=== PATIENT | male | born 1985 | race Caucasian/White ===

== ENCOUNTER → 2020-02-19 | Outpatient (CLI) | payer OTHER ==
[~2020-02-19] MED LIST: ANTIBIOTIC PO; DEXT10TA9 PO; HYDR1CAP2 PO
--- NOTE | 2020-02-19 08:10 | Diagnostic Imaging Report ---
INDICATION: Epigastric pain. TECHNIQUE: Multiple grayscale sonographic images were obtained of the right upper quadrant of the abdomen. CORRELATION STUDY: None FINDINGS: LIVER: There is uniform echotexture within the visualized portions of the liver. There is normal, hepatopedal direction of flow within the main portal vein. Liver length is normal, 18.6 cm. GALLBLADDER: The gallbladder demonstrates no definitive shadowing gallstones. No abnormal gallbladder wall thickening or pericholecystic fluid. COMMON BILE DUCT: Nondilated at 4 mm. PANCREAS: Visualized portions appearing unremarkable. RIGHT KIDNEY: Measures 10.9 x 5.3 x 5.3 cm. No hydronephrosis. AORTA/IVC: Not well visualized. OTHER: None. IMPRESSION: 1. Negative appearing right upper quadrant abdominal ultrasound. Dictated by: Dictated on workstation # [id number]
== END ==
LOC: RAD 07:03
PROVIDERS: ATTEND Surgery
DX: R10.13 Epigastric pain (principal)
CPT/HCPCS: 76705

== ENCOUNTER 2020-02-21 05:36 | Outpatient (RCR) | payer OTHER ==
[~2020-02-21] VITALS: Ht 180.3 cm; Wt 116.8 kg
== END 2020-02-21 13:42 | disposition home or self-care (01) ==
LOC: PREOP 05:36
PROVIDERS: ATTEND Surgery
DX: Z01.812 Encounter for preprocedural laboratory examination (principal); Z20.828 Contact with and (suspected) exposure to other viral communicable diseases; R14.2 Eructation; R10.13 Epigastric pain
CPT/HCPCS: 87635

== ENCOUNTER 2020-02-25 10:09 | Day surgery (SDC) | payer OTHER ==
[~2020-02-25] VITALS: Ht 180.3 cm; Wt 116.8 kg
[2020-02-25] MEDS ORDERED: LACTATED RINGERS 1,000 ML IV STA (10:16)
[2020-02-25] MEDS ORDERED: LACTATED RINGERS 1,000 ML IV ONE (10:17)
[2020-02-25 10:20] VITALS: BP 132/86
[2020-02-25] MEDS ORDERED: HURRICAINE EXT TUBE (BENZOCAINE) XX PRN (10:30)
--- NOTE | 2020-02-25 10:31 | Progress Note-Pre Operative ---
Pre-Operative Progress Note H&P Reviewed The H&P was reviewed, patient examined and no changes noted. Time Seen by Provider: 10:30 Date H&P Reviewed: Feb 25, 2020 Time H&P Reviewed: 10:30 Pre-Operative Diagnosis: Epigastric pain TOSHIA LEYVA DO Feb 25, 2020 10:31
--- OUTSIDE RECORDS SUMMARY | 2020-02-25 10:36 | XMS REPORT | CCD ---
Author Norbert Mancia Organization Celeste Pereyra MD, [facility] Address [address] [place] [address] Phone Care Team Providers Care Behavioral Health Case Manager Name Role Phone PP Unavailable CCM Unavailable Summary Purpose Interface Exchange Insurance Providers Payer name Policy type / Coverage type Covered alliance party ID Effective Begin Date Effective End Date [employer] Commercial Insurance [id number] Unknown Family history Mother Diagnosis Age At Onset Cancer Unknown Diabetes Unknown Social History Social History Element Codes Description Effective Dates Marital status Unknown M kelvin Bosch 09/14/[address]: 7385213 Former smoker Quit in October 2017 11/25/2017 Number of children Unknown 1 12/22/2015 Number of years using tobacco Unknown 5 - 10 12/22/2015 Number of cigarettes/day Unknown 10 (Half a pack) 12/22/2015 Alcohol history Unknown occasionally drinks alcohol 12/22/2015 Frequency of drinks SNOMED CT: 882624341 1-4 drinks per week 12/22/2015 Allergies, Adverse Reactions, Alerts Substance Reaction Codes Entered Date Inactivated Date Status Penicillin Unknown 09/14/2018 No In active Date Active Past Medical History Illness Codes Condition Status Onset Date Resolved Date Allergic contact jarrod matitis due to plants, except food ICD-9: 692.6 ICD-10: L23.7 Active 04/11/2019 Unknown Hidradenitis suppura tiva ICD-9: 705.83 ICD-10: L73.2 Active 05/04/2016 Unknown Localized edema ICD-9: 782.3 ICD-10: R60.0 Active 02/09/2019 Unknown Other fatigue ICD-9: 780.79 ICD-10: R53.83 Active 02/09/2019 Unknown Other malaise ICD-9: 780.79 ICD-10: R53.81 Active 02/09/2019 Unknown Acute laryngopharyng itis ICD-9: 465.0 ICD-10: J06.0 Active 09/14/2018 Unknown Fever, unspecified ICD- 9: 780.60 ICD-10: R50.9 Active 09/14/2018 Unknown Muscle spasm of back ICD-9: 724.8 ICD-10: M62.830 Active 08/01/2018 Unknown Pain in left shoulder ICD-9: 719.41 ICD-10: M25.512 Active 08/01/2018 Unknown Attention-deficit hy peractivity disorder, predominantly inattentive type ICD-9: 314.01 ICD-10: F90.0 Active 12/12/2017 Unknown Generalized anxiety disorder ICD-9: 300.02 ICD-10: F41.1 Active 02/04/2016 Unknown Cutaneous abscess of buttock ICD-9: 682.5 ICD-10: L02.31 Active 11/17/2016 Unknown Cutaneous abscess of left axilla ICD-9: 682.3 ICD-10: L02.412 Active 03/07/2016 Unknown Pain in right hand ICD- 9: 729.5 ICD-10: M79.641 Active 09/27/2016 Unknown Cutaneous abscess of right lower limb ICD-9: 682.6 ICD-10: L02.415 Active 05/04/2016 Unknown Other acute sinusitis ICD-9: 461.8 ICD-10: J01.80 Active 03/07/2016 Unknown Other otitis externa , right ear ICD-9: 380.22 ICD-10: H60.8X1 Active 03/07/2016 Unknown Acne vulgaris ICD-9: 706.1 ICD-10: L70.0 Active 02/04/2016 Unknown Plantar wart ICD-9: 078.12 ICD-10: B07.0 Active 02/04/2016 Unknown 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] ICD-9: 705.81 ICD-10: L30.1 Active 12/21/2015 Unknown Other obesity due to excess calories ICD-9: 278.00 ICD-10: E66.09 Active 12/21/2015 Unknown Problems Condition Codes Effectiv e Dates Condition Status Allergic contact jarrod matitis due to plants, except food ICD-9: 692.6 ICD-10: L23.7 04/11/2019 Active Hidradenitis suppura tiva ICD-9: 705.83 ICD-10: L73.2 05/04/2016 Active Localized edema ICD-9: 782.3 ICD-10: R60.0 02/09/2019 Active Other fatigue ICD-9: 780.79 ICD-10: R53.83 02/09/2019 Active Other malaise ICD-9: 780.79 ICD-10: R53.81 02/09/2019 Active Acute laryngopharyng itis ICD-9: 465.0 ICD-10: J06.0 09/14/2018 Active Fever, unspecified ICD- 9: 780.60 ICD-10: R50.9 09/14/2018 Active Muscle spasm of back ICD-9: 724.8 ICD-10: M62.830 08/01/2018 Active Pain in left shoulder ICD-9: 719.41 ICD-10: M25.512 08/01/2018 Active Attention-deficit hy peractivity disorder, predominantly inattentive type ICD-9: 314.01 ICD-10: F90.0 12/12/2017 Active Generalized anxiety disorder ICD-9: 300.02 ICD-10: F41.1 02/04/2016 Active Cutaneous abscess of buttock ICD-9: 682.5 ICD-10: L02.31 11/17/2016 Active Cutaneous abscess of left axilla ICD-9: 682.3 ICD-10: L02.412 03/07/2016 Active Pain in right hand ICD- 9: 729.5 ICD-10: M79.641 09/27/2016 Active Cutaneous abscess of right lower limb ICD-9: 682.6 ICD-10: L02.415 05/04/2016 Active Other acute sinusitis ICD-9: 461.8 ICD-10: J01.80 03/07/2016 Active Other otitis externa , right ear ICD-9: 380.22 ICD-10: H60.8X1 03/07/2016 Active Acne vulgaris ICD-9: 706.1 ICD-10: L70.0 02/04/2016 Active Plantar wart ICD-9: 078.12 ICD-10: B07.0 02/04/2016 Active 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] ICD-9: 705.81 ICD-10: L30.1 12/21/2015 Active Other obesity due to excess calories ICD-9: 278.00 ICD-10: E66.09 12/21/2015 Active Medications Medication Codes Instruc tions Start Date Stop Date Sta tus Fill Instructions Kenalog 40 mg/mL rodrigo pension for injection RxNorm: 9408514 Milliliter(s) Inj 04/11/2019 04/11/2019 In active prednisone 10 mg tablet RxNorm: 153616 1 Tablet(s) PO 04/11/2019 No Stop Date Active 6,5,4,3,2,1 Adderall 10 mg tablet RxNorm: 931080 1 Tablet(s) PO BID 02/20/2019 03/21/2019 Inactive potassium chloride E R 10 mEq tablet,extended release RxNorm: 172178 1 Tablet(s) PO daily when taking your lasix 02/09/2019 02/11/2019 Inactive prednisone 20 mg tablet RxNorm: 836471 3 Tablet(s) PO daily 02/09/2019 02/13/2019 Inactive doxycycline hyclate 100 mg capsule RxNorm: 1845340 1 Capsule(s) PO BID 02/09/2019 02/18/2019 In active Lasix 20 mg tablet RxNorm: 421801 1 Tablet(s) PO daily 02/09/2019 02/11/2019 Inactive Adderall 10 mg tablet RxNorm: 774171 1 Tablet(s) PO BID 01/11/2019 02/09/2019 Inactive Kenalog 40 mg/mL rodrigo pension for injection RxNorm: 5757847 Milliliter(s) Inj 12/29/2018 12/29/2018 In active prednisone 20 mg tablet RxNorm: 614335 3 Tablet(s) PO daily 12/29/2018 01/02/2019 Inactive doxycycline hyclate 100 mg capsule RxNorm: 5828231 1 Capsule(s) PO BID 12/29/2018 01/07/2019 In active Adderall 10 mg tablet RxNorm: 563862 1 Tablet(s) PO BID 12/15/2018 01/10/2019 Inactive Bactrim DS 800 mg-16 0 mg tablet RxNorm: 516114 1 Tablet(s) PO BID 11/06/2018 11/25/2018 Inactive prednisone 20 mg tablet RxNorm: 426782 3 Tablet(s) PO daily 11/06/2018 11/10/2018 Inactive cefdinir 300 mg capsule RxNorm: 140065 1 Capsule(s) PO BID 09/14/2018 09/23/2018 Inactive Zithromax Z-Molina 250 mg tablet RxNorm: 315465 1 Tablet(s) PO UD 09/07/2018 09/11/2018 Inactive zpack as directed Adderall 10 mg tablet RxNorm: 440714 1 Tablet(s) PO BID 09/07/2018 10/06/2018 Inactive Zorvolex 18 mg capsule RxNorm: 9485675 1 Capsule(s) PO TID 08/10/2018 No Stop Date Active tramadol 50 mg tablet RxNorm: 273486 1 Tablet(s) PO QID as needed 08/09/2018 08/18/2018 Inactive baclofen 10 mg tablet RxNorm: 492538 1 Tablet(s) PO TID as needed muscle spas ms 08/09/2018 08/13/2018 In active baclofen 10 mg tablet RxNorm: 084004 1 Tablet(s) PO TID as needed muscle spas ms 08/01/2018 08/05/2018 In active prednisone 20 mg tablet RxNorm: 566661 3 Tablet(s) PO daily 08/01/2018 08/05/2018 Inactive diazepam 2 mg tablet RxNorm: 530327 Tablet(s) TAKE 1/2 TABLET BY MOUTH TWICE DAILY NEEDED FOR ANXIETY 07/21/2018 08/19/2018 Inactive Adderall 10 mg tablet RxNorm: 230084 1 Tablet(s) PO BID 07/14/2018 08/12/2018 Inactive Adderall 10 mg tablet RxNorm: 641312 1 Tablet(s) PO BID 05/26/2018 06/24/2018 Inactive Adderall 10 mg tablet RxNorm: 754456 1 Tablet(s) PO BID 04/28/2018 05/25/2018 Inactive Adderall 5 mg tablet RxNorm: 777842 1 Tablet(s) PO QAM as needed 04/04/2018 04/27/2018 Inactive diazepam 2 mg tablet RxNorm: 724643 Tablet(s) TAKE 1/2 TABLET BY MOUTH TWICE DAILY NEEDED FOR ANXIETY 04/04/2018 05/02/2018 Inactive Adderall XR 20 mg ca psule,extended release RxNorm: 569647 1 Capsule(s) PO daily 03/13/2018 04/03/2018 In active Kenalog 40 mg/mL rodrigo pension for injection RxNorm: 9123177 1 Milliliter(s) Inj 03/01/2018 03/01/2018 In active Adderall 5 mg tablet RxNorm: 723096 1 Tablet(s) PO QAM as needed 02/13/2018 03/14/2018 Inactive Adderall XR 20 mg ca psule,extended release RxNorm: 251063 1 Capsule(s) PO daily 02/13/2018 03/12/2018 In active prednisone 20 mg tablet RxNorm: 915548 2 Tablet(s) PO daily 02/10/2018 02/14/2018 Inactive Bactrim DS 800 mg-16 0 mg tablet RxNorm: 770151 1 Tablet(s) PO BID 01/16/2018 02/04/2018 Inactive Adderall 5 mg tablet RxNorm: 307544 2 Tablet(s) PO QAM and 1 PO QPM 01/16/2018 02/12/2018 In active Bactrim DS 800 mg-16 0 mg tablet RxNorm: 441877 1 Tablet(s) PO BID 01/04/2018 01/15/2018 Inactive Adderall 5 mg tablet RxNorm: 018427 2 Tablet(s) PO QAM and 1 PO QPM 12/13/2017 01/11/2018 In active Zithromax Z-Molina 250 mg tablet RxNorm: 650540 1 Tablet(s) PO UD 11/25/2017 03/12/2018 Inactive diazepam 2 mg tablet RxNorm: 195816 Tablet(s) TAKE 1/2 TABLET BY MOUTH TWICE DAILY NEEDED FOR ANXIETY 11/18/2017 12/17/2017 Inactive diazepam 2 mg tablet RxNorm: 951474 Tablet(s) TAKE 1/2 TABLET BY MOUTH TWICE DAILY NEEDED FOR ANXIETY 08/30/2017 10/28/2017 Inactive diazepam 2 mg tablet RxNorm: 554685 Tablet(s) TAKE 1/2 TABLET BY MOUTH TWICE DAILY NEEDED FOR ANXIETY 07/19/2017 08/29/2017 Inactive diazepam 2 mg tablet RxNorm: 299527 TAKE 1/2 TABLET BY MOUTH TWICE DAILY NEEDED FOR ANXIETY 07/15/2017 07/18/2017 Inactive Bactrim DS 800 mg-16 0 mg tablet RxNorm: 357925 1 Tablet(s) PO BID 06/01/2017 06/20/2017 Inactive diazepam 2 mg tablet RxNorm: 018475 1/2 Tablet(s) PO BID as needed anxiety 06/01/2017 06/29/2017 In active tramadol 50 mg tablet RxNorm: 492701 1 Tablet(s) PO QID as needed 04/14/2017 04/23/2017 Inactive Bactrim DS 800 mg-16 0 mg tablet RxNorm: 644081 1 Tablet(s) PO BID 04/14/2017 05/03/2017 Inactive diazepam 2 mg tablet RxNorm: 185613 1/2 Tablet(s) PO BID as needed anxiety 03/02/2017 04/30/2017 In active Zithromax Z-Molina 250 mg tablet RxNorm: 214693 1 Tablet(s) PO UD 03/02/2017 07/18/2017 Inactive Bactrim DS 800 mg-16 0 mg tablet RxNorm: 354419 1 Tablet(s) PO BID 03/01/2017 03/20/2017 Inactive diazepam 2 mg tablet RxNorm: 292112 1/2 Tablet(s) PO BID as needed anxiety 01/21/2017 02/19/2017 In active Bactrim DS 800 mg-16 0 mg tablet RxNorm: 026623 1 Tablet(s) PO BID 01/21/2017 01/30/2017 Inactive Bactrim DS 800 mg-16 0 mg tablet RxNorm: 246391 1 Tablet(s) PO BID 11/17/2016 11/26/2016 Inactive diazepam 2 mg tablet RxNorm: 203400 1/2 Tablet(s) PO BID as needed anxiety 11/12/2016 01/10/2017 In active diazepam 2 mg tablet RxNorm: 768599 1/2 Tablet(s) PO BID as needed anxiety 10/18/2016 12/14/2016 In active Zithromax Z-Molina 250 mg tablet RxNorm: 423699 1 Tablet(s) PO UD 09/27/2016 03/01/2017 Inactive diazepam 2 mg tablet RxNorm: 085418 1/2 Tablet(s) PO BID as needed anxiety 09/13/2016 11/11/2016 In active diazepam 2 mg tablet RxNorm: 674539 1/2 Tablet(s) PO BID as needed anxiety 07/07/2016 09/17/2016 In active Levaquin 500 mg tablet RxNorm: 123489 1 Tablet(s) PO daily 06/01/2016 05/31/2016 Inactive Levaquin 500 mg tablet RxNorm: 162418 1 Tablet(s) PO daily 06/01/2016 06/07/2016 Inactive Levaquin 500 mg tablet RxNorm: 292514 1 Tablet(s) PO daily 05/05/2016 05/04/2016 Inactive Levaquin 500 mg tablet RxNorm: 166069 1 Tablet(s) PO daily 05/05/2016 05/11/2016 Inactive minocycline 100 mg c apsule RxNorm: 804684 1 CAPSULE(S) PO BID W HEN NOT HAVING ACUTE FLARE DECREASE TO ONCE DAILY 04/21/2016 05/20/2016 Inactive Ciprodex 0.3 %-0.1 % ear drops,suspension RxNorm: 009095 4 Drop(s) OTIC BID 03/08/2016 03/14/2016 In active Zithromax Z-Molina 250 mg tablet RxNorm: 400323 Tablet(s) PO 03/08/2016 09/26/2016 Inactive diazepam 2 mg tablet RxNorm: 655300 1/2 Tablet(s) PO BID as needed anxiety 2016 04/18/2016 In active mupirocin 2 % topica l ointment RxNorm: 481138 1 Application TOP BID 02/05/2016 No Stop Date Active minocycline 100 mg c apsule RxNorm: 623112 1 Capsule(s) PO BID w hen not having acute flare decrease to once daily 02/05/2016 03/05/2016 Inactive Bactrim DS 800 mg-16 0 mg tablet RxNorm: 673728 1 Tablet(s) PO BID 02/05/2016 02/18/2016 Inactive diazepam 2 mg tablet RxNorm: 359134 1/2 Tablet(s) PO BID as needed anxiety 02/05/2016 02/05/2016 In active betamethasone alberto te 0.1 % topical cream RxNorm: 541821 1 Application TOP BID as needed rash 12/22/2015 No Stop Date Active minocycline 100 mg c apsule RxNorm: 363190 1 Capsule(s) PO BID w hen not having acute flare decrease to once daily 12/22/2015 01/20/2016 Inactive Medication Administered Medication Codes Instruc tions Start Date Status Kenalog 40 mg/mL suspension for injection RxNorm: 2506180 Milliliter 04/11/2019 Ac tive Kenalog 40 mg/mL suspension for injection RxNorm: 5858122 Milliliter 12/29/2018 No longer Active Kenalog 40 mg/mL suspension for injection RxNorm: 2781218 1Milliliter 03/01/2018 N o longer Active Immunizations No Immunization data Assessments Condition Codes Effectiv e Dates Allergic contact dermatitis due to plants, except food ICD-10: L23.7 ICD-9: 692.6 04/11/2019 Localized edema ICD-10: R60.0 ICD-9: 782.3 02/09/2019 Other malaise ICD-10: R53.81 ICD-9: 780.79 02/09/2019 Hidradenitis suppurativa ICD-10: L73 .2 ICD-9: 705.83 02/09/2019 Other fatigue ICD-10: R53.83 ICD-9: 780.79 02/09/2019 Acute laryngopharyngitis ICD-10: J06 .0 ICD-9: 465.0 09/14/2018 Fever, unspecified ICD-10: R50.9 ICD-9: 780.60 09/14/2018 Pain in left shoulder ICD-10: M25.51 2 ICD-9: 719.41 08/09/2018 Muscle spasm of back ICD-10: M62.830 ICD-9: 724.8 08/09/2018 Attention-deficit hyperactivity disorder , 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 ICD-9: 314.01 02/10/2018 Generalized anxiety disorder ICD-10: F41.1 ICD-9: 300.02 02/10/2018 Cutaneous abscess of buttock ICD-10: L02.31 ICD-9: 682.5 11/17/2016 Cutaneous abscess of left axilla ICD -10: L02.412 ICD-9: 682.3 09/27/2016 Pain in right hand ICD-10: M79.641 ICD-9: 729.5 09/27/2016 Cutaneous abscess of right lower limb ICD-10: L02.415 ICD-9: 682.6 05/05/2016 Other otitis externa, right ear ICD- 10: H60.8X1 ICD-9: 380.22 03/08/2016 Other acute sinusitis ICD-10: J01.80 ICD-9: 461.8 03/08/2016 Acne vulgaris ICD-10: L70.0 ICD-9: 706.1 02/05/2016 Plantar wart ICD-10: B07.0 ICD-9: 078.12 02/05/2016 Other obesity due to excess calories ICD-10: E66.09 ICD-9: 278.00 12/22/2015 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] ICD-10: L30. 1 ICD-9: 705.81 12/22/2015 Reason For Visit Reason For Visit Effective Dates Notes rash 04/11/2019 edema 02/09/2019 skin lesion 12/29/2018 sore throat 09/14/2018 shoulder pain 08/09/2018 shoulder pain 08/01/2018 medication follow up 03/01/2018 medication follow up 02/10/2018 anxiety 12/12/2017 diaze mere anxiety 11/25/2017 diaze mere skin lesion 03/02/2017 skin lesion 11/17/2016 skin lesion 09/27/2016 skin lesion 05/05/2016 earache 03/08/2016 anxiety 02/05/2016 anxiety 12/22/2015 Results Observation Observation Code Item Item Code Result Date C-Reactive Protein Qnt Crqnt CRP 0.4 mg/dl 02/09/2019 Comp Metabolic Vjw083 NA 138 mEq/L 02/09/2019 Comp Metabolic Ois497 K 3.8 mEq/L 02/09/2019 Comp Metabolic Ywm902 CL 102 mEq/L 02/09/2019 Comp Metabolic Wqu846 CO2 26.0 mEq/L 02/09/2019 Comp Metabolic Jro758 AN ION GAP 14 02/09/2019 Comp Metabolic Rtv083 GL UCOSE 92 mg/dL 02/09/2019 Comp Metabolic Hbp342 Cr eat 1.0 mg/dL 02/09/2019 Comp Metabolic Ckg365 eG FR 88 ml/min/1.73m2 02/09 Comp Metabolic Rqr272 BUN 23 mg/dL 02/09/2019 Comp Metabolic Vxy171 B/ C Ratio 22.5 Ratio 02/09/2019 Comp Metabolic Zur741 CA LCIUM 9.4 mg/dL 02/09/2019 Comp Metabolic Dec848 AL K PHOS 49 U/L 02/09/2019 Comp Metabolic Tqg736 T(SGOT) 22 U/L 02/09/2019 Comp Metabolic Bsd674 AL T(SGPT) 26 U/L 02/09/2019 Comp Metabolic Rxb072 BI LI T 0.4 mg/dL 02/09/2019 Comp Metabolic Dcv696 AL BUMIN 4.3 g/dL 02/09/2019 Comp Metabolic Nis197 TP RO 7.0 g/dL 02/09/2019 Comp Metabolic Oyg666 GL OB 2.7 g/dL 02/09/2019 Comp Metabolic Zfa779 A/ G Ratio 1.6 Ratio 02/09/2019 Comp Metabolic Uml529 Os mo 279 mOsmo 02/09/2019 Cbc With Differential Ord2 WBC 12.56 K/ul 02/09/2019 Cbc With Differential Ord2 RBC 5.44 M/ul 02/09/2019 Cbc With Differential Ord2 HGB 16.2 g/dl 02/09/2019 Cbc With Differential Ord2 HCT 49.1 % 02/09/2019 Cbc With Differential Ord2 Neut% 65.9 % 02/09/2019 Cbc With Differential Ord2 Lymph% 26.0 % 02/09/2019 Cbc With Differential Ord2 MCV 90.3 fl 02/09/2019 Cbc With Differential Ord2 [place]% 6.4 % 02/09/2019 Cbc With Differential Ord2 MCH 29.8 pg 02/09/2019 Cbc With Differential Ord2 MCHC 33.0 pg 02/09/2019 Cbc With Differential Ord2 Eos% 1.4 % 02/09/2019 Cbc With Differential Ord2 PLT 248 K/ul 02/09/2019 Cbc With Differential Ord2 Baso% 0.3 % 02/09/2019 Cbc With Differential Ord2 RDW 14.4 % 02/09/2019 Cbc With Differential Ord2 Neut ABS# 8.26 K/ul 02/09/2019 Cbc With Differential Ord2 Lymph ABS# 3.27 K/ul 02/09/2019 Cbc With Differential Ord2 [place] ABS# 0.8 K/ul 02/09/2019 Cbc With Differential Ord2 Eos ABS# 0.2 K/ul 02/09/2019 Cbc With Differential Ord2 Baso ABS# 0.0 K/ul 02/09/2019 Sed Rate Ord21 ESR 2 mm/hr 02/09/2019 Tsh Ord6 TSH (3rd IS) 1.21 uIU/mL 02/09/2019 C RAP A SC 7307438 Strep A Negative 09/14/2018 C A/B FLU 1988846 Influe nza A Scr Negative 09/14/2018 C A/B FLU 0453740 Influe nza B Scr Negative 09/14/2018 C A/B FLU [id number] Influe nza Intrp B AG:PRID:PT:NOSE:NOM:IF See Footnote 09/14/2018 Tsh Ord6 hTSH II 1.82 uIU/mL 02/05/2016 Comp Metabolic Frv440 NA 139 mEq/L 02/05/2016 Comp Metabolic Nfg805 K 4.2 mEq/L 02/05/2016 Comp Metabolic Hgt453 CL 103 mEq/L 02/05/2016 Comp Metabolic Nnu345 CO2 29.0 mEq/L 02/05/2016 Comp Metabolic Tfg718 AN ION GAP 11 02/05/2016 Comp Metabolic Pjt799 GL UCOSE 71 mg/dL 02/05/2016 Comp Metabolic Vko322 Cr eat 0.9 mg/dL 02/05/2016 Comp Metabolic Cnj144 eG FR 101 ml/min/1.73m2 01/14 Comp Metabolic Cwm999 BUN 17 mg/dL 02/05/2016 Comp Metabolic Lui154 B/ C Ratio 18.5 Ratio 02/05/2016 Comp Metabolic Gzj542 CA LCIUM 9.4 mg/dL 02/05/2016 Comp Metabolic Ain019 AL K PHOS 63 U/L 02/05/2016 Comp Metabolic Tps266 T(SGOT) 30 U/L 02/05/2016 Comp Metabolic Giq526 AL T(SGPT) 40 U/L 02/05/2016 Comp Metabolic Nhn900 BI LI T 0.5 mg/dL 02/05/2016 Comp Metabolic Gzd492 AL BUMIN 4.2 g/dL 02/05/2016 Comp Metabolic Fbp831 TP RO 7.2 g/dL 02/05/2016 Comp Metabolic Gzt171 GL OB 3.0 g/dL 02/05/2016 Comp Metabolic Lnt663 A/ G Ratio 1.4 Ratio 02/05/2016 Comp Metabolic Vzx449 Os mo 278 mOsmo 02/05/2016 Cbc With Differential Ord2 WBC 12.43 K/ul 02/05/2016 Cbc With Differential Ord2 RBC 5.41 M/ul 02/05/2016 Cbc With Differential Ord2 HGB 16.4 g/dl 02/05/2016 Cbc With Differential Ord2 HCT 50.0 % 02/05/2016 Cbc With Differential Ord2 Neut% 66.4 % 02/05/2016 Cbc With Differential Ord2 MCV 92.4 fl 02/05/2016 Cbc With Differential Ord2 Lymph% 23.4 % 02/05/2016 Cbc With Differential Ord2 MCH 30.3 pg 02/05/2016 Cbc With Differential Ord2 [place]% 8.9 % 02/05/2016 Cbc With Differential Ord2 MCHC 32.8 pg 02/05/2016 Cbc With Differential Ord2 Eos% 1.1 % 02/05/2016 Cbc With Differential Ord2 PLT 199 K/ul 02/05/2016 Cbc With Differential Ord2 Baso% 0.2 % 02/05/2016 Cbc With Differential Ord2 RDW 14.2 % 02/05/2016 Cbc With Differential Ord2 Neut ABS# 8.24 K/ul 02/05/2016 Cbc With Differential Ord2 Lymph ABS# 2.91 K/ul 02/05/2016 Cbc With Differential Ord2 [place] ABS# 1.1 K/ul 02/05/2016 Cbc With Differential Ord2 Eos ABS# 0.1 K/ul 02/05/2016 Cbc With Differential Ord2 Baso ABS# 0.0 K/ul 02/05/2016 Review of Systems System Result Effective Dates Constitutional No recent illness 04/11/2019 Constitutional No chills 04/11/2019 Constitutional No diaphoresis 04/11/2019 Constitutional No fever 04/11/2019 Eyes No eye erythema Ears/Nose/Throat/Neck No nasal discharge 04/11/2019 Cardiovascular No chest pain/pressure 04/11/2019 Respiratory No cough Neurologic No alteration of consciousness 04/11/2019 Neurologic No mental status change 04/11/2019 Dermatologic rash 2018 Constitutional No recent illness 02/09/2019 Constitutional No chills 02/09/2019 Constitutional No diaphoresis 02/09/2019 Constitutional No fever 02/09/2019 Eyes No eye erythema Ears/Nose/Throat/Neck No nasal discharge 02/09/2019 Cardiovascular No chest pain/pressure 02/09/2019 Cardiovascular No dyspnea 02/09/2019 Respiratory No chest congestion 02/09/2019 Respiratory No cough Gastrointestinal No abdominal pain 02/09/2019 Neurologic No alteration of consciousness 02/09/2019 Neurologic No mental status change 02/09/2019 Dermatologic sores 02/09 Cardiovascular edema Constitutional No recent illness 12/29/2018 Constitutional No chills 12/29/2018 Constitutional No diaphoresis 12/29/2018 Constitutional No fever 12/29/2018 Eyes No eye erythema Ears/Nose/Throat/Neck No nasal discharge 12/29/2018 Cardiovascular No chest pain/pressure 12/29/2018 Respiratory No cough Neurologic No alteration of consciousness 12/29/2018 Neurologic No mental status change 12/29/2018 Dermatologic folliculitis 12/29/2018 Constitutional recent illness 09/14/2018 Constitutional anorexia 09/14/2018 Constitutional chills Constitutional night sweats 09/14/2018 Constitutional diaphoresis 09/14/2018 Constitutional fatigue 0 09/14/2018 Constitutional fever Constitutional No insomnia 09/14/2018 Constitutional No malaise 09/14/2018 Constitutional No weight loss 09/14/2018 Constitutional No weight gain 09/14/2018 Eyes No eye erythema Eyes No eye discharge Ears/Nose/Throat/Neck nasal discharge 09/14/2018 Ears/Nose/Throat/Neck otalgia 09/14/2018 Ears/Nose/Throat/Neck sore throat 09/14/2018 Respiratory cough 2018 Gastrointestinal No vomiting 09/14/2018 Gastrointestinal No nausea 09/14/2018 Gastrointestinal No diarrhea 09/14/2018 Genitourinary/Nephrology No dysuria 09/14/2018 Musculoskeletal myalgias 09/14/2018 Dermatologic No rash Constitutional No recent illness 08/09/2018 Constitutional No chills 08/09/2018 Constitutional No fever 08/09/2018 Eyes No eye erythema Ears/Nose/Throat/Neck No nasal discharge 08/09/2018 Cardiovascular No chest pain/pressure 08/09/2018 Cardiovascular No dyspnea 08/09/2018 Respiratory No cough Respiratory No dyspnea 1 10/10/2017 Musculoskeletal joint complaint 08/09/2018 Neurologic No alteration of consciousness 08/09/2018 Neurologic No mental status change 08/09/2018 Constitutional No recent illness 08/01/2018 Constitutional No chills 08/01/2018 Constitutional No fever 08/01/2018 Eyes No eye erythema Ears/Nose/Throat/Neck No nasal discharge 08/01/2018 Cardiovascular No chest pain/pressure 08/01/2018 Cardiovascular No dyspnea 08/01/2018 Respiratory No cough Respiratory No dyspnea 1 10/02/2017 Musculoskeletal joint complaint 08/01/2018 Neurologic No alteration of consciousness 08/01/2018 Neurologic No mental status change 08/01/2018 Constitutional No recent illness 03/01/2018 Constitutional No chills 03/01/2018 Constitutional No diaphoresis 03/01/2018 Constitutional No fever 03/01/2018 Eyes No eye erythema Ears/Nose/Throat/Neck No nasal allergies 03/01/2018 Ears/Nose/Throat/Neck No nasal discharge 03/01/2018 Cardiovascular No chest pain/pressure 03/01/2018 Respiratory No dyspnea 0 03/01/2018 Dermatologic sores 03/01 Neurologic No alteration of consciousness 03/01/2018 Neurologic No mental status change 03/01/2018 Constitutional No recent illness 02/10/2018 Constitutional No chills 02/10/2018 Constitutional No diaphoresis 02/10/2018 Constitutional No fever 02/10/2018 Eyes No eye erythema Ears/Nose/Throat/Neck No nasal discharge 02/10/2018 Ears/Nose/Throat/Neck No nasal allergies 02/10/2018 Cardiovascular No chest pain/pressure 02/10/2018 Cardiovascular No dyspnea 02/10/2018 Respiratory No cough Respiratory No chest congestion 02/10/2018 Gastrointestinal No abdominal pain 02/10/2018 Dermatologic No rash Dermatologic sores 02/10 Neurologic No alteration of consciousness 02/10/2018 Neurologic No mental status change 02/10/2018 Psychiatric anxiety 06/2 04/2018 Constitutional No recent illness 12/12/2017 Constitutional No chills 12/12/2017 Constitutional No diaphoresis 12/12/2017 Constitutional No fever 12/12/2017 Eyes No eye erythema Ears/Nose/Throat/Neck No nasal allergies 12/12/2017 Ears/Nose/Throat/Neck No nasal discharge 12/12/2017 Cardiovascular No chest pain/pressure 12/12/2017 Respiratory No chest congestion 12/12/2017 Respiratory No cough Dermatologic sores 12/12 Neurologic No alteration of consciousness 12/12/2017 Neurologic No mental status change 12/12/2017 Psychiatric anxiety 11/15 Constitutional No recent illness 11/25/2017 Constitutional No chills 11/25/2017 Constitutional No diaphoresis 11/25/2017 Constitutional No fever 11/25/2017 Eyes No eye erythema Ears/Nose/Throat/Neck No nasal allergies 11/25/2017 Ears/Nose/Throat/Neck No nasal discharge 11/25/2017 Cardiovascular No chest pain/pressure 11/25/2017 Dermatologic sores 11/25 Neurologic No alteration of consciousness 11/25/2017 Neurologic No mental status change 11/25/2017 Respiratory No cough Respiratory No chest congestion 11/25/2017 Psychiatric anxiety 11/13 Constitutional No recent illness 03/02/2017 Constitutional No chills 03/02/2017 Constitutional No diaphoresis 03/02/2017 Constitutional No fever 03/02/2017 Eyes No eye erythema Ears/Nose/Throat/Neck No nasal allergies 03/02/2017 Ears/Nose/Throat/Neck No nasal discharge 03/02/2017 Cardiovascular No chest pain/pressure 03/02/2017 Respiratory No dyspnea 0 03/02/2017 Dermatologic sores 03/02 Neurologic No alteration of consciousness 03/02/2017 Neurologic No mental status change 03/02/2017 Constitutional No recent illness 11/17/2016 Constitutional No fever 11/17/2016 Constitutional No diaphoresis 11/17/2016 Constitutional No chills 11/17/2016 Eyes No eye erythema 12/2016 Ears/Nose/Throat/Neck No nasal discharge 11/17/2016 Ears/Nose/Throat/Neck No nasal allergies 11/17/2016 Cardiovascular No chest pain/pressure 11/17/2016 Respiratory No dyspnea 0 11/17/2016 Dermatologic sores 11/17 Neurologic No alteration of consciousness 11/17/2016 Neurologic No mental status change 11/17/2016 Constitutional No recent illness 09/27/2016 Constitutional No fever 09/27/2016 Constitutional No chills 09/27/2016 Eyes No eye erythema Ears/Nose/Throat/Neck No nasal discharge 09/27/2016 Ears/Nose/Throat/Neck No nasal allergies 09/27/2016 Cardiovascular No chest pain/pressure 09/27/2016 Respiratory No cough Respiratory No chest congestion 09/27/2016 Respiratory No dyspnea 0 09/27/2016 Gastrointestinal No abdominal pain 09/27/2016 Musculoskeletal joint complaint 09/27/2016 Dermatologic sores 09/27 Neurologic No alteration of consciousness 09/27/2016 Neurologic No mental status change 09/27/2016 Constitutional No chills 05/05/2016 Constitutional No diaphoresis 05/05/2016 Constitutional No fever 05/05/2016 Ears/Nose/Throat/Neck No nasal allergies 05/05/2016 Ears/Nose/Throat/Neck No nasal discharge 05/05/2016 Cardiovascular No chest pain/pressure 05/05/2016 Cardiovascular No dyspnea 05/05/2016 Respiratory No dyspnea 0 05/05/2016 Gastrointestinal No constipation 05/05/2016 Gastrointestinal No diarrhea 05/05/2016 Musculoskeletal No joint complaint 05/05/2016 Dermatologic sores 05/05 Neurologic No alteration of consciousness 05/05/2016 Neurologic No mental status change 05/05/2016 Eyes No eye erythema Respiratory No chest congestion 05/05/2016 Constitutional No chills 03/08/2016 Constitutional No diaphoresis 03/08/2016 Constitutional No fever 03/08/2016 Eyes No eye erythema Cardiovascular No chest pain/pressure 03/08/2016 Cardiovascular No dyspnea 03/08/2016 Respiratory No dyspnea 0 03/08/2016 Neurologic No alteration of consciousness 03/08/2016 Neurologic No mental status change 03/08/2016 Psychiatric anxiety 02/13 Psychiatric No depression 03/08/2016 Constitutional recent illness 03/08/2016 Ears/Nose/Throat/Neck sinus congestion 03/08/2016 Ears/Nose/Throat/Neck otalgia 03/08/2016 Gastrointestinal No vomiting 03/08/2016 Gastrointestinal No nausea 03/08/2016 Dermatologic sores 03/08 Constitutional No recent illness 02/05/2016 Constitutional No diaphoresis 02/05/2016 Eyes No eye erythema Ears/Nose/Throat/Neck No nasal allergies 02/05/2016 Ears/Nose/Throat/Neck No nasal discharge 02/05/2016 Cardiovascular No chest pain/pressure 02/05/2016 Cardiovascular No dyspnea 02/05/2016 Respiratory No chest congestion 02/05/2016 Respiratory No dyspnea 0 02/05/2016 Gastrointestinal No constipation 02/05/2016 Gastrointestinal No diarrhea 02/05/2016 Neurologic No alteration of consciousness 02/05/2016 Neurologic No mental status change 02/05/2016 Psychiatric anxiety 2 10/2015 Psychiatric No depression 02/05/2016 Constitutional No chills 02/05/2016 Constitutional No fever 02/05/2016 Musculoskeletal No joint complaint 02/05/2016 Dermatologic sores 02/04 Constitutional No recent illness 12/22/2015 Constitutional No malaise 12/22/2015 Constitutional No insomnia 12/22/2015 Constitutional No fever 12/22/2015 Constitutional No fatigue 12/22/2015 Constitutional No diaphoresis 12/22/2015 Constitutional No chills 12/22/2015 Eyes No eye erythema 04/2016 Ears/Nose/Throat/Neck No nasal allergies 12/22/2015 Ears/Nose/Throat/Neck No nasal discharge 12/22/2015 Cardiovascular No chest pain/pressure 12/22/2015 Cardiovascular No dyspnea 12/22/2015 Respiratory No cough 04/2016 Respiratory No chest congestion 12/22/2015 Respiratory No dyspnea 0 12/22/2015 Gastrointestinal No constipation 12/22/2015 Gastrointestinal No diarrhea 12/22/2015 Musculoskeletal swelling 12/22/2015 Dermatologic rash 2015 Neurologic No alteration of consciousness 12/22/2015 Neurologic No mental status change 12/22/2015 Psychiatric anxiety 05/0 04/2016 Psychiatric No depression 12/22/2015 Physical Exam Exam Name System Name It em Name Status Result Effective Dates Notes Full Exam - Dermatology Constitutional general appearance Overall: well nourished 04/11/2019 None Full Exam - Dermatology Constitutional general appearance Overall: well developed 04/11/2019 None Full Exam - Dermatology Constitutional general appearance Overall: in no acute distress 04/11/2019 None Full Exam - Dermatology Eyes conjunctiva/eyelids Overall: clear conjunctiva bilaterally 04/11/2019 None Full Exam - Dermatology Eyes conjunctiva/eyelids Overall: clear corneas 04/11/2019 None Full Exam - Dermatology Eyes conjunctiva/eyelids Overall: normal eyelids 04/11/2019 None Full Exam - Dermatology Ears/Nose/Throat lips/teeth/gingiva Overall: benign lips 04/11/2019 None Full Exam - Dermatology Ears/Nose/Throat oropharynx Overall: clear oral mucosa 04/11/2019 None Full Exam - Dermatology Respiratory respiratory effort/rhythm Overall: no retractions 04/11/2019 None Full Exam - Dermatology Respiratory respiratory effort/rhythm Overall: normal rate 04/11/2019 None Full Exam - Dermatology Musculoskeletal head and neck Overall: head atraumatic 04/11/2019 None Full Exam - Dermatology Psychiatric orientation Overall: oriented to person, place and time 04/11/2019 None Full Exam - Dermatology Psychiatric mood and affect Overall: normal mood and affect 04/11/2019 None Full Exam - Dermatology Integument insp & palp - left upper extremity Color: erythematous 04/11/2019 None Full Exam - Dermatology Integument insp & palp - left upper extremity Location: on the forearm 04/11/2019 None Full Exam - Dermatology Integument insp & palp - left upper extremity Location: on the wrist 04/11/2019 None Full Exam - Dermatology Integument insp & palp - left upper extremity Location: on the hand 04/11/2019 None Full Exam - Dermatology Integument insp & palp - left upper extremity Lesion: vesicle 04/11/2019 None Full Exam - Dermatology Integument insp & palp - right upper extremity Location: on the forearm 04/11/2019 None Full Exam - Dermatology Integument insp & palp - right upper extremity Color: erythematous 04/11/2019 None Full Exam - Dermatology Integument insp & palp - right upper extremity Lesion: vesicle 04/11/2019 None Full Exam - General 1994 Constitutional general appearance Overall: well developed 02/09/2019 None Full Exam - General 1994 Constitutional general appearance Overall: in no acute distress 02/09/2019 None Full Exam - General 1994 Constitutional general appearance Overall: well nourished 02/09/2019 None Full Exam - General 1994 Eyes conjunctiva/eyelids Overall: conjunctiva clear 02/09/2019 None Full Exam - General 1994 Eyes conjunctiva/eyelids Overall: cornea clear 02/09/2019 None Full Exam - General 1994 Eyes conjunctiva/eyelids Overall: eyelids normal 02/09/2019 None Full Exam - General 1994 Ears/Nose/Throat lips/teeth/gingiva Overall: benign lips 02/09/2019 None Full Exam - General 1994 Ears/Nose/Throat oral cavity/pharynx/larynx Overall: oral mucosa clear 02/09/2019 None Full Exam - General 1994 Ears/Nose/Throat oral cavity/pharynx/larynx Overall: oropharyngeal mucosa clear 02/09/2019 None Full Exam - General 1994 Respiratory auscultation Overall: breath sounds clear bilaterally 02/09/2019 None Full Exam - General 1994 Respiratory respiratory effort/rhythm Overall: no retractions 02/09/2019 None Full Exam - General 1994 Respiratory respiratory effort/rhythm Overall: normal rate 02/09/2019 None Full Exam - General 1994 Cardiovascular auscultation of heart Overall: regular rate 02/09/2019 None Full Exam - General 1994 Cardiovascular auscultation of heart Overall: normal heart sounds 02/09/2019 None Full Exam - General 1994 Musculoskeletal head and neck Overall: head atraumatic 02/09/2019 None Full Exam - General 1994 Neurologic cranial nerves Overall: crainial nerves 2 - 12 grossly intact 02/09/2019 None Full Exam - General 1994 Psychiatric orientation/consciousness Overall: oriented to person, place and time 02/09/2019 None Full Exam - General 1994 Psychiatric mood and affect Overall: normal mood and affect 02/09/2019 None Full Exam - General 1994 Psychiatric appearance Overall: well-groomed, good eye contact 02/09/2019 None Full Exam - Dermatology Constitutional general appearance Overall: well nourished 12/29/2018 None Full Exam - Dermatology Constitutional general appearance Overall: well developed 12/29/2018 None Full Exam - Dermatology Constitutional general appearance Overall: in no acute distress 12/29/2018 None Full Exam - Dermatology Eyes conjunctiva/eyelids Overall: clear conjunctiva bilaterally 12/29/2018 None Full Exam - Dermatology Eyes conjunctiva/eyelids Overall: clear corneas 12/29/2018 None Full Exam - Dermatology Eyes conjunctiva/eyelids Overall: normal eyelids 12/29/2018 None Full Exam - Dermatology Ears/Nose/Throat lips/teeth/gingiva Overall: benign lips 12/29/2018 None Full Exam - Dermatology Ears/Nose/Throat oropharynx Overall: clear oral mucosa 12/29/2018 None Full Exam - Dermatology Respiratory respiratory effort/rhythm Overall: no retractions 12/29/2018 None Full Exam - Dermatology Respiratory respiratory effort/rhythm Overall: normal rate 12/29/2018 None Full Exam - Dermatology Musculoskeletal head and neck Overall: head atraumatic 12/29/2018 None Full Exam - Dermatology Psychiatric orientation Overall: oriented to person, place and time 12/29/2018 None Full Exam - Dermatology Psychiatric mood and affect Overall: normal mood and affect 12/29/2018 None Full Exam - Dermatology Integument insp & palp - chest/axillae Lesion: pustule 12/29/2018 None Full Exam - Dermatology Integument insp & palp - chest/axillae Location: on the right axilla 12/29/2018 None Full Exam - Dermatology Integument insp & palp - chest/axillae Color: erythematous 12/29/2018 mild Full Exam - ENT Constitutional general appearance Overall: well nourished 09/14/2018 None Full Exam - ENT Constitutional general appearance Overall: well developed 09/14/2018 None Full Exam - ENT Constitutional general appearance Overall: in no acute distress 09/14/2018 None Full Exam - ENT Neurologic orientation Overall: oriented to person, place a nd time 09/14/2018 None Full Exam - ENT Integument inspection of skin Overall: no rash, lesions 09/14/2018 None Full Exam - ENT Lymphatic palpation of lymph nodes Overall: shotty lymphadenopathy 09/14/2018 None Full Exam - ENT Ears/Nose/Throat otoscopic exam Overall: external auditory canals normal 09/14/2018 None Full Exam - ENT Ears/Nose/Throat otoscopic exam Overall: tympanic membranes normal 09/14/2018 None Full Exam - ENT Ears/Nose/Throat oropharynx Left tonsil: exudate 09/14/2018 None Full Exam - ENT Ears/Nose/Throat oropharynx Left tonsil: erythematous 09/14/2018 None Full Exam - ENT Ears/Nose/Throat oropharynx Right tonsil: exudate 09/14/2018 None Full Exam - ENT Ears/Nose/Throat oropharynx Right tonsil: erythematous 09/14/2018 None Full Exam - ENT Face and Head palpation Overall: no induration, no tendernes s 09/14/2018 None Full Exam - ENT Respiratory auscultation Overall: breath sounds clear bilater ally 09/14/2018 None Full Exam - ENT Respiratory inspection Overall: no retractions 09/14/2018 None Full Exam - ENT Respiratory inspection Overall: normal rate None Full Exam - ENT Cardiovascular auscultation of heart Rate: tachycardia 09/14/2018 None Full Exam - ENT Cardiovascular auscultation of heart Rhythm: regular rhythm 09/14/2018 None Full Exam - Orthopedics Constitutional general appearance Overall: well nourished 08/09/2018 None Full Exam - Orthopedics Constitutional general appearance Overall: well developed 08/09/2018 None Full Exam - Orthopedics Constitutional general appearance Overall: in no acute distress 08/09/2018 None Full Exam - Orthopedics Eyes conjunctiva/eyelids Overall: conjunctiva clear 08/09/2018 None Full Exam - Orthopedics Eyes conjunctiva/eyelids Overall: eyelids normal 08/09/2018 None Full Exam - Orthopedics Ears/Nose/Throat lips/teeth/gingiva Overall: benign lips 08/09/2018 None Full Exam - Orthopedics Ears/Nose/Throat oral cavity/pharynx/larynx Overall: oral mucosa clear 08/09/2018 None Full Exam - Orthopedics Respiratory respiratory effort/rhythm Overall: no retractions 08/09/2018 None Full Exam - Orthopedics Respiratory respiratory effort/rhythm Overall: normal rate 08/09/2018 None Full Exam - Orthopedics MS: head/neck insp & palp - H/N Overall: head atraumatic 08/09/2018 None Full Exam - Orthopedics MS: spine/ri b/pelvis insp & palp - S/R/P Thoracic/lumbar muscles palpation: tender left parathoracic 08/09/2018 None Full Exam - Orthopedics MS: left upp er extremity insp & palp - LUE Shoulder: acromioclavicular joint tenderness 08/09/2018 None Full Exam - Orthopedics MS: left upp er extremity insp & palp - LUE Shoulder: tenderness @ biceps tendon 08/09/2018 None Full Exam - Orthopedics Psychiatric orientation/consciousness Overall: oriented to person, place and time 08/09/2018 None Full Exam - Orthopedics Psychiatric mood and affect Overall: normal mood and affect 08/09/2018 None Full Exam - Orthopedics Psychiatric appearance Overall: well-groomed, good eye contact 08/09/2018 None Full Exam - Orthopedics MS: head/neck insp & palp - H/N Cervical muscles palpation: tender left paracervical 08/09/2018 None Full Exam - Orthopedics Constitutional general appearance Overall: well nourished 08/01/2018 None Full Exam - Orthopedics Constitutional general appearance Overall: well developed 08/01/2018 None Full Exam - Orthopedics Constitutional general appearance Overall: in no acute distress 08/01/2018 None Full Exam - Orthopedics Eyes conjunctiva/eyelids Overall: conjunctiva clear 08/01/2018 None Full Exam - Orthopedics Eyes conjunctiva/eyelids Overall: eyelids normal 08/01/2018 None Full Exam - Orthopedics Ears/Nose/Throat lips/teeth/gingiva Overall: benign lips 08/01/2018 None Full Exam - Orthopedics Ears/Nose/Throat oral cavity/pharynx/larynx Overall: oral mucosa clear 08/01/2018 None Full Exam - Orthopedics Respiratory respiratory effort/rhythm Overall: no retractions 08/01/2018 None Full Exam - Orthopedics Respiratory respiratory effort/rhythm Overall: normal rate 08/01/2018 None Full Exam - Orthopedics Psychiatric orientation/consciousness Overall: oriented to person, place and time 08/01/2018 None Full Exam - Orthopedics Psychiatric mood and affect Overall: normal mood and affect 08/01/2018 None Full Exam - Orthopedics Psychiatric appearance Overall: well-groomed, good eye contact 08/01/2018 None Full Exam - Orthopedics MS: head/neck insp & palp - H/N Overall: head atraumatic 08/01/2018 None Full Exam - Orthopedics MS: left upp er extremity insp & palp - LUE Shoulder: tenderness @ biceps tendon 08/01/2018 None Full Exam - Orthopedics MS: left upp er extremity insp & palp - LUE Shoulder: acromioclavicular joint tenderness 08/01/2018 None Full Exam - Orthopedics MS: spine/ri b/pelvis insp & palp - S/R/P Thoracic/lumbar muscles palpation: tender left parathoracic 08/01/2018 None Full Exam - Dermatology Constitutional general appearance Overall: well nourished 03/01/2018 None Full Exam - Dermatology Constitutional general appearance Overall: well developed 03/01/2018 None Full Exam - Dermatology Constitutional general appearance Overall: in no acute distress 03/01/2018 None Full Exam - Dermatology Eyes conjunctiva/eyelids Overall: clear conjunctiva bilaterally 03/01/2018 None Full Exam - Dermatology Eyes conjunctiva/eyelids Overall: normal eyelids 03/01/2018 None Full Exam - Dermatology Ears/Nose/Throat lips/teeth/gingiva Overall: benign lips 03/01/2018 None Full Exam - Dermatology Respiratory respiratory effort/rhythm Overall: no retractions 03/01/2018 None Full Exam - Dermatology Respiratory respiratory effort/rhythm Overall: normal rate 03/01/2018 None Full Exam - Dermatology Integument insp & palp - genitalia/groin/buttocks Location: on the left groin 03/01/2018 None Full Exam - Dermatology Integument insp & palp - genitalia/groin/buttocks Location: on the right groin 03/01/2018 None Full Exam - Dermatology Psychiatric orientation Overall: oriented to person, place and time 03/01/2018 None Full Exam - Dermatology Psychiatric mood and affect Overall: normal mood and affect 03/01/2018 None Full Exam - General 1994 Constitutional general appearance Overall: well developed 02/10/2018 None Full Exam - General 1995 Constitutional general appearance Overall: in no acute distress 02/10/2018 None Full Exam - General 1994 Constitutional general appearance Overall: well nourished 02/10/2018 None Full Exam - General 1994 Eyes conjunctiva/eyelids Overall: eyelids normal 02/10/2018 None Full Exam - General 1994 Eyes conjunctiva/eyelids Overall: cornea clear 02/10/2018 None Full Exam - General 1994 Eyes conjunctiva/eyelids Overall: conjunctiva clear 02/10/2018 None Full Exam - General 1994 Ears/Nose/Throat lips/teeth/gingiva Overall: benign lips 02/10/2018 None Full Exam - General 1994 Ears/Nose/Throat oral cavity/pharynx/larynx Overall: oral mucosa clear 02/10/2018 None Full Exam - General 1994 Ears/Nose/Throat oral cavity/pharynx/larynx Overall: oropharyngeal mucosa clear 02/10/2018 None Full Exam - General 1994 Respiratory respiratory effort/rhythm Overall: normal rate 02/10/2018 None Full Exam - General 1994 Respiratory respiratory effort/rhythm Overall: no retractions 02/10/2018 None Full Exam - General 1994 Respiratory auscultation Overall: breath sounds clear bilaterally 02/10/2018 None Full Exam - General 1994 Cardiovascular auscultation of heart Overall: regular rate 02/10/2018 None Full Exam - General 1994 Cardiovascular auscultation of heart Overall: normal heart sounds 02/10/2018 None Full Exam - General 1994 Musculoskeletal head and neck Overall: head atraumatic 02/10/2018 None Full Exam - General 1994 Musculoskeletal gait and station Overall: normal station 02/10/2018 None Full Exam - General 1994 Musculoskeletal gait and station Overall: normal gait 02/10/2018 None Full Exam - General 1994 Neurologic cranial nerves Overall: crainial nerves 2 - 12 grossly intact 02/10/2018 None Full Exam - General 1994 Psychiatric orientation/consciousness Overall: oriented to person, place and time 02/10/2018 None Full Exam - General 1994 Psychiatric mood and affect Overall: normal mood and affect 02/10/2018 None Full Exam - General 1994 Constitutional general appearance Overall: well developed 12/12/2017 None Full Exam - General 1994 Constitutional general appearance Overall: in no acute distress 12/12/2017 None Full Exam - General 1994 Constitutional general appearance Overall: well nourished 12/12/2017 None Full Exam - General 1994 Eyes conjunctiva/eyelids Overall: conjunctiva clear 12/12/2017 None Full Exam - General 1994 Eyes conjunctiva/eyelids Overall: cornea clear 12/12/2017 None Full Exam - General 1994 Eyes conjunctiva/eyelids Overall: eyelids normal 12/12/2017 None Full Exam - General 1994 Ears/Nose/Throat lips/teeth/gingiva Overall: benign lips 12/12/2017 None Full Exam - General 1994 Ears/Nose/Throat oral cavity/pharynx/larynx Overall: oral mucosa clear 12/12/2017 None Full Exam - General 1994 Respiratory auscultation Overall: breath sounds clear bilaterally 12/12/2017 None Full Exam - General 1994 Respiratory respiratory effort/rhythm Overall: no retractions 12/12/2017 None Full Exam - General 1994 Respiratory respiratory effort/rhythm Overall: normal rate 12/12/2017 None Full Exam - General 1994 Cardiovascular auscultation of heart Overall: regular rate 12/12/2017 None Full Exam - General 1994 Cardiovascular auscultation of heart Overall: normal heart sounds 12/12/2017 None Full Exam - General 1994 Musculoskeletal gait and station Overall: normal gait 12/12/2017 None Full Exam - General 1994 Musculoskeletal gait and station Overall: normal station 12/12/2017 None Full Exam - General 1994 Musculoskeletal head and neck Overall: head atraumatic 12/12/2017 None Full Exam - General 1994 Neurologic cranial nerves Overall: crainial nerves 2 - 12 grossly intact 12/12/2017 None Full Exam - General 1994 Psychiatric orientation/consciousness Overall: oriented to person, place and time 12/12/2017 None Full Exam - General 1994 Psychiatric mood and affect Overall: normal mood and affect 12/12/2017 None Full Exam - General 1994 Psychiatric appearance Overall: well-groomed, good eye contact 12/12/2017 None Full Exam - General 1994 Constitutional general appearance Overall: well developed 11/25/2017 None Full Exam - General 1994 Constitutional general appearance Overall: in no acute distress 11/25/2017 None Full Exam - General 1994 Constitutional general appearance Overall: well nourished 11/25/2017 None Full Exam - General 1994 Eyes conjunctiva/eyelids Overall: conjunctiva clear 11/25/2017 None Full Exam - General 1994 Eyes conjunctiva/eyelids Overall: eyelids normal 11/25/2017 None Full Exam - General 1994 Eyes conjunctiva/eyelids Overall: cornea clear 11/25/2017 None Full Exam - General 1994 Ears/Nose/Throat lips/teeth/gingiva Overall: benign lips 11/25/2017 None Full Exam - General 1994 Ears/Nose/Throat oral cavity/pharynx/larynx Overall: oral mucosa clear 11/25/2017 None Full Exam - General 1994 Respiratory respiratory effort/rhythm Overall: no retractions 11/25/2017 None Full Exam - General 1994 Respiratory respiratory effort/rhythm Overall: normal rate 11/25/2017 None Full Exam - General 1994 Respiratory auscultation Overall: breath sounds clear bilaterally 11/25/2017 None Full Exam - General 1994 Cardiovascular auscultation of heart Overall: regular rate 11/25/2017 None Full Exam - General 1994 Cardiovascular auscultation of heart Overall: normal heart sounds 11/25/2017 None Full Exam - General 1994 Musculoskeletal head and neck Overall: head atraumatic 11/25/2017 None Full Exam - General 1994 Musculoskeletal gait and station Overall: normal gait 11/25/2017 None Full Exam - General 1994 Musculoskeletal gait and station Overall: normal station 11/25/2017 None Full Exam - General 1994 Neurologic cranial nerves Overall: crainial nerves 2 - 12 grossly intact 11/25/2017 None Full Exam - General 1994 Psychiatric orientation/consciousness Overall: oriented to person, place and time 11/25/2017 None Full Exam - General 1994 Psychiatric mood and affect Overall: normal mood and affect 11/25/2017 None Full Exam - General 1994 Psychiatric appearance Overall: well-groomed, good eye contact 11/25/2017 None Full Exam - Dermatology Constitutional general appearance Overall: well nourished 03/02/2017 None Full Exam - Dermatology Constitutional general appearance Overall: well developed 03/02/2017 None Full Exam - Dermatology Eyes conjunctiva/eyelids Overall: clear conjunctiva bilaterally 03/02/2017 None Full Exam - Dermatology Eyes conjunctiva/eyelids Overall: normal eyelids 03/02/2017 None Full Exam - Dermatology Ears/Nose/Throat lips/teeth/gingiva Overall: benign lips 03/02/2017 None Full Exam - Dermatology Respiratory respiratory effort/rhythm Overall: no retractions 03/02/2017 None Full Exam - Dermatology Respiratory respiratory effort/rhythm Overall: normal rate 03/02/2017 None Full Exam - Dermatology Psychiatric orientation Overall: oriented to person, place and time 03/02/2017 None Full Exam - Dermatology Psychiatric mood and affect Overall: normal mood and affect 03/02/2017 None Full Exam - Dermatology Constitutional general appearance Overall: in no acute distress 03/02/2017 None Full Exam - Dermatology Integument insp & palp - genitalia/groin/buttocks Location: on the right groin 03/02/2017 None Full Exam - Dermatology Integument insp & palp - genitalia/groin/buttocks Location: on the left groin 03/02/2017 None Full Exam - Dermatology Constitutional general appearance Overall: well nourished 11/17/2016 None Full Exam - Dermatology Constitutional general appearance Overall: well developed 11/17/2016 None Full Exam - Dermatology Eyes conjunctiva/eyelids Overall: clear conjunctiva bilaterally 11/17/2016 None Full Exam - Dermatology Eyes conjunctiva/eyelids Overall: normal eyelids 11/17/2016 None Full Exam - Dermatology Ears/Nose/Throat lips/teeth/gingiva Overall: benign lips 11/17/2016 None Full Exam - Dermatology Respiratory respiratory effort/rhythm Overall: no retractions 11/17/2016 None Full Exam - Dermatology Respiratory respiratory effort/rhythm Overall: normal rate 11/17/2016 None Full Exam - Dermatology Integument insp & palp - genitalia/groin/buttocks Location: on the buttocks 11/17/2016 None Full Exam - Dermatology Integument insp & palp - genitalia/groin/buttocks Color: erythematous 11/17/2016 None Full Exam - Dermatology Integument insp & palp - genitalia/groin/buttocks Consistency: firm 11/17/2016 None Full Exam - Dermatology Integument insp & palp - genitalia/groin/buttocks Consistency: tender 11/17/2016 None Full Exam - Dermatology Integument insp & palp - genitalia/groin/buttocks Consistency: indurated 11/17/2016 Non e Full Exam - Dermatology Psychiatric orientation Overall: oriented to person, place and time 11/17/2016 None Full Exam - Dermatology Psychiatric mood and affect Overall: normal mood and affect 11/17/2016 None Full Exam - Dermatology Constitutional general appearance Overall: well nourished 09/27/2016 None Full Exam - Dermatology Constitutional general appearance Overall: well developed 09/27/2016 None Full Exam - Dermatology Constitutional general appearance Overall: in no acute distress 09/27/2016 None Full Exam - Dermatology Eyes conjunctiva/eyelids Overall: clear conjunctiva bilaterally 09/27/2016 None Full Exam - Dermatology Eyes conjunctiva/eyelids Overall: normal eyelids 09/27/2016 None Full Exam - Dermatology Ears/Nose/Throat lips/teeth/gingiva Overall: benign lips 09/27/2016 None Full Exam - Dermatology Respiratory auscultation Overall: breath sounds clear bilaterally 09/27/2016 None Full Exam - Dermatology Respiratory respiratory effort/rhythm Overall: no retractions 09/27/2016 None Full Exam - Dermatology Respiratory respiratory effort/rhythm Overall: normal rate 09/27/2016 None Full Exam - Dermatology Integument insp & palp - chest/axillae Location: on the left axilla 09/27/2016 chronic reoccurring abscess - open with minimal drainage and mild erythema. Full Exam - Dermatology Musculoskeletal digits and nails Right MCPs: tender 09/27/2016 None Full Exam - Dermatology Musculoskeletal digits and nails Right MCPs: deformity 09/27/2016 crepitus Full Exam - Dermatology Psychiatric orientation Overall: oriented to person, place and time 09/27/2016 None Full Exam - Dermatology Psychiatric mood and affect Overall: normal mood and affect 09/27/2016 None Full Exam - General 1994 Constitutional general appearance Overall: well developed 05/05/2016 None Full Exam - General 1994 Constitutional general appearance Overall: in no acute distress 05/05/2016 None Full Exam - General 1994 Constitutional general appearance Overall: well nourished 05/05/2016 None Full Exam - General 1994 Eyes conjunctiva/eyelids Overall: conjunctiva clear 05/05/2016 None Full Exam - General 1994 Eyes conjunctiva/eyelids Overall: cornea clear 05/05/2016 None Full Exam - General 1994 Eyes conjunctiva/eyelids Overall: eyelids normal 05/05/2016 None Full Exam - General 1994 Ears/Nose/Throat lips/teeth/gingiva Overall: benign lips 05/05/2016 None Full Exam - General 1994 Ears/Nose/Throat oral cavity/pharynx/larynx Overall: oral mucosa clear 05/05/2016 None Full Exam - General 1994 Respiratory auscultation Overall: breath sounds clear bilaterally 05/05/2016 None Full Exam - General 1994 Respiratory respiratory effort/rhythm Overall: no retractions 05/05/2016 None Full Exam - General 1994 Respiratory respiratory effort/rhythm Overall: normal rate 05/05/2016 None Full Exam - General 1994 Cardiovascular auscultation of heart Overall: regular rate 05/05/2016 None Full Exam - General 1994 Cardiovascular auscultation of heart Overall: normal heart sounds 05/05/2016 None Full Exam - General 1994 Musculoskeletal gait and station Overall: normal gait 05/05/2016 None Full Exam - General 1994 Musculoskeletal gait and station Overall: normal station 05/05/2016 None Full Exam - General 1994 Neurologic gait Overall: no ataxia, no unsteadiness 05/05/2016 None Full Exam - General 1994 Neurologic cranial nerves Overall: crainial nerves 2 - 12 grossly intact 05/05/2016 None Full Exam - General 1994 Psychiatric orientation/consciousness Overall: oriented to person, place and time 05/05/2016 None Full Exam - General 1994 Psychiatric mood and affect Overall: normal mood and affect 05/05/2016 None Full Exam - General 1994 Psychiatric appearance Overall: well-groomed, good eye contact 05/05/2016 None Full Exam - General 1994 Integument inspection of skin Location: right leg 05/05/2016 hip Full Exam - General 1994 Integument inspection of skin Pigmentation: erythematous 05/05/2016 None Full Exam - General 1994 Integument inspection of skin Consistency: indurated 05/05/2016 None Full Exam - General 1994 Constitutional general appearance Overall: well developed 03/08/2016 None Full Exam - General 1994 Constitutional general appearance Overall: in no acute distress 03/08/2016 None Full Exam - General 1994 Constitutional general appearance Overall: well nourished 03/08/2016 None Full Exam - General 1994 Eyes conjunctiva/eyelids Overall: conjunctiva clear 03/08/2016 None Full Exam - General 1994 Eyes conjunctiva/eyelids Overall: cornea clear 03/08/2016 None Full Exam - General 1994 Eyes conjunctiva/eyelids Overall: eyelids normal 03/08/2016 None Full Exam - General 1994 Ears/Nose/Throat lips/teeth/gingiva Overall: benign lips 03/08/2016 None Full Exam - General 1994 Ears/Nose/Throat oral cavity/pharynx/larynx Overall: oral mucosa clear 03/08/2016 None Full Exam - General 1994 Respiratory auscultation Overall: breath sounds clear bilaterally 03/08/2016 None Full Exam - General 1994 Respiratory respiratory effort/rhythm Overall: no retractions 03/08/2016 None Full Exam - General 1994 Respiratory respiratory effort/rhythm Overall: normal rate 03/08/2016 None Full Exam - General 1994 Cardiovascular auscultation of heart Overall: regular rate 03/08/2016 None Full Exam - General 1994 Cardiovascular auscultation of heart Overall: normal heart sounds 03/08/2016 None Full Exam - General 1994 Musculoskeletal gait and station Overall: normal gait 03/08/2016 None Full Exam - General 1994 Musculoskeletal gait and station Overall: normal station 03/08/2016 None Full Exam - General 1994 Neurologic gait Overall: no ataxia, no unsteadiness 03/08/2016 None Full Exam - General 1994 Neurologic cranial nerves Overall: crainial nerves 2 - 12 grossly intact 03/08/2016 None Full Exam - General 1994 Psychiatric orientation/consciousness Overall: oriented to person, place and time 03/08/2016 None Full Exam - General 1994 Psychiatric mood and affect Overall: normal mood and affect 03/08/2016 None Full Exam - General 1994 Psychiatric appearance Overall: well-groomed, good eye contact 03/08/2016 None Full Exam - General 1994 Ears/Nose/Throat internal nose Sinus tenderness: right maxillary 03/08/2016 None Full Exam - General 1994 Ears/Nose/Throat internal nose Sinus tenderness: left maxillary 03/08/2016 None Full Exam - General 1994 Ears/Nose/Throat otoscopic exam External auditory canal: tender 03/08/2016 None Full Exam - General 1994 Ears/Nose/Throat otoscopic exam External auditory canal: erythematous 03/08/2016 None Full Exam - General 1994 Ears/Nose/Throat otoscopic exam External auditory canal: edematous 03/08/2016 None Full Exam - General 1994 Integument inspection of skin Location: left axilla 03/08/2016 abscess - 2 small opening s - purulent drainage extruded Full Exam - General 1994 Psychiatric mood and affect Mood: flat 03/08/2016 None Full Exam - General 1994 Ears/Nose/Throat otoscopic exam Overall: tympanic membranes clear 03/08/2016 None Full Exam - General 1994 Constitutional general appearance Overall: well developed 02/05/2016 None Full Exam - General 1994 Constitutional general appearance Overall: in no acute distress 02/05/2016 None Full Exam - General 1994 Constitutional general appearance Overall: well nourished 02/05/2016 None Full Exam - General 1994 Eyes conjunctiva/eyelids Overall: conjunctiva clear 02/05/2016 None Full Exam - General 1994 Eyes conjunctiva/eyelids Overall: cornea clear 02/05/2016 None Full Exam - General 1994 Eyes conjunctiva/eyelids Overall: eyelids normal 02/05/2016 None Full Exam - General 1994 Ears/Nose/Throat lips/teeth/gingiva Overall: benign lips 02/05/2016 None Full Exam - General 1994 Ears/Nose/Throat oral cavity/pharynx/larynx Overall: oral mucosa clear 02/05/2016 None Full Exam - General 1994 Respiratory auscultation Overall: breath sounds clear bilaterally 02/05/2016 None Full Exam - General 1994 Respiratory respiratory effort/rhythm Overall: no retractions 02/05/2016 None Full Exam - General 1994 Respiratory respiratory effort/rhythm Overall: normal rate 02/05/2016 None Full Exam - General 1994 Cardiovascular auscultation of heart Overall: regular rate 02/05/2016 None Full Exam - General 1994 Cardiovascular auscultation of heart Overall: normal heart sounds 02/05/2016 None Full Exam - General 1994 Musculoskeletal gait and station Overall: normal gait 02/05/2016 None Full Exam - General 1994 Musculoskeletal gait and station Overall: normal station 02/05/2016 None Full Exam - General 1994 Neurologic gait Overall: no ataxia, no unsteadiness 02/05/2016 None Full Exam - General 1994 Neurologic cranial nerves Overall: crainial nerves 2 - 12 grossly intact 02/05/2016 None Full Exam - General 1994 Psychiatric orientation/consciousness Overall: oriented to person, place and time 02/05/2016 None Full Exam - General 1994 Psychiatric mood and affect Overall: normal mood and affect 02/05/2016 None Full Exam - General 1994 Psychiatric appearance Overall: well-groomed, good eye contact 02/05/2016 None Full Exam - General 1994 Psychiatric mood and affect Mood: anxious 02/05/2016 None Full Exam - General 1994 Constitutional general appearance Overall: well developed 12/22/2015 None Full Exam - General 1994 Constitutional general appearance Overall: in no acute distress 12/22/2015 None Full Exam - General 1994 Constitutional general appearance Overall: well nourished 12/22/2015 None Full Exam - General 1994 Eyes conjunctiva/eyelids Overall: conjunctiva clear 12/22/2015 None Full Exam - General 1994 Eyes conjunctiva/eyelids Overall: cornea clear 12/22/2015 None Full Exam - General 1994 Eyes conjunctiva/eyelids Overall: eyelids normal 12/22/2015 None Full Exam - General 1994 Eyes pupils and irises Overall: pupils equal, round, reactive to light and accomodation 12/22/2015 None Full Exam - General 1994 Ears/Nose/Throat otoscopic exam Overall: external auditory canals clear 12/22/2015 None Full Exam - General 1994 Ears/Nose/Throat otoscopic exam Overall: tympanic membranes clear 12/22/2015 None Full Exam - General 1994 Ears/Nose/Throat lips/teeth/gingiva Overall: benign lips 12/22/2015 None Full Exam - General 1994 Ears/Nose/Throat oral cavity/pharynx/larynx Overall: oral mucosa clear 12/22/2015 None Full Exam - General 1994 Ears/Nose/Throat oral cavity/pharynx/larynx Overall: no masses 12/22/2015 None Full Exam - General 1994 Ears/Nose/Throat oral cavity/pharynx/larynx Overall: oropharyngeal mucosa clear 12/22/2015 None Full Exam - General 1994 Respiratory auscultation Overall: breath sounds clear bilaterally 12/22/2015 None Full Exam - General 1994 Respiratory respiratory effort/rhythm Overall: no retractions 12/22/2015 None Full Exam - General 1994 Respiratory respiratory effort/rhythm Overall: normal rate 12/22/2015 None Full Exam - General 1994 Cardiovascular auscultation of heart Overall: regular rate 12/22/2015 None Full Exam - General 1994 Cardiovascular auscultation of heart Overall: normal heart sounds 12/22/2015 None Full Exam - General 1994 Abdomen abdominal exam Overall: no tenderness 12/22/2015 None Full Exam - General 1994 Abdomen abdominal exam Overall: normal bowel sounds 12/22/2015 None Full Exam - General 1994 Lymphatic neck nodes Overall: anterior cervical chain benign 12/22/2015 None Full Exam - General 1994 Lymphatic neck nodes Overall: posterior cervical chain benign 12/22/2015 None Full Exam - General 1994 Musculoskeletal gait and station Overall: normal gait 12/22/2015 None Full Exam - General 1994 Musculoskeletal gait and station Overall: normal station 12/22/2015 None Full Exam - General 1994 Integument inspection of skin Location: left hand 12/22/2015 Dyshidrotic eczema Full Exam - General 1994 Integument inspection of skin Location: right foot 12/22/2015 Plantar wart Full Exam - General 1994 Neurologic cranial nerves Overall: crainial nerves 2 - 12 grossly intact 12/22/2015 None Full Exam - General 1994 Neurologic gait Overall: no ataxia, no unsteadiness 12/22/2015 None Full Exam - General 1994 Psychiatric orientation/consciousness Overall: oriented to person, place and time 12/22/2015 None Full Exam - General 1994 Psychiatric mood and affect Overall: normal mood and affect 12/22/2015 None Full Exam - General 1994 Psychiatric appearance Overall: well-groomed, good eye contact 12/22/2015 None Procedures Procedure Codes Date THER/PROPH/DIAG INJ SC/IM CPT-4: 11784 04/11/2019 TRIAMCINOLONE ACET I [place] NOS CPT-4: J3301 04/11/2019 THER/PROPH/DIAG INJ SC/IM CPT-4: 68082 12/29/2018 TRIAMCINOLONE ACET I [place] NOS CPT-4: J3301 12/29/2018 TRIAMCINOLONE ACET I [place] NOS CPT-4: J3301 08/09/2018 INJECT TRIGGER POINT S 3/> CPT-4: 61109 08/09/2018 TRIAMCINOLONE ACET I [place] NOS CPT-4: J3301 03/01/2018 THER/PROPH/DIAG INJ SC/IM CPT-4: 31929 03/01/2018 DRAINAGE OF SKIN ABS CESS CPT-4: 44005 05/05/2016 TOBACCO-USE HUB BANDER 3-[address]: 976222101 CPT-4: G0436 12/22/2015 Vital Signs Date Vital 04/11/2019 Blood Pressure 1: 124/76 Code: 8480-6 BMI: 33.6 Code: 51123-7 Heart Rate 1: 87 bpm Height: 5'11" SpO2: 98% Weight: 241 lbs 02/09/2019 Blood Pressure 1: 132/72 Code: 8480-6 BMI: 33.9 Code: 52407-6 Heart Rate 1: 98 bpm Height: 5'11" SpO2: 98% Weight: 243 lbs 12/29/2018 Blood Pressure 1: 120/72 Code: 8480-6 BMI: 33.6 Code: 54869-1 Heart Rate 1: 94 bpm Height: 5'11" SpO2: 98% Weight: 241 lbs 09/14/2018 Blood Pressure 1: 128/86 Code: 8480-6 BMI: 33.9 Code: 92022-9 Heart Rate 1: 128 bpm Height: 5'11" SpO2: 96% Temperature: 37.4 (C ) / 99.3 (F) Weight: 243 lbs 08/09/2018 Blood Pressure 1: 120/72 Code: 8480-6 Heart Rate 1: 90 bpm Height: SpO2: 98% Weight: 08/01/2018 Blood Pressure 1: 11078 Code: 8480-6 BMI: 34.4 Code: 02336-3 Heart Rate 1: 109 bpm Height: 5'11" SpO2: 98% Weight: 247 lbs 03/01/2018 Blood Pressure 1: 120/80 Code: 8480-6 BMI: 32.9 Code: 32047-3 Heart Rate 1: 72 bpm Height: 5'11" SpO2: 96% Weight: 236 lbs 02/10/2018 Blood Pressure 1: 122/70 Code: 8480-6 BMI: 32.9 Code: 27667-0 Heart Rate 1: 90 bpm Height: 5'11" SpO2: 98% Weight: 236 lbs 12/12/2017 Blood Pressure 1: 124/72 Code: 8480-6 BMI: 35.0 Code: 71896-5 Heart Rate 1: 80 bpm Height: 5'11" SpO2: 96% Weight: 251 lbs 11/25/2017 Blood Pressure 1: 122/76 Code: 8480-6 BMI: 35.4 Code: 64876-9 Heart Rate 1: 74 bpm Height: 5'11" SpO2: 95% Weight: 254 lbs 03/02/2017 Blood Pressure 1: 120/70 Code: 8480-6 BMI: 33.8 Code: 29179-6 Heart Rate 1: 79 bpm Height: 5'11" SpO2: 99% Weight: 242 lbs 11/17/2016 Blood Pressure 1: 120/88 Code: 8480-6 BMI: 36.8 Code: 72411-5 Heart Rate 1: 104 bpm Height: 5'11" SpO2: 99% Weight: 264 lbs 09/27/2016 Blood Pressure 1: 122/78 Code: 8480-6 BMI: 34.6 Code: 90477-1 Heart Rate 1: 100 bpm Height: 5'11" SpO2: 96% Weight: 248 lbs 05/05/2016 Blood Pressure 1: 114/78 Code: 8480-6 BMI: 35.1 Code: 83589-3 Heart Rate 1: 81 bpm Height: 5'11" SpO2: 96% Weight: 252 lbs 03/08/2016 Blood Pressure 1: 120/64 Code: 8480-6 BMI: 34.3 Code: 38764-8 Heart Rate 1: 95 bpm Height: 5'11" SpO2: 97% Weight: 246 lbs 02/05/2016 Blood Pressure 1: 120/78 Code: 8480-6 BMI: 33.5 Code: 14157-1 Heart Rate 1: 104 bpm Height: 5'11" SpO2: 97% Weight: 240 lbs 12/22/2015 Blood Pressure 1: 120/82 Code: 8480-6 BMI: 34.3 Code: 22794-6 Heart Rate 1: 83 bpm Height: 5'11" SpO2: 97% Weight: 246 lbs Functional Status No Functional Status data History of Present Illness Symptom Name Status Resu lt Effective Date Notes Location-Major on the arms 04/11/2019 None Color red 04/11/2019 None Onset and Resolution s udden in onset 04/11/2019 None Onset of Symptom 2 day s ago 04/11/2019 None Onset and Resolution g radual in onset 02/09/2019 None Limitation on Activities moderately limits activities 02/09/2019 None Pertinent Findings Den ies dyspnea 02/09/2019 None Pertinent Findings Den ies palpitations 02/09/2019 None Location diffusely 02/09/2019 None Onset and Resolution s udden in onset 12/29/2018 None Onset of Symptom 2 wee ks ago 12/29/2018 None Quality enlarging 12/29/2018 None Quality acute 09/14/2018 None Onset and Resolution s udden in onset 09/14/2018 None Onset and Resolution o ngoing 09/14/2018 None Onset of Symptom 1 wee ks ago 09/14/2018 None Quality worsening 09/14/2018 None Pertinent Findings fever 09/14/2018 None Pertinent Findings dec reased energy level 09/14/2018 None Limitation on Activities does not limit oral intake 09/14/2018 None Frequency of Episodes increasing 09/14/2018 None Significant Medical Conditions allergic rhinitis 09/14/2018 None Significant Medications acetaminophen 09/14/2018 None Significant Medications ibuprofen 09/14/2018 None Triggers no known asso ciated factors 09/14/2018 None Location deep 08/09/2018 None Quality aching 08/09/2018 None Quality constant 08/09/2018 None Quality sharp 08/09/2018 None Onset and Resolution s udden in onset 08/09/2018 None Onset of Symptom 5 day s ago 08/09/2018 None Limitation on Activities moderately limits activities 08/09/2018 None Frequency of Episodes daily 08/09/2018 None Location deep 08/01/2018 None Quality aching 08/01/2018 None Quality sharp 08/01/2018 None Quality constant 08/01/2018 None Onset and Resolution s udden in onset 08/01/2018 None Onset of Symptom 5 day s ago 08/01/2018 None Limitation on Activities moderately limits activities 08/01/2018 None Frequency of Episodes daily 08/01/2018 None medication follow up Location oral intake 03/01/2018 None medication follow up Quality acute 03/01/2018 None medication follow up Additional Comments medication use 02/10/2018 None medication follow up Location oral intake 02/10/2018 None medication follow up Quality acute 02/10/2018 None anxiety Quality chronic 12/12/2017 None anxiety Quality intermit tent 12/12/2017 None anxiety Alleviating Factors medication 12/12/2017 None anxiety Pertinent Findings Denies dyspnea 12/12/2017 None medication follow up Location oral intake 12/12/2017 None medication follow up Quality chronic 12/12/2017 None medication follow up Triggers Other: anxiety 12/12/2017 None anxiety Quality chronic 11/25/2017 None anxiety Quality intermit tent 11/25/2017 None anxiety Alleviating Factors medication 11/25/2017 None anxiety Pertinent Findings Denies dyspnea 11/25/2017 None medication follow up Additional Comments medication use 11/25/2017 None medication follow up Additional Comments medication: diazepam 11/25/2017 None medication follow up Location oral intake 11/25/2017 None medication follow up Quality chronic 11/25/2017 None medication follow up Triggers Other: anxiety 11/25/2017 None skin lesion Quality enla rging 03/02/2017 None skin lesion Pertinent Findings Denies fever 03/02/2017 None anxiety Quality chronic 03/02/2017 None anxiety Quality intermit tent 03/02/2017 None anxiety Pertinent Findings Denies dyspnea 03/02/2017 None anxiety Alleviating Factors medication 03/02/2017 None skin lesion Quality acute 03/02/2017 None skin lesion Onset and Resolution sudden in onset 11/17/2016 None skin lesion Onset of Symptom 3 days ago 11/17/2016 None skin lesion Location jorge region 11/17/2016 None skin lesion Quality enla rging 11/17/2016 None skin lesion Quality enla rging 09/27/2016 None skin lesion Quality firm 09/27/2016 None skin lesion Location Rig ht Hip 09/27/2016 None skin lesion Onset and Resolution ongoing 09/27/2016 None skin lesion Quality enla rging 05/05/2016 None skin lesion Quality firm 05/05/2016 None skin lesion Location Rig ht Hip 05/05/2016 None skin lesion Onset and Resolution ongoing 05/05/2016 None earache Location both ea rs 03/08/2016 None earache Onset and Resolution sudden in onset 03/08/2016 None earache Onset of Symptom 1 weeks ago 03/08/2016 None sinus congestion Location on both sides 03/08/2016 None sinus congestion Quality constant 03/08/2016 None sinus congestion Quality fullness 03/08/2016 None sinus congestion Quality pressure 03/08/2016 None sinus congestion Onset and Resolution sudden in onset 03/08/2016 None sinus congestion Onset of Symptom 1 weeks ago 03/08/2016 None sinus congestion Frequency of Episodes daily 03/08/2016 None anxiety Quality intermit tent 02/05/2016 None anxiety Onset and Resolution gradual in onset 02/05/2016 None cyst Quality firm 02/05/2016 None cyst Quality intermittent 02/05/2016 None anxiety Quality stable 02/05/2016 None anxiety Onset of Symptom during adulthood 02/05/2016 None anxiety Pertinent Findings Denies dyspnea 02/05/2016 None cyst Pertinent Findings Denies fever 02/05/2016 None cyst Pertinent Findings pain 02/05/2016 None anxiety Quality intermit tent 12/22/2015 None anxiety Onset and Resolution gradual in onset 12/22/2015 None cyst Quality firm 12/22/2015 None cyst Quality intermittent 12/22/2015 None Advance Directives No Advance Directive data Encounters Encounter Performer Loca tion Codes Date 85914 EST. PATIENT, LEVEL III Diagnosis: Allergic contact dermatitis due to plants, except food[ICD10: L23.7] Miracle Pereyra MD, [facility] CPT-4: 06383 04/11/2019 19609 EST. PATIENT, LEVEL IV Diagnosis: Other fatigue[ICD10: R53.83] Diagnosis: Other malaise[ICD10: R53.81] Diagnosis: Localized edema[ICD10: R60.0] Diagnosis: Hidradenitis suppurativa[ICD10: L73.2] Miracle Pereyra MD, [facility] CPT-4: 93044 02/09/2019 38930 EST. PATIENT, LEVEL III Diagnosis: Hidradenitis suppurativa[ICD10: L73.2] Miracle Pereyra MD, [facility] CPT-4: 51789 12/29/2018 ([id number]) 34196 EST. P ATIENT, LEVEL III Diagnosis: Acute laryngopharyngitis[ICD10: J06.0] Diagnosis: Fever, unspecified[ICD10: R50.9] Gavi Pereyra MD, [facility] CPT- 4: 52553 09/14/2018 75031 EST. PATIENT, LEVEL III Diagnosis: Pain in left shoulder[ICD10: M25.512] Diagnosis: Muscle spasm of back[ICD10: M62.830] Miracle Pereyra MD, [facility] CPT- 4: 70471 08/09/2018 50508 EST. PATIENT, LEVEL III Diagnosis: Pain in left shoulder[ICD10: M25.512] Diagnosis: Muscle spasm of back[ICD10: M62.830] Miracle Pereyra MD, [facility] CPT- 4: 81471 08/01/2018 66516 EST. PATIENT, LEVEL III Diagnosis: Hidradenitis suppurativa[ICD10: L73.2] Miracle Pereyra MD, [facility] CPT-4: 86292 03/01/2018 [id number] EST. 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 PATIENT, LEVEL IV Diagnosis: Generalized anxiety disorder[ICD10: F41.1] Diagnosis: Hidradenitis suppurativa[ICD10: L73.2] Miracle Pereyra MD, [facility] CPT-4: 13860 11/25/2017 25587 EST. PATIENT, LEVEL III Diagnosis: Hidradenitis suppurativa[ICD10: L73.2] Diagnosis: Generalized anxiety disorder[ICD10: F41.1] Miracle Pereyra MD, [facility] CPT-4: 18125 03/02/2017 87591 EST. PATIENT, LEVEL III Diagnosis: Cutaneous abscess of buttock[ICD10: L02.31] Miracle Pereyra MD, [facility] CPT-4: 48296 11/17/2016 73954 EST. PATIENT, LEVEL III Diagnosis: Cutaneous abscess of left axilla[ICD10: L02.412] Diagnosis: Pain in right hand[ICD10: M79.641] Miracle Pereyra MD, [facility] CPT-4: 83694 09/27/2016 01360 EST. PATIENT, LEVEL III Diagnosis: Cutaneous abscess of right lower limb[ICD10: L02.415] Diagnosis: Hidradenitis suppurativa[ICD10: L73.2] Miracle Pereyra MD, [facility] CPT-4: 40821 05/05/2016 13863 EST. PATIENT, LEVEL IV Diagnosis: Other otitis externa, right ear[ICD10: H60.8X1] Diagnosis: Cutaneous abscess of left axilla[ICD10: L02.412] Diagnosis: Other acute sinusitis[ICD10: J01.80] Miracle Pereyra MD, [facility] CPT- 4: 48356 03/08/2016 16065 EST. PATIENT, LEVEL III Diagnosis: Generalized anxiety disorder[ICD10: F41.1] Diagnosis: Acne vulgaris[ICD10: L70.0] Diagnosis: Plantar wart[ICD10: B07.0] Miracle Pereyra MD, [facility] CPT-4: 17300 02/05/2016 ([id number]) OFFICE VISI T, NEW - LEVEL 3 Diagnosis: Generalized anxiety disorder[ICD10: F41.1] Diagnosis: 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][ICD10: L30.1] Diagnosis: Acne vulgaris[ICD10: L70.0] Diagnosis: Other obesity due to excess calories[ICD10: E66.09] Miracle Pereyra MD, [facility] CPT-4: 06161 12/22/2015 Plan of Care Planned Activity Notes C odes Status Date Visit Plan: Poison Karyn - pt is to u se topical treatments as directed. Pt is cleanse clothing in hot water with soap, and call if symptoms do not improve or if they worsen. 04/11/2019 Patient Education: Patient Medication Summary Completed 04/11/2019 Visit Plan: Edema - pt has been adv ised to elevate legs to prevent dependent edema, compression has been recommended to help to naturally decrease peripheral edema. Diuretic use has been discussed and pt has been i nstructed in appropriate use of such medication as necessary to further attempt to reduce peripheral edema. Fatigue, malaise - will check labs and treat or refer as indicated HS - will refer to Dr. Gamez for possible humira. 02/09/2019 Appointment: Miracle Gracia [phone] ([facility] min[facility] Complex 02/09/2019 Patient Education: Patient Medication Summary Completed 02/09/2019 Visit Plan: HS - The patient was in structed in appropriate wound care. The patient was instructed to use the antibiotic ointment as per RX. The patient is to call for any change in symptoms, increase in size of the lesion, increase in pain, worsening redness, warmth, discharge. 12/29/2018 Appointment: Miracle Gracia WPtel: [facility] (30 min) Complex 12/29/2018 Patient Education: Patient Medication Summary Completed 12/29/2018 Visit Plan: Pharyngitis-fever -flu and strep swabs obtained today in the office and will treat as appropriate-discussed natural and expected course of this diagnosis and need to alert me if symptoms do not follow expected course, or if any worse. Recommended salt water gargles as needed for pain. Tylenol/motrin as needed for fever/discomfort. 09/14/2018 Appointment: Gavi Soria WPtel: [facility] [place] (15 min) Moderate 09/14/2018 Patient Education: Patient Medication Summary Completed 09/14/2018 Visit Plan: Left shoulder pain, mus mishel spasm - will send RX - The pt is to use prn antiinflammatories to manage acute pain. The patient is to call the office if the pain is worsening or does not improve. Trigger Points - Injected trigger points today, pt given post-injection instructions, signs and symptoms for which to call the office. Pt to use heat to the muscles today, and take an anti-inflammatory today unless otherwise contraindicated by renal function or other disease process. 08/09/2018 Appointment: Miracle Garcia [facility]Ptel: [phone] [facility] [place] (30 min) Complex 08/09/2018 Patient Education: Patient Medication Summary Completed 08/09/2018 Visit Plan: Left shoulder pain, mus mishel spasm - will send RX - The pt is to use prn antiinflammatories to manage acute pain. The patient is to call the office if the pain is worsening or does not improve. 08/01/2018 Appointment: Miracle Gracia WPtel: [phone] [facility] [place] (15 min) Moderate 08/01/2018 Patient Education: Patient Medication Summary Completed 08/01/2018 Visit Plan: HS - will discuss with Dr. Pereyra and consider referral - pt is to notify clinic if symptoms do not improve, if they worsen, or with any changes, quesions, or concerns. 03/01/2018 Patient Education: Patient Medication Summary Completed 03/01/2018 Care Plan: Comp Metabolic Cancelled 03/01/2018 Care Plan: Cbc With Differential Cancelled 03/01/2018 Care Plan: Tsh Cancelled 03/01/2018 Care Plan: Lipid Cancelled 03/01/2018 Care Plan: Sed Rate Cancelled 03/01/2018 Care Plan: C-Reactive Protein Qnt Cancelled 03/01/2018 Visit Plan: ADHD - medication worki ng well for treatment of the pt's medical condition and the pt is to continue with current medication for treatment of the symptoms of ADHD. The pt is to call if they notice palpi tations, rapid weight loss, severe insomnia that does improve. Pt is to call for any acute concerns, or if the medication does not seem to be working for improvement of the ADHD symptoms. Pt is aware of risk associated with medication use, and the danger of the medication if in the hands of someone to whom the medication was not prescribed. Chronic anxiety - the pt has symptoms of chronic anxiety that have been fairly well controlled since the last office visit. The pt has expected periods of exacerbation with abatement of the symptoms with change in situational exposure. No change in current medications. Hidradenitis Suppurativa - stable - no changes. 02/10/2018 Appointment: Miracle Gracia WPtel: [phone] [facility] (15 min) Moderate 02/10/2018 Patient Education: Patient Medication Summary Completed 02/10/2018 Visit Plan: Chronic Depression and anxiety - the pt has symptoms of chronic anxiety and depression that have been fairly well controlled since the last office visit. The pt has expected periods of exacerbation with abatement of the symptoms with change in situational exposure. No change in current medications. ADHD - pt is to start on stimulant medication for treatment of the symptoms of ADHD. The pt is to call if they notice palpitations, rapid weight loss, severe insomnia that does not start to improve after 2-3 days on the medication. Pt is to call for any acute concerns, or if the medication does not seem to be working for improvement of the ADHD symptoms. Pt is aware of risk associated with medication use, and the danger of the medication if in the hands of someone to whom the medication was not prescribed. 12/12/2017 Appointment: Miracle Gracia WPtel: [phone] [facility] (15 min) Moderate 12/12/2017 Patient Education: Patient Medication Summary Completed 12/12/2017 Visit Plan: Chronic Depression and anxiety - the pt has symptoms of chronic anxiety and depression that have been fairly well controlled since the last office visit. The pt has expected periods of exacerbation with abatement of the symptoms with change in situational exposure. No change in current medications. suppurativa hidradenitis - stable - improved since quitting smoking - no changes at this time, continue to monitor - pt is to notify clinic with any changes, questions, or concerns. 11/25/2017 Appointment: Miracle Gracia WPtel: [phone] [facility] [place] (15 min) Moderate 11/25/2017 Patient Education: Patient Medication Summary Completed 11/25/2017 Visit Plan: Abscess/Cellulitis - Th e patient was instructed in appropriate wound care. The patient was instructed to use the antibiotic ointment as per RX. The patient is to call for any change in symptoms, increase in size of the lesion, increase in pain. Pt is to discuss methotrexate with his pottery decoration designer. 03/02/2017 Appointment: Miracle Gracia WPtel: [facility] [place] (30 min) Complex 03/02/2017 Patient Education: Patient Medication Summary Completed 03/02/2017 Patient Education: Smoking and Tobacco Addiction Completed 03/02/2017 Patient Education: Obesity Completed 03/02/2017 Appointment: Miracle Gracia WPtel: [facility] [place] (30 min) Complex 11/19/2016 Appointment: Miracle Gracia WPtel: [address] [place], [place] [id number] [place] (15 min) Moderate 11/18/2016 Visit Plan: Abscess/Cellulitis - Th e patient was instructed in appropriate wound care. The patient was instructed to use the antibiotic ointment as per RX. The patient is to call for any change in symptoms, increase in size of the lesion, increase in pain. Pt is to return tomorrow for I&D if needed. 11/17/2016 Appointment: Miracle Gracia WPtel: [facility] [place] (15 min) Moderate 11/17/2016 Patient Education: Patient Medication Summary Completed 11/17/2016 Patient Education: Smoking and Tobacco Addiction Completed 11/17/2016 Referral: Alberto Pearson Referral Initiated 09/30/2016 Care Plan: Referral Order SNOMED-CT : [id number] Pending 09/28/2016 Visit Plan: Abscess/Cellulitis - Re occurring - will refer to Dr. Pearson - The patient was instructed in appropriate wound care. The patient was instructed to use the antibiotic ointment as per RX. The patient is to call for any change in symptoms, increase in size of the lesion, increase in pain. Right hand pain - previous surgery with hardware placement - pt states that he has impaired range of motion and pain - will refer to Dr. Isaac. 09/27/2016 Appointment: Miracle Gracia WPtel: [phone] [facility] (30 min) Complex 09/27/2016 Patient Education: Patient Medication Summary Completed 09/27/2016 Patient Education: Smoking and Tobacco Addiction Completed 09/27/2016 Care Plan: Referral Order SNOMED-CT : [id number] Pending 05/10/2016 Visit Plan: Abscess/Cellulitis - ri ght lateral hip - incision and drainage today in the office - The patient was instructed in appropriate wound care. The patient was instructed to use the antibiotic ointment as per RX. The patient is to call for any change in symptoms, increase in size of the lesion, increase in pain. 05/05/2016 Appointment: Gavi Soria WPtel: [phone] [facility] (30 min) Complex 05/05/2016 Patient Education: Patient Medication Summary Completed 05/05/2016 Patient Education: Smoking and Tobacco Addiction Completed 05/05/2016 Visit Plan: Otitis Externa - pt giv en RX for antibiotic drops for the use in pt's affected ear. Pt to call if symptoms are not improving or if symptoms worsen acutely. Sinusitis - Pt has acute infection - pain in face, maxillary region, Pt informed to use decongestant, RX given to patient, sinus rinses also recommended. Call if symptoms do not show improvement. Abscess/Cellulitis - The patient was instructed in appropriate wound care. The patient was instructed to use the antibiotic ointment as per RX. The patient is to call for any change in symptoms, increase in size of the lesion, increase in pain. 03/08/2016 Patient Education: Patient Medication Summary Completed 03/08/2016 Patient Education: Smoking and Tobacco Addiction Completed 03/08/2016 Visit Plan: Acne - discussed need f or facial cleansing at least twice daily - avoid drying out skin, but need to clean off excessive oil and debris from skin, also recommended frequent pillow case changes, need to start on oral antibiotics as directed and call if any symptoms of GI upset or other concerns once on antibiotics. Abscess/Cellulitis - The patient was instructed in appropriate wound care. The patient was instructed to use the antibiotic ointment as per RX. The patient is to call for any change in symptoms, increase in size of the lesion, increase in pain. Chronic anxiety - the pt has symptoms of chronic anxiety that have been fairly well controlled since the last office visit. The pt has expected periods of exacerbation with abatement of the symptoms with change in situational exposure. No change in current medications. 02/05/2016 Appointment: Miracle Gracia WPtel: [phone] [facility] (30 min) Complex 02/05/2016 Patient Education: Patient Medication Summary Completed 02/05/2016 Patient Education: Smoking and Tobacco Addiction Completed 02/05/2016 Visit Plan: Anxiety - the patient h as uncontrolled anxiety I believe that the patient will benefit from very low dose of prn benzodiazepine to attempt control of the symptoms of anxiety (tachycardia, overwhelming s ensations, stress, insomnia, etc). Pt is aware of the risks and benefits of treatment with the above medication. Pt is to notify clinic if symptoms of anxiety become more frequent, or with any concerns. Acne - discussed need for facial cleansing at least twice daily - avoid drying out skin, but need to clean off excessive oil and debris from skin, also recommended frequent pillow case changes, need to start on oral antibiotics as directed and call if any symptoms of GI upset or other concerns once on antibiotics. Dyshidrotic Eczema - will send RX cream. Pt is to notify clinic if symptoms do not improve. BMI 34 - The pt has been counseled about diet changes, calorie restriction, and need to exercise. Pt will RTC for weight check. 12/22/2015 Patient Education: Patient Medication Summary Completed 12/22/2015 Patient Education: Smoking and Tobacco Addiction Completed 12/22/2015 Patient Education: Obesity Completed 12/22/2015 Care Plan: BMI Above normal followup [facility] EDUC & TRAIN 1 PT Pending 12/22/2015 Referral: Alberto Pearson Referral Initiated Referral: [facility] WPtel: Referral Completed Referral: [facility] WPtel: will call with appt time Initiated Instructions Comment . Left shoulder pain , muscle spasm - will send RX - The pt is to use prn antiinflammatories to manage acute pain. The patient is to call the office if the pain is worsening or does not improve. . Abscess/Cellulitis - Reoccurring - will refer to Dr. Pearson - The patient was instructed in appropriate wound care. The patient was instructed to use the antibiotic ointment as per RX. The patient is to call for any change in symptoms, increase in size of the lesion, increase in pain. Right hand pain - previous surgery with hardware placement - pt states that he has impaired range of motion and pain - will refer to Dr. Isaac. . Abscess/Cellulitis - The patient was instructed in appropriate wound care. The patient was instructed to use the antibiotic ointment as per RX. The patient is to call for any change in symptoms, increase in size of the lesion, increase in pain. Pt is to discuss methotrexate with his pottery decoration designer. . Otitis Externa - p t given RX for antibiotic drops for the use in pt's affected ear. Pt to call if symptoms are not improving or if symptoms worsen acutely. Sinusitis - Pt has acute infection - pain in face, maxillary region, Pt informed to use decongestant, RX given to patient, sinus rinses also recommended. Call if symptoms do not show improvement. Abscess/Cellulitis - The patient was instructed in appropriate wound care. The patient was instructed to use the antibiotic ointment as per RX. The patient is to call for any change in symptoms, increase in size of the lesion, increase in pain. . Anxiety - the olga ent has uncontrolled anxiety I believe that the patient will benefit from very low dose of prn benzodiazepine to attempt control of the symptoms of anxiety (tachycardia, overwhelming sensations, stress, insomnia, etc). Pt is aware of the risks and benefits of treatment with the above medication. Pt is to notify clinic if symptoms of anxiety become more frequent, or with any concerns. Acne - discussed need for facial cleansing at least twice daily - avoid drying out skin, but need to clean off excessive oil and debris from skin, also recommended frequent pillow case changes, need to start on oral antibiotics as directed and call if any symptoms of GI upset or other concerns once on antibiotics. Dyshidrotic Eczema - will send RX cream. Pt is to notify clinic if symptoms do not improve. BMI 34 - The pt has been counseled about diet changes, calorie restriction, and need to exercise. Pt will RTC for weight check. . Chronic Depression and anxiety - the pt has symptoms of chronic anxiety and depression that have been fairly well controlled since the last office visit. The pt has expected periods of exacerbation with abatement of the symptoms with change in situational exposure. No change in current medications. suppurativa hidradenitis - stable - improved since quitting smoking - no changes at this time, continue to monitor - pt is to notify clinic with any changes, questions, or concerns. . ADHD - medication working well for treatment of the pt's medical condition and the pt is to continue with current medication for treatment of the symptoms of ADHD. The pt is to call if they notice pa lpitations, rapid weight loss, severe insomnia that does improve. Pt is to call for any acute concerns, or if the medication does not seem to be working for improvement of the ADHD symptoms. Pt is aware of risk associated with medication use, and the danger of the medication if in the hands of someone to whom the medication was not prescribed. Chronic anxiety - the pt has symptoms of chronic anxiety that have been fairly well controlled since the last office visit. The pt has expected periods of exacerbation with abatement of the symptoms with change in situational exposure. No change in current medications. Hidradenitis Suppurativa - stable - no changes. Compound w over the counter and duct tape daily - apply to plantar wart and cover with tape leave on over night and remove in the morning . Acne - discussed need for facial clean sing at least twice daily - avoid drying out skin, but need to clean off excessive oil and debris from skin, also recommended frequent pillow case changes, need to start on oral antibiotics as directed and call if any symptoms of GI upset or other concerns once on antibiotics. Abscess/Cellulitis - The patient was instructed in appropriate wound care. The patient was instructed to use the antibiotic ointment as per RX. The patient is to call for any change in symptoms, increase in size of the lesion, increase in pain. Chronic anxiety - the pt has symptoms of chronic anxiety that have been fairly well controlled since the last office visit. The pt has expected periods of exacerbation with abatement of the symptoms with change in situational exposure. No change in current medications. Dr. Kelsey campbell - pottery decoration designer at [facility] who specializes in HS will call Dr. Gamez office to see if they do humira for HS start doxy today will give steroid shot today and send steroid to pharmacy if you need it over the weekend. . HS - The patient was instructed in appropriate wound care. The patient was instructed to use the antibiotic ointment as per RX. The patient is to call for any change in symptoms, increase in size of the lesion, increase in pain, worsening redness, warmth, discharge. . Edema - pt has bee n advised to elevate legs to prevent dependent edema, compression has been recommended to help to naturally decrease peripheral edema. Diuretic use has been discussed and pt has been instructed in appropriate use of such medication as necessary to further attempt to reduce peripheral edema. Fatigue, malaise - will check labs and treat or refer as indicated HS - will refer to Dr. Gamez for possible humira. . Left shoulder pain , muscle spasm - will send RX - The pt is to use prn antiinflammatories to manage acute pain. The patient is to call the office if the pain is worsening or does not improve. Trigger Points - Injected trigger points today, pt given post-injection instructions, signs and symptoms for which to call the office. Pt to use heat to the muscles today, and take an anti-inflammatory today unless otherwise contraindicated by renal function or other disease process. . Abscess/Cellulitis - right lateral hip - incision and drainage today in the office - The patient was instructed in appropriate wound care. The patient was instructed to use the antibiotic ointment as per RX. The patient is to call for any change in symptoms, increase in size of the lesion, increase in pain. . Pharyngitis-fever -flu and strep swabs obtained today in the office and will treat as appropriate-discussed natural and expected course of this diagnosis and need to alert me if symptoms do not follow expected course, or if any worse. Recommended salt water gargles as needed for pain. Tylenol/motrin as needed for fever/discomfort. . Poison Karyn - pt is to use topical treatments as directed. Pt is cleanse clothing in hot water with soap, and call if symptoms do not improve or if they worsen. . HS - will discuss with Dr. Pereyra and consider referral - pt is to notify clinic if symptoms do not improve, if they worsen, or with any changes, quesions, or concerns. . Abscess/Cellulitis - The patient was instructed in appropriate wound care. The patient was instructed to use the antibiotic ointment as per RX. The patient is to call for any change in symptoms, increase in size of the lesion, increase in pain. Pt is to return tomorrow for I&D if needed. . Chronic Depression and anxiety - the pt has symptoms of chronic anxiety and depression that have been fairly well controlled since the last office visit. The pt has expected periods of exacerbation with abatement of the symptoms with change in situational exposure. No change in current medications. ADHD - pt is to start on stimulant medication for treatment of the symptoms of ADHD. The pt is to call if they notice palpitations, rapid weight loss, severe insomnia that does not start to improve after 2-3 days on the medication. Pt is to call for any acute concerns, or if the medication does not seem to be working for improvement of the ADHD symptoms. Pt is aware of risk associated with medication use, and the danger of the medication if in the hands of someone to whom the medication was not prescribed.
--- OUTSIDE RECORDS SUMMARY | 2020-02-25 10:37 | XMS REPORT | CCD ---
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 Role Phone PP Unavailable CCM Unavailable Summary Purpose Interface Exchange Insurance Providers Payer name Policy type / Coverage type Covered green party ID Effective Begin Date Effective End Date [employer] Commercial Insurance [id number] Unknown Family history Mother Diagnosis Age At Onset Cancer Unknown Diabetes Unknown Social History Social History Element Codes Description Effective Dates Marital status Unknown M kelvin Bosch 09/14/[address]: 3698477 Former smoker Quit in October 2017 11/25/2017 Number of children Unknown 1 12/22/2015 Number of years using tobacco Unknown 5 - 10 12/22/2015 Number of cigarettes/day Unknown 10 (Half a pack) 12/22/2015 Alcohol history Unknown occasionally drinks alcohol 12/22/2015 Frequency of drinks SNOMED CT: 329855789 1-4 drinks per week 12/22/2015 Allergies, Adverse [...] 40 mg/mL rodrigo pension for injection RxNorm: 3476641 Milliliter(s) Inj 04/11/2019 04/11/2019 In active prednisone 10 mg tablet RxNorm: 925173 1 Tablet(s) PO 04/11/2019 No Stop Date Active 6,5,4,3,2,1 Adderall 10 mg tablet RxNorm: 562151 1 Tablet(s) PO BID 02/20/2019 03/21/2019 Inactive potassium chloride E R 10 mEq tablet,extended release RxNorm: 991800 1 Tablet(s) PO daily when taking your lasix 02/09/2019 02/11/2019 Inactive prednisone 20 mg tablet RxNorm: 969637 3 Tablet(s) PO daily 02/09/2019 02/13/2019 Inactive doxycycline hyclate 100 mg capsule RxNorm: 4679434 1 Capsule(s) PO BID 02/09/2019 02/18/2019 In active Lasix 20 mg tablet RxNorm: 245565 1 Tablet(s) PO daily 02/09/2019 02/11/2019 Inactive Adderall 10 mg tablet RxNorm: 539864 1 Tablet(s) PO BID 01/11/2019 02/09/2019 Inactive Kenalog 40 mg/mL rodrigo pension for injection RxNorm: 2658414 Milliliter(s) Inj 12/29/2018 12/29/2018 In active prednisone 20 mg tablet RxNorm: 344236 3 Tablet(s) PO daily 12/29/2018 01/02/2019 Inactive doxycycline hyclate 100 mg capsule RxNorm: 8166811 1 Capsule(s) PO BID 12/29/2018 01/07/2019 In active Adderall 10 mg tablet RxNorm: 658989 1 Tablet(s) PO BID 12/15/2018 01/10/2019 Inactive Bactrim DS 800 mg-16 0 mg tablet RxNorm: 677565 1 Tablet(s) PO BID 11/06/2018 11/25/2018 Inactive prednisone 20 mg tablet RxNorm: 447506 3 Tablet(s) PO daily 11/06/2018 11/10/2018 Inactive cefdinir 300 mg capsule RxNorm: 056217 1 Capsule(s) PO BID 09/14/2018 09/23/2018 Inactive Zithromax Z-Molina 250 mg tablet RxNorm: 646514 1 Tablet(s) PO UD 09/07/2018 09/11/2018 Inactive zpack as directed Adderall 10 mg tablet RxNorm: 158756 1 Tablet(s) PO BID 09/07/2018 10/06/2018 Inactive Zorvolex 18 mg capsule RxNorm: 6502058 1 Capsule(s) PO TID 08/10/2018 No Stop Date Active tramadol 50 mg tablet RxNorm: 854461 1 Tablet(s) PO QID as needed 08/09/2018 08/18/2018 Inactive baclofen 10 mg tablet RxNorm: 954179 1 Tablet(s) PO TID as needed muscle spas ms 08/09/2018 08/13/2018 In active baclofen 10 mg tablet RxNorm: 425312 1 Tablet(s) PO TID as needed muscle spas ms 08/01/2018 08/05/2018 In active prednisone 20 mg tablet RxNorm: 927712 3 Tablet(s) PO daily 08/01/2018 08/05/2018 Inactive diazepam 2 mg tablet RxNorm: 750942 Tablet(s) TAKE 1/2 TABLET BY MOUTH TWICE DAILY NEEDED FOR ANXIETY 07/21/2018 08/19/2018 Inactive Adderall 10 mg tablet RxNorm: 456901 1 Tablet(s) PO BID 07/14/2018 08/12/2018 Inactive Adderall 10 mg tablet RxNorm: 658522 1 Tablet(s) PO BID 05/26/2018 06/24/2018 Inactive Adderall 10 mg tablet RxNorm: 772686 1 Tablet(s) PO BID 04/28/2018 05/25/2018 Inactive Adderall 5 mg tablet RxNorm: 667326 1 Tablet(s) PO QAM as needed 04/04/2018 04/27/2018 Inactive diazepam 2 mg tablet RxNorm: 158247 Tablet(s) TAKE 1/2 TABLET BY MOUTH TWICE DAILY NEEDED FOR ANXIETY 04/04/2018 05/02/2018 Inactive Adderall XR 20 mg ca psule,extended release RxNorm: 385000 1 Capsule(s) PO daily 03/13/2018 04/03/2018 In active Kenalog 40 mg/mL rodrigo pension for injection RxNorm: 3443863 1 Milliliter(s) Inj 03/01/2018 03/01/2018 In active Adderall 5 mg tablet RxNorm: 655288 1 Tablet(s) PO QAM as needed 02/13/2018 03/14/2018 Inactive Adderall XR 20 mg ca psule,extended release RxNorm: 675006 1 Capsule(s) PO daily 02/13/2018 03/12/2018 In active prednisone 20 mg tablet RxNorm: 327571 2 Tablet(s) PO daily 02/10/2018 02/14/2018 Inactive Bactrim DS 800 mg-16 0 mg tablet RxNorm: 013454 1 Tablet(s) PO BID 01/16/2018 02/04/2018 Inactive Adderall 5 mg tablet RxNorm: 112722 2 Tablet(s) PO QAM and 1 PO QPM 01/16/2018 02/12/2018 In active Bactrim DS 800 mg-16 0 mg tablet RxNorm: 044787 1 Tablet(s) PO BID 01/04/2018 01/15/2018 Inactive Adderall 5 mg tablet RxNorm: 259437 2 Tablet(s) PO QAM and 1 PO QPM 12/13/2017 01/11/2018 In active Zithromax Z-Molina 250 mg tablet RxNorm: 908184 1 Tablet(s) PO UD 11/25/2017 03/12/2018 Inactive diazepam 2 mg tablet RxNorm: 386978 Tablet(s) TAKE 1/2 TABLET BY MOUTH TWICE DAILY NEEDED FOR ANXIETY 11/18/2017 12/17/2017 Inactive diazepam 2 mg tablet RxNorm: 641353 Tablet(s) TAKE 1/2 TABLET BY MOUTH TWICE DAILY NEEDED FOR ANXIETY 08/30/2017 10/28/2017 Inactive diazepam 2 mg tablet RxNorm: 115846 Tablet(s) TAKE 1/2 TABLET BY MOUTH TWICE DAILY NEEDED FOR ANXIETY 07/19/2017 08/29/2017 Inactive diazepam 2 mg tablet RxNorm: 771415 TAKE 1/2 TABLET BY MOUTH TWICE DAILY NEEDED FOR ANXIETY 07/15/2017 07/18/2017 Inactive Bactrim DS 800 mg-16 0 mg tablet RxNorm: 778411 1 Tablet(s) PO BID 06/01/2017 06/20/2017 Inactive diazepam 2 mg tablet RxNorm: 436342 1/2 Tablet(s) PO BID as needed anxiety 06/01/2017 06/29/2017 In active tramadol 50 mg tablet RxNorm: 242055 1 Tablet(s) PO QID as needed 04/14/2017 04/23/2017 Inactive Bactrim DS 800 mg-16 0 mg tablet RxNorm: 021234 1 Tablet(s) PO BID 04/14/2017 05/03/2017 Inactive diazepam 2 mg tablet RxNorm: 998645 1/2 Tablet(s) PO BID as needed anxiety 03/02/2017 04/30/2017 In active Zithromax Z-Molina 250 mg tablet RxNorm: 677366 1 Tablet(s) PO UD 03/02/2017 07/18/2017 Inactive Bactrim DS 800 mg-16 0 mg tablet RxNorm: 740248 1 Tablet(s) PO BID 03/01/2017 03/20/2017 Inactive diazepam 2 mg tablet RxNorm: 815635 1/2 Tablet(s) PO BID as needed anxiety 01/21/2017 02/19/2017 In active Bactrim DS 800 mg-16 0 mg tablet RxNorm: 999795 1 Tablet(s) PO BID 01/21/2017 01/30/2017 Inactive Bactrim DS 800 mg-16 0 mg tablet RxNorm: 720698 1 Tablet(s) PO BID 11/17/2016 11/26/2016 Inactive diazepam 2 mg tablet RxNorm: 021849 1/2 Tablet(s) PO BID as needed anxiety 11/12/2016 01/10/2017 In active diazepam 2 mg tablet RxNorm: 914512 1/2 Tablet(s) PO BID as needed anxiety 10/18/2016 12/14/2016 In active Zithromax Z-Molina 250 mg tablet RxNorm: 211461 1 Tablet(s) PO UD 09/27/2016 03/01/2017 Inactive diazepam 2 mg tablet RxNorm: 111773 1/2 Tablet(s) PO BID as needed anxiety 09/13/2016 11/11/2016 In active diazepam 2 mg tablet RxNorm: 605240 1/2 Tablet(s) PO BID as needed anxiety 07/07/2016 09/17/2016 In active Levaquin 500 mg tablet RxNorm: 735087 1 Tablet(s) PO daily 06/01/2016 05/31/2016 Inactive Levaquin 500 mg tablet RxNorm: 321654 1 Tablet(s) PO daily 06/01/2016 06/07/2016 Inactive Levaquin 500 mg tablet RxNorm: 039479 1 Tablet(s) PO daily 05/05/2016 05/04/2016 Inactive Levaquin 500 mg tablet RxNorm: 787825 1 Tablet(s) PO daily 05/05/2016 05/11/2016 Inactive minocycline 100 mg c apsule RxNorm: 601469 1 CAPSULE(S) PO BID W HEN NOT HAVING ACUTE FLARE DECREASE TO ONCE DAILY 04/21/2016 05/20/2016 Inactive Ciprodex 0.3 %-0.1 % ear drops,suspension RxNorm: 588106 4 Drop(s) OTIC BID 03/08/2016 03/14/2016 In active Zithromax Z-Molina 250 mg tablet RxNorm: 101325 Tablet(s) PO 03/08/2016 09/26/2016 Inactive diazepam 2 mg tablet RxNorm: 918241 1/2 Tablet(s) PO BID as needed anxiety 2016 04/18/2016 In active mupirocin 2 % topica l ointment RxNorm: 123267 1 Application TOP BID 02/05/2016 No Stop Date Active minocycline 100 mg c apsule RxNorm: 484161 1 Capsule(s) PO BID w hen not having acute flare decrease to once daily 02/05/2016 03/05/2016 Inactive Bactrim DS 800 mg-16 0 mg tablet RxNorm: 078256 1 Tablet(s) PO BID 02/05/2016 02/18/2016 Inactive diazepam 2 mg tablet RxNorm: 721415 1/2 Tablet(s) PO BID as needed anxiety 02/05/2016 02/05/2016 In active betamethasone alberto te 0.1 % topical cream RxNorm: 773892 1 Application TOP BID as needed rash 12/22/2015 No Stop Date Active minocycline 100 mg c apsule RxNorm: 780750 1 Capsule(s) PO BID w hen not having acute flare decrease to once daily 12/22/2015 01/20/2016 Inactive Medication Administered Medication Codes Instruc tions Start Date Status Kenalog 40 mg/mL suspension for injection RxNorm: 7136745 Milliliter 04/11/2019 Ac tive Kenalog 40 mg/mL suspension for injection RxNorm: 0563174 Milliliter 12/29/2018 No longer Active Kenalog 40 mg/mL suspension for injection RxNorm: 7790678 1Milliliter 03/01/2018 N o longer Active Immunizations [...] Crqnt CRP 0.4 mg/dl 02/09/2019 Comp Metabolic Oqf687 NA 138 mEq/L 02/09/2019 Comp Metabolic Arg649 K 3.8 mEq/L 02/09/2019 Comp Metabolic Lsl307 CL 102 mEq/L 02/09/2019 Comp Metabolic Fak764 CO2 26.0 mEq/L 02/09/2019 Comp Metabolic Eck291 AN ION GAP 14 02/09/2019 Comp Metabolic Sdz527 GL UCOSE 92 mg/dL 02/09/2019 Comp Metabolic Yby644 Cr eat 1.0 mg/dL 02/09/2019 Comp Metabolic Ncq607 eG FR 88 ml/min/1.73m2 02/09 Comp Metabolic Osl853 BUN 23 mg/dL 02/09/2019 Comp Metabolic Dhe219 B/ C Ratio 22.5 Ratio 02/09/2019 Comp Metabolic Kyo466 CA LCIUM 9.4 mg/dL 02/09/2019 Comp Metabolic Mkj433 AL K PHOS 49 U/L 02/09/2019 Comp Metabolic Czp096 T(SGOT) 22 U/L 02/09/2019 Comp Metabolic Xhf229 AL T(SGPT) 26 U/L 02/09/2019 Comp Metabolic Sul611 BI LI T 0.4 mg/dL 02/09/2019 Comp Metabolic Bma755 AL BUMIN 4.3 g/dL 02/09/2019 Comp Metabolic Pim811 TP RO 7.0 g/dL 02/09/2019 Comp Metabolic Gzn407 GL OB 2.7 g/dL 02/09/2019 Comp Metabolic Tgl761 A/ G Ratio 1.6 Ratio 02/09/2019 Comp Metabolic Bju372 Os mo 279 mOsmo 02/09/2019 Cbc With [...] 90.3 fl 02/09/2019 Cbc With Differential Ord2 [place]% 6.4 % 02/09/2019 Cbc With Differential Ord2 [...] 3.27 K/ul 02/09/2019 Cbc With Differential Ord2 [place] ABS# 0.8 K/ul 02/09/2019 Cbc With Differential Ord2 Eos ABS# 0.2 K/ul 02/09/2019 Cbc With Differential Ord2 Baso ABS# 0.0 K/ul 02/09/2019 Sed Rate Ord21 ESR 2 mm/hr 02/09/2019 Tsh Ord6 TSH (3rd IS) 1.21 uIU/mL 02/09/2019 C RAP A SC [id number] Strep A Negative 09/14/2018 C A/B FLU 2469994 Influe nza A Scr Negative 09/14/2018 C A/B FLU 8447259 Influe nza B Scr Negative 09/14/2018 C A/B FLU 6604446 Influe nza Intrp B AG:PRID:PT:NOSE:NOM:IF See Footnote 09/14/2018 Tsh Ord6 hTSH II 1.82 uIU/mL 02/05/2016 Comp Metabolic Wvf236 NA 139 mEq/L 02/05/2016 Comp Metabolic Xpy049 K 4.2 mEq/L 02/05/2016 Comp Metabolic Ete563 CL 103 mEq/L 02/05/2016 Comp Metabolic Vyl552 CO2 29.0 mEq/L 02/05/2016 Comp Metabolic Nak302 AN ION GAP 11 02/05/2016 Comp Metabolic Dfr473 GL UCOSE 71 mg/dL 02/05/2016 Comp Metabolic Omc842 Cr eat 0.9 mg/dL 02/05/2016 Comp Metabolic Eex826 eG FR 101 ml/min/1.73m2 01/14 Comp Metabolic Hrq510 BUN 17 mg/dL 02/05/2016 Comp Metabolic Yzz082 B/ C Ratio 18.5 Ratio 02/05/2016 Comp Metabolic Nwa005 CA LCIUM 9.4 mg/dL 02/05/2016 Comp Metabolic Hwo712 AL K PHOS 63 U/L 02/05/2016 Comp Metabolic Txs263 T(SGOT) 30 U/L 02/05/2016 Comp Metabolic Qcx916 AL T(SGPT) 40 U/L 02/05/2016 Comp Metabolic Itu702 BI LI T 0.5 mg/dL 02/05/2016 Comp Metabolic Zaq099 AL BUMIN 4.2 g/dL 02/05/2016 Comp Metabolic Fex016 TP RO 7.2 g/dL 02/05/2016 Comp Metabolic Lti903 GL OB 3.0 g/dL 02/05/2016 Comp Metabolic Rft138 A/ G Ratio 1.4 Ratio 02/05/2016 Comp Metabolic Uxz414 Os mo 278 mOsmo 02/05/2016 Cbc With [...] 30.3 pg 02/05/2016 Cbc With Differential Ord2 [place]% 8.9 % 02/05/2016 Cbc With Differential Ord2 [...] 2.91 K/ul 02/05/2016 Cbc With Differential Ord2 [place] ABS# 1.1 K/ul 02/05/2016 Cbc With Differential [...] Procedure Codes Date THER/PROPH/DIAG INJ SC/IM CPT-4: 42414 04/11/2019 TRIAMCINOLONE ACET I [place] NOS CPT-4: J3301 04/11/2019 THER/PROPH/DIAG INJ SC/IM CPT-4: 66054 12/29/2018 TRIAMCINOLONE ACET I [place] NOS CPT-4: J3301 12/29/2018 TRIAMCINOLONE ACET I [place] NOS CPT-4: J3301 08/09/2018 INJECT TRIGGER POINT S 3/> CPT-4: 17849 08/09/2018 TRIAMCINOLONE ACET I [place] NOS CPT-4: J3301 03/01/2018 THER/PROPH/DIAG INJ SC/IM CPT-4: 67890 03/01/2018 DRAINAGE OF SKIN ABS CESS CPT-4: 38928 05/05/2016 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-[address]: 576532995 CPT-4: G0436 12/22/2015 Vital Signs Date Vital 04/11/2019 Blood Pressure 1: 124/76 Code: 8480-6 BMI: 33.6 Code: 65198-8 Heart Rate 1: 87 bpm Height: 5'11" SpO2: 98% Weight: 241 lbs 02/09/2019 Blood Pressure 1: 132/72 Code: 8480-6 BMI: 33.9 Code: 16038-2 Heart Rate 1: 98 bpm Height: 5'11" SpO2: 98% Weight: 243 lbs 12/29/2018 Blood Pressure 1: 120/72 Code: 8480-6 BMI: 33.6 Code: 76835-7 Heart Rate 1: 94 bpm Height: 5'11" SpO2: 98% Weight: 241 lbs 09/14/2018 Blood Pressure 1: 128/86 Code: 8480-6 BMI: 33.9 Code: 47603-4 Heart Rate 1: 128 bpm Height: 5'11" SpO2: 96% Temperature: 37.4 (C ) / 99.3 (F) Weight: 243 lbs 08/09/2018 Blood Pressure 1: 120/72 Code: 8480-6 Heart Rate 1: 90 bpm Height: SpO2: 98% Weight: 08/01/2018 Blood Pressure 1: 11078 Code: 8480-6 BMI: 34.4 Code: 55851-7 Heart Rate 1: 109 bpm Height: 5'11" SpO2: 98% Weight: 247 lbs 03/01/2018 Blood Pressure 1: 120/80 Code: 8480-6 BMI: 32.9 Code: 36230-8 Heart Rate 1: 72 bpm Height: 5'11" SpO2: 96% Weight: 236 lbs 02/10/2018 Blood Pressure 1: 122/70 Code: 8480-6 BMI: 32.9 Code: 57151-6 Heart Rate 1: 90 bpm Height: 5'11" SpO2: 98% Weight: 236 lbs 12/12/2017 Blood Pressure 1: 124/72 Code: 8480-6 BMI: 35.0 Code: 14735-3 Heart Rate 1: 80 bpm Height: 5'11" SpO2: 96% Weight: 251 lbs 11/25/2017 Blood Pressure 1: 122/76 Code: 8480-6 BMI: 35.4 Code: 82036-1 Heart Rate 1: 74 bpm Height: 5'11" SpO2: 95% Weight: 254 lbs 03/02/2017 Blood Pressure 1: 120/70 Code: 8480-6 BMI: 33.8 Code: 79346-5 Heart Rate 1: 79 bpm Height: 5'11" SpO2: 99% Weight: 242 lbs 11/17/2016 Blood Pressure 1: 120/88 Code: 8480-6 BMI: 36.8 Code: 85215-1 Heart Rate 1: 104 bpm Height: 5'11" SpO2: 99% Weight: 264 lbs 09/27/2016 Blood Pressure 1: 122/78 Code: 8480-6 BMI: 34.6 Code: 63659-4 Heart Rate 1: 100 bpm Height: 5'11" SpO2: 96% Weight: 248 lbs 05/05/2016 Blood Pressure 1: 114/78 Code: 8480-6 BMI: 35.1 Code: 66621-1 Heart Rate 1: 81 bpm Height: 5'11" SpO2: 96% Weight: 252 lbs 03/08/2016 Blood Pressure 1: 120/64 Code: 8480-6 BMI: 34.3 Code: 79942-0 Heart Rate 1: 95 bpm Height: 5'11" SpO2: 97% Weight: 246 lbs 02/05/2016 Blood Pressure 1: 120/78 Code: 8480-6 BMI: 33.5 Code: 51511-1 Heart Rate 1: 104 bpm Height: 5'11" SpO2: 97% Weight: 240 lbs 12/22/2015 Blood Pressure 1: 120/82 Code: 8480-6 BMI: 34.3 Code: 07649-7 Heart Rate 1: 83 bpm Height: 5'11" [...] Encounters Encounter Performer Loca tion Codes Date 39153 EST. PATIENT, LEVEL III Diagnosis: Allergic contact dermatitis due to plants, except food[ICD10: L23.7] Miracle Pereyra MD, [facility] CPT-4: 28338 04/11/2019 [id number] EST. PATIENT, LEVEL IV Diagnosis: Other fatigue[ICD10: R53.83] Diagnosis: Other malaise[ICD10: R53.81] Diagnosis: Localized edema[ICD10: R60.0] Diagnosis: Hidradenitis suppurativa[ICD10: L73.2] Miracle Pereyra MD, [facility] CPT-4: 13477 02/09/2019 63594 EST. PATIENT, LEVEL III Diagnosis: Hidradenitis suppurativa[ICD10: L73.2] Miracle Pereyra MD, [facility] CPT-4: 94694 12/29/2018 ([id number]) 00880 EST. P ATIENT, LEVEL III Diagnosis: Acute laryngopharyngitis[ICD10: J06.0] Diagnosis: Fever, unspecified[ICD10: R50.9] Gavi Pereyra MD, [facility] CPT- 4: 13848 09/14/2018 68221 EST. PATIENT, LEVEL III Diagnosis: Pain in left shoulder[ICD10: M25.512] Diagnosis: Muscle spasm of back[ICD10: M62.830] Miracle Pereyra MD, [facility] CPT- 4: 14010 08/09/2018 95191 EST. PATIENT, LEVEL III Diagnosis: Pain in left shoulder[ICD10: M25.512] Diagnosis: Muscle spasm of back[ICD10: M62.830] Miracle Pereyra MD, [facility] CPT- 4: 44125 08/01/2018 90102 EST. PATIENT, LEVEL III Diagnosis: Hidradenitis suppurativa[ICD10: L73.2] Miracle Pereyra MD, [facility] CPT-4: 70946 03/01/2018 11791 EST. 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 PATIENT, LEVEL IV Diagnosis: Generalized anxiety disorder[ICD10: F41.1] Diagnosis: Hidradenitis suppurativa[ICD10: L73.2] Miracle Pereyra MD, [facility] CPT-4: 50159 11/25/2017 97061 EST. PATIENT, LEVEL III Diagnosis: Hidradenitis suppurativa[ICD10: L73.2] Diagnosis: Generalized anxiety disorder[ICD10: F41.1] Miracle Pereyra MD, [facility] CPT-4: 34655 03/02/2017 91227 EST. PATIENT, LEVEL III Diagnosis: Cutaneous abscess of buttock[ICD10: L02.31] Miracle Pereyra MD, [facility] CPT-4: 56402 11/17/2016 29029 EST. PATIENT, LEVEL III Diagnosis: Cutaneous abscess of left axilla[ICD10: L02.412] Diagnosis: Pain in right hand[ICD10: M79.641] Miracle Pereyra MD, [facility] CPT-4: 09177 09/27/2016 33451 EST. PATIENT, LEVEL III Diagnosis: Cutaneous abscess of right lower limb[ICD10: L02.415] Diagnosis: Hidradenitis suppurativa[ICD10: L73.2] Miracle Pereyra MD, [facility] CPT-4: 41649 05/05/2016 76579 EST. PATIENT, LEVEL IV Diagnosis: Other otitis externa, right ear[ICD10: H60.8X1] Diagnosis: Cutaneous abscess of left axilla[ICD10: L02.412] Diagnosis: Other acute sinusitis[ICD10: J01.80] Miracle Pereyra MD, [facility] CPT- 4: 09972 03/08/2016 99215 EST. PATIENT, LEVEL III Diagnosis: Generalized anxiety disorder[ICD10: F41.1] Diagnosis: Acne vulgaris[ICD10: L70.0] Diagnosis: Plantar wart[ICD10: B07.0] Miracle Pereyra MD, [facility] CPT-4: 34893 02/05/2016 ([id number]) OFFICE VISI T, NEW - LEVEL 3 Diagnosis: Generalized anxiety disorder[ICD10: F41.1] Diagnosis: 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][ICD10: L30.1] Diagnosis: Acne vulgaris[ICD10: L70.0] Diagnosis: Other obesity due to excess calories[ICD10: E66.09] Miracle Pereyra MD, [facility] CPT-4: 53732 12/22/2015 Plan of Care Planned Activity Notes [...] humira. 02/09/2019 Appointment: [id number] ([facility] [place] Complex 02/09/2019 Patient Education: Patient [...] warmth, discharge. 12/29/2018 Appointment: Miracle Gracia WPtel: [facility] ([place] Complex 12/29/2018 Patient Education: Patient [...] for fever/discomfort. 09/14/2018 Appointment: Gavi Soria WPtel: [phone] [place] (15 min) Moderate 09/14/2018 Patient Education: [...] or other disease process. 08/09/2018 Appointment: Miracle Gracia [facility]el[phone] [facility] [place] [place] ([place] min) Complex 08/09/2018 Patient Education: Patient Medication Summary Completed 08/09/2018 Visit Plan: Left shoulder pain, mus mishel spasm - will send RX - The pt is to use prn antiinflammatories to manage acute pain. The patient is to call the office if the pain is worsening or does not improve. 08/01/2018 Appointment: Miracle Gracia [facility]el[phone] [facility] [id number] [place] (15 min) Moderate 08/01/2018 Patient Education: [...] changes. 02/10/2018 Appointment: Miracle Gracia WPtel: [phone] [facility] (15 min) Moderate 02/10/2018 Patient Education: Patient [...] prescribed. 12/12/2017 Appointment: Miracle Gracia WPtel: [phone] [facility] (15 min) Moderate 12/12/2017 Patient Education: Patient [...] concerns. 11/25/2017 Appointment: Miracle Gracia [facility]el[phone] [facility] [place] [place] (15 min) Moderate 11/25/2017 Patient Education: Patient Medication Summary Completed 11/25/2017 Visit Plan: Abscess/Cellulitis - Th e patient was instructed in appropriate wound care. The patient was instructed to use the antibiotic ointment as per RX. The patient is to call for any change in symptoms, increase in size of the lesion, increase in pain. Pt is to discuss methotrexate with his card cutter helper. 03/02/2017 Appointment: Miracle Gracia WPtel: [facility] [place] ([place] min) Complex 03/02/2017 Patient Education: Patient Medication Summary Completed 03/02/2017 Patient Education: Smoking and Tobacco Addiction Completed 03/02/2017 Patient Education: Obesity Completed 03/02/2017 Appointment: Miracle Gracia WPtel: [facility] [place] (30 min) Complex 11/19/2016 Appointment: Miracle Gracia WPtel: [address] [place], [place] [id number] [place] (15 min) Moderate 11/18/2016 Visit Plan: Abscess/Cellulitis - Th e patient was instructed in appropriate wound care. The patient was instructed to use the antibiotic ointment as per RX. The patient is to call for any change in symptoms, increase in size of the lesion, increase in pain. Pt is to return tomorrow for I&D if needed. 11/17/2016 Appointment: Miracle Gracia WPtel: [facility] [place] [place] (15 min) Moderate 11/17/2016 Patient Education: Patient Medication Summary Completed 11/17/2016 Patient Education: Smoking and Tobacco Addiction Completed 11/17/2016 Referral: Alberto Pearson Referral Initiated 09/30/2016 Care Plan: Referral Order SNOMED-CT : [id number] Pending 09/28/2016 Visit Plan: Abscess/Cellulitis - Re [...] Isaac. 09/27/2016 Appointment: Miracle Gracia [facility]el[phone] [facility] [place] ([place] min) Complex 09/27/2016 Patient Education: Patient Medication Summary Completed 09/27/2016 Patient Education: Smoking and Tobacco Addiction Completed 09/27/2016 Care Plan: Referral Order SNOMED-CT : [id number] Pending 05/10/2016 Visit Plan: Abscess/Cellulitis - ri [...] pain. 05/05/2016 Appointment: Gavi Soria [facility]Ptel[phone] [facility] [phone] (30 min) Complex 05/05/2016 Patient Education: Patient [...] medications. 02/05/2016 Appointment: Miracle Gracia [facility]Ptel[phone] [facility] [place] ([place]) Complex 02/05/2016 Patient Education: Patient [...] 12/22/2015 Referral: Alberto Pearson Referral Initiated Referral: [facility] WPtel: Referral Completed Referral: [facility] WPtel: will call with appt time Initiated [...] Pt is to discuss methotrexate with his card cutter helper. . Otitis Externa - p t given [...] in current medications. Dr. Kelsey campbell - card cutter helper at [facility] who specializes in HS will [...]
--- OUTSIDE RECORDS SUMMARY | 2020-02-25 10:38 | XMS REPORT | CCD ---
Author Norbert Mancia Organization Celeste Pereyra MD, [facility] Address [address] [place] [address] Phone Care Team Providers Care Medical Facilities Section Director Name Role Phone PP Unavailable CCM Unavailable Summary Purpose Interface Exchange Insurance Providers Payer name Policy type / Coverage type Covered constitution party ID Effective Begin Date Effective End Date [employer] Commercial Insurance [id number] Unknown Family history Mother Diagnosis Age At Onset Cancer Unknown Diabetes Unknown Social History Social History Element Codes Description Effective Dates Marital status Unknown M kelvin Bosch 09/14/[address]: 4984407 Former smoker Quit in October 2017 11/25/2017 Number of children Unknown 1 12/22/2015 Number of years using tobacco Unknown 5 - 10 12/22/2015 Number of cigarettes/day Unknown 10 (Half a pack) 12/22/2015 Alcohol history Unknown occasionally drinks alcohol 12/22/2015 Frequency of drinks SNOMED CT: 337647212 1-4 drinks per week 12/22/2015 Allergies, Adverse Reactions, Alerts Substance Reaction Codes Entered Date Inactivated Date Status Penicillin Unknown 09/14/2018 No In active Date Active Past Medical History Illness Codes Condition Status Onset Date Resolved Date Hidradenitis suppura tiva ICD-9: 705.83 ICD-10: L73.2 [...] Condition Codes Effectiv e Dates Condition Status Hidradenitis suppura tiva ICD-9: 705.83 ICD-10: L73.2 [...] Date Stop Date Sta tus Fill Instructions prednisone 20 mg tablet RxNorm: 280670 3 Tablet(s) PO daily 02/09/2019 02/13/2019 Active doxycycline hyclate 100 mg capsule RxNorm: 1349586 1 Capsule(s) PO BID 02/09/2019 02/18/2019 Ac tive potassium chloride E R 10 mEq tablet,extended release RxNorm: 772080 1 Tablet(s) PO daily when taking your lasix 02/09/2019 02/11/2019 Inactive Lasix 20 mg tablet RxNorm: 191729 1 Tablet(s) PO daily 02/09/2019 02/11/2019 Inactive Adderall 10 mg tablet RxNorm: 733278 1 Tablet(s) PO BID 01/11/2019 02/09/2019 Inactive Kenalog 40 mg/mL rodrigo pension for injection RxNorm: 7130557 Milliliter(s) Inj 12/29/2018 12/29/2018 In active prednisone 20 mg tablet RxNorm: 652842 3 Tablet(s) PO daily 12/29/2018 01/02/2019 Inactive doxycycline hyclate 100 mg capsule RxNorm: 9306675 1 Capsule(s) PO BID 12/29/2018 01/07/2019 In active Adderall 10 mg tablet RxNorm: 825498 1 Tablet(s) PO BID 12/15/2018 01/10/2019 Inactive Bactrim DS 800 mg-16 0 mg tablet RxNorm: 812952 1 Tablet(s) PO BID 11/06/2018 11/25/2018 Inactive prednisone 20 mg tablet RxNorm: 904308 3 Tablet(s) PO daily 11/06/2018 11/10/2018 Inactive cefdinir 300 mg capsule RxNorm: 248475 1 Capsule(s) PO BID 09/14/2018 09/23/2018 Inactive Zithromax Z-Molina 250 mg tablet RxNorm: 094487 1 Tablet(s) PO UD 09/07/2018 09/11/2018 Inactive zpack as directed Adderall 10 mg tablet RxNorm: 526522 1 Tablet(s) PO BID 09/07/2018 10/06/2018 Inactive Zorvolex 18 mg capsule RxNorm: 8144244 1 Capsule(s) PO TID 08/10/2018 No Stop Date Active tramadol 50 mg tablet RxNorm: 598447 1 Tablet(s) PO QID as needed 08/09/2018 08/18/2018 Inactive baclofen 10 mg tablet RxNorm: 706702 1 Tablet(s) PO TID as needed muscle spas ms 08/09/2018 08/13/2018 In active baclofen 10 mg tablet RxNorm: 997012 1 Tablet(s) PO TID as needed muscle spas ms 08/01/2018 08/05/2018 In active prednisone 20 mg tablet RxNorm: 061179 3 Tablet(s) PO daily 08/01/2018 08/05/2018 Inactive diazepam 2 mg tablet RxNorm: 856687 Tablet(s) TAKE 1/2 TABLET BY MOUTH TWICE DAILY NEEDED FOR ANXIETY 07/21/2018 08/19/2018 Inactive Adderall 10 mg tablet RxNorm: 074076 1 Tablet(s) PO BID 07/14/2018 08/12/2018 Inactive Adderall 10 mg tablet RxNorm: 568316 1 Tablet(s) PO BID 05/26/2018 06/24/2018 Inactive Adderall 10 mg tablet RxNorm: 578556 1 Tablet(s) PO BID 04/28/2018 05/25/2018 Inactive Adderall 5 mg tablet RxNorm: 794798 1 Tablet(s) PO QAM as needed 04/04/2018 04/27/2018 Inactive diazepam 2 mg tablet RxNorm: 785627 Tablet(s) TAKE 1/2 TABLET BY MOUTH TWICE DAILY NEEDED FOR ANXIETY 04/04/2018 05/02/2018 Inactive Adderall XR 20 mg ca psule,extended release RxNorm: 718897 1 Capsule(s) PO daily 03/13/2018 04/03/2018 In active Kenalog 40 mg/mL rodrigo pension for injection RxNorm: 2017529 1 Milliliter(s) Inj 03/01/2018 03/01/2018 In active Adderall 5 mg tablet RxNorm: 333720 1 Tablet(s) PO QAM as needed 02/13/2018 03/14/2018 Inactive Adderall XR 20 mg ca psule,extended release RxNorm: 187964 1 Capsule(s) PO daily 02/13/2018 03/12/2018 In active prednisone 20 mg tablet RxNorm: 529908 2 Tablet(s) PO daily 02/10/2018 02/14/2018 Inactive Bactrim DS 800 mg-16 0 mg tablet RxNorm: 377726 1 Tablet(s) PO BID 01/16/2018 02/04/2018 Inactive Adderall 5 mg tablet RxNorm: 866329 2 Tablet(s) PO QAM and 1 PO QPM 01/16/2018 02/12/2018 In active Bactrim DS 800 mg-16 0 mg tablet RxNorm: 232577 1 Tablet(s) PO BID 01/04/2018 01/15/2018 Inactive Adderall 5 mg tablet RxNorm: 835573 2 Tablet(s) PO QAM and 1 PO QPM 12/13/2017 01/11/2018 In active Zithromax Z-Molina 250 mg tablet RxNorm: 509469 1 Tablet(s) PO UD 11/25/2017 03/12/2018 Inactive diazepam 2 mg tablet RxNorm: 144144 Tablet(s) TAKE 1/2 TABLET BY MOUTH TWICE DAILY NEEDED FOR ANXIETY 11/18/2017 12/17/2017 Inactive diazepam 2 mg tablet RxNorm: 800872 Tablet(s) TAKE 1/2 TABLET BY MOUTH TWICE DAILY NEEDED FOR ANXIETY 08/30/2017 10/28/2017 Inactive diazepam 2 mg tablet RxNorm: 766201 Tablet(s) TAKE 1/2 TABLET BY MOUTH TWICE DAILY NEEDED FOR ANXIETY 07/19/2017 08/29/2017 Inactive diazepam 2 mg tablet RxNorm: 923004 TAKE 1/2 TABLET BY MOUTH TWICE DAILY NEEDED FOR ANXIETY 07/15/2017 07/18/2017 Inactive Bactrim DS 800 mg-16 0 mg tablet RxNorm: 775908 1 Tablet(s) PO BID 06/01/2017 06/20/2017 Inactive diazepam 2 mg tablet RxNorm: 658089 1/2 Tablet(s) PO BID as needed anxiety 06/01/2017 06/29/2017 In active tramadol 50 mg tablet RxNorm: 781388 1 Tablet(s) PO QID as needed 04/14/2017 04/23/2017 Inactive Bactrim DS 800 mg-16 0 mg tablet RxNorm: 831983 1 Tablet(s) PO BID 04/14/2017 05/03/2017 Inactive diazepam 2 mg tablet RxNorm: 848919 1/2 Tablet(s) PO BID as needed anxiety 03/02/2017 04/30/2017 In active Zithromax Z-Molina 250 mg tablet RxNorm: 174339 1 Tablet(s) PO UD 03/02/2017 07/18/2017 Inactive Bactrim DS 800 mg-16 0 mg tablet RxNorm: 007984 1 Tablet(s) PO BID 03/01/2017 03/20/2017 Inactive diazepam 2 mg tablet RxNorm: 884795 1/2 Tablet(s) PO BID as needed anxiety 01/21/2017 02/19/2017 In active Bactrim DS 800 mg-16 0 mg tablet RxNorm: 092836 1 Tablet(s) PO BID 01/21/2017 01/30/2017 Inactive Bactrim DS 800 mg-16 0 mg tablet RxNorm: 714739 1 Tablet(s) PO BID 11/17/2016 11/26/2016 Inactive diazepam 2 mg tablet RxNorm: 345585 1/2 Tablet(s) PO BID as needed anxiety 11/12/2016 01/10/2017 In active diazepam 2 mg tablet RxNorm: 800523 1/2 Tablet(s) PO BID as needed anxiety 10/18/2016 12/14/2016 In active Zithromax Z-Molina 250 mg tablet RxNorm: 996019 1 Tablet(s) PO UD 09/27/2016 03/01/2017 Inactive diazepam 2 mg tablet RxNorm: 856372 1/2 Tablet(s) PO BID as needed anxiety 09/13/2016 11/11/2016 In active diazepam 2 mg tablet RxNorm: 836743 1/2 Tablet(s) PO BID as needed anxiety 07/07/2016 09/17/2016 In active Levaquin 500 mg tablet RxNorm: 739122 1 Tablet(s) PO daily 06/01/2016 05/31/2016 Inactive Levaquin 500 mg tablet RxNorm: 294249 1 Tablet(s) PO daily 06/01/2016 06/07/2016 Inactive Levaquin 500 mg tablet RxNorm: 218415 1 Tablet(s) PO daily 05/05/2016 05/04/2016 Inactive Levaquin 500 mg tablet RxNorm: 629770 1 Tablet(s) PO daily 05/05/2016 05/11/2016 Inactive minocycline 100 mg c apsule RxNorm: 998115 1 CAPSULE(S) PO BID W HEN NOT HAVING ACUTE FLARE DECREASE TO ONCE DAILY 04/21/2016 05/20/2016 Inactive Ciprodex 0.3 %-0.1 % ear drops,suspension RxNorm: 595292 4 Drop(s) OTIC BID 03/08/2016 03/14/2016 In active Zithromax Z-Molina 250 mg tablet RxNorm: 266053 Tablet(s) PO 03/08/2016 09/26/2016 Inactive diazepam 2 mg tablet RxNorm: 067318 1/2 Tablet(s) PO BID as needed anxiety 2016 04/18/2016 In active mupirocin 2 % topica l ointment RxNorm: 600605 1 Application TOP BID 02/05/2016 No Stop Date Active minocycline 100 mg c apsule RxNorm: 019346 1 Capsule(s) PO BID w hen not having acute flare decrease to once daily 02/05/2016 03/05/2016 Inactive Bactrim DS 800 mg-16 0 mg tablet RxNorm: 024880 1 Tablet(s) PO BID 02/05/2016 02/18/2016 Inactive diazepam 2 mg tablet RxNorm: 526386 1/2 Tablet(s) PO BID as needed anxiety 02/05/2016 02/05/2016 In active betamethasone alberto te 0.1 % topical cream RxNorm: 152922 1 Application TOP BID as needed rash 12/22/2015 No Stop Date Active minocycline 100 mg c apsule RxNorm: 593949 1 Capsule(s) PO BID w hen not having acute flare decrease to once daily 12/22/2015 01/20/2016 Inactive Medication Administered Medication Codes Instruc tions Start Date Status Kenalog 40 mg/mL suspension for injection RxNorm: 8957725 Milliliter 12/29/2018 No longer Active Kenalog 40 mg/mL suspension for injection RxNorm: 4344300 1Milliliter 03/01/2018 N o longer Active Immunizations No Immunization data Assessments Condition Codes Effectiv e Dates Localized edema ICD-10: R60.0 ICD-9: 782.3 02/09/2019 [...] Visit Reason For Visit Effective Dates Notes edema 02/09/2019 skin lesion 12/29/2018 sore throat [...] Crqnt CRP 0.4 mg/dl 02/09/2019 Comp Metabolic Cfs668 NA 138 mEq/L 02/09/2019 Comp Metabolic Loo603 K 3.8 mEq/L 02/09/2019 Comp Metabolic Hwp949 CL 102 mEq/L 02/09/2019 Comp Metabolic Qmb734 CO2 26.0 mEq/L 02/09/2019 Comp Metabolic Qiz261 AN ION GAP 14 02/09/2019 Comp Metabolic Qpy312 GL UCOSE 92 mg/dL 02/09/2019 Comp Metabolic Hhr259 Cr eat 1.0 mg/dL 02/09/2019 Comp Metabolic Fge107 eG FR 88 ml/min/1.73m2 02/09 Comp Metabolic Jkp195 BUN 23 mg/dL 02/09/2019 Comp Metabolic Omh571 B/ C Ratio 22.5 Ratio 02/09/2019 Comp Metabolic Tvi669 CA LCIUM 9.4 mg/dL 02/09/2019 Comp Metabolic Hwg832 AL K PHOS 49 U/L 02/09/2019 Comp Metabolic Hnm819 T(SGOT) 22 U/L 02/09/2019 Comp Metabolic Kum723 AL T(SGPT) 26 U/L 02/09/2019 Comp Metabolic Pua313 BI LI T 0.4 mg/dL 02/09/2019 Comp Metabolic Rqh131 AL BUMIN 4.3 g/dL 02/09/2019 Comp Metabolic Few513 TP RO 7.0 g/dL 02/09/2019 Comp Metabolic Dga249 GL OB 2.7 g/dL 02/09/2019 Comp Metabolic Qws881 A/ G Ratio 1.6 Ratio 02/09/2019 Comp Metabolic Blf300 Os mo 279 mOsmo 02/09/2019 Cbc With [...] 90.3 fl 02/09/2019 Cbc With Differential Ord2 Marin% 6.4 % 02/09/2019 Cbc With Differential Ord2 [...] 3.27 K/ul 02/09/2019 Cbc With Differential Ord2 Marin ABS# 0.8 K/ul 02/09/2019 Cbc With Differential Ord2 Eos ABS# 0.2 K/ul 02/09/2019 Cbc With Differential Ord2 Baso ABS# 0.0 K/ul 02/09/2019 Sed Rate Ord21 ESR 2 mm/hr 02/09/2019 Tsh Ord6 TSH (3rd IS) 1.21 uIU/mL 02/09/2019 C RAP A SC 3447989 Strep A Negative 09/14/2018 C A/B FLU 7029625 Influe nza A Scr Negative 09/14/2018 C A/B FLU [id number] Influe nza B Scr Negative 09/14/2018 C A/B FLU [id number] Influe nza Intrp B AG:PRID:PT:NOSE:NOM:IF See Footnote 09/14/2018 Tsh Ord6 hTSH II 1.82 uIU/mL 02/05/2016 Comp Metabolic Nnw088 NA 139 mEq/L 02/05/2016 Comp Metabolic Igf807 K 4.2 mEq/L 02/05/2016 Comp Metabolic Jks878 CL 103 mEq/L 02/05/2016 Comp Metabolic Ugb653 CO2 29.0 mEq/L 02/05/2016 Comp Metabolic Aqt174 AN ION GAP 11 02/05/2016 Comp Metabolic Egz439 GL UCOSE 71 mg/dL 02/05/2016 Comp Metabolic Yer907 Cr eat 0.9 mg/dL 02/05/2016 Comp Metabolic Ygv071 eG FR 101 ml/min/1.73m2 01/14 Comp Metabolic Qex399 BUN 17 mg/dL 02/05/2016 Comp Metabolic Ofn108 B/ C Ratio 18.5 Ratio 02/05/2016 Comp Metabolic Qro778 CA LCIUM 9.4 mg/dL 02/05/2016 Comp Metabolic Gmg356 AL K PHOS 63 U/L 02/05/2016 Comp Metabolic Rxl107 T(SGOT) 30 U/L 02/05/2016 Comp Metabolic Qxe318 AL T(SGPT) 40 U/L 02/05/2016 Comp Metabolic Xsk486 BI LI T 0.5 mg/dL 02/05/2016 Comp Metabolic Xre525 AL BUMIN 4.2 g/dL 02/05/2016 Comp Metabolic Yua807 TP RO 7.2 g/dL 02/05/2016 Comp Metabolic Xhi371 GL OB 3.0 g/dL 02/05/2016 Comp Metabolic Mqt866 A/ G Ratio 1.4 Ratio 02/05/2016 Comp Metabolic Afr151 Os mo 278 mOsmo 02/05/2016 Cbc With [...] 30.3 pg 02/05/2016 Cbc With Differential Ord2 Marin% 8.9 % 02/05/2016 Cbc With Differential Ord2 [...] 2.91 K/ul 02/05/2016 Cbc With Differential Ord2 Marin ABS# 1.1 K/ul 02/05/2016 Cbc With Differential Ord2 Eos ABS# 0.1 K/ul 02/05/2016 Cbc With Differential Ord2 Baso ABS# 0.0 K/ul 02/05/2016 Review of Systems System Result Effective Dates Constitutional No recent illness 02/09/2019 Constitutional No [...] Respiratory No chest congestion 11/25/2017 Psychiatric anxiety 041 10/2017 Constitutional No recent illness 03/02/2017 Constitutional No [...] No mental status change 03/08/2016 Psychiatric anxiety 07/12/2015 Psychiatric No depression 03/08/2016 Constitutional recent illness [...] No mental status change 02/05/2016 Psychiatric anxiety 01/14 Psychiatric No depression 02/05/2016 Constitutional No chills [...] Result Effective Dates Notes Full Exam - General 1994 Constitutional general [...] normal 02/09/2019 None Full Exam - General 1995 Ears/Nose/Throat lips/teeth/gingiva Overall: benign lips 02/09/2019 None Full Exam - General 1995 Ears/Nose/Throat oral cavity/pharynx/larynx Overall: oral mucosa clear 02/09/2019 None Full Exam - General 1995 Ears/Nose/Throat oral cavity/pharynx/larynx Overall: oropharyngeal mucosa clear [...] developed 02/10/2018 None Full Exam - General 1994 [...] affect 09/27/2016 None Full Exam - General 1995 Constitutional general appearance Overall: well developed 05/05/2016 [...] Procedure Codes Date THER/PROPH/DIAG INJ SC/IM CPT-4: 00570 12/29/2018 TRIAMCINOLONE ACET I [place] NOS CPT-4: J3301 12/29/2018 TRIAMCINOLONE ACET I [place] NOS CPT-4: J3301 08/09/2018 INJECT TRIGGER POINT S 3/> CPT-4: 69330 08/09/2018 TRIAMCINOLONE ACET I [place] NOS CPT-4: J3301 03/01/2018 THER/PROPH/DIAG INJ SC/IM CPT-4: 20061 03/01/2018 DRAINAGE OF SKIN ABS CESS CPT-4: 60259 05/05/2016 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-[address]: 427045948 CPT-4: G0436 12/22/2015 Vital Signs Date Vital 02/09/2019 Blood Pressure 1: 132/72 Code: 8480-6 BMI: 33.9 Code: 81157-1 Heart Rate 1: 98 bpm Height: 5'11" SpO2: 98% Weight: 243 lbs 12/29/2018 Blood Pressure 1: 120/72 Code: 8480-6 BMI: 33.6 Code: 61245-1 Heart Rate 1: 94 bpm Height: 5'11" SpO2: 98% Weight: 241 lbs 09/14/2018 Blood Pressure 1: 128/86 Code: 8480-6 BMI: 33.9 Code: 09007-5 Heart Rate 1: 128 bpm Height: 5'11" SpO2: 96% Temperature: 37.4 (C ) / 99.3 (F) Weight: 243 lbs 08/09/2018 Blood Pressure 1: 120/72 Code: 8480-6 Heart Rate 1: 90 bpm Height: SpO2: 98% Weight: 08/01/2018 Blood Pressure 1: 110/78 Code: 8480-6 BMI: 34.4 Code: 72763-3 Heart Rate 1: 109 bpm Height: 5'11" SpO2: 98% Weight: 247 lbs 03/01/2018 Blood Pressure 1: 120/80 Code: 8480-6 BMI: 32.9 Code: 13138-2 Heart Rate 1: 72 bpm Height: 5'11" SpO2: 96% Weight: 236 lbs 02/10/2018 Blood Pressure 1: 122/70 Code: 8480-6 BMI: 32.9 Code: 88925-9 Heart Rate 1: 90 bpm Height: 5'11" SpO2: 98% Weight: 236 lbs 12/12/2017 Blood Pressure 1: 124/72 Code: 8480-6 BMI: 35.0 Code: 19360-2 Heart Rate 1: 80 bpm Height: 5'11" SpO2: 96% Weight: 251 lbs 11/25/2017 Blood Pressure 1: 122/76 Code: 8480-6 BMI: 35.4 Code: 97493-3 Heart Rate 1: 74 bpm Height: 5'11" SpO2: 95% Weight: 254 lbs 03/02/2017 Blood Pressure 1: 120/70 Code: 8480-6 BMI: 33.8 Code: 37047-2 Heart Rate 1: 79 bpm Height: 5'11" SpO2: 99% Weight: 242 lbs 11/17/2016 Blood Pressure 1: 120/88 Code: 8480-6 BMI: 36.8 Code: 47115-8 Heart Rate 1: 104 bpm Height: 5'11" SpO2: 99% Weight: 264 lbs 09/27/2016 Blood Pressure 1: 122/78 Code: 8480-6 BMI: 34.6 Code: 86533-2 Heart Rate 1: 100 bpm Height: 5'11" SpO2: 96% Weight: 248 lbs 05/05/2016 Blood Pressure 1: 114/78 Code: 8480-6 BMI: 35.1 Code: 38364-1 Heart Rate 1: 81 bpm Height: 5'11" SpO2: 96% Weight: 252 lbs 03/08/2016 Blood Pressure 1: 120/64 Code: 8480-6 BMI: 34.3 Code: 94814-9 Heart Rate 1: 95 bpm Height: 5'11" SpO2: 97% Weight: 246 lbs 02/05/2016 Blood Pressure 1: 120/78 Code: 8480-6 BMI: 33.5 Code: 00056-8 Heart Rate 1: 104 bpm Height: 5'11" SpO2: 97% Weight: 240 lbs 12/22/2015 Blood Pressure 1: 120/82 Code: 8480-6 BMI: 34.3 Code: 46883-3 Heart Rate 1: 83 bpm Height: 5'11" SpO2: 97% Weight: 246 lbs Functional Status No Functional Status data History of Present Illness Symptom Name Status Resu lt Effective Date Notes Onset and Resolution g radual in onset [...] Encounters Encounter Performer Loca tion Codes Date 22080 EST. PATIENT, LEVEL IV Diagnosis: Other fatigue[ICD10: R53.83] Diagnosis: Other malaise[ICD10: R53.81] Diagnosis: Localized edema[ICD10: R60.0] Diagnosis: Hidradenitis suppurativa[ICD10: L73.2] Miracle Pereyra MD, [facility] CPT-4: 74636 02/09/2019 00885 EST. PATIENT, LEVEL III Diagnosis: Hidradenitis suppurativa[ICD10: L73.2] Miracle Pereyra MD, [facility] CPT-4: 90676 12/29/2018 ([id number]) 18069 EST. P ATIENT, LEVEL III Diagnosis: Acute laryngopharyngitis[ICD10: J06.0] Diagnosis: Fever, unspecified[ICD10: R50.9] Gavi Pereyra MD, [facility] CPT- 4: 65900 09/14/2018 09545 EST. PATIENT, LEVEL III Diagnosis: Pain in left shoulder[ICD10: M25.512] Diagnosis: Muscle spasm of back[ICD10: M62.830] Miracle Pereyra MD, [facility] CPT- 4: 45128 08/09/2018 06152 EST. PATIENT, LEVEL III Diagnosis: Pain in left shoulder[ICD10: M25.512] Diagnosis: Muscle spasm of back[ICD10: M62.830] Miracle Pereyra MD, [facility] CPT- 4: 24802 08/01/2018 48173 EST. PATIENT, LEVEL III Diagnosis: Hidradenitis suppurativa[ICD10: L73.2] Miracle Pereyra MD, [facility] CPT-4: 54023 03/01/2018 82911 EST. 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 PATIENT, LEVEL IV Diagnosis: Generalized anxiety disorder[ICD10: F41.1] Diagnosis: Hidradenitis suppurativa[ICD10: L73.2] Miracle Pereyra MD, [facility] CPT-4: 86776 11/25/2017 56489 EST. PATIENT, LEVEL III Diagnosis: Hidradenitis suppurativa[ICD10: L73.2] Diagnosis: Generalized anxiety disorder[ICD10: F41.1] Miracle Pereyra MD, [facility] CPT-4: 89775 03/02/2017 75427 EST. PATIENT, LEVEL III Diagnosis: Cutaneous abscess of buttock[ICD10: L02.31] Miracle Pereyra MD, [facility] CPT-4: 08590 11/17/2016 37112 EST. PATIENT, LEVEL III Diagnosis: Cutaneous abscess of left axilla[ICD10: L02.412] Diagnosis: Pain in right hand[ICD10: M79.641] Miracle Pereyra MD, [facility] CPT-4: 13534 09/27/2016 86658 EST. PATIENT, LEVEL III Diagnosis: Cutaneous abscess of right lower limb[ICD10: L02.415] Diagnosis: Hidradenitis suppurativa[ICD10: L73.2] Miracle Pereyra MD, [facility] CPT-4: 66759 05/05/2016 90806 EST. PATIENT, LEVEL IV Diagnosis: Other otitis externa, right ear[ICD10: H60.8X1] Diagnosis: Cutaneous abscess of left axilla[ICD10: L02.412] Diagnosis: Other acute sinusitis[ICD10: J01.80] Miracle Pereyra MD, [facility] CPT- 4: 36314 03/08/2016 06001 EST. PATIENT, LEVEL III Diagnosis: Generalized anxiety disorder[ICD10: F41.1] Diagnosis: Acne vulgaris[ICD10: L70.0] Diagnosis: Plantar wart[ICD10: B07.0] Miracle Pereyra MD, [facility] CPT-4: 83112 02/05/2016 ([id number]) OFFICE VISI T, NEW - LEVEL 3 Diagnosis: Generalized anxiety disorder[ICD10: F41.1] Diagnosis: 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][ICD10: L30.1] Diagnosis: Acne vulgaris[ICD10: L70.0] Diagnosis: Other obesity due to excess calories[ICD10: E66.09] [facility] CPT-4: 51272 12/22/2015 Plan of Care Planned Activity Notes C odes Status Date Visit Plan: Edema - pt has been [...] humira. 02/09/2019 Appointment: Miracle [facility] [phone] [facility] [place] ([place] min) Complex 02/09/2019 Patient Education: Patient [...] warmth, discharge. 12/29/2018 Appointment: Miracle Gracia WPtel: [facility] [place] (30 min) Complex 12/29/2018 Patient Education: Patient [...] for fever/discomfort. 09/14/2018 Appointment: Gavi Soria [facility]el: [phone] [facility] [phone] (15 min) Moderate 09/14/2018 Patient Education: Patient [...] disease process. 08/09/2018 Appointment: Miracle Gracia WPtel: [phone] [facility] (30 min) Complex 08/09/2018 Patient Education: Patient Medication Summary Completed 08/09/2018 Visit Plan: Left shoulder pain, mus mishel spasm - will send RX - The pt is to use prn antiinflammatories to manage acute pain. The patient is to call the office if the pain is worsening or does not improve. 08/01/2018 Appointment: Miracle Garcia [facility]el: [phone] [facility] [place] (15 min) Moderate 08/01/2018 Patient Education: Patient [...] changes. 02/10/2018 Appointment: Miracle Gracia WPtel: [phone] [id number] (15 min) Moderate 02/10/2018 Patient Education: [...] not prescribed. 12/12/2017 Appointment: Miracle Gracia WPtel: [facility] (15 min) Moderate 12/12/2017 Patient Education: Patient [...] or concerns. 11/25/2017 Appointment: Miracle Gracia WPtel: [phone] [facility] (15 min) Moderate 11/25/2017 Patient Education: Patient Medication Summary Completed 11/25/2017 Visit Plan: Abscess/Cellulitis - Th e patient was instructed in appropriate wound care. The patient was instructed to use the antibiotic ointment as per RX. The patient is to call for any change in symptoms, increase in size of the lesion, increase in pain. Pt is to discuss methotrexate with his mock up maker. 03/02/2017 Appointment: Miracle Gracia WPtel: [phone] [facility] [place] (30 min) Complex 03/02/2017 Patient Education: Patient Medication Summary Completed 03/02/2017 Patient Education: Smoking and Tobacco Addiction Completed 03/02/2017 Patient Education: Obesity Completed 03/02/2017 Appointment: Miracle Gracia WPtel: [phone] [facility] [place] (30 min) Complex 11/19/2016 Appointment: Miracle Gracia WPtel: [phone] [facility] [place] (15 min) Moderate 11/18/2016 Visit Plan: Abscess/Cellulitis - Th e patient was instructed in appropriate wound care. The patient was instructed to use the antibiotic ointment as per RX. The patient is to call for any change in symptoms, increase in size of the lesion, increase in pain. Pt is to return tomorrow for I&D if needed. 11/17/2016 Appointment: Miracle Graciatel: [phone] [facility] [place] (15 min) Moderate 11/17/2016 Patient Education: Patient Medication Summary Completed 11/17/2016 Patient Education: Smoking and Tobacco Addiction Completed 11/17/2016 Referral: Alberto Pearson Referral Initiated 09/30/2016 Care Plan: Referral Order SNOMED-CT : [id number] Pending 09/28/2016 Visit Plan: Abscess/Cellulitis - Re [...] Isaac. 09/27/2016 Appointment: Miracle Gracia [facility]Ptel: [phone] [facility] [place] (30 min) Complex 09/27/2016 Patient Education: Patient Medication Summary Completed 09/27/2016 Patient Education: Smoking and Tobacco Addiction Completed 09/27/2016 Care Plan: Referral Order SNOMED-CT : [id number] Pending 05/10/2016 Visit Plan: Abscess/Cellulitis - ri ght lateral hip - incision and drainage today in the office - The patient was instructed in appropriate wound care. The patient was instructed to use the antibiotic ointment as per RX. The patient is to call for any change in symptoms, increase in size of the lesion, increase in pain. 05/05/2016 Appointment: Gavi Soria [facility]Ptel: [phone] [facility] [phone] (30 min) Complex 05/05/2016 Patient Education: Patient [...] medications. 02/05/2016 Appointment: Miracle Gracia WPtel: [phone] [facility] [place] (30 min) Complex 02/05/2016 Patient Education: Patient [...] 12/22/2015 Referral: Alberto Pearson Referral Initiated Referral: [facility]: Referral Completed Referral: [facility]: will call with appt time Initiated [...] Pt is to discuss methotrexate with his mock up maker. . Otitis Externa - p t given [...] in current medications. Dr. Kelsey campbell - mock up maker at [facility] who specializes in HS [...] pain. Tylenol/motrin as needed for fever/discomfort. . HS - will discuss with Dr. [...]
--- OUTSIDE RECORDS SUMMARY | 2020-02-25 10:39 | XMS REPORT | CCD ---
Author Norbert Mancia Organization Celeste Pereyra MD, [facility] Address [address] [place] [address] Phone Care Team Providers Care Certified Breastfeeding Educator Name Role Phone PP Unavailable CCM Unavailable Summary Purpose Interface Exchange Insurance Providers Payer name Policy type / Coverage type Covered alliance party ID Effective Begin Date Effective End Date [employer] Commercial Insurance [id number] Unknown Family history Mother Diagnosis Age At Onset Cancer Unknown Diabetes Unknown Social History Social History Element Codes Description Effective Dates Marital status Unknown M kelvin Bosch 09/14/[address]: 5058474 Former smoker Quit in October 2017 11/25/2017 Number of children Unknown 1 12/22/2015 Number of years using tobacco Unknown 5 - 10 12/22/2015 Number of cigarettes/day Unknown 10 (Half a pack) 12/22/2015 Alcohol history Unknown occasionally drinks alcohol 12/22/2015 Frequency of drinks SNOMED CT: 249678219 1-4 drinks per week 12/22/2015 Allergies, Adverse [...] Fill Instructions prednisone 20 mg tablet RxNorm: 882776 3 Tablet(s) PO daily 02/09/2019 02/13/2019 Active doxycycline hyclate 100 mg capsule RxNorm: 3250304 1 Capsule(s) PO BID 02/09/2019 02/18/2019 Ac tive potassium chloride E R 10 mEq tablet,extended release RxNorm: 501802 1 Tablet(s) PO daily when taking your lasix 02/09/2019 02/11/2019 Inactive Lasix 20 mg tablet RxNorm: 140437 1 Tablet(s) PO daily 02/09/2019 02/11/2019 Inactive Adderall 10 mg tablet RxNorm: 732618 1 Tablet(s) PO BID 01/11/2019 02/09/2019 Inactive Kenalog 40 mg/mL rodrigo pension for injection RxNorm: 4811333 Milliliter(s) Inj 12/29/2018 12/29/2018 In active prednisone 20 mg tablet RxNorm: 243220 3 Tablet(s) PO daily 12/29/2018 01/02/2019 Inactive doxycycline hyclate 100 mg capsule RxNorm: 8208824 1 Capsule(s) PO BID 12/29/2018 01/07/2019 In active Adderall 10 mg tablet RxNorm: 575165 1 Tablet(s) PO BID 12/15/2018 01/10/2019 Inactive Bactrim DS 800 mg-16 0 mg tablet RxNorm: 019150 1 Tablet(s) PO BID 11/06/2018 11/25/2018 Inactive prednisone 20 mg tablet RxNorm: 159435 3 Tablet(s) PO daily 11/06/2018 11/10/2018 Inactive cefdinir 300 mg capsule RxNorm: 337547 1 Capsule(s) PO BID 09/14/2018 09/23/2018 Inactive Zithromax Z-Molina 250 mg tablet RxNorm: 699902 1 Tablet(s) PO UD 09/07/2018 09/11/2018 Inactive zpack as directed Adderall 10 mg tablet RxNorm: 395802 1 Tablet(s) PO BID 09/07/2018 10/06/2018 Inactive Zorvolex 18 mg capsule RxNorm: 3724698 1 Capsule(s) PO TID 08/10/2018 No Stop Date Active tramadol 50 mg tablet RxNorm: 256620 1 Tablet(s) PO QID as needed 08/09/2018 08/18/2018 Inactive baclofen 10 mg tablet RxNorm: 832617 1 Tablet(s) PO TID as needed muscle spas ms 08/09/2018 08/13/2018 In active baclofen 10 mg tablet RxNorm: 874472 1 Tablet(s) PO TID as needed muscle spas ms 08/01/2018 08/05/2018 In active prednisone 20 mg tablet RxNorm: 608536 3 Tablet(s) PO daily 08/01/2018 08/05/2018 Inactive diazepam 2 mg tablet RxNorm: 353184 Tablet(s) TAKE 1/2 TABLET BY MOUTH TWICE DAILY NEEDED FOR ANXIETY 07/21/2018 08/19/2018 Inactive Adderall 10 mg tablet RxNorm: 306063 1 Tablet(s) PO BID 07/14/2018 08/12/2018 Inactive Adderall 10 mg tablet RxNorm: 980340 1 Tablet(s) PO BID 05/26/2018 06/24/2018 Inactive Adderall 10 mg tablet RxNorm: 883381 1 Tablet(s) PO BID 04/28/2018 05/25/2018 Inactive Adderall 5 mg tablet RxNorm: 538562 1 Tablet(s) PO QAM as needed 04/04/2018 04/27/2018 Inactive diazepam 2 mg tablet RxNorm: 805032 Tablet(s) TAKE 1/2 TABLET BY MOUTH TWICE DAILY NEEDED FOR ANXIETY 04/04/2018 05/02/2018 Inactive Adderall XR 20 mg ca psule,extended release RxNorm: 324992 1 Capsule(s) PO daily 03/13/2018 04/03/2018 In active Kenalog 40 mg/mL rodrigo pension for injection RxNorm: 2030675 1 Milliliter(s) Inj 03/01/2018 03/01/2018 In active Adderall 5 mg tablet RxNorm: 522272 1 Tablet(s) PO QAM as needed 02/13/2018 03/14/2018 Inactive Adderall XR 20 mg ca psule,extended release RxNorm: 713687 1 Capsule(s) PO daily 02/13/2018 03/12/2018 In active prednisone 20 mg tablet RxNorm: 583568 2 Tablet(s) PO daily 02/10/2018 02/14/2018 Inactive Bactrim DS 800 mg-16 0 mg tablet RxNorm: 141572 1 Tablet(s) PO BID 01/16/2018 02/04/2018 Inactive Adderall 5 mg tablet RxNorm: 971513 2 Tablet(s) PO QAM and 1 PO QPM 01/16/2018 02/12/2018 In active Bactrim DS 800 mg-16 0 mg tablet RxNorm: 318764 1 Tablet(s) PO BID 01/04/2018 01/15/2018 Inactive Adderall 5 mg tablet RxNorm: 943459 2 Tablet(s) PO QAM and 1 PO QPM 12/13/2017 01/11/2018 In active Zithromax Z-Molina 250 mg tablet RxNorm: 181594 1 Tablet(s) PO UD 11/25/2017 03/12/2018 Inactive diazepam 2 mg tablet RxNorm: 730496 Tablet(s) TAKE 1/2 TABLET BY MOUTH TWICE DAILY NEEDED FOR ANXIETY 11/18/2017 12/17/2017 Inactive diazepam 2 mg tablet RxNorm: 991780 Tablet(s) TAKE 1/2 TABLET BY MOUTH TWICE DAILY NEEDED FOR ANXIETY 08/30/2017 10/28/2017 Inactive diazepam 2 mg tablet RxNorm: 411438 Tablet(s) TAKE 1/2 TABLET BY MOUTH TWICE DAILY NEEDED FOR ANXIETY 07/19/2017 08/29/2017 Inactive diazepam 2 mg tablet RxNorm: 804272 TAKE 1/2 TABLET BY MOUTH TWICE DAILY NEEDED FOR ANXIETY 07/15/2017 07/18/2017 Inactive Bactrim DS 800 mg-16 0 mg tablet RxNorm: 942446 1 Tablet(s) PO BID 06/01/2017 06/20/2017 Inactive diazepam 2 mg tablet RxNorm: 207497 1/2 Tablet(s) PO BID as needed anxiety 06/01/2017 06/29/2017 In active tramadol 50 mg tablet RxNorm: 910651 1 Tablet(s) PO QID as needed 04/14/2017 04/23/2017 Inactive Bactrim DS 800 mg-16 0 mg tablet RxNorm: 343682 1 Tablet(s) PO BID 04/14/2017 05/03/2017 Inactive diazepam 2 mg tablet RxNorm: 855898 1/2 Tablet(s) PO BID as needed anxiety 03/02/2017 04/30/2017 In active Zithromax Z-Molina 250 mg tablet RxNorm: 868173 1 Tablet(s) PO UD 03/02/2017 07/18/2017 Inactive Bactrim DS 800 mg-16 0 mg tablet RxNorm: 356770 1 Tablet(s) PO BID 03/01/2017 03/20/2017 Inactive diazepam 2 mg tablet RxNorm: 277153 1/2 Tablet(s) PO BID as needed anxiety 01/21/2017 02/19/2017 In active Bactrim DS 800 mg-16 0 mg tablet RxNorm: 651669 1 Tablet(s) PO BID 01/21/2017 01/30/2017 Inactive Bactrim DS 800 mg-16 0 mg tablet RxNorm: 039904 1 Tablet(s) PO BID 11/17/2016 11/26/2016 Inactive diazepam 2 mg tablet RxNorm: 324049 1/2 Tablet(s) PO BID as needed anxiety 11/12/2016 01/10/2017 In active diazepam 2 mg tablet RxNorm: 402987 1/2 Tablet(s) PO BID as needed anxiety 10/18/2016 12/14/2016 In active Zithromax Z-Molina 250 mg tablet RxNorm: 941725 1 Tablet(s) PO UD 09/27/2016 03/01/2017 Inactive diazepam 2 mg tablet RxNorm: 332671 1/2 Tablet(s) PO BID as needed anxiety 09/13/2016 11/11/2016 In active diazepam 2 mg tablet RxNorm: 811964 1/2 Tablet(s) PO BID as needed anxiety 07/07/2016 09/17/2016 In active Levaquin 500 mg tablet RxNorm: 528952 1 Tablet(s) PO daily 06/01/2016 05/31/2016 Inactive Levaquin 500 mg tablet RxNorm: 593837 1 Tablet(s) PO daily 06/01/2016 06/07/2016 Inactive Levaquin 500 mg tablet RxNorm: 778330 1 Tablet(s) PO daily 05/05/2016 05/04/2016 Inactive Levaquin 500 mg tablet RxNorm: 614743 1 Tablet(s) PO daily 05/05/2016 05/11/2016 Inactive minocycline 100 mg c apsule RxNorm: 308224 1 CAPSULE(S) PO BID W HEN NOT HAVING ACUTE FLARE DECREASE TO ONCE DAILY 04/21/2016 05/20/2016 Inactive Ciprodex 0.3 %-0.1 % ear drops,suspension RxNorm: 647154 4 Drop(s) OTIC BID 03/08/2016 03/14/2016 In active Zithromax Z-Molina 250 mg tablet RxNorm: 276315 Tablet(s) PO 03/08/2016 09/26/2016 Inactive diazepam 2 mg tablet RxNorm: 247870 1/2 Tablet(s) PO BID as needed anxiety 2016 04/18/2016 In active mupirocin 2 % topica l ointment RxNorm: 217662 1 Application TOP BID 02/05/2016 No Stop Date Active minocycline 100 mg c apsule RxNorm: 118333 1 Capsule(s) PO BID w hen not having acute flare decrease to once daily 02/05/2016 03/05/2016 Inactive Bactrim DS 800 mg-16 0 mg tablet RxNorm: 689354 1 Tablet(s) PO BID 02/05/2016 02/18/2016 Inactive diazepam 2 mg tablet RxNorm: 618134 1/2 Tablet(s) PO BID as needed anxiety 02/05/2016 02/05/2016 In active betamethasone alberto te 0.1 % topical cream RxNorm: 781513 1 Application TOP BID as needed rash 12/22/2015 No Stop Date Active minocycline 100 mg c apsule RxNorm: 367043 1 Capsule(s) PO BID w hen not having acute flare decrease to once daily 12/22/2015 01/20/2016 Inactive Medication Administered Medication Codes Instruc tions Start Date Status Kenalog 40 mg/mL suspension for injection RxNorm: 6604706 Milliliter 12/29/2018 No longer Active Kenalog 40 mg/mL suspension for injection RxNorm: 8269625 1Milliliter 03/01/2018 N o longer Active Immunizations [...] Crqnt CRP 0.4 mg/dl 02/09/2019 Comp Metabolic Khq952 NA 138 mEq/L 02/09/2019 Comp Metabolic Gel531 K 3.8 mEq/L 02/09/2019 Comp Metabolic Zdf997 CL 102 mEq/L 02/09/2019 Comp Metabolic Rve753 CO2 26.0 mEq/L 02/09/2019 Comp Metabolic Zur214 AN ION GAP 14 02/09/2019 Comp Metabolic Dlr427 GL UCOSE 92 mg/dL 02/09/2019 Comp Metabolic Coo447 Cr eat 1.0 mg/dL 02/09/2019 Comp Metabolic Feu243 eG FR 88 ml/min/1.73m2 02/09 Comp Metabolic Zfk176 BUN 23 mg/dL 02/09/2019 Comp Metabolic Arz710 B/ C Ratio 22.5 Ratio 02/09/2019 Comp Metabolic Sdx027 CA LCIUM 9.4 mg/dL 02/09/2019 Comp Metabolic Vxm729 AL K PHOS 49 U/L 02/09/2019 Comp Metabolic Qaf081 T(SGOT) 22 U/L 02/09/2019 Comp Metabolic Red611 AL T(SGPT) 26 U/L 02/09/2019 Comp Metabolic Ykl169 BI LI T 0.4 mg/dL 02/09/2019 Comp Metabolic Zye678 AL BUMIN 4.3 g/dL 02/09/2019 Comp Metabolic Xje588 TP RO 7.0 g/dL 02/09/2019 Comp Metabolic Zra034 GL OB 2.7 g/dL 02/09/2019 Comp Metabolic Smr107 A/ G Ratio 1.6 Ratio 02/09/2019 Comp Metabolic Izy926 Os mo 279 mOsmo 02/09/2019 Cbc With Differential Ord2 WBC 12.56 K/ul 02/09/2019 Cbc With Differential Ord2 RBC 5.44 M/ul 02/09/2019 Cbc With Differential Ord2 HGB 16.2 g/dl 02/09/2019 Cbc With Differential Ord2 HCT 49.1 % 02/09/2019 Cbc With Differential Ord2 Neut% 65.9 % 02/09/2019 Cbc With Differential Ord2 MCV 90.3 fl 02/09/2019 Cbc With Differential Ord2 Lymph% 26.0 % 02/09/2019 Cbc With Differential Ord2 Gates% 6.4 % 02/09/2019 Cbc With Differential Ord2 [...] 3.27 K/ul 02/09/2019 Cbc With Differential Ord2 Gates ABS# 0.8 K/ul 02/09/2019 Cbc With Differential Ord2 Eos ABS# 0.2 K/ul 02/09/2019 Cbc With Differential Ord2 Baso ABS# 0.0 K/ul 02/09/2019 Sed Rate Ord21 ESR 2 mm/hr 02/09/2019 Tsh Ord6 TSH (3rd IS) 1.21 uIU/mL 02/09/2019 C RAP A SC [id number] Strep A Negative 09/14/2018 C A/B FLU [id number] Influe nza A Scr Negative 09/14/2018 C A/B FLU 6927945 Influe nza B Scr Negative 09/14/2018 C A/B FLU 1184961 Influe nza Intrp B AG:PRID:PT:NOSE:NOM:IF See Footnote 09/14/2018 Tsh Ord6 hTSH II 1.82 uIU/mL 02/05/2016 Comp Metabolic Mdn708 NA 139 mEq/L 02/05/2016 Comp Metabolic Fwb003 K 4.2 mEq/L 02/05/2016 Comp Metabolic Utj624 CL 103 mEq/L 02/05/2016 Comp Metabolic Ukr021 CO2 29.0 mEq/L 02/05/2016 Comp Metabolic Eju582 AN ION GAP 11 02/05/2016 Comp Metabolic Jwo469 GL UCOSE 71 mg/dL 02/05/2016 Comp Metabolic Rgb990 Cr eat 0.9 mg/dL 02/05/2016 Comp Metabolic Uig403 eG FR 101 ml/min/1.73m2 01/14 Comp Metabolic Kiy020 BUN 17 mg/dL 02/05/2016 Comp Metabolic Vxe551 B/ C Ratio 18.5 Ratio 02/05/2016 Comp Metabolic Flt542 CA LCIUM 9.4 mg/dL 02/05/2016 Comp Metabolic Qwx087 AL K PHOS 63 U/L 02/05/2016 Comp Metabolic Skx321 T(SGOT) 30 U/L 02/05/2016 Comp Metabolic Ztd677 AL T(SGPT) 40 U/L 02/05/2016 Comp Metabolic Pvw676 BI LI T 0.5 mg/dL 02/05/2016 Comp Metabolic Eyc232 AL BUMIN 4.2 g/dL 02/05/2016 Comp Metabolic Tdq154 TP RO 7.2 g/dL 02/05/2016 Comp Metabolic Cio123 GL OB 3.0 g/dL 02/05/2016 Comp Metabolic Fzh937 A/ G Ratio 1.4 Ratio 02/05/2016 Comp Metabolic Saw958 Os mo 278 mOsmo 02/05/2016 Cbc With [...] 30.3 pg 02/05/2016 Cbc With Differential Ord2 Gates% 8.9 % 02/05/2016 Cbc With Differential Ord2 [...] 2.91 K/ul 02/05/2016 Cbc With Differential Ord2 Gates ABS# 1.1 K/ul 02/05/2016 Cbc With Differential [...] Procedure Codes Date THER/PROPH/DIAG INJ SC/IM CPT-4: 91257 12/29/2018 TRIAMCINOLONE ACET I [place] NOS CPT-4: J3301 12/29/2018 TRIAMCINOLONE ACET I [place] NOS CPT-4: J3301 08/09/2018 INJECT TRIGGER POINT S 3/> CPT-4: 93286 08/09/2018 TRIAMCINOLONE ACET I [place] NOS CPT-4: J3301 03/01/2018 THER/PROPH/DIAG INJ SC/IM CPT-4: 99476 03/01/2018 DRAINAGE OF SKIN ABS CESS CPT-4: 17803 05/05/2016 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 3-[address]: 447984193 CPT-4: G0436 12/22/2015 Vital Signs Date Vital 02/09/2019 Blood Pressure 1: 132/72 Code: 8480-6 BMI: 33.9 Code: 17168-4 Heart Rate 1: 98 bpm Height: 5'11" SpO2: 98% Weight: 243 lbs 12/29/2018 Blood Pressure 1: 120/72 Code: 8480-6 BMI: 33.6 Code: 59120-9 Heart Rate 1: 94 bpm Height: 5'11" SpO2: 98% Weight: 241 lbs 09/14/2018 Blood Pressure 1: 128/86 Code: 8480-6 BMI: 33.9 Code: 34452-5 Heart Rate 1: 128 bpm Height: 5'11" SpO2: 96% Temperature: 37.4 (C ) / 99.3 (F) Weight: 243 lbs 08/09/2018 Blood Pressure 1: 120/72 Code: 8480-6 Heart Rate 1: 90 bpm Height: SpO2: 98% Weight: 08/01/2018 Blood Pressure 1: 110/78 Code: 8480-6 BMI: 34.4 Code: 80247-5 Heart Rate 1: 109 bpm Height: 5'11" SpO2: 98% Weight: 247 lbs 03/01/2018 Blood Pressure 1: 120/80 Code: 8480-6 BMI: 32.9 Code: 41964-5 Heart Rate 1: 72 bpm Height: 5'11" SpO2: 96% Weight: 236 lbs 02/10/2018 Blood Pressure 1: 122/70 Code: 8480-6 BMI: 32.9 Code: 40582-0 Heart Rate 1: 90 bpm Height: 5'11" SpO2: 98% Weight: 236 lbs 12/12/2017 Blood Pressure 1: 124/72 Code: 8480-6 BMI: 35.0 Code: 53372-7 Heart Rate 1: 80 bpm Height: 5'11" SpO2: 96% Weight: 251 lbs 11/25/2017 Blood Pressure 1: 122/76 Code: 8480-6 BMI: 35.4 Code: 83149-1 Heart Rate 1: 74 bpm Height: 5'11" SpO2: 95% Weight: 254 lbs 03/02/2017 Blood Pressure 1: 120/70 Code: 8480-6 BMI: 33.8 Code: 42411-5 Heart Rate 1: 79 bpm Height: 5'11" SpO2: 99% Weight: 242 lbs 11/17/2016 Blood Pressure 1: 120/88 Code: 8480-6 BMI: 36.8 Code: 97077-5 Heart Rate 1: 104 bpm Height: 5'11" SpO2: 99% Weight: 264 lbs 09/27/2016 Blood Pressure 1: 122/78 Code: 8480-6 BMI: 34.6 Code: 02950-2 Heart Rate 1: 100 bpm Height: 5'11" SpO2: 96% Weight: 248 lbs 05/05/2016 Blood Pressure 1: 114/78 Code: 8480-6 BMI: 35.1 Code: 05349-8 Heart Rate 1: 81 bpm Height: 5'11" SpO2: 96% Weight: 252 lbs 03/08/2016 Blood Pressure 1: 120/64 Code: 8480-6 BMI: 34.3 Code: 76493-0 Heart Rate 1: 95 bpm Height: 5'11" SpO2: 97% Weight: 246 lbs 02/05/2016 Blood Pressure 1: 120/78 Code: 8480-6 BMI: 33.5 Code: 67133-3 Heart Rate 1: 104 bpm Height: 5'11" SpO2: 97% Weight: 240 lbs 12/22/2015 Blood Pressure 1: 120/82 Code: 8480-6 BMI: 34.3 Code: 29360-3 Heart Rate 1: 83 bpm Height: 5'11" [...] Encounters Encounter Performer Loca tion Codes Date 35581 EST. PATIENT, LEVEL IV Diagnosis: Other fatigue[ICD10: R53.83] Diagnosis: Other malaise[ICD10: R53.81] Diagnosis: Localized edema[ICD10: R60.0] Diagnosis: Hidradenitis suppurativa[ICD10: L73.2] Miracle Pereyra MD, [facility] CPT-4: 75554 02/09/2019 97051 EST. PATIENT, LEVEL III Diagnosis: Hidradenitis suppurativa[ICD10: L73.2] Miracle Pereyra MD, [facility] CPT-4: 93302 12/29/2018 ([id number]) 28627 EST. P ATIENT, LEVEL III Diagnosis: Acute laryngopharyngitis[ICD10: J06.0] Diagnosis: Fever, unspecified[ICD10: R50.9] Gavi Pereyra MD, [facility] CPT- 4: 32966 09/14/2018 78278 EST. PATIENT, LEVEL III Diagnosis: Pain in left shoulder[ICD10: M25.512] Diagnosis: Muscle spasm of back[ICD10: M62.830] Miracle Pereyra MD, [facility] CPT- 4: 04936 08/09/2018 94670 EST. PATIENT, LEVEL III Diagnosis: Pain in left shoulder[ICD10: M25.512] Diagnosis: Muscle spasm of back[ICD10: M62.830] Miracle Pereyra MD, [facility] CPT- 4: 14729 08/01/2018 18312 EST. PATIENT, LEVEL III Diagnosis: Hidradenitis suppurativa[ICD10: L73.2] Miracle Pereyra MD, [facility] CPT-4: 55328 03/01/2018 24954 EST. 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 PATIENT, LEVEL IV Diagnosis: Generalized anxiety disorder[ICD10: F41.1] Diagnosis: Hidradenitis suppurativa[ICD10: L73.2] Miracle Pereyra MD, [facility] CPT-4: 84190 11/25/2017 21983 EST. PATIENT, LEVEL III Diagnosis: Hidradenitis suppurativa[ICD10: L73.2] Diagnosis: Generalized anxiety disorder[ICD10: F41.1] Miracle Pereyra MD, [facility] CPT-4: 04704 03/02/2017 59244 EST. PATIENT, LEVEL III Diagnosis: Cutaneous abscess of buttock[ICD10: L02.31] Miracle Pereyra MD, [facility] CPT-4: 18870 11/17/2016 52899 EST. PATIENT, LEVEL III Diagnosis: Cutaneous abscess of left axilla[ICD10: L02.412] Diagnosis: Pain in right hand[ICD10: M79.641] Miracle Pereyra MD, [facility] CPT-4: 28651 09/27/2016 51290 EST. PATIENT, LEVEL III Diagnosis: Cutaneous abscess of right lower limb[ICD10: L02.415] Diagnosis: Hidradenitis suppurativa[ICD10: L73.2] Miracle Pereyra MD, [facility] CPT-4: 59567 05/05/2016 72336 EST. PATIENT, LEVEL IV Diagnosis: Other otitis externa, right ear[ICD10: H60.8X1] Diagnosis: Cutaneous abscess of left axilla[ICD10: L02.412] Diagnosis: Other acute sinusitis[ICD10: J01.80] Miracle Pereyra MD, [facility] CPT- 4: 67495 03/08/2016 30806 EST. PATIENT, LEVEL III Diagnosis: Generalized anxiety disorder[ICD10: F41.1] Diagnosis: Acne vulgaris[ICD10: L70.0] Diagnosis: Plantar wart[ICD10: B07.0] Miracle Pereyra MD, [facility] CPT-4: 63200 02/05/2016 ([id number]) OFFICE VISI T, NEW - LEVEL 3 Diagnosis: Generalized anxiety disorder[ICD10: F41.1] Diagnosis: 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][ICD10: L30.1] Diagnosis: Acne vulgaris[ICD10: L70.0] Diagnosis: Other obesity due to excess calories[ICD10: E66.09] [facility] CPT-4: 53536 12/22/2015 Plan of Care Planned Activity Notes [...] humira. 02/09/2019 [id number] [facility] Complex 02/09/2019 Patient Education: Patient [...] warmth, discharge. 12/29/2018 Appointment: Miracle Gracia [id number] ([place] Complex 12/29/2018 Patient Education: Patient [...] fever/discomfort. 09/14/2018 Appointment[phone] [phone] (15 min) Moderate 09/14/2018 Patient Education: Patient [...] disease process. 08/09/2018 Appointment: Miracle Gracia WPtel: [phone] [facility] (30 min) Complex 08/09/2018 Patient Education: Patient Medication Summary Completed 08/09/2018 Visit Plan: Left shoulder pain, mus mishel spasm - will send RX - The pt is to use prn antiinflammatories to manage acute pain. The patient is to call the office if the pain is worsening or does not improve. 08/01/2018 Appointment[phone] [phone] ([facility]) Moderate 08/01/2018 Patient Education: Patient [...] changes. 02/10/2018 Appointment: Miracle Gracia WPtel: [phone] [id number] (15 min) Moderate 02/10/2018 [...] not prescribed. 12/12/2017 Appointment: Miracle Gracia WPtel: [facility] (15 min) Moderate 12/12/2017 Patient Education: Patient [...] or concerns. 11/25/2017 Appointment: Miracle Gracia WPtel: [phone] [facility] (15 min) Moderate 11/25/2017 Patient Education: Patient Medication Summary Completed 11/25/2017 Visit Plan: Abscess/Cellulitis - Th e patient was instructed in appropriate wound care. The patient was instructed to use the antibiotic ointment as per RX. The patient is to call for any change in symptoms, increase in size of the lesion, increase in pain. 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 03/02/2017 Appointment: Miracle Gracia WPtel: [phone] [facility] [place] (30 min) Complex 03/02/2017 Patient Education: Patient Medication Summary Completed 03/02/2017 Patient Education: Smoking and Tobacco Addiction Completed 03/02/2017 Patient Education: Obesity Completed 03/02/2017 Appointment: Miracle Gracia WPtel: [phone] [facility] [place] (30 min) Complex 11/19/2016 Appointment: Miracle Gracia WPtel: [phone] [facility] [place] (15 min) Moderate 11/18/2016 Visit Plan: Abscess/Cellulitis - Th e patient was instructed in appropriate wound care. The patient was instructed to use the antibiotic ointment as per RX. The patient is to call for any change in symptoms, increase in size of the lesion, increase in pain. Pt is to return tomorrow for I&D if needed. 11/17/2016 Appointment: Miracle Graciatel: [phone] [facility] [place] (15 min) Moderate 11/17/2016 Patient Education: Patient Medication Summary Completed 11/17/2016 Patient Education: Smoking and Tobacco Addiction Completed 11/17/2016 Referral: Alberto Pearson Referral Initiated 09/30/2016 Care Plan: Referral Order SNOMED-CT : [id number] Pending 09/28/2016 Visit Plan: Abscess/Cellulitis - Re [...] Isaac. 09/27/2016 Appointment[phone] [phone] ([facility] [place] Complex 09/27/2016 Patient Education: Patient Medication Summary Completed 09/27/2016 Patient Education: Smoking and Tobacco Addiction Completed 09/27/2016 Care Plan: Referral Order SNOMED-CT : [id number] Pending 05/10/2016 Visit Plan: Abscess/Cellulitis - ri ght lateral hip - incision and drainage today in the office - The patient was instructed in appropriate wound care. The patient was instructed to use the antibiotic ointment as per RX. The patient is to call for any change in symptoms, increase in size of the lesion, increase in pain. 05/05/2016 Appointment[phone] [phone] ([facility] min) Complex 05/05/2016 Patient Education: Patient [...] medications. 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 . Otitis Externa - p t given [...] in current medications. Dr. Kelsey campbell - kindergarten paraprofessional at [facility] who specializes in HS will call Dr. [...]
--- OUTSIDE RECORDS SUMMARY | 2020-02-25 10:40 | XMS REPORT | CCD ---
Author Norbert Mancia Organization Celeste Pereyra MD, [facility] Address [address] [place] [address] Phone Care Team Providers Care Butcher Name Role Phone PP Unavailable CCM Unavailable Summary Purpose Interface Exchange Insurance Providers Payer name Policy type / Coverage type Covered constitution party ID Effective Begin Date Effective End Date [employer] Commercial Insurance [id number] Unknown Family history Mother Diagnosis Age At Onset Cancer Unknown Diabetes Unknown Social History Social History Element Codes Description Effective Dates Marital status Unknown M kelvin Bosch 09/14/[address]: 7324121 Former smoker Quit in October 2017 11/25/2017 Number of children Unknown 1 12/22/2015 Number of years using tobacco Unknown 5 - 10 12/22/2015 Number of cigarettes/day Unknown 10 (Half a pack) 12/22/2015 Alcohol history Unknown occasionally drinks alcohol 12/22/2015 Frequency of drinks SNOMED CT: 277237089 1-4 drinks per week 12/22/2015 Allergies, Adverse Reactions, Alerts Substance Reaction Codes Entered Date Inactivated Date Status Penicillin Unknown 09/14/2018 No In active Date Active Past Medical History Illness Codes Condition Status Onset Date Resolved Date Hidradenitis suppura tiva ICD-9: 705.83 ICD-10: L73.2 Active 05/04/2016 Unknown Acute laryngopharyng itis ICD-9: 465.0 ICD-10: [...] tiva ICD-9: 705.83 ICD-10: L73.2 05/04/2016 Active Acute laryngopharyng itis ICD-9: 465.0 ICD-10: [...] Date Stop Date Sta tus Fill Instructions Adderall 10 mg tablet RxNorm: 508630 1 Tablet(s) PO BID 01/11/2019 02/09/2019 Active Kenalog 40 mg/mL ordrigo pension for injection RxNorm: 9741238 Milliliter(s) Inj 12/29/2018 12/29/2018 In active prednisone 20 mg tablet RxNorm: 978899 3 Tablet(s) PO daily 12/29/2018 01/02/2019 Inactive doxycycline hyclate 100 mg capsule RxNorm: 6369804 1 Capsule(s) PO BID 12/29/2018 01/07/2019 In active Adderall 10 mg tablet RxNorm: 175900 1 Tablet(s) PO BID 12/15/2018 01/10/2019 Inactive Bactrim DS 800 mg-16 0 mg tablet RxNorm: 747441 1 Tablet(s) PO BID 11/06/2018 11/25/2018 Inactive prednisone 20 mg tablet RxNorm: 886723 3 Tablet(s) PO daily 11/06/2018 11/10/2018 Inactive cefdinir 300 mg capsule RxNorm: 628875 1 Capsule(s) PO BID 09/14/2018 09/23/2018 Inactive Zithromax Z-Molina 250 mg tablet RxNorm: 923844 1 Tablet(s) PO UD 09/07/2018 09/11/2018 Inactive zpack as directed Adderall 10 mg tablet RxNorm: 061538 1 Tablet(s) PO BID 09/07/2018 10/06/2018 Inactive Zorvolex 18 mg capsule RxNorm: 3032748 1 Capsule(s) PO TID 08/10/2018 No Stop Date Active tramadol 50 mg tablet RxNorm: 856722 1 Tablet(s) PO QID as needed 08/09/2018 08/18/2018 Inactive baclofen 10 mg tablet RxNorm: 900400 1 Tablet(s) PO TID as needed muscle spas ms 08/09/2018 08/13/2018 In active baclofen 10 mg tablet RxNorm: 483715 1 Tablet(s) PO TID as needed muscle spas ms 08/01/2018 08/05/2018 In active prednisone 20 mg tablet RxNorm: 905224 3 Tablet(s) PO daily 08/01/2018 08/05/2018 Inactive diazepam 2 mg tablet RxNorm: 190876 Tablet(s) TAKE 1/2 TABLET BY MOUTH TWICE DAILY NEEDED FOR ANXIETY 07/21/2018 08/19/2018 Inactive Adderall 10 mg tablet RxNorm: 646766 1 Tablet(s) PO BID 07/14/2018 08/12/2018 Inactive Adderall 10 mg tablet RxNorm: 237830 1 Tablet(s) PO BID 05/26/2018 06/24/2018 Inactive Adderall 10 mg tablet RxNorm: 174212 1 Tablet(s) PO BID 04/28/2018 05/25/2018 Inactive Adderall 5 mg tablet RxNorm: 160368 1 Tablet(s) PO QAM as needed 04/04/2018 04/27/2018 Inactive diazepam 2 mg tablet RxNorm: 045792 Tablet(s) TAKE 1/2 TABLET BY MOUTH TWICE DAILY NEEDED FOR ANXIETY 04/04/2018 05/02/2018 Inactive Adderall XR 20 mg ca psule,extended release RxNorm: 281852 1 Capsule(s) PO daily 03/13/2018 04/03/2018 In active Kenalog 40 mg/mL rodrigo pension for injection RxNorm: 7336769 1 Milliliter(s) Inj 03/01/2018 03/01/2018 In active Adderall 5 mg tablet RxNorm: 408733 1 Tablet(s) PO QAM as needed 02/13/2018 03/14/2018 Inactive Adderall XR 20 mg ca psule,extended release RxNorm: 488229 1 Capsule(s) PO daily 02/13/2018 03/12/2018 In active prednisone 20 mg tablet RxNorm: 959298 2 Tablet(s) PO daily 02/10/2018 02/14/2018 Inactive Bactrim DS 800 mg-16 0 mg tablet RxNorm: 416164 1 Tablet(s) PO BID 01/16/2018 02/04/2018 Inactive Adderall 5 mg tablet RxNorm: 972166 2 Tablet(s) PO QAM and 1 PO QPM 01/16/2018 02/12/2018 In active Bactrim DS 800 mg-16 0 mg tablet RxNorm: 628114 1 Tablet(s) PO BID 01/04/2018 01/15/2018 Inactive Adderall 5 mg tablet RxNorm: 618900 2 Tablet(s) PO QAM and 1 PO QPM 12/13/2017 01/11/2018 In active Zithromax Z-Molina 250 mg tablet RxNorm: 135777 1 Tablet(s) PO UD 11/25/2017 03/12/2018 Inactive diazepam 2 mg tablet RxNorm: 615764 Tablet(s) TAKE 1/2 TABLET BY MOUTH TWICE DAILY NEEDED FOR ANXIETY 11/18/2017 12/17/2017 Inactive diazepam 2 mg tablet RxNorm: 345027 Tablet(s) TAKE 1/2 TABLET BY MOUTH TWICE DAILY NEEDED FOR ANXIETY 08/30/2017 10/28/2017 Inactive diazepam 2 mg tablet RxNorm: 006780 Tablet(s) TAKE 1/2 TABLET BY MOUTH TWICE DAILY NEEDED FOR ANXIETY 07/19/2017 08/29/2017 Inactive diazepam 2 mg tablet RxNorm: 523012 TAKE 1/2 TABLET BY MOUTH TWICE DAILY NEEDED FOR ANXIETY 07/15/2017 07/18/2017 Inactive Bactrim DS 800 mg-16 0 mg tablet RxNorm: 960757 1 Tablet(s) PO BID 06/01/2017 06/20/2017 Inactive diazepam 2 mg tablet RxNorm: 076722 1/2 Tablet(s) PO BID as needed anxiety 06/01/2017 06/29/2017 In active tramadol 50 mg tablet RxNorm: 104339 1 Tablet(s) PO QID as needed 04/14/2017 04/23/2017 Inactive Bactrim DS 800 mg-16 0 mg tablet RxNorm: 487110 1 Tablet(s) PO BID 04/14/2017 05/03/2017 Inactive diazepam 2 mg tablet RxNorm: 925900 1/2 Tablet(s) PO BID as needed anxiety 03/02/2017 04/30/2017 In active Zithromax Z-Molina 250 mg tablet RxNorm: 152834 1 Tablet(s) PO UD 03/02/2017 07/18/2017 Inactive Bactrim DS 800 mg-16 0 mg tablet RxNorm: 645880 1 Tablet(s) PO BID 03/01/2017 03/20/2017 Inactive diazepam 2 mg tablet RxNorm: 976409 1/2 Tablet(s) PO BID as needed anxiety 01/21/2017 02/19/2017 In active Bactrim DS 800 mg-16 0 mg tablet RxNorm: 207706 1 Tablet(s) PO BID 01/21/2017 01/30/2017 Inactive Bactrim DS 800 mg-16 0 mg tablet RxNorm: 719726 1 Tablet(s) PO BID 11/17/2016 11/26/2016 Inactive diazepam 2 mg tablet RxNorm: 823098 1/2 Tablet(s) PO BID as needed anxiety 11/12/2016 01/10/2017 In active diazepam 2 mg tablet RxNorm: 169940 1/2 Tablet(s) PO BID as needed anxiety 10/18/2016 12/14/2016 In active Zithromax Z-Molina 250 mg tablet RxNorm: 169109 1 Tablet(s) PO UD 09/27/2016 03/01/2017 Inactive diazepam 2 mg tablet RxNorm: 212761 1/2 Tablet(s) PO BID as needed anxiety 09/13/2016 11/11/2016 In active diazepam 2 mg tablet RxNorm: 759043 1/2 Tablet(s) PO BID as needed anxiety 07/07/2016 09/17/2016 In active Levaquin 500 mg tablet RxNorm: 463761 1 Tablet(s) PO daily 06/01/2016 05/31/2016 Inactive Levaquin 500 mg tablet RxNorm: 291656 1 Tablet(s) PO daily 06/01/2016 06/07/2016 Inactive Levaquin 500 mg tablet RxNorm: 787684 1 Tablet(s) PO daily 05/05/2016 05/04/2016 Inactive Levaquin 500 mg tablet RxNorm: 026762 1 Tablet(s) PO daily 05/05/2016 05/11/2016 Inactive minocycline 100 mg c apsule RxNorm: 737101 1 CAPSULE(S) PO BID W HEN NOT HAVING ACUTE FLARE DECREASE TO ONCE DAILY 04/21/2016 05/20/2016 Inactive Ciprodex 0.3 %-0.1 % ear drops,suspension RxNorm: 213389 4 Drop(s) OTIC BID 03/08/2016 03/14/2016 In active Zithromax Z-Molina 250 mg tablet RxNorm: 568946 Tablet(s) PO 03/08/2016 09/26/2016 Inactive diazepam 2 mg tablet RxNorm: 535136 1/2 Tablet(s) PO BID as needed anxiety 2016 04/18/2016 In active mupirocin 2 % topica l ointment RxNorm: 634434 1 Application TOP BID 02/05/2016 No Stop Date Active minocycline 100 mg c apsule RxNorm: 801006 1 Capsule(s) PO BID w hen not having acute flare decrease to once daily 02/05/2016 03/05/2016 Inactive Bactrim DS 800 mg-16 0 mg tablet RxNorm: 995799 1 Tablet(s) PO BID 02/05/2016 02/18/2016 Inactive diazepam 2 mg tablet RxNorm: 518412 1/2 Tablet(s) PO BID as needed anxiety 02/05/2016 02/05/2016 In active betamethasone alberto te 0.1 % topical cream RxNorm: 617761 1 Application TOP BID as needed rash 12/22/2015 No Stop Date Active minocycline 100 mg c apsule RxNorm: 167764 1 Capsule(s) PO BID w hen not having acute flare decrease to once daily 12/22/2015 01/20/2016 Inactive Medication Administered Medication Codes Instruc tions Start Date Status Kenalog 40 mg/mL suspension for injection RxNorm: 6432293 Milliliter 12/29/2018 No longer Active Kenalog 40 mg/mL suspension for injection RxNorm: 2300475 1Milliliter 03/01/2018 N o longer Active Immunizations No Immunization data Assessments Condition Codes Effectiv e Dates Hidradenitis suppurativa ICD-10: L73 .2 ICD-9: 705.83 12/29/2018 Acute laryngopharyngitis ICD-10: J06 .0 ICD-9: 465.0 [...] Visit Reason For Visit Effective Dates Notes skin lesion 12/29/2018 sore throat 09/14/2018 shoulder pain 08/09/2018 shoulder pain 08/01/2018 medication follow up 03/01/2018 medication follow up 02/10/2018 anxiety 12/12/2017 diaze mere anxiety 11/25/2017 diaze mere skin lesion 03/02/2017 skin lesion 11/17/2016 skin lesion 09/27/2016 skin lesion 05/05/2016 earache 03/08/2016 anxiety 02/05/2016 anxiety 12/22/2015 Results Observation Observation Code Item Item Code Result Date C RAP A SC 0031409 Strep A Negative 09/14/2018 C A/B FLU 4500498 Influe nza A Scr Negative 09/14/2018 C A/B FLU 8513456 Influe nza B Scr Negative 09/14/2018 C A/B FLU 1862023 Influe nza Intrp B AG:PRID:PT:NOSE:NOM:IF See Footnote 09/14/2018 Tsh Ord6 hTSH II 1.82 uIU/mL 02/05/2016 Comp Metabolic Vbf228 NA 139 mEq/L 02/05/2016 Comp Metabolic Yro323 K 4.2 mEq/L 02/05/2016 Comp Metabolic Zku636 CL 103 mEq/L 02/05/2016 Comp Metabolic Olv616 CO2 29.0 mEq/L 02/05/2016 Comp Metabolic Ayg454 AN ION GAP 11 02/05/2016 Comp Metabolic Shv413 GL UCOSE 71 mg/dL 02/05/2016 Comp Metabolic Upm191 Cr eat 0.9 mg/dL 02/05/2016 Comp Metabolic Zsd152 eG FR 101 ml/min/1.73m2 01/14 Comp Metabolic Wow569 BUN 17 mg/dL 02/05/2016 Comp Metabolic Zjm336 B/ C Ratio 18.5 Ratio 02/05/2016 Comp Metabolic Rdm123 CA LCIUM 9.4 mg/dL 02/05/2016 Comp Metabolic Mjj325 AL K PHOS 63 U/L 02/05/2016 Comp Metabolic Dcm820 T(SGOT) 30 U/L 02/05/2016 Comp Metabolic Udt554 AL T(SGPT) 40 U/L 02/05/2016 Comp Metabolic Pzl785 BI LI T 0.5 mg/dL 02/05/2016 Comp Metabolic Gjx213 AL BUMIN 4.2 g/dL 02/05/2016 Comp Metabolic Aqz877 TP RO 7.2 g/dL 02/05/2016 Comp Metabolic Mns930 GL OB 3.0 g/dL 02/05/2016 Comp Metabolic Amb809 A/ G Ratio 1.4 Ratio 02/05/2016 Comp Metabolic Vfn804 Os mo 278 mOsmo 02/05/2016 Cbc With [...] 30.3 pg 02/05/2016 Cbc With Differential Ord2 Taylor% 8.9 % 02/05/2016 Cbc With Differential Ord2 [...] 2.91 K/ul 02/05/2016 Cbc With Differential Ord2 Taylor ABS# 1.1 K/ul 02/05/2016 Cbc With Differential Ord2 Eos ABS# 0.1 K/ul 02/05/2016 Cbc With Differential Ord2 Baso ABS# 0.0 K/ul 02/05/2016 Review of Systems System Result Effective Dates Constitutional No recent illness 12/29/2018 Constitutional No [...] No mental status change 02/10/2018 Psychiatric anxiety 01/14 Constitutional No recent illness 12/12/2017 Constitutional No [...] Respiratory No chest congestion 11/25/2017 Psychiatric anxiety 04/10/2017 Constitutional No recent illness 03/02/2017 Constitutional No [...] No mental status change 12/22/2015 Psychiatric anxiety 04/2016 Psychiatric No depression 12/22/2015 Physical Exam [...] Procedure Codes Date THER/PROPH/DIAG INJ SC/IM CPT-4: 97343 12/29/2018 TRIAMCINOLONE ACET I [place] NOS CPT-4: J3301 12/29/2018 TRIAMCINOLONE ACET I [place] NOS CPT-4: J3301 08/09/2018 INJECT TRIGGER POINT S 3/> CPT-4: 33151 08/09/2018 TRIAMCINOLONE ACET I [place] NOS CPT-4: J3301 03/01/2018 THER/PROPH/DIAG INJ SC/IM CPT-4: 71482 03/01/2018 DRAINAGE OF SKIN ABS CESS CPT-4: 53996 05/05/2016 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-[address]: 626082961 CPT-4: G0436 12/22/2015 Vital Signs Date Vital 12/29/2018 Blood Pressure 1: 120/72 Code: 8480-6 BMI: 33.6 Code: 87501-3 Heart Rate 1: 94 bpm Height: 5'11" SpO2: 98% Weight: 241 lbs 09/14/2018 Blood Pressure 1: 128/86 Code: 8480-6 BMI: 33.9 Code: 94763-7 Heart Rate 1: 128 bpm Height: 5'11" SpO2: 96% Temperature: 37.4 (C ) / 99.3 (F) Weight: 243 lbs 08/09/2018 Blood Pressure 1: 120/72 Code: 8480-6 Heart Rate 1: 90 bpm Height: SpO2: 98% Weight: 08/01/2018 Blood Pressure 1: 110/78 Code: 8480-6 BMI: 34.4 Code: 27148-3 Heart Rate 1: 109 bpm Height: 5'11" SpO2: 98% Weight: 247 lbs 03/01/2018 Blood Pressure 1: 120/80 Code: 8480-6 BMI: 32.9 Code: 15273-1 Heart Rate 1: 72 bpm Height: 5'11" SpO2: 96% Weight: 236 lbs 02/10/2018 Blood Pressure 1: 122/70 Code: 8480-6 BMI: 32.9 Code: 40602-4 Heart Rate 1: 90 bpm Height: 5'11" SpO2: 98% Weight: 236 lbs 12/12/2017 Blood Pressure 1: 124/72 Code: 8480-6 BMI: 35.0 Code: 43221-5 Heart Rate 1: 80 bpm Height: 5'11" SpO2: 96% Weight: 251 lbs 11/25/2017 Blood Pressure 1: 122/76 Code: 8480-6 BMI: 35.4 Code: 63940-5 Heart Rate 1: 74 bpm Height: 5'11" SpO2: 95% Weight: 254 lbs 03/02/2017 Blood Pressure 1: 120/70 Code: 8480-6 BMI: 33.8 Code: 46265-8 Heart Rate 1: 79 bpm Height: 5'11" SpO2: 99% Weight: 242 lbs 11/17/2016 Blood Pressure 1: 120/88 Code: 8480-6 BMI: 36.8 Code: 87332-0 Heart Rate 1: 104 bpm Height: 5'11" SpO2: 99% Weight: 264 lbs 09/27/2016 Blood Pressure 1: 122/78 Code: 8480-6 BMI: 34.6 Code: 54524-7 Heart Rate 1: 100 bpm Height: 5'11" SpO2: 96% Weight: 248 lbs 05/05/2016 Blood Pressure 1: 114/78 Code: 8480-6 BMI: 35.1 Code: 12002-6 Heart Rate 1: 81 bpm Height: 5'11" SpO2: 96% Weight: 252 lbs 03/08/2016 Blood Pressure 1: 120/64 Code: 8480-6 BMI: 34.3 Code: 74809-9 Heart Rate 1: 95 bpm Height: 5'11" SpO2: 97% Weight: 246 lbs 02/05/2016 Blood Pressure 1: 120/78 Code: 8480-6 BMI: 33.5 Code: 13013-9 Heart Rate 1: 104 bpm Height: 5'11" SpO2: 97% Weight: 240 lbs 12/22/2015 Blood Pressure 1: 120/82 Code: 8480-6 BMI: 34.3 Code: 19086-2 Heart Rate 1: 83 bpm Height: 5'11" SpO2: 97% Weight: 246 lbs Functional Status No Functional Status data History of Present Illness Symptom Name Status Resu lt Effective Date Notes Onset and Resolution s udden in onset [...] Encounters Encounter Performer Loca tion Codes Date 56921 EST. PATIENT, LEVEL III Diagnosis: Hidradenitis suppurativa[ICD10: L73.2] Miracle Pereyra MD, [facility] CPT-4: 37893 12/29/2018 ([id number]) 09210 EST. P ATIENT, LEVEL III Diagnosis: Acute laryngopharyngitis[ICD10: J06.0] Diagnosis: Fever, unspecified[ICD10: R50.9] Gavi Pereyra MD, [facility] CPT- 4: 74275 09/14/2018 58269 EST. PATIENT, LEVEL III Diagnosis: Pain in left shoulder[ICD10: M25.512] Diagnosis: Muscle spasm of back[ICD10: M62.830] Miracle Pereyra MD, [facility] CPT- 4: 99129 08/09/2018 67747 EST. PATIENT, LEVEL III Diagnosis: Pain in left shoulder[ICD10: M25.512] Diagnosis: Muscle spasm of back[ICD10: M62.830] Miracle Pereyra MD, [facility] CPT- 4: 99805 08/01/2018 39623 EST. PATIENT, LEVEL III Diagnosis: Hidradenitis suppurativa[ICD10: L73.2] Miracle Pereyra MD, [facility] CPT-4: 25846 03/01/2018 85062 EST. 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 PATIENT, LEVEL IV Diagnosis: Generalized anxiety disorder[ICD10: F41.1] Diagnosis: Hidradenitis suppurativa[ICD10: L73.2] Miracle Pereyra MD, [facility] CPT-4: 75745 11/25/2017 66346 EST. PATIENT, LEVEL III Diagnosis: Hidradenitis suppurativa[ICD10: L73.2] Diagnosis: Generalized anxiety disorder[ICD10: F41.1] Miracle Pereyra MD, [facility] CPT-4: 56360 03/02/2017 28852 EST. PATIENT, LEVEL III Diagnosis: Cutaneous abscess of buttock[ICD10: L02.31] Miracle Pereyra MD, [facility] CPT-4: 99139 11/17/2016 30657 EST. PATIENT, LEVEL III Diagnosis: Cutaneous abscess of left axilla[ICD10: L02.412] Diagnosis: Pain in right hand[ICD10: M79.641] Miracle Pereyra MD, [facility] CPT-4: 12772 09/27/2016 75960 EST. PATIENT, LEVEL III Diagnosis: Cutaneous abscess of right lower limb[ICD10: L02.415] Diagnosis: Hidradenitis suppurativa[ICD10: L73.2] Miracle Pereyra MD, [facility] CPT-4: 20884 05/05/2016 34331 EST. PATIENT, LEVEL IV Diagnosis: Other otitis externa, right ear[ICD10: H60.8X1] Diagnosis: Cutaneous abscess of left axilla[ICD10: L02.412] Diagnosis: Other acute sinusitis[ICD10: J01.80] [facility] CPT- 4: 18494 03/08/2016 04291 EST. PATIENT, LEVEL III Diagnosis: Generalized anxiety disorder[ICD10: F41.1] Diagnosis: Acne vulgaris[ICD10: L70.0] Diagnosis: Plantar wart[ICD10: B07.0] Miracle Pereyra MD, [facility] CPT-4: 95318 02/05/2016 ([id number]) OFFICE VISI T, NEW - LEVEL 3 Diagnosis: Generalized anxiety disorder[ICD10: F41.1] Diagnosis: 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][ICD10: L30.1] Diagnosis: Acne vulgaris[ICD10: L70.0] Diagnosis: Other obesity due to excess calories[ICD10: E66.09] [facility] CPT-4: 43154 12/22/2015 Plan of Care Planned Activity Notes C odes Status Date Visit Plan: HS - The patient was in structed in appropriate wound care. The patient was instructed to use the antibiotic ointment as per RX. The patient is to call for any change in symptoms, increase in size of the lesion, increase in pain, worsening redness, warmth, discharge. 12/29/2018 Appointment: Miracle Gracia WPtel: [address] [place], [place] [address] (30 min) Complex 12/29/2018 Patient Education: Patient [...] for fever/discomfort. 09/14/2018 Appointment: Gavi Soria WPtel: [address] [place], [place] [phone] (15 min) Moderate 09/14/2018 Patient Education: Patient [...] process. 08/09/2018 [facility]ment[facility] [phone] [facility] ([facility] min) Complex 08/09/2018 Patient Education: Patient Medication Summary Completed 08/09/2018 Visit Plan: Left shoulder pain, mus mishel spasm - will send RX - The pt is to use prn antiinflammatories to manage acute pain. The patient is to call the office if the pain is worsening or does not improve. 08/01/2018 Appointment[facility] [phone] [facility] (15 min) Moderate 08/01/2018 Patient Education: Patient [...] no changes. 02/10/2018 Appointment: Miracle Gracia WPtel: [facility] (15 min) Moderate 02/10/2018 Patient Education: Patient [...] not prescribed. 12/12/2017 Appointment: Miracle Gracia WPtel: [facility] (15 min) Moderate 12/12/2017 Patient Education: [...] or concerns. 11/25/2017 Appointment: Miracle Gracia WPtel: [facility] (15 min) Moderate 11/25/2017 Patient Education: Patient Medication Summary Completed 11/25/2017 Visit Plan: Abscess/Cellulitis - Th e patient was instructed in appropriate wound care. The patient was instructed to use the antibiotic ointment as per RX. The patient is to call for any change in symptoms, increase in size of the lesion, increase in pain. Pt is to discuss methotrexate with his post doctoral researcher. 03/02/2017 Appointment: [facility] [phone] [facility] [place] (30 min) Complex 03/02/2017 Patient Education: Patient Medication Summary Completed 03/02/2017 Patient Education: Smoking and Tobacco Addiction Completed 03/02/2017 Patient Education: Obesity Completed 03/02/2017 Appointment: Miracle Gracia WPtel: [phone] [facility] [place] (30 min) Complex 11/19/2016 Appointment: Miracle Gracia WPtel: [phone] [facility] [place] (15 min) Moderate 11/18/2016 Visit Plan: Abscess/Cellulitis - Th e patient was instructed in appropriate wound care. The patient was instructed to use the antibiotic ointment as per RX. The patient is to call for any change in symptoms, increase in size of the lesion, increase in pain. Pt is to return tomorrow for I&D if needed. 11/17/2016 Appointment: Miracel Gracia [facility]Ptel[facility] [phone] [facility] [place] (15 min) Moderate 11/17/2016 Patient Education: Patient Medication Summary Completed 11/17/2016 Patient Education: Smoking and Tobacco Addiction Completed 11/17/2016 Referral: Alberto Pearson Referral Initiated 09/30/2016 Care Plan: Referral Order SNOMED-CT : [id number] Pending 09/28/2016 Visit Plan: Abscess/Cellulitis - Re [...] Dr. Isaac. 09/27/2016 Appointment: [facility] [phone] [facility] (30 min) Complex 09/27/2016 Patient Education: Patient Medication Summary Completed 09/27/2016 Patient Education: Smoking and Tobacco Addiction Completed 09/27/2016 Care Plan: Referral Order SNOMED-CT : [id number] Pending 05/10/2016 Visit Plan: Abscess/Cellulitis - ri ght lateral hip - incision and drainage today in the office - The patient was instructed in appropriate wound care. The patient was instructed to use the antibiotic ointment as per RX. The patient is to call for any change in symptoms, increase in size of the lesion, increase in pain. 05/05/2016 Appointment: [facility] [phone] [phone] (30 min) Complex 05/05/2016 Patient Education: Patient [...] current medications. 02/05/2016 Appointment: [facility] [phone] [facility] ([facility] min) [facility] 02/05/2016 Patient Education: Patient Medication Summary Completed [...] 12/22/2015 Referral: Alberto Pearson Referral Initiated Referral: [facility] WPtel: Referral Completed Referral: [facility] WPtel: will call with appt time Initiated [...] and pain - will refer to Dr. Iasac. . Abscess/Cellulitis - The patient was instructed in appropriate wound care. The patient was instructed to use the antibiotic ointment as per RX. The patient is to call for any change in symptoms, increase in size of the lesion, increase in pain. Pt is to discuss methotrexate with his post doctoral researcher. . Otitis Externa - p t given [...] in current medications. Dr. Kelsey campbell - post doctoral researcher at [facility] who specializes in HS will [...] in pain, worsening redness, warmth, discharge. . Left shoulder pain , muscle spasm [...]
--- OUTSIDE RECORDS SUMMARY | 2020-02-25 10:41 | XMS REPORT | CCD ---
Author Norbert Mancia Organization Celeste Pereyra MD, [facility] Address [address] [place] [address] Phone Care Team Providers Care Baker Apprentice Name Role Phone PP Unavailable CCM Unavailable Summary Purpose Interface Exchange Insurance Providers Payer name Policy type / Coverage type Covered constitution party ID Effective Begin Date Effective End Date [employer] Commercial Insurance [id number] Unknown Family history Mother Diagnosis Age At Onset Cancer Unknown Diabetes Unknown Social History Social History Element Codes Description Effective Dates Marital status Unknown M kelvin Bosch 09/14/[address]: 0416249 Former smoker Quit in October 2017 11/25/2017 Number of children Unknown 1 12/22/2015 Number of years using tobacco Unknown 5 - 10 12/22/2015 Number of cigarettes/day Unknown 10 (Half a pack) 12/22/2015 Alcohol history Unknown occasionally drinks alcohol 12/22/2015 Frequency of drinks SNOMED CT: 136830416 1-4 drinks per week 12/22/2015 Allergies, Adverse [...] Date Stop Date Sta tus Fill Instructions doxycycline hyclate 100 mg capsule RxNorm: 8542886 1 Capsule(s) PO BID 12/29/2018 01/07/2019 In active Kenalog 40 mg/mL rodrigo pension for injection RxNorm: 3235453 Milliliter(s) Inj 12/29/2018 12/29/2018 In active prednisone 20 mg tablet RxNorm: 667302 3 Tablet(s) PO daily 12/29/2018 01/02/2019 Inactive Adderall 10 mg tablet RxNorm: 681835 1 Tablet(s) PO BID 12/15/2018 01/13/2019 Active Bactrim DS 800 mg-16 0 mg tablet RxNorm: 180090 1 Tablet(s) PO BID 11/06/2018 11/25/2018 Inactive prednisone 20 mg tablet RxNorm: 437129 3 Tablet(s) PO daily 11/06/2018 11/10/2018 Inactive cefdinir 300 mg capsule RxNorm: 347833 1 Capsule(s) PO BID 09/14/2018 09/23/2018 Inactive Zithromax Z-Molina 250 mg tablet RxNorm: 438360 1 Tablet(s) PO UD 09/07/2018 09/11/2018 Inactive zpack as directed Adderall 10 mg tablet RxNorm: 022176 1 Tablet(s) PO BID 09/07/2018 10/06/2018 Inactive Zorvolex 18 mg capsule RxNorm: 4242774 1 Capsule(s) PO TID 08/10/2018 No Stop Date Active tramadol 50 mg tablet RxNorm: 243728 1 Tablet(s) PO QID as needed 08/09/2018 08/18/2018 Inactive baclofen 10 mg tablet RxNorm: 615268 1 Tablet(s) PO TID as needed muscle spas ms 08/09/2018 08/13/2018 In active baclofen 10 mg tablet RxNorm: 424539 1 Tablet(s) PO TID as needed muscle spas ms 08/01/2018 08/05/2018 In active prednisone 20 mg tablet RxNorm: 525328 3 Tablet(s) PO daily 08/01/2018 08/05/2018 Inactive diazepam 2 mg tablet RxNorm: 903444 Tablet(s) TAKE 1/2 TABLET BY MOUTH TWICE DAILY NEEDED FOR ANXIETY 07/21/2018 08/19/2018 Inactive Adderall 10 mg tablet RxNorm: 816254 1 Tablet(s) PO BID 07/14/2018 08/12/2018 Inactive Adderall 10 mg tablet RxNorm: 906643 1 Tablet(s) PO BID 05/26/2018 06/24/2018 Inactive Adderall 10 mg tablet RxNorm: 693554 1 Tablet(s) PO BID 04/28/2018 05/25/2018 Inactive Adderall 5 mg tablet RxNorm: 407519 1 Tablet(s) PO QAM as needed 04/04/2018 04/27/2018 Inactive diazepam 2 mg tablet RxNorm: 299785 Tablet(s) TAKE 1/2 TABLET BY MOUTH TWICE DAILY NEEDED FOR ANXIETY 04/04/2018 05/02/2018 Inactive Adderall XR 20 mg ca psule,extended release RxNorm: 487050 1 Capsule(s) PO daily 03/13/2018 04/03/2018 In active Kenalog 40 mg/mL rodrigo pension for injection RxNorm: 9441841 1 Milliliter(s) Inj 03/01/2018 03/01/2018 In active Adderall 5 mg tablet RxNorm: 968635 1 Tablet(s) PO QAM as needed 02/13/2018 03/14/2018 Inactive Adderall XR 20 mg ca psule,extended release RxNorm: 260865 1 Capsule(s) PO daily 02/13/2018 03/12/2018 In active prednisone 20 mg tablet RxNorm: 793172 2 Tablet(s) PO daily 02/10/2018 02/14/2018 Inactive Bactrim DS 800 mg-16 0 mg tablet RxNorm: 045497 1 Tablet(s) PO BID 01/16/2018 02/04/2018 Inactive Adderall 5 mg tablet RxNorm: 155368 2 Tablet(s) PO QAM and 1 PO QPM 01/16/2018 02/12/2018 In active Bactrim DS 800 mg-16 0 mg tablet RxNorm: 224394 1 Tablet(s) PO BID 01/04/2018 01/15/2018 Inactive Adderall 5 mg tablet RxNorm: 114765 2 Tablet(s) PO QAM and 1 PO QPM 12/13/2017 01/11/2018 In active Zithromax Z-Molina 250 mg tablet RxNorm: 730816 1 Tablet(s) PO UD 11/25/2017 03/12/2018 Inactive diazepam 2 mg tablet RxNorm: 504941 Tablet(s) TAKE 1/2 TABLET BY MOUTH TWICE DAILY NEEDED FOR ANXIETY 11/18/2017 12/17/2017 Inactive diazepam 2 mg tablet RxNorm: 274215 Tablet(s) TAKE 1/2 TABLET BY MOUTH TWICE DAILY NEEDED FOR ANXIETY 08/30/2017 10/28/2017 Inactive diazepam 2 mg tablet RxNorm: 130436 Tablet(s) TAKE 1/2 TABLET BY MOUTH TWICE DAILY NEEDED FOR ANXIETY 07/19/2017 08/29/2017 Inactive diazepam 2 mg tablet RxNorm: 009759 TAKE 1/2 TABLET BY MOUTH TWICE DAILY NEEDED FOR ANXIETY 07/15/2017 07/18/2017 Inactive Bactrim DS 800 mg-16 0 mg tablet RxNorm: 001928 1 Tablet(s) PO BID 06/01/2017 06/20/2017 Inactive diazepam 2 mg tablet RxNorm: 667214 1/2 Tablet(s) PO BID as needed anxiety 06/01/2017 06/29/2017 In active tramadol 50 mg tablet RxNorm: 401091 1 Tablet(s) PO QID as needed 04/14/2017 04/23/2017 Inactive Bactrim DS 800 mg-16 0 mg tablet RxNorm: 983961 1 Tablet(s) PO BID 04/14/2017 05/03/2017 Inactive diazepam 2 mg tablet RxNorm: 639033 1/2 Tablet(s) PO BID as needed anxiety 03/02/2017 04/30/2017 In active Zithromax Z-Molina 250 mg tablet RxNorm: 129221 1 Tablet(s) PO UD 03/02/2017 07/18/2017 Inactive Bactrim DS 800 mg-16 0 mg tablet RxNorm: 295174 1 Tablet(s) PO BID 03/01/2017 03/20/2017 Inactive diazepam 2 mg tablet RxNorm: 223604 1/2 Tablet(s) PO BID as needed anxiety 01/21/2017 02/19/2017 In active Bactrim DS 800 mg-16 0 mg tablet RxNorm: 575452 1 Tablet(s) PO BID 01/21/2017 01/30/2017 Inactive Bactrim DS 800 mg-16 0 mg tablet RxNorm: 964786 1 Tablet(s) PO BID 11/17/2016 11/26/2016 Inactive diazepam 2 mg tablet RxNorm: 435790 1/2 Tablet(s) PO BID as needed anxiety 11/12/2016 01/10/2017 In active diazepam 2 mg tablet RxNorm: 535711 1/2 Tablet(s) PO BID as needed anxiety 10/18/2016 12/14/2016 In active Zithromax Z-Molina 250 mg tablet RxNorm: 331073 1 Tablet(s) PO UD 09/27/2016 03/01/2017 Inactive diazepam 2 mg tablet RxNorm: 425458 1/2 Tablet(s) PO BID as needed anxiety 09/13/2016 11/11/2016 In active diazepam 2 mg tablet RxNorm: 865465 1/2 Tablet(s) PO BID as needed anxiety 07/07/2016 09/17/2016 In active Levaquin 500 mg tablet RxNorm: 235346 1 Tablet(s) PO daily 06/01/2016 05/31/2016 Inactive Levaquin 500 mg tablet RxNorm: 932865 1 Tablet(s) PO daily 06/01/2016 06/07/2016 Inactive Levaquin 500 mg tablet RxNorm: 390990 1 Tablet(s) PO daily 05/05/2016 05/04/2016 Inactive Levaquin 500 mg tablet RxNorm: 154183 1 Tablet(s) PO daily 05/05/2016 05/11/2016 Inactive minocycline 100 mg c apsule RxNorm: 642001 1 CAPSULE(S) PO BID W HEN NOT HAVING ACUTE FLARE DECREASE TO ONCE DAILY 04/21/2016 05/20/2016 Inactive Ciprodex 0.3 %-0.1 % ear drops,suspension RxNorm: 369691 4 Drop(s) OTIC BID 03/08/2016 03/14/2016 In active Zithromax Z-Molina 250 mg tablet RxNorm: 034622 Tablet(s) PO 03/08/2016 09/26/2016 Inactive diazepam 2 mg tablet RxNorm: 987791 1/2 Tablet(s) PO BID as needed anxiety 2016 04/18/2016 In active mupirocin 2 % topica l ointment RxNorm: 472869 1 Application TOP BID 02/05/2016 No Stop Date Active minocycline 100 mg c apsule RxNorm: 520488 1 Capsule(s) PO BID w hen not having acute flare decrease to once daily 02/05/2016 03/05/2016 Inactive Bactrim DS 800 mg-16 0 mg tablet RxNorm: 751827 1 Tablet(s) PO BID 02/05/2016 02/18/2016 Inactive diazepam 2 mg tablet RxNorm: 552729 1/2 Tablet(s) PO BID as needed anxiety 02/05/2016 02/05/2016 In active betamethasone alberto te 0.1 % topical cream RxNorm: 330047 1 Application TOP BID as needed rash 12/22/2015 No Stop Date Active minocycline 100 mg c apsule RxNorm: 510358 1 Capsule(s) PO BID w hen not having acute flare decrease to once daily 12/22/2015 01/20/2016 Inactive Medication Administered Medication Codes Instruc tions Start Date Status Kenalog 40 mg/mL suspension for injection RxNorm: 7519160 Milliliter 12/29/2018 No longer Active Kenalog 40 mg/mL suspension for injection RxNorm: 0127517 1Milliliter 03/01/2018 N o longer Active Immunizations [...] Code Result Date C RAP A SC 5573086 Strep A Negative 09/14/2018 C A/B FLU 1661276 Influe nza A Scr Negative 09/14/2018 C A/B FLU 8845907 Influe nza B Scr Negative 09/14/2018 C A/B FLU 9003104 Influe nza Intrp B AG:PRID:PT:NOSE:NOM:IF See Footnote 09/14/2018 Tsh Ord6 hTSH II 1.82 uIU/mL 02/05/2016 Comp Metabolic Lev851 NA 139 mEq/L 02/05/2016 Comp Metabolic Wpy222 K 4.2 mEq/L 02/05/2016 Comp Metabolic Uug882 CL 103 mEq/L 02/05/2016 Comp Metabolic Urd764 CO2 29.0 mEq/L 02/05/2016 Comp Metabolic Odf294 AN ION GAP 11 02/05/2016 Comp Metabolic Nmj090 GL UCOSE 71 mg/dL 02/05/2016 Comp Metabolic Vde617 Cr eat 0.9 mg/dL 02/05/2016 Comp Metabolic Bzh222 eG FR 101 ml/min/1.73m2 01/14 Comp Metabolic Dss601 BUN 17 mg/dL 02/05/2016 Comp Metabolic Jeu664 B/ C Ratio 18.5 Ratio 02/05/2016 Comp Metabolic Nix738 CA LCIUM 9.4 mg/dL 02/05/2016 Comp Metabolic Ctf512 AL K PHOS 63 U/L 02/05/2016 Comp Metabolic Wua457 T(SGOT) 30 U/L 02/05/2016 Comp Metabolic Ezt986 AL T(SGPT) 40 U/L 02/05/2016 Comp Metabolic Aqy926 BI LI T 0.5 mg/dL 02/05/2016 Comp Metabolic Wpk731 AL BUMIN 4.2 g/dL 02/05/2016 Comp Metabolic Jdx089 TP RO 7.2 g/dL 02/05/2016 Comp Metabolic Nkr703 GL OB 3.0 g/dL 02/05/2016 Comp Metabolic Faj239 A/ G Ratio 1.4 Ratio 02/05/2016 Comp Metabolic Gta942 Os mo 278 mOsmo 02/05/2016 Cbc With [...] 30.3 pg 02/05/2016 Cbc With Differential Ord2 Williamson% 8.9 % 02/05/2016 Cbc With Differential Ord2 [...] 2.91 K/ul 02/05/2016 Cbc With Differential Ord2 Williamson ABS# 1.1 K/ul 02/05/2016 Cbc With Differential [...] No mental status change 02/10/2018 Psychiatric anxiety 0604/2018 Constitutional No recent illness 12/12/2017 Constitutional No [...] No mental status change 12/22/2015 Psychiatric anxiety 0504/2016 Psychiatric No depression 12/22/2015 Physical Exam Exam [...] Procedure Codes Date THER/PROPH/DIAG INJ SC/IM CPT-4: 25659 12/29/2018 TRIAMCINOLONE ACET I [place] NOS CPT-4: J3301 12/29/2018 TRIAMCINOLONE ACET I [place] NOS CPT-4: J3301 08/09/2018 INJECT TRIGGER POINT S 3/> CPT-4: 68729 08/09/2018 TRIAMCINOLONE ACET I [place] NOS CPT-4: J3301 03/01/2018 THER/PROPH/DIAG INJ SC/IM CPT-4: 70318 03/01/2018 DRAINAGE OF SKIN ABS CESS CPT-4: 63946 05/05/2016 TOBACCO-USE FRUIT COORDINATOR 3-[address]: 013752735 CPT-4: G0436 12/22/2015 Vital Signs Date Vital 12/29/2018 Blood Pressure 1: 120/72 Code: 8480-6 BMI: 33.6 Code: 64397-8 Heart Rate 1: 94 bpm Height: 5'11" SpO2: 98% Weight: 241 lbs 09/14/2018 Blood Pressure 1: 128/86 Code: 8480-6 BMI: 33.9 Code: 98724-4 Heart Rate 1: 128 bpm Height: 5'11" SpO2: 96% Temperature: 37.4 (C ) / 99.3 (F) Weight: 243 lbs 08/09/2018 Blood Pressure 1: 120/72 Code: 8480-6 Heart Rate 1: 90 bpm Height: SpO2: 98% Weight: 08/01/2018 Blood Pressure 1: 110/78 Code: 8480-6 BMI: 34.4 Code: 30731-1 Heart Rate 1: 109 bpm Height: 5'11" SpO2: 98% Weight: 247 lbs 03/01/2018 Blood Pressure 1: 120/80 Code: 8480-6 BMI: 32.9 Code: 20444-8 Heart Rate 1: 72 bpm Height: 5'11" SpO2: 96% Weight: 236 lbs 02/10/2018 Blood Pressure 1: 122/70 Code: 8480-6 BMI: 32.9 Code: 04592-9 Heart Rate 1: 90 bpm Height: 5'11" SpO2: 98% Weight: 236 lbs 12/12/2017 Blood Pressure 1: 124/72 Code: 8480-6 BMI: 35.0 Code: 70236-5 Heart Rate 1: 80 bpm Height: 5'11" SpO2: 96% Weight: 251 lbs 11/25/2017 Blood Pressure 1: 122/76 Code: 8480-6 BMI: 35.4 Code: 66885-6 Heart Rate 1: 74 bpm Height: 5'11" SpO2: 95% Weight: 254 lbs 03/02/2017 Blood Pressure 1: 120/70 Code: 8480-6 BMI: 33.8 Code: 83760-8 Heart Rate 1: 79 bpm Height: 5'11" SpO2: 99% Weight: 242 lbs 11/17/2016 Blood Pressure 1: 120/88 Code: 8480-6 BMI: 36.8 Code: 46776-9 Heart Rate 1: 104 bpm Height: 5'11" SpO2: 99% Weight: 264 lbs 09/27/2016 Blood Pressure 1: 122/78 Code: 8480-6 BMI: 34.6 Code: 06315-3 Heart Rate 1: 100 bpm Height: 5'11" SpO2: 96% Weight: 248 lbs 05/05/2016 Blood Pressure 1: 114/78 Code: 8480-6 BMI: 35.1 Code: 39655-8 Heart Rate 1: 81 bpm Height: 5'11" SpO2: 96% Weight: 252 lbs 03/08/2016 Blood Pressure 1: 120/64 Code: 8480-6 BMI: 34.3 Code: 90732-9 Heart Rate 1: 95 bpm Height: 5'11" SpO2: 97% Weight: 246 lbs 02/05/2016 Blood Pressure 1: 120/78 Code: 8480-6 BMI: 33.5 Code: 18322-3 Heart Rate 1: 104 bpm Height: 5'11" SpO2: 97% Weight: 240 lbs 12/22/2015 Blood Pressure 1: 120/82 Code: 8480-6 BMI: 34.3 Code: 76091-5 Heart Rate 1: 83 bpm Height: 5'11" [...] Encounters Encounter Performer Loca tion Codes Date 28985 EST. PATIENT, LEVEL III Diagnosis: Hidradenitis suppurativa[ICD10: L73.2] Miracle Pereyra MD, [facility] CPT-4: 49796 12/29/2018 ([id number]) 57175 EST. P ATIENT, LEVEL III Diagnosis: Acute laryngopharyngitis[ICD10: J06.0] Diagnosis: Fever, unspecified[ICD10: R50.9] Gavi Pereyra MD, [facility] CPT- 4: 46877 09/14/2018 20935 EST. PATIENT, LEVEL III Diagnosis: Pain in left shoulder[ICD10: M25.512] Diagnosis: Muscle spasm of back[ICD10: M62.830] Miracle Pereyra MD, [facility] CPT- 4: 92227 08/09/2018 66901 EST. PATIENT, LEVEL III Diagnosis: Pain in left shoulder[ICD10: M25.512] Diagnosis: Muscle spasm of back[ICD10: M62.830] Miracle Pereyra MD, [facility] CPT- 4: 75276 08/01/2018 59075 EST. PATIENT, LEVEL III Diagnosis: Hidradenitis suppurativa[ICD10: L73.2] Miracle Pereyra MD, [facility] CPT-4: 08898 03/01/2018 47798 EST. 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 PATIENT, LEVEL IV Diagnosis: Generalized anxiety disorder[ICD10: F41.1] Diagnosis: Hidradenitis suppurativa[ICD10: L73.2] Miracle Pereyra MD, [facility] CPT-4: 80121 11/25/2017 53045 EST. PATIENT, LEVEL III Diagnosis: Hidradenitis suppurativa[ICD10: L73.2] Diagnosis: Generalized anxiety disorder[ICD10: F41.1] Miracle Pereyra MD, [facility] CPT-4: 53927 03/02/2017 65598 EST. PATIENT, LEVEL III Diagnosis: Cutaneous abscess of buttock[ICD10: L02.31] Miracle Pereyra MD, [facility] CPT-4: 78896 11/17/2016 57236 EST. PATIENT, LEVEL III Diagnosis: Cutaneous abscess of left axilla[ICD10: L02.412] Diagnosis: Pain in right hand[ICD10: M79.641] Miracle Pereyra MD, [facility] CPT-4: 54378 09/27/2016 09629 EST. PATIENT, LEVEL III Diagnosis: Cutaneous abscess of right lower limb[ICD10: L02.415] Diagnosis: Hidradenitis suppurativa[ICD10: L73.2] Miracle Pereyra MD, [facility] CPT-4: 97793 05/05/2016 05665 EST. PATIENT, LEVEL IV Diagnosis: Other otitis externa, right ear[ICD10: H60.8X1] Diagnosis: Cutaneous abscess of left axilla[ICD10: L02.412] Diagnosis: Other acute sinusitis[ICD10: J01.80] Miracle Pereyra MD, [facility] CPT- 4: 81332 03/08/2016 81003 EST. PATIENT, LEVEL III Diagnosis: Generalized anxiety disorder[ICD10: F41.1] Diagnosis: Acne vulgaris[ICD10: L70.0] Diagnosis: Plantar wart[ICD10: B07.0] [facility] CPT-4: 22902 02/05/2016 ([id number]) OFFICE VISI T, NEW - LEVEL 3 Diagnosis: Generalized anxiety disorder[ICD10: F41.1] Diagnosis: 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][ICD10: L30.1] Diagnosis: Acne vulgaris[ICD10: L70.0] Diagnosis: Other obesity due to excess calories[ICD10: E66.09] Miracle Pereyra MD, [facility] CPT-4: 15263 12/22/2015 Plan of Care Planned Activity Notes [...] warmth, discharge. 12/29/2018 Appointment: Miracle Gracia WPtel: [facility] (30 min) Complex 12/29/2018 Patient Education: Patient [...] for fever/discomfort. 09/14/2018 Appointment: Gavi Soria WPtel: [facility] [phone] (15 min) Moderate 09/14/2018 Patient Education: Patient [...] disease process. 08/09/2018 Appointment: Miracle Gracia WPtel: [phone] [facility] [place] [place] (30 min) Complex 08/09/2018 Patient Education: Patient Medication Summary Completed 08/09/2018 Visit Plan: Left shoulder pain, mus mishel spasm - will send RX - The pt is to use prn antiinflammatories to manage acute pain. The patient is to call the office if the pain is worsening or does not improve. 08/01/2018 Appointment: Miracle Gracia WPtel: [phone] [facility] [place] (15 min) Moderate 08/01/2018 Patient Education: [...] changes. 02/10/2018 Appointment: Miracle Gracia WPtel: [phone] [facility] (15 min) Moderate 02/10/2018 Patient Education: Patient [...] prescribed. 12/12/2017 Appointment: Miracle Gracia WPtel: [phone] [facility] (15 min) Moderate 12/12/2017 Patient Education: Patient [...] concerns. 11/25/2017 Appointment: Miracle Gracia WPtel[facility] [phone] [facility] [place] (15 min) Moderate 11/25/2017 Patient Education: Patient Medication Summary Completed 11/25/2017 Visit Plan: Abscess/Cellulitis - Th e patient was instructed in appropriate wound care. The patient was instructed to use the antibiotic ointment as per RX. The patient is to call for any change in symptoms, increase in size of the lesion, increase in pain. Pt is to discuss methotrexate with his medical office professional instructor. 03/02/2017 Appointment: Miracle Gracia WPtel: [address] [place], [place] [phone] (30 min) Complex 03/02/2017 Patient Education: Patient Medication Summary Completed 03/02/2017 Patient Education: Smoking and Tobacco Addiction Completed 03/02/2017 Patient Education: Obesity Completed 03/02/2017 Appointment: Miracle Gracia WPtel: [address] [place], [place] [phone] (30 min) Complex 11/19/2016 Appointment: Miracle Gracia WPtel: [address] [place], [place] [phone] (15 min) Moderate 11/18/2016 Visit Plan: Abscess/Cellulitis - Th e patient was instructed in appropriate wound care. The patient was instructed to use the antibiotic ointment as per RX. The patient is to call for any change in symptoms, increase in size of the lesion, increase in pain. Pt is to return tomorrow for I&D if needed. 11/17/2016 Appointment: Miracle Gracia WPtel: [address] [place], [place] [phone] (15 min) Moderate 11/17/2016 Patient Education: Patient Medication Summary Completed 11/17/2016 Patient Education: Smoking and Tobacco Addiction Completed 11/17/2016 Referral: Alberto Pearson Referral Initiated 09/30/2016 Care Plan: Referral Order SNOMED-CT : [id number] Pending 09/28/2016 Visit Plan: Abscess/Cellulitis - Re [...] Dr. Isaac. 09/27/2016 Appointment: Miracle Gracia WPtel: [facility] (30 min) Complex 09/27/2016 Patient Education: Patient Medication Summary Completed 09/27/2016 Patient Education: Smoking and Tobacco Addiction Completed 09/27/2016 Care Plan: Referral Order SNOMED-CT : [id number] Pending 05/10/2016 Visit Plan: Abscess/Cellulitis - ri [...] pain. 05/05/2016 Appointment: Gavi Soria WPtel[facility] [phone] [facility] [phone] (30 min) Complex 05/05/2016 Patient Education: Patient [...] medications. 02/05/2016 Appointment: Miracle Gracia WPtel[facility] [phone] [facility] [place] (30 min) Complex 02/05/2016 Patient Education: Patient [...] 12/22/2015 Referral: Alberto Pearson Referral Initiated Referral: [facility] WPtel: Referral Completed Referral: [facility] WPtel: will call with appt [...] Pt is to discuss methotrexate with his medical office professional instructor. . Otitis Externa - p t given [...] in current medications. Dr. Kelsey campbell - medical office professional instructor at [facility] who specializes in HS will call Dr. [...]
--- OUTSIDE RECORDS SUMMARY | 2020-02-25 10:42 | XMS REPORT | CCD ---
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 Name Role Phone PP Unavailable CCM Unavailable Summary Purpose Interface Exchange Insurance Providers Payer name Policy type / Coverage type Covered green party ID Effective Begin Date Effective End Date [employer] Commercial Insurance [id number] Unknown Family history Mother Diagnosis Age At Onset Cancer Unknown Diabetes Unknown Social History Social History Element Codes Description Effective Dates Marital status Unknown M kelvin Bosch 09/14/[address]: 8843470 Former smoker Quit in October 2017 11/25/2017 Number of children Unknown 1 12/22/2015 Number of years using tobacco Unknown 5 - 10 12/22/2015 Number of cigarettes/day Unknown 10 (Half a pack) 12/22/2015 Alcohol history Unknown occasionally drinks alcohol 12/22/2015 Frequency of drinks SNOMED CT: 037312473 1-4 drinks per week 12/22/2015 Allergies, Adverse [...] Fill Instructions prednisone 20 mg tablet RxNorm: 508530 3 Tablet(s) PO daily 12/29/2018 01/02/2019 Active doxycycline hyclate 100 mg capsule RxNorm: 8107445 1 Capsule(s) PO BID 12/29/2018 01/07/2019 Ac tive Kenalog 40 mg/mL rodrigo pension for injection RxNorm: 0247641 Milliliter(s) Inj 12/29/2018 12/29/2018 In active Adderall 10 mg tablet RxNorm: 194651 1 Tablet(s) PO BID 12/15/2018 01/13/2019 Active Bactrim DS 800 mg-16 0 mg tablet RxNorm: 235908 1 Tablet(s) PO BID 11/06/2018 11/25/2018 Inactive prednisone 20 mg tablet RxNorm: 202161 3 Tablet(s) PO daily 11/06/2018 11/10/2018 Inactive cefdinir 300 mg capsule RxNorm: 021425 1 Capsule(s) PO BID 09/14/2018 09/23/2018 Inactive Zithromax Z-Molina 250 mg tablet RxNorm: 994419 1 Tablet(s) PO UD 09/07/2018 09/11/2018 Inactive zpack as directed Adderall 10 mg tablet RxNorm: 462595 1 Tablet(s) PO BID 09/07/2018 10/06/2018 Inactive Zorvolex 18 mg capsule RxNorm: 6227278 1 Capsule(s) PO TID 08/10/2018 No Stop Date Active tramadol 50 mg tablet RxNorm: 878357 1 Tablet(s) PO QID as needed 08/09/2018 08/18/2018 Inactive baclofen 10 mg tablet RxNorm: 332408 1 Tablet(s) PO TID as needed muscle spas ms 08/09/2018 08/13/2018 In active baclofen 10 mg tablet RxNorm: 167124 1 Tablet(s) PO TID as needed muscle spas ms 08/01/2018 08/05/2018 In active prednisone 20 mg tablet RxNorm: 194331 3 Tablet(s) PO daily 08/01/2018 08/05/2018 Inactive diazepam 2 mg tablet RxNorm: 981683 Tablet(s) TAKE 1/2 TABLET BY MOUTH TWICE DAILY NEEDED FOR ANXIETY 07/21/2018 08/19/2018 Inactive Adderall 10 mg tablet RxNorm: 677389 1 Tablet(s) PO BID 07/14/2018 08/12/2018 Inactive Adderall 10 mg tablet RxNorm: 186533 1 Tablet(s) PO BID 05/26/2018 06/24/2018 Inactive Adderall 10 mg tablet RxNorm: 879277 1 Tablet(s) PO BID 04/28/2018 05/25/2018 Inactive Adderall 5 mg tablet RxNorm: 790131 1 Tablet(s) PO QAM as needed 04/04/2018 04/27/2018 Inactive diazepam 2 mg tablet RxNorm: 724711 Tablet(s) TAKE 1/2 TABLET BY MOUTH TWICE DAILY NEEDED FOR ANXIETY 04/04/2018 05/02/2018 Inactive Adderall XR 20 mg ca psule,extended release RxNorm: 952993 1 Capsule(s) PO daily 03/13/2018 04/03/2018 In active Kenalog 40 mg/mL rodrigo pension for injection RxNorm: 5787196 1 Milliliter(s) Inj 03/01/2018 03/01/2018 In active Adderall 5 mg tablet RxNorm: 371115 1 Tablet(s) PO QAM as needed 02/13/2018 03/14/2018 Inactive Adderall XR 20 mg ca psule,extended release RxNorm: 779023 1 Capsule(s) PO daily 02/13/2018 03/12/2018 In active prednisone 20 mg tablet RxNorm: 727086 2 Tablet(s) PO daily 02/10/2018 02/14/2018 Inactive Bactrim DS 800 mg-16 0 mg tablet RxNorm: 040842 1 Tablet(s) PO BID 01/16/2018 02/04/2018 Inactive Adderall 5 mg tablet RxNorm: 240337 2 Tablet(s) PO QAM and 1 PO QPM 01/16/2018 02/12/2018 In active Bactrim DS 800 mg-16 0 mg tablet RxNorm: 129614 1 Tablet(s) PO BID 01/04/2018 01/15/2018 Inactive Adderall 5 mg tablet RxNorm: 292841 2 Tablet(s) PO QAM and 1 PO QPM 12/13/2017 01/11/2018 In active Zithromax Z-Molina 250 mg tablet RxNorm: 142010 1 Tablet(s) PO UD 11/25/2017 03/12/2018 Inactive diazepam 2 mg tablet RxNorm: 026539 Tablet(s) TAKE 1/2 TABLET BY MOUTH TWICE DAILY NEEDED FOR ANXIETY 11/18/2017 12/17/2017 Inactive diazepam 2 mg tablet RxNorm: 781257 Tablet(s) TAKE 1/2 TABLET BY MOUTH TWICE DAILY NEEDED FOR ANXIETY 08/30/2017 10/28/2017 Inactive diazepam 2 mg tablet RxNorm: 205388 Tablet(s) TAKE 1/2 TABLET BY MOUTH TWICE DAILY NEEDED FOR ANXIETY 07/19/2017 08/29/2017 Inactive diazepam 2 mg tablet RxNorm: 675136 TAKE 1/2 TABLET BY MOUTH TWICE DAILY NEEDED FOR ANXIETY 07/15/2017 07/18/2017 Inactive Bactrim DS 800 mg-16 0 mg tablet RxNorm: 278701 1 Tablet(s) PO BID 06/01/2017 06/20/2017 Inactive diazepam 2 mg tablet RxNorm: 419833 1/2 Tablet(s) PO BID as needed anxiety 06/01/2017 06/29/2017 In active tramadol 50 mg tablet RxNorm: 974371 1 Tablet(s) PO QID as needed 04/14/2017 04/23/2017 Inactive Bactrim DS 800 mg-16 0 mg tablet RxNorm: 212567 1 Tablet(s) PO BID 04/14/2017 05/03/2017 Inactive diazepam 2 mg tablet RxNorm: 387370 1/2 Tablet(s) PO BID as needed anxiety 03/02/2017 04/30/2017 In active Zithromax Z-Molina 250 mg tablet RxNorm: 154266 1 Tablet(s) PO UD 03/02/2017 07/18/2017 Inactive Bactrim DS 800 mg-16 0 mg tablet RxNorm: 549434 1 Tablet(s) PO BID 03/01/2017 03/20/2017 Inactive diazepam 2 mg tablet RxNorm: 580008 1/2 Tablet(s) PO BID as needed anxiety 01/21/2017 02/19/2017 In active Bactrim DS 800 mg-16 0 mg tablet RxNorm: 954198 1 Tablet(s) PO BID 01/21/2017 01/30/2017 Inactive Bactrim DS 800 mg-16 0 mg tablet RxNorm: 524911 1 Tablet(s) PO BID 11/17/2016 11/26/2016 Inactive diazepam 2 mg tablet RxNorm: 609095 1/2 Tablet(s) PO BID as needed anxiety 11/12/2016 01/10/2017 In active diazepam 2 mg tablet RxNorm: 959822 1/2 Tablet(s) PO BID as needed anxiety 10/18/2016 12/14/2016 In active Zithromax Z-Molina 250 mg tablet RxNorm: 526476 1 Tablet(s) PO UD 09/27/2016 03/01/2017 Inactive diazepam 2 mg tablet RxNorm: 861665 1/2 Tablet(s) PO BID as needed anxiety 09/13/2016 11/11/2016 In active diazepam 2 mg tablet RxNorm: 671748 1/2 Tablet(s) PO BID as needed anxiety 07/07/2016 09/17/2016 In active Levaquin 500 mg tablet RxNorm: 782869 1 Tablet(s) PO daily 06/01/2016 05/31/2016 Inactive Levaquin 500 mg tablet RxNorm: 165230 1 Tablet(s) PO daily 06/01/2016 06/07/2016 Inactive Levaquin 500 mg tablet RxNorm: 917895 1 Tablet(s) PO daily 05/05/2016 05/04/2016 Inactive Levaquin 500 mg tablet RxNorm: 448245 1 Tablet(s) PO daily 05/05/2016 05/11/2016 Inactive minocycline 100 mg c apsule RxNorm: 347825 1 CAPSULE(S) PO BID W HEN NOT HAVING ACUTE FLARE DECREASE TO ONCE DAILY 04/21/2016 05/20/2016 Inactive Ciprodex 0.3 %-0.1 % ear drops,suspension RxNorm: 028927 4 Drop(s) OTIC BID 03/08/2016 03/14/2016 In active Zithromax Z-Molina 250 mg tablet RxNorm: 957760 Tablet(s) PO 03/08/2016 09/26/2016 Inactive diazepam 2 mg tablet RxNorm: 537195 1/2 Tablet(s) PO BID as needed anxiety 2016 04/18/2016 In active mupirocin 2 % topica l ointment RxNorm: 489081 1 Application TOP BID 02/05/2016 No Stop Date Active minocycline 100 mg c apsule RxNorm: 049903 1 Capsule(s) PO BID w hen not having acute flare decrease to once daily 02/05/2016 03/05/2016 Inactive Bactrim DS 800 mg-16 0 mg tablet RxNorm: 514991 1 Tablet(s) PO BID 02/05/2016 02/18/2016 Inactive diazepam 2 mg tablet RxNorm: 632622 1/2 Tablet(s) PO BID as needed anxiety 02/05/2016 02/05/2016 In active betamethasone alberto te 0.1 % topical cream RxNorm: 738633 1 Application TOP BID as needed rash 12/22/2015 No Stop Date Active minocycline 100 mg c apsule RxNorm: 611851 1 Capsule(s) PO BID w hen not having acute flare decrease to once daily 12/22/2015 01/20/2016 Inactive Medication Administered Medication Codes Instruc tions Start Date Status Kenalog 40 mg/mL suspension for injection RxNorm: 0543830 Milliliter 12/29/2018 No longer Active Kenalog 40 mg/mL suspension for injection RxNorm: 7968160 1Milliliter 03/01/2018 N o longer Active Immunizations [...] Code Result Date C RAP A SC 4065648 Strep A Negative 09/14/2018 C A/B FLU 6824446 Influe nza A Scr Negative 09/14/2018 C A/B FLU 5451238 Influe nza B Scr Negative 09/14/2018 C A/B FLU 1887100 Influe nza Intrp B AG:PRID:PT:NOSE:NOM:IF See Footnote 09/14/2018 Tsh Ord6 hTSH II 1.82 uIU/mL 02/05/2016 Comp Metabolic Xjp653 NA 139 mEq/L 02/05/2016 Comp Metabolic Mxh989 K 4.2 mEq/L 02/05/2016 Comp Metabolic Fiu762 CL 103 mEq/L 02/05/2016 Comp Metabolic Rfl932 CO2 29.0 mEq/L 02/05/2016 Comp Metabolic Mrs049 AN ION GAP 11 02/05/2016 Comp Metabolic Sjo837 GL UCOSE 71 mg/dL 02/05/2016 Comp Metabolic Dpz214 Cr eat 0.9 mg/dL 02/05/2016 Comp Metabolic Yho371 eG FR 101 ml/min/1.73m2 01/14 Comp Metabolic Rad482 BUN 17 mg/dL 02/05/2016 Comp Metabolic Ayw626 B/ C Ratio 18.5 Ratio 02/05/2016 Comp Metabolic Obi029 CA LCIUM 9.4 mg/dL 02/05/2016 Comp Metabolic Lby389 AL K PHOS 63 U/L 02/05/2016 Comp Metabolic Ozs139 T(SGOT) 30 U/L 02/05/2016 Comp Metabolic Xnd358 AL T(SGPT) 40 U/L 02/05/2016 Comp Metabolic Elv556 BI LI T 0.5 mg/dL 02/05/2016 Comp Metabolic Tqk355 AL BUMIN 4.2 g/dL 02/05/2016 Comp Metabolic Ufd346 TP RO 7.2 g/dL 02/05/2016 Comp Metabolic Snm861 GL OB 3.0 g/dL 02/05/2016 Comp Metabolic Xuj645 A/ G Ratio 1.4 Ratio 02/05/2016 Comp Metabolic Wnr807 Os mo 278 mOsmo 02/05/2016 Cbc With [...] 30.3 pg 02/05/2016 Cbc With Differential Ord2 [place]% 8.9 % 02/05/2016 Cbc With Differential Ord2 [...] 2.91 K/ul 02/05/2016 Cbc With Differential Ord2 [place] ABS# 1.1 K/ul 02/05/2016 Cbc With Differential [...] Procedure Codes Date THER/PROPH/DIAG INJ SC/IM CPT-4: 66873 12/29/2018 TRIAMCINOLONE ACET I [place] NOS CPT-4: J3301 12/29/2018 TRIAMCINOLONE ACET I [place] NOS CPT-4: J3301 08/09/2018 INJECT TRIGGER POINT S 3/> CPT-4: 40554 08/09/2018 TRIAMCINOLONE ACET I [place] NOS CPT-4: J3301 03/01/2018 THER/PROPH/DIAG INJ SC/IM CPT-4: 78436 03/01/2018 DRAINAGE OF SKIN ABS CESS CPT-4: 65673 05/05/2016 TOBACCO-USE SOCIETY REPORTER 3-[address]: 723279817 CPT-4: G0436 12/22/2015 Vital Signs Date Vital 12/29/2018 Blood Pressure 1: 120/72 Code: 8480-6 BMI: 33.6 Code: 46558-4 Heart Rate 1: 94 bpm Height: 5'11" SpO2: 98% Weight: 241 lbs 09/14/2018 Blood Pressure 1: 128/86 Code: 8480-6 BMI: 33.9 Code: 74299-1 Heart Rate 1: 128 bpm Height: 5'11" SpO2: 96% Temperature: 37.4 (C ) / 99.3 (F) Weight: 243 lbs 08/09/2018 Blood Pressure 1: 120/72 Code: 8480-6 Heart Rate 1: 90 bpm Height: SpO2: 98% Weight: 08/01/2018 Blood Pressure 1: 110/78 Code: 8480-6 BMI: 34.4 Code: 93119-3 Heart Rate 1: 109 bpm Height: 5'11" SpO2: 98% Weight: 247 lbs 03/01/2018 Blood Pressure 1: 120/80 Code: 8480-6 BMI: 32.9 Code: 37480-4 Heart Rate 1: 72 bpm Height: 5'11" SpO2: 96% Weight: 236 lbs 02/10/2018 Blood Pressure 1: 122/70 Code: 8480-6 BMI: 32.9 Code: 08551-3 Heart Rate 1: 90 bpm Height: 5'11" SpO2: 98% Weight: 236 lbs 12/12/2017 Blood Pressure 1: 124/72 Code: 8480-6 BMI: 35.0 Code: 31822-3 Heart Rate 1: 80 bpm Height: 5'11" SpO2: 96% Weight: 251 lbs 11/25/2017 Blood Pressure 1: 122/76 Code: 8480-6 BMI: 35.4 Code: 68555-3 Heart Rate 1: 74 bpm Height: 5'11" SpO2: 95% Weight: 254 lbs 03/02/2017 Blood Pressure 1: 120/70 Code: 8480-6 BMI: 33.8 Code: 45805-6 Heart Rate 1: 79 bpm Height: 5'11" SpO2: 99% Weight: 242 lbs 11/17/2016 Blood Pressure 1: 120/88 Code: 8480-6 BMI: 36.8 Code: 59963-3 Heart Rate 1: 104 bpm Height: 5'11" SpO2: 99% Weight: 264 lbs 09/27/2016 Blood Pressure 1: 122/78 Code: 8480-6 BMI: 34.6 Code: 96286-3 Heart Rate 1: 100 bpm Height: 5'11" SpO2: 96% Weight: 248 lbs 05/05/2016 Blood Pressure 1: 114/78 Code: 8480-6 BMI: 35.1 Code: 32968-9 Heart Rate 1: 81 bpm Height: 5'11" SpO2: 96% Weight: 252 lbs 03/08/2016 Blood Pressure 1: 120/64 Code: 8480-6 BMI: 34.3 Code: 72372-7 Heart Rate 1: 95 bpm Height: 5'11" SpO2: 97% Weight: 246 lbs 02/05/2016 Blood Pressure 1: 120/78 Code: 8480-6 BMI: 33.5 Code: 33298-5 Heart Rate 1: 104 bpm Height: 5'11" SpO2: 97% Weight: 240 lbs 12/22/2015 Blood Pressure 1: 120/82 Code: 8480-6 BMI: 34.3 Code: 42593-0 Heart Rate 1: 83 bpm Height: 5'11" [...] Encounters Encounter Performer Loca tion Codes Date 02842 EST. PATIENT, LEVEL III Diagnosis: Hidradenitis suppurativa[ICD10: L73.2] Miracle Pereyra MD, [facility] CPT-4: 60977 12/29/2018 ([id number]) 37616 EST. P ATIENT, LEVEL III Diagnosis: Acute laryngopharyngitis[ICD10: J06.0] Diagnosis: Fever, unspecified[ICD10: R50.9] Gavi Pereyra MD, [facility] CPT- 4: 87894 09/14/2018 84037 EST. PATIENT, LEVEL III Diagnosis: Pain in left shoulder[ICD10: M25.512] Diagnosis: Muscle spasm of back[ICD10: M62.830] Miracle Pereyra MD, [facility] CPT- 4: 06097 08/09/2018 72513 EST. PATIENT, LEVEL III Diagnosis: Pain in left shoulder[ICD10: M25.512] Diagnosis: Muscle spasm of back[ICD10: M62.830] Miracle Pereyra MD, [facility] CPT- 4: 19855 08/01/2018 92624 EST. PATIENT, LEVEL III Diagnosis: Hidradenitis suppurativa[ICD10: L73.2] Miracle Pereyra MD, [facility] CPT-4: 05592 03/01/2018 68369 EST. 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 PATIENT, LEVEL IV Diagnosis: Generalized anxiety disorder[ICD10: F41.1] Diagnosis: Hidradenitis suppurativa[ICD10: L73.2] Miracle Pereyra MD, [facility] CPT-4: 53307 11/25/2017 07618 EST. PATIENT, LEVEL III Diagnosis: Hidradenitis suppurativa[ICD10: L73.2] Diagnosis: Generalized anxiety disorder[ICD10: F41.1] Miracle Pereyra MD, [facility] CPT-4: 68945 03/02/2017 01676 EST. PATIENT, LEVEL III Diagnosis: Cutaneous abscess of buttock[ICD10: L02.31] Miracle Pereyra MD, [facility] CPT-4: 24194 11/17/2016 01321 EST. PATIENT, LEVEL III Diagnosis: Cutaneous abscess of left axilla[ICD10: L02.412] Diagnosis: Pain in right hand[ICD10: M79.641] Miracle Pereyra MD, [facility] CPT-4: 11340 09/27/2016 98447 EST. PATIENT, LEVEL III Diagnosis: Cutaneous abscess of right lower limb[ICD10: L02.415] Diagnosis: Hidradenitis suppurativa[ICD10: L73.2] Miracle Pereyra MD, [facility] CPT-4: 12331 05/05/2016 41815 EST. PATIENT, LEVEL IV Diagnosis: Other otitis externa, right ear[ICD10: H60.8X1] Diagnosis: Cutaneous abscess of left axilla[ICD10: L02.412] Diagnosis: Other acute sinusitis[ICD10: J01.80] [facility] CPT- 4: 97394 03/08/2016 65068 EST. PATIENT, LEVEL III Diagnosis: Generalized anxiety disorder[ICD10: F41.1] Diagnosis: Acne vulgaris[ICD10: L70.0] Diagnosis: Plantar wart[ICD10: B07.0] [facility] CPT-4: 99555 02/05/2016 ([id number]) OFFICE VISI T, NEW - LEVEL 3 Diagnosis: Generalized anxiety disorder[ICD10: F41.1] Diagnosis: 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][ICD10: L30.1] Diagnosis: Acne vulgaris[ICD10: L70.0] Diagnosis: Other obesity due to excess calories[ICD10: E66.09] [facility] CPT-4: 01555 12/22/2015 Plan of Care Planned Activity Notes [...] warmth, discharge. 12/29/2018 Appointment: Miracle Gracia WPtel[facility] [place] (30 min) Complex 12/29/2018 Patient Education: Patient [...] for fever/discomfort. 09/14/2018 Appointment: Gavi Soria WPtel: [facility] [phone] (15 min) Moderate 09/14/2018 Patient Education: Patient [...] process. 08/09/2018 Appointment: Miracle Gracia WPtel: [phone] [facility] [place] (30 min) Complex 08/09/2018 Patient Education: Patient Medication Summary Completed 08/09/2018 Visit Plan: Left shoulder pain, mus mishel spasm - will send RX - The pt is to use prn antiinflammatories to manage acute pain. The patient is to call the office if the pain is worsening or does not improve. 08/01/2018 Appointment: Miracle Gracia WPtel: [phone] [facility] [place] (15 min) Moderate 08/01/2018 Patient Education: [...] changes. 02/10/2018 Appointment: Miracle Gracia WPtel: [phone] [facility] (15 min) Moderate 02/10/2018 Patient Education: Patient [...] prescribed. 12/12/2017 Appointment: Miracle Gracia WPtel: [phone] [facility] (15 min) Moderate 12/12/2017 Patient Education: Patient [...] concerns. 11/25/2017 Appointment: Miracle Gracia [facility]el[phone] [facility] [place] (15 min) Moderate 11/25/2017 Patient Education: Patient Medication Summary Completed 11/25/2017 Visit Plan: Abscess/Cellulitis - Th e patient was instructed in appropriate wound care. The patient was instructed to use the antibiotic ointment as per RX. The patient is to call for any change in symptoms, increase in size of the lesion, increase in pain. 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 03/02/2017 Appointment: Miracle Gracia WPtel: [address] [place], [place] [phone] (30 min) Complex 03/02/2017 Patient Education: Patient Medication Summary Completed 03/02/2017 Patient Education: Smoking and Tobacco Addiction Completed 03/02/2017 Patient Education: Obesity Completed 03/02/2017 Appointment: Miracle Gracia WPtel: [address] [place], [place] [phone] (30 min) Complex 11/19/2016 Appointment: Miracle Gracia WPtel: [address] [place], [place] [phone] (15 min) Moderate 11/18/2016 Visit Plan: Abscess/Cellulitis - Th e patient was instructed in appropriate wound care. The patient was instructed to use the antibiotic ointment as per RX. The patient is to call for any change in symptoms, increase in size of the lesion, increase in pain. Pt is to return tomorrow for I&D if needed. 11/17/2016 Appointment: Miracle Gracia WPtel: [address] [place], [place] [phone] (15 min) Moderate 11/17/2016 Patient Education: Patient Medication Summary Completed 11/17/2016 Patient Education: Smoking and Tobacco Addiction Completed 11/17/2016 Referral: Alberto Pearson Referral Initiated 09/30/2016 Care Plan: Referral Order SNOMED-CT : [id number] Pending 09/28/2016 Visit Plan: Abscess/Cellulitis - Re [...] Dr. Isaac. 09/27/2016 Appointment: Miracle Gracia WPtel: [address] [place], [place] [phone] (30 min) Complex 09/27/2016 Patient Education: Patient Medication Summary Completed 09/27/2016 Patient Education: Smoking and Tobacco Addiction Completed 09/27/2016 Care Plan: Referral Order SNOMED-CT : [id number] Pending 05/10/2016 Visit Plan: Abscess/Cellulitis - ri [...] pain. 05/05/2016 Appointment: Gavi Soria WPtel[facility] [phone] [facility] [phone] (30 min) Complex 05/05/2016 Patient Education: Patient [...] medications. 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 . Otitis Externa - p t given [...] in current medications. Dr. Kelsey campbell - trap operator at [facility] who specializes in HS will call [...]
--- OUTSIDE RECORDS SUMMARY | 2020-02-25 10:42 | XMS REPORT | CCD ---
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 Name Role Phone PP Unavailable CCM Unavailable Summary Purpose Interface Exchange Insurance Providers Payer name Policy type / Coverage type Covered constitution party ID Effective Begin Date Effective End Date [employer] Commercial Insurance [id number] Unknown Family history Mother Diagnosis Age At Onset Cancer Unknown Diabetes Unknown Social History Social History Element Codes Description Effective Dates Marital status Unknown M kelvin alvarez 12/22/2015 Number of children Unknown 1 12/22/[address]: 94887778 Current every day smoker 12/22/2015 Number of years using tobacco Unknown 5 - 10 12/22/2015 Number of cigarettes/day Unknown 10 (Half a pack) 12/22/2015 Alcohol history Unknown occasionally drinks alcohol 12/22/2015 Frequency of drinks SNOMED CT: 262156352 1-4 drinks per week 12/22/2015 Allergies, Adverse Reactions, Alerts Allergies, Adverse Reactions, Alerts data not found Past Medical History Illness Codes Condition Status Onset Date Resolved Date Cutaneous abscess of buttock ICD-9: 682.5 ICD-10: L02.31 Active 11/17/2016 Unknown Cutaneous abscess of left axilla ICD-9: 682.3 ICD-10: L02.412 Active 03/07/2016 Unknown Pain in right hand ICD- 9: 729.5 ICD-10: M79.641 Active 09/27/2016 Unknown Cutaneous abscess of right lower limb ICD-9: 682.6 ICD-10: L02.415 Active 05/04/2016 Unknown Hidradenitis suppura tiva ICD-9: 705.83 ICD-10: L73.2 Active 05/04/2016 Unknown Other acute sinusitis ICD-9: 461.8 ICD-10: J01.80 Active 03/07/2016 Unknown Other otitis externa , right ear ICD-9: 380.22 ICD-10: H60.8X1 Active 03/07/2016 Unknown Acne vulgaris ICD-9: 706.1 ICD-10: L70.0 Active 02/04/2016 Unknown Generalized anxiety disorder ICD-9: 300.02 ICD-10: F41.1 Active 02/04/2016 Unknown Plantar wart ICD-9: 078.12 ICD-10: B07.0 Active 02/04/2016 Unknown 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] ICD-9: 705.81 ICD-10: L30.1 Active 12/21/2015 Unknown Other obesity due to excess calories ICD-9: 278.00 ICD-10: E66.09 Active 12/21/2015 Unknown Problems Condition Codes Effectiv e Dates Condition Status Cutaneous abscess of buttock ICD-9: 682.5 ICD-10: L02.31 11/17/2016 Active Cutaneous abscess of left axilla ICD-9: 682.3 ICD-10: L02.412 03/07/2016 Active Pain in right hand ICD- 9: 729.5 ICD-10: M79.641 09/27/2016 Active Cutaneous abscess of right lower limb ICD-9: 682.6 ICD-10: L02.415 05/04/2016 Active Hidradenitis suppura tiva ICD-9: 705.83 ICD-10: L73.2 05/04/2016 Active Other acute sinusitis ICD-9: 461.8 ICD-10: J01.80 03/07/2016 Active Other otitis externa , right ear ICD-9: 380.22 ICD-10: H60.8X1 03/07/2016 Active Acne vulgaris ICD-9: 706.1 ICD-10: L70.0 02/04/2016 Active Generalized anxiety disorder ICD-9: 300.02 ICD-10: F41.1 02/04/2016 Active Plantar wart ICD-9: 078.12 ICD-10: B07.0 02/04/2016 Active 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] ICD-9: 705.81 ICD-10: L30.1 12/21/2015 Active Other obesity due to excess calories ICD-9: 278.00 ICD-10: E66.09 12/21/2015 Active Medications Medication Codes Instruc tions Start Date Stop Date Sta tus Fill Instructions Bactrim DS 800 mg-16 0 mg tablet RxNorm: 027775 1 Tablet(s) PO BID 03/01/2017 03/20/2017 Active diazepam 2 mg tablet RxNorm: 350891 1/2 Tablet(s) PO BID as needed anxiety 01/21/2017 02/19/2017 In active Bactrim DS 800 mg-16 0 mg tablet RxNorm: 165909 1 Tablet(s) PO BID 01/21/2017 01/30/2017 Inactive Bactrim DS 800 mg-16 0 mg tablet RxNorm: 976017 1 Tablet(s) PO BID 11/17/2016 11/26/2016 Inactive diazepam 2 mg tablet RxNorm: 545870 1/2 Tablet(s) PO BID as needed anxiety 11/12/2016 01/10/2017 In active diazepam 2 mg tablet RxNorm: 749680 1/2 Tablet(s) PO BID as needed anxiety 10/18/2016 12/14/2016 In active Zithromax Z-Molina 250 mg tablet RxNorm: 197793 1 Tablet(s) PO UD 09/27/2016 No Stop Date Active diazepam 2 mg tablet RxNorm: 039225 1/2 Tablet(s) PO BID as needed anxiety 09/13/2016 11/11/2016 In active diazepam 2 mg tablet RxNorm: 014293 1/2 Tablet(s) PO BID as needed anxiety 07/07/2016 09/17/2016 In active Levaquin 500 mg tablet RxNorm: 171889 1 Tablet(s) PO daily 06/01/2016 05/31/2016 Inactive Levaquin 500 mg tablet RxNorm: 848059 1 Tablet(s) PO daily 06/01/2016 06/07/2016 Inactive Levaquin 500 mg tablet RxNorm: 488018 1 Tablet(s) PO daily 05/05/2016 05/04/2016 Inactive Levaquin 500 mg tablet RxNorm: 685923 1 Tablet(s) PO daily 05/05/2016 05/11/2016 Inactive minocycline 100 mg c apsule RxNorm: 180378 1 CAPSULE(S) PO BID W HEN NOT HAVING ACUTE FLARE DECREASE TO ONCE DAILY 04/21/2016 05/20/2016 Inactive Ciprodex 0.3 %-0.1 % ear drops,suspension RxNorm: 133208 4 Drop(s) OTIC BID 03/08/2016 03/14/2016 In active Zithromax Z-Molina 250 mg tablet RxNorm: 125200 Tablet(s) PO 03/08/2016 09/26/2016 Inactive diazepam 2 mg tablet RxNorm: 034908 1/2 Tablet(s) PO BID as needed anxiety 2016 04/18/2016 In active mupirocin 2 % topica l ointment RxNorm: 438533 1 Application TOP BID 02/05/2016 No Stop Date Active minocycline 100 mg c apsule RxNorm: 927957 1 Capsule(s) PO BID w hen not having acute flare decrease to once daily 02/05/2016 03/05/2016 Inactive Bactrim DS 800 mg-16 0 mg tablet RxNorm: 748714 1 Tablet(s) PO BID 02/05/2016 02/18/2016 Inactive diazepam 2 mg tablet RxNorm: 890212 1/2 Tablet(s) PO BID as needed anxiety 02/05/2016 02/05/2016 In active betamethasone alberto te 0.1 % topical cream RxNorm: 463632 1 Application TOP BID as needed rash 12/22/2015 No Stop Date Active minocycline 100 mg c apsule RxNorm: 794565 1 Capsule(s) PO BID w hen not having acute flare decrease to once daily 12/22/2015 01/20/2016 Inactive Medication Administered No Medication Administered data Immunizations No Immunization data Assessments Condition Codes Effectiv e Dates Cutaneous abscess of buttock ICD-10: L02.31 ICD-9: 682.5 11/17/2016 Cutaneous abscess of left axilla ICD -10: L02.412 ICD-9: 682.3 09/27/2016 Pain in right hand ICD-10: M79.641 ICD-9: 729.5 09/27/2016 Hidradenitis suppurativa ICD-10: L73 .2 ICD-9: 705.83 05/05/2016 Cutaneous abscess of right lower limb ICD-10: L02.415 ICD-9: 682.6 05/05/2016 Other otitis externa, right ear ICD- 10: H60.8X1 ICD-9: 380.22 03/08/2016 Other acute sinusitis ICD-10: J01.80 ICD-9: 461.8 03/08/2016 Acne vulgaris ICD-10: L70.0 ICD-9: 706.1 02/05/2016 Plantar wart ICD-10: B07.0 ICD-9: 078.12 02/05/2016 Generalized anxiety disorder ICD-10: F41.1 ICD-9: 300.02 02/05/2016 Other obesity due to excess calories ICD-10: E66.09 ICD-9: 278.00 12/22/2015 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] ICD-10: L30. 1 ICD-9: 705.81 12/22/2015 Reason For Visit Reason For Visit Effective Dates Notes skin lesion 11/17/2016 skin lesion 09/27/2016 skin lesion 05/05/2016 earache 03/08/2016 anxiety 02/05/2016 anxiety 12/22/2015 Results Observation Observation Code Item Item Code Result Date Tsh Ord6 hTSH II 1.82 uIU/mL 02/05/2016 Comp Metabolic Qei332 NA 139 mEq/L 02/05/2016 Comp Metabolic Lrp561 K 4.2 mEq/L 02/05/2016 Comp Metabolic Hkz803 CL 103 mEq/L 02/05/2016 Comp Metabolic Vpm878 CO2 29.0 mEq/L 02/05/2016 Comp Metabolic Tlm178 AN ION GAP 11 02/05/2016 Comp Metabolic Koc824 GL UCOSE 71 mg/dL 02/05/2016 Comp Metabolic Obp537 Cr eat 0.9 mg/dL 02/05/2016 Comp Metabolic Ufw173 eG FR 101 ml/min/1.73m2 01/14 Comp Metabolic Liq952 BUN 17 mg/dL 02/05/2016 Comp Metabolic Nje459 B/ C Ratio 18.5 Ratio 02/05/2016 Comp Metabolic Fjb934 CA LCIUM 9.4 mg/dL 02/05/2016 Comp Metabolic Ddr189 AL K PHOS 63 U/L 02/05/2016 Comp Metabolic Hhy805 T(SGOT) 30 U/L 02/05/2016 Comp Metabolic Rym038 AL T(SGPT) 40 U/L 02/05/2016 Comp Metabolic Ptf713 BI LI T 0.5 mg/dL 02/05/2016 Comp Metabolic Gsz367 AL BUMIN 4.2 g/dL 02/05/2016 Comp Metabolic Epq530 TP RO 7.2 g/dL 02/05/2016 Comp Metabolic Prt534 GL OB 3.0 g/dL 02/05/2016 Comp Metabolic Zzz727 A/ G Ratio 1.4 Ratio 02/05/2016 Comp Metabolic Npw878 Os mo 278 mOsmo 02/05/2016 Cbc With [...] 23.4 % 02/05/2016 Cbc With Differential Ord2 Mcleod% 8.9 % 02/05/2016 Cbc With Differential Ord2 MCH 30.3 pg 02/05/2016 Cbc With Differential Ord2 MCHC 32.8 pg 02/05/2016 Cbc With Differential Ord2 Eos% 1.1 % 02/05/2016 Cbc With Differential Ord2 Baso% 0.2 % 02/05/2016 Cbc With Differential Ord2 PLT 199 K/ul 02/05/2016 Cbc With Differential Ord2 Neut ABS# 8.24 K/ul 02/05/2016 Cbc With Differential Ord2 RDW 14.2 % 02/05/2016 Cbc With Differential Ord2 Lymph ABS# 2.91 K/ul 02/05/2016 Cbc With Differential Ord2 Mcleod ABS# 1.1 K/ul 02/05/2016 Cbc With Differential Ord2 Eos ABS# 0.1 K/ul 02/05/2016 Cbc With Differential Ord2 Baso ABS# 0.0 K/ul 02/05/2016 Review of Systems System Result Effective Dates Constitutional No recent illness 11/17/2016 Constitutional No [...] contact 12/22/2015 None Procedures Procedure Codes Date DRAINAGE OF SKIN ABS CESS CPT-4: 06923Ekjescj 05/05/2016 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 3-[address]: 361728180 CPT-4: H7063Gqyootu 12/22/2015 Vital Signs Date Vital 11/17/2016 Blood Pressure 1: 120/88 Code: 8480-6 BMI: 36.8 Code: 06705-9 Heart Rate 1: 104 bpm Height: 5'11" SpO2: 99% Weight: 264 lbs 09/27/2016 Blood Pressure 1: 122/78 Code: 8480-6 BMI: 34.6 Code: 31357-4 Heart Rate 1: 100 bpm Height: 5'11" SpO2: 96% Weight: 248 lbs 05/05/2016 Blood Pressure 1: 114/78 Code: 8480-6 BMI: 35.1 Code: 67941-9 Heart Rate 1: 81 bpm Height: 5'11" SpO2: 96% Weight: 252 lbs 03/08/2016 Blood Pressure 1: 120/64 Code: 8480-6 BMI: 34.3 Code: 60684-3 Heart Rate 1: 95 bpm Height: 5'11" SpO2: 97% Weight: 246 lbs 02/05/2016 Blood Pressure 1: 120/78 Code: 8480-6 BMI: 33.5 Code: 64563-2 Heart Rate 1: 104 bpm Height: 5'11" SpO2: 97% Weight: 240 lbs 12/22/2015 Blood Pressure 1: 120/82 Code: 8480-6 BMI: 34.3 Code: 51126-6 Heart Rate 1: 83 bpm Height: 5'11" SpO2: 97% Weight: 246 lbs Functional Status No Functional Status data History of Present Illness Symptom Name Status Resu lt Effective Date Notes skin lesion Onset and Resolution sudden in onset 11/17/2016 None skin lesion Onset of Symptom 3 days ago 11/17/2016 None skin lesion Location jroge region 11/17/2016 None skin lesion Quality enla [...] Encounters Encounter Performer Loca tion Codes Date EST. PATIENT, LEVEL III Diagnosis: Cutaneous abscess of buttock[ICD10: L02.31] Miracle Pereyra MD, [facility] CPT-4: 61265 11/17/2016 [id number] EST. PATIENT, LEVEL III Diagnosis: Cutaneous abscess of left axilla[ICD10: L02.412] Diagnosis: Pain in right hand[ICD10: M79.641] Miracle Pereyra MD, [facility] CPT-4: 84211 09/27/2016 [id number] EST. PATIENT, LEVEL III Diagnosis: Cutaneous abscess of right lower limb[ICD10: L02.415] Diagnosis: Hidradenitis suppurativa[ICD10: L73.2] Miracle Pereyra MD, [facility] CPT-4: 19393 05/05/2016 49837 EST. PATIENT, LEVEL IV Diagnosis: Other otitis externa, right ear[ICD10: H60.8X1] Diagnosis: Cutaneous abscess of left axilla[ICD10: L02.412] Diagnosis: Other acute sinusitis[ICD10: J01.80] Miracle Pereyra MD, [facility] CPT- 4: 83949 03/08/2016 70736 EST. PATIENT, LEVEL III Diagnosis: Generalized anxiety disorder[ICD10: F41.1] Diagnosis: Acne vulgaris[ICD10: L70.0] Diagnosis: Plantar wart[ICD10: B07.0] [facility] CPT-4: 19669 02/05/2016 (26020) OFFICE VISI T, [facility] - LEVEL 3 Diagnosis: Generalized anxiety disorder[ICD10: F41.1] Diagnosis: 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][ICD10: L30.1] Diagnosis: Acne vulgaris[ICD10: L70.0] Diagnosis: Other obesity due to excess calories[ICD10: E66.09] Miracle Pereyra MD, [facility] CPT-4: 37074 12/22/2015 Plan of Care Planned Activity Notes C odes Status Date Appointment: Miracle Gracia WPtel: [address] [place], [place] [phone] (30 min) Complex 11/19/2016 Appointment: Miracle Gracia WPtel: [address] [place], [place] [phone] (15 min) Moderate 11/18/2016 Visit Plan: Abscess/Cellulitis - The pat ient was instructed in appropriate wound care. The patient was instructed to use the antibiotic ointment as per RX. The patient is to call for any change in symptoms, increase in size of the lesion, increase in pain. Pt is to return tomorrow for I&D if needed. 2016 Appointment: Miracle Gracia WPtel: [address] [place], [place] [phone] (15 min) Moderate 11/17/2016 Patient Education: Patient Medication Summary Completed 11/17/2016 Patient Education: Smoking and Tobacco Addiction Completed 11/17/2016 Referral: Alberto Pearson Referral Initiated 09/30/2016 Care Plan: Referral Order SNOMED-CT : 989240375 Pending 09/28/2016 Visit Plan: Abscess/Cellulitis - Reoccur ring - will refer to Dr. Pearson - The patient was instructed in appropriate wound care. The patient was instructed to use the antibiotic ointment as per RX. The patient is to call for any change in symptoms, increase in size of the lesion, increase in pain.Right hand pain - previous surgery with hardware placement - pt states that he has impaired range of motion and pain - will refer to Dr. Isaac. 09/27/2016 Appointment: [facility]acia [facility] [phone] [facility] [id number] (30 min) Complex 09/27/2016 Patient Education: Patient Medication Summary Completed 09/27/2016 Patient Education: Smoking and Tobacco Addiction Completed 09/27/2016 Care Plan: Referral Order SNOMED-CT : [id number] Pending 05/10/2016 Visit Plan: Abscess/Cellulitis - right l ateral hip - incision and drainage today in the office - The patient was instructed in appropriate wound care. The patient was instructed to use the antibiotic ointment as per RX. The patient is to call for any change in symptoms, increase in size of the lesion, increase in pain. 05/05/2016 Appointment: [facility] [phone] [phone] (30 min) Complex 05/05/2016 Patient Education: Patient Medication Summary Completed 05/05/2016 Patient Education: Smoking and Tobacco Addiction Completed 05/05/2016 Visit Plan: Otitis Externa - pt given RX for antibiotic drops for the use in pt's affected ear. Pt to call if symptoms are not improving or if symptoms worsen acutely.Sinusitis - Pt has acute infection - pain in face, maxillary region, Pt informed to use decongestant, RX given to patient, sinus rinses also recommended. Call if symptoms do not show improvement.Abscess/Cellulitis - The patient was instructed in appropriate wound care. The patient was instructed to use the antibiotic ointment as per RX. The patient is to call for any change in symptoms, increase in size of the lesion, increase in pain. 03/08/2016 Patient Education: Patient Medication Summary Completed 03/08/2016 Patient Education: Smoking and Tobacco Addiction Completed 03/08/2016 Visit Plan: Acne - discussed need for fa cial cleansing at least twice daily - avoid drying out skin, but need to clean off excessive oil and debris from skin, also recommended frequent pillow case changes, need to start on oral antibiotics as directed and call if any symptoms of GI upset or other concerns once on antibiotics.Abscess/Cellulitis - The patient was instructed in appropriate wound care. The patient was instructed to use the antibiotic ointment as per RX. The patient is to call for any change in symptoms, increase in size of the lesion, increase in pain.Chronic anxiety - the pt has symptoms of [...] 02/05/2016 Visit Plan: Anxiety - the patient has un controlled anxiety I believe that the patient will benefit from very low dose of prn benzodiazepine to attempt control of the symptoms of anxiety (tachycardia, overwhelming sensations, stress, insomnia, etc). Pt is aware of the risks and benefits of treatment with the above medication. Pt is to notify clinic if symptoms of anxiety become more frequent, or with any concerns.Acne - discussed need for facial cleansing at least twice daily - avoid drying out skin, but need to clean off excessive oil and debris from skin, also recommended frequent pillow case changes, need to start on oral antibiotics as directed and call if any symptoms of GI upset or other concerns once on antibiotics.Dyshidrotic Eczema - will send RX cream. Pt is to notify clinic if symptoms do not improve.BMI 34 - The pt has been counseled [...] 12/22/2015 Referral: Alberto Pearson Referral Initiated Referral: [facility] WPtel: Referral Completed Referral: [facility] WPtel: will call with appt time Initiated Instructions Comment . Abscess/Cellulitis - Reoccurring - will refer [...] - will refer to Dr. Isaac. . Otitis Externa - p t given [...] exercise. Pt will RTC for weight check. Compound w over the counter and duct [...] situational exposure. No change in current medications. . Abscess/Cellulitis - right lateral hip - incision and drainage today in the office - The patient was instructed in appropriate wound care. The patient was instructed to use the antibiotic ointment as per RX. The patient is to call for any change in symptoms, increase in size of the lesion, increase in pain. . Abscess/Cellulitis - The patient was instructed in appropriate wound care. The patient was instructed to use the antibiotic ointment as per RX. The patient is to call for any change in symptoms, increase in size of the lesion, increase in pain. Pt is to return tomorrow for I&D if needed.
[2020-02-25] MEDS ORDERED: HURRICAINE EXT TUBE (BENZOCAINE) ONE (10:43)
--- OUTSIDE RECORDS SUMMARY | 2020-02-25 10:43 | XMS REPORT | CCD ---
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 Name Role Phone PP Unavailable CCM Unavailable Summary Purpose Interface Exchange Insurance Providers Payer name Policy type / Coverage type Covered republican ID Effective Begin Date Effective End Date A[employer] Commercial Insurance [id number] Unknown Family history Mother Diagnosis Age At Onset Cancer Unknown Diabetes Unknown Social History Social History Element Codes Description Effective Dates Marital status Unknown M kelvin alvarez 12/22/2015 Number of children Unknown 1 12/22/[address]: 38683369 Current every day smoker 12/22/2015 Number of years using tobacco Unknown 5 - 10 12/22/2015 Number of cigarettes/day Unknown 10 (Half a pack) 12/22/2015 Alcohol history Unknown occasionally drinks alcohol 12/22/2015 Frequency of drinks SNOMED CT: 579383085 1-4 drinks per week 12/22/2015 Allergies, Adverse [...] DS 800 mg-16 0 mg tablet RxNorm: 085573 1 Tablet(s) PO BID 01/21/2017 01/30/2017 Active Bactrim DS 800 mg-16 0 mg tablet RxNorm: 933395 1 Tablet(s) PO BID 11/17/2016 11/26/2016 Inactive diazepam 2 mg tablet RxNorm: 032753 1/2 Tablet(s) PO BID as needed anxiety 11/12/2016 01/10/2017 In active diazepam 2 mg tablet RxNorm: 509944 1/2 Tablet(s) PO BID as needed anxiety 10/18/2016 12/14/2016 In active Zithromax Z-Molina 250 mg tablet RxNorm: 673487 1 Tablet(s) PO UD 09/27/2016 No Stop Date Active diazepam 2 mg tablet RxNorm: 504719 1/2 Tablet(s) PO BID as needed anxiety 09/13/2016 11/11/2016 In active diazepam 2 mg tablet RxNorm: 254471 1/2 Tablet(s) PO BID as needed anxiety 07/07/2016 09/17/2016 In active Levaquin 500 mg tablet RxNorm: 915771 1 Tablet(s) PO daily 06/01/2016 05/31/2016 Inactive Levaquin 500 mg tablet RxNorm: 872854 1 Tablet(s) PO daily 06/01/2016 06/07/2016 Inactive Levaquin 500 mg tablet RxNorm: 504607 1 Tablet(s) PO daily 05/05/2016 05/04/2016 Inactive Levaquin 500 mg tablet RxNorm: 715706 1 Tablet(s) PO daily 05/05/2016 05/11/2016 Inactive minocycline 100 mg c apsule RxNorm: 211531 1 CAPSULE(S) PO BID W HEN NOT HAVING ACUTE FLARE DECREASE TO ONCE DAILY 04/21/2016 05/20/2016 Inactive Ciprodex 0.3 %-0.1 % ear drops,suspension RxNorm: 840188 4 Drop(s) OTIC BID 03/08/2016 03/14/2016 In active Zithromax Z-Molina 250 mg tablet RxNorm: 759637 Tablet(s) PO 03/08/2016 09/26/2016 Inactive diazepam 2 mg tablet RxNorm: 882226 1/2 Tablet(s) PO BID as needed anxiety 2016 04/18/2016 In active mupirocin 2 % topica l ointment RxNorm: 251632 1 Application TOP BID 02/05/2016 No Stop Date Active minocycline 100 mg c apsule RxNorm: 590061 1 Capsule(s) PO BID w hen not having acute flare decrease to once daily 02/05/2016 03/05/2016 Inactive Bactrim DS 800 mg-16 0 mg tablet RxNorm: 482132 1 Tablet(s) PO BID 02/05/2016 02/18/2016 Inactive diazepam 2 mg tablet RxNorm: 734477 1/2 Tablet(s) PO BID as needed anxiety 02/05/2016 02/05/2016 In active betamethasone alberto te 0.1 % topical cream RxNorm: 779101 1 Application TOP BID as needed rash 12/22/2015 No Stop Date Active minocycline 100 mg c apsule RxNorm: 805997 1 Capsule(s) PO BID w hen not [...] hTSH II 1.82 uIU/mL 02/05/2016 Comp Metabolic Iyp213 NA 139 mEq/L 02/05/2016 Comp Metabolic Wjz557 K 4.2 mEq/L 02/05/2016 Comp Metabolic Jem722 CL 103 mEq/L 02/05/2016 Comp Metabolic Nbl808 CO2 29.0 mEq/L 02/05/2016 Comp Metabolic Dlv304 AN ION GAP 11 02/05/2016 Comp Metabolic Vas059 GL UCOSE 71 mg/dL 02/05/2016 Comp Metabolic Bfl362 Cr eat 0.9 mg/dL 02/05/2016 Comp Metabolic Gjs191 eG FR 101 ml/min/1.73m2 01/14 Comp Metabolic Cte600 BUN 17 mg/dL 02/05/2016 Comp Metabolic Fpg850 B/ C Ratio 18.5 Ratio 02/05/2016 Comp Metabolic Dzn786 CA LCIUM 9.4 mg/dL 02/05/2016 Comp Metabolic Kzz593 AL K PHOS 63 U/L 02/05/2016 Comp Metabolic Ofe460 T(SGOT) 30 U/L 02/05/2016 Comp Metabolic Ajl438 AL T(SGPT) 40 U/L 02/05/2016 Comp Metabolic Nic055 BI LI T 0.5 mg/dL 02/05/2016 Comp Metabolic Qff835 AL BUMIN 4.2 g/dL 02/05/2016 Comp Metabolic Fjw695 TP RO 7.2 g/dL 02/05/2016 Comp Metabolic Phw425 GL OB 3.0 g/dL 02/05/2016 Comp Metabolic Ogs837 A/ G Ratio 1.4 Ratio 02/05/2016 Comp Metabolic Zyn758 Os mo 278 mOsmo 02/05/2016 Cbc With [...] 23.4 % 02/05/2016 Cbc With Differential Ord2 [place]% 8.9 % 02/05/2016 Cbc With Differential Ord2 [...] 2.91 K/ul 02/05/2016 Cbc With Differential Ord2 [place] ABS# 1.1 K/ul 02/05/2016 Cbc With Differential [...] affect 09/27/2016 None Full Exam - General [facility] Constitutional general appearance Overall: well developed 05/05/2016 [...] Date DRAINAGE OF SKIN ABS CESS CPT-4: 16532Nmpvvat 05/05/2016 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 3-[address]: 521702840 CPT-4: N9817Wjdzdyh 12/22/2015 Vital Signs Date Vital 11/17/2016 Blood Pressure 1: 120/88 Code: 8480-6 BMI: 36.8 Code: 05054-8 Heart Rate 1: 104 bpm Height: 5'11" SpO2: 99% Weight: 264 lbs 09/27/2016 Blood Pressure 1: 122/78 Code: 8480-6 BMI: 34.6 Code: 45933-3 Heart Rate 1: 100 bpm Height: 5'11" SpO2: 96% Weight: 248 lbs 05/05/2016 Blood Pressure 1: 114/78 Code: 8480-6 BMI: 35.1 Code: 69682-0 Heart Rate 1: 81 bpm Height: 5'11" SpO2: 96% Weight: 252 lbs 03/08/2016 Blood Pressure 1: 120/64 Code: 8480-6 BMI: 34.3 Code: 53331-7 Heart Rate 1: 95 bpm Height: 5'11" SpO2: 97% Weight: 246 lbs 02/05/2016 Blood Pressure 1: 120/78 Code: 8480-6 BMI: 33.5 Code: 96793-9 Heart Rate 1: 104 bpm Height: 5'11" SpO2: 97% Weight: 240 lbs 12/22/2015 Blood Pressure 1: 120/82 Code: 8480-6 BMI: 34.3 Code: 73137-4 Heart Rate 1: 83 bpm Height: 5'11" [...] buttock[ICD10: L02.31] Miracle Pereyra MD, [facility] CPT-4: 40394 11/17/2016 86680 EST. PATIENT, LEVEL III Diagnosis: Cutaneous abscess of left axilla[ICD10: L02.412] Diagnosis: Pain in right hand[ICD10: M79.641] Miracle Pereyra MD, [facility] CPT-4: 53907 09/27/2016 89062 EST. PATIENT, LEVEL III Diagnosis: Cutaneous abscess of right lower limb[ICD10: L02.415] Diagnosis: Hidradenitis suppurativa[ICD10: L73.2] Miracle Pereyra MD, [facility] CPT-4: 26589 05/05/2016 53836 EST. PATIENT, LEVEL IV Diagnosis: Other otitis externa, right ear[ICD10: H60.8X1] Diagnosis: Cutaneous abscess of left axilla[ICD10: L02.412] Diagnosis: Other acute sinusitis[ICD10: J01.80] Miracle Pereyra MD, [facility] CPT- 4: 83779 03/08/2016 27445 EST. PATIENT, LEVEL III Diagnosis: Generalized anxiety disorder[ICD10: F41.1] Diagnosis: Acne vulgaris[ICD10: L70.0] Diagnosis: Plantar wart[ICD10: B07.0] Miracle Pereyra MD, [facility] CPT-4: 87256 02/05/2016 ([id number]) OFFICE [facility] - LEVEL 3 Diagnosis: Generalized anxiety disorder[ICD10: F41.1] Diagnosis: 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][ICD10: L30.1] Diagnosis: Acne vulgaris[ICD10: L70.0] Diagnosis: Other obesity due to excess calories[ICD10: E66.09] [facility] CPT-4: 63034 12/22/2015 Plan of Care Planned Activity Notes C odes Status Date Appointment: Miracle Gracia WPtel: [facility] [place] [place] ([place] min) Complex 11/19/2016 Appointment: Miracle Gracia WPtel: [address] [place], [place] [address] [place] (15 min) Moderate 11/18/2016 Visit Plan: Abscess/Cellulitis - The pat ient was instructed in appropriate wound care. The patient was instructed to use the antibiotic ointment as per RX. The patient is to call for any change in symptoms, increase in size of the lesion, increase in pain. Pt is to return tomorrow for I&D if needed. 2016 Appointment: Miracle Gracia WPtel: [address] [place], [place] [phone] (15 min) Moderate 11/17/2016 Patient Education: Patient Medication Summary Completed 11/17/2016 Patient Education: Smoking and Tobacco Addiction Completed 11/17/2016 Referral: Alberto Pearson Referral Initiated 09/30/2016 Care Plan: Referral Order SNOMED-CT : 576064709 Pending 09/28/2016 Visit Plan: Abscess/Cellulitis - Reoccur [...] Dr. Isaac. 09/27/2016 Appointment: Miracle Gracia WPtel: [facility] [place] [place] ([place]) Complex 09/27/2016 Patient Education: Patient Medication Summary Completed 09/27/2016 Patient Education: Smoking and Tobacco Addiction Completed 09/27/2016 Care Plan: Referral Order SNOMED-CT : 563677556 Pending 05/10/2016 Visit Plan: Abscess/Cellulitis - right [...] Soria [facility]Ptel[facility] [phone] [facility] [phone] (30 min) Complex 05/05/2016 Patient Education: Patient [...] current medications. 02/05/2016 Appointment: Miracle Gracia WPtel: [facility] [place] [place] ([place] min) Complex 02/05/2016 Patient Education: Patient [...] 12/22/2015 Referral: Alberto Pearson Referral Initiated Referral: [facility] WPtel: Referral Completed Referral: [facility] WPtel: will call with appt time [...]
--- OUTSIDE RECORDS SUMMARY | 2020-02-25 10:43 | XMS REPORT | CCD ---
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 Role Phone PP Unavailable CCM Unavailable Summary Purpose Interface Exchange Insurance Providers Payer name Policy type / Coverage type Covered alliance party ID Effective Begin Date Effective End Date AETNA Commercial Insurance [id number] Unknown Family history Mother Diagnosis Age At Onset Cancer Unknown Diabetes Unknown Social History Social History Element Codes Description Effective Dates Marital status Unknown M kelvin alvarez 12/22/2015 Number of children Unknown 1 12/22/[address]: 65345562 Current every day smoker 12/22/2015 Number of years using tobacco Unknown 5 - 10 12/22/2015 Number of cigarettes/day Unknown 10 (Half a pack) 12/22/2015 Alcohol history Unknown occasionally drinks alcohol 12/22/2015 Frequency of drinks SNOMED CT: 208231711 1-4 drinks per week 12/22/2015 Allergies, Adverse [...] Date Stop Date Sta tus Fill Instructions diazepam 2 mg tablet RxNorm: 519686 1/2 Tablet(s) PO BID as needed anxiety 01/21/2017 02/19/2017 Ac tive Bactrim DS 800 mg-16 0 mg tablet RxNorm: 240874 1 Tablet(s) PO BID 01/21/2017 01/30/2017 Active Bactrim DS 800 mg-16 0 mg tablet RxNorm: 679137 1 Tablet(s) PO BID 11/17/2016 11/26/2016 Inactive diazepam 2 mg tablet RxNorm: 843810 1/2 Tablet(s) PO BID as needed anxiety 11/12/2016 01/10/2017 In active diazepam 2 mg tablet RxNorm: 840639 1/2 Tablet(s) PO BID as needed anxiety 10/18/2016 12/14/2016 In active Zithromax Z-Molina 250 mg tablet RxNorm: 062441 1 Tablet(s) PO UD 09/27/2016 No Stop Date Active diazepam 2 mg tablet RxNorm: 640401 1/2 Tablet(s) PO BID as needed anxiety 09/13/2016 11/11/2016 In active diazepam 2 mg tablet RxNorm: 952389 1/2 Tablet(s) PO BID as needed anxiety 07/07/2016 09/17/2016 In active Levaquin 500 mg tablet RxNorm: 199996 1 Tablet(s) PO daily 06/01/2016 05/31/2016 Inactive Levaquin 500 mg tablet RxNorm: 747571 1 Tablet(s) PO daily 06/01/2016 06/07/2016 Inactive Levaquin 500 mg tablet RxNorm: 723455 1 Tablet(s) PO daily 05/05/2016 05/04/2016 Inactive Levaquin 500 mg tablet RxNorm: 930278 1 Tablet(s) PO daily 05/05/2016 05/11/2016 Inactive minocycline 100 mg c apsule RxNorm: 716739 1 CAPSULE(S) PO BID W HEN NOT HAVING ACUTE FLARE DECREASE TO ONCE DAILY 04/21/2016 05/20/2016 Inactive Ciprodex 0.3 %-0.1 % ear drops,suspension RxNorm: 713507 4 Drop(s) OTIC BID 03/08/2016 03/14/2016 In active Zithromax Z-Molina 250 mg tablet RxNorm: 279841 Tablet(s) PO 03/08/2016 09/26/2016 Inactive diazepam 2 mg tablet RxNorm: 691607 1/2 Tablet(s) PO BID as needed anxiety 2016 04/18/2016 In active mupirocin 2 % topica l ointment RxNorm: 593663 1 Application TOP BID 02/05/2016 No Stop Date Active minocycline 100 mg c apsule RxNorm: 134466 1 Capsule(s) PO BID w hen not having acute flare decrease to once daily 02/05/2016 03/05/2016 Inactive Bactrim DS 800 mg-16 0 mg tablet RxNorm: 493363 1 Tablet(s) PO BID 02/05/2016 02/18/2016 Inactive diazepam 2 mg tablet RxNorm: 456843 1/2 Tablet(s) PO BID as needed anxiety 02/05/2016 02/05/2016 In active betamethasone alberto te 0.1 % topical cream RxNorm: 987038 1 Application TOP BID as needed rash 12/22/2015 No Stop Date Active minocycline 100 mg c apsule RxNorm: 565517 1 Capsule(s) PO BID w hen not [...] hTSH II 1.82 uIU/mL 02/05/2016 Comp Metabolic Twp949 NA 139 mEq/L 02/05/2016 Comp Metabolic Aru114 K 4.2 mEq/L 02/05/2016 Comp Metabolic Qtv141 CL 103 mEq/L 02/05/2016 Comp Metabolic Ldt926 CO2 29.0 mEq/L 02/05/2016 Comp Metabolic Flq064 AN ION GAP 11 02/05/2016 Comp Metabolic Wly544 GL UCOSE 71 mg/dL 02/05/2016 Comp Metabolic Xjs845 Cr eat 0.9 mg/dL 02/05/2016 Comp Metabolic Pny330 eG FR 101 ml/min/1.73m2 01/14 Comp Metabolic Gug684 BUN 17 mg/dL 02/05/2016 Comp Metabolic Jto558 B/ C Ratio 18.5 Ratio 02/05/2016 Comp Metabolic Gnk209 CA LCIUM 9.4 mg/dL 02/05/2016 Comp Metabolic Gjw815 AL K PHOS 63 U/L 02/05/2016 Comp Metabolic Aos241 T(SGOT) 30 U/L 02/05/2016 Comp Metabolic Nna261 AL T(SGPT) 40 U/L 02/05/2016 Comp Metabolic Dqu012 BI LI T 0.5 mg/dL 02/05/2016 Comp Metabolic Axb318 AL BUMIN 4.2 g/dL 02/05/2016 Comp Metabolic Rwg171 TP RO 7.2 g/dL 02/05/2016 Comp Metabolic Ehe120 GL OB 3.0 g/dL 02/05/2016 Comp Metabolic Nbs778 A/ G Ratio 1.4 Ratio 02/05/2016 Comp Metabolic Wef753 Os mo 278 mOsmo 02/05/2016 Cbc With [...] 23.4 % 02/05/2016 Cbc With Differential Ord2 [place]% 8.9 % 02/05/2016 Cbc With Differential Ord2 [...] 2.91 K/ul 02/05/2016 Cbc With Differential Ord2 [place] ABS# 1.1 K/ul 02/05/2016 Cbc With Differential [...] No mental status change 02/05/2016 Psychiatric anxiety /2 10/2015 Psychiatric No depression 02/05/2016 Constitutional No [...] Date DRAINAGE OF SKIN ABS CESS CPT-4: 98034Wczxnlk 05/05/2016 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 3-[address]: 232563416 CPT-4: O1565Rziptto 12/22/2015 Vital Signs Date Vital 11/17/2016 Blood Pressure 1: 120/88 Code: 8480-6 BMI: 36.8 Code: 20816-5 Heart Rate 1: 104 bpm Height: 5'11" SpO2: 99% Weight: 264 lbs 09/27/2016 Blood Pressure 1: 122/78 Code: 8480-6 BMI: 34.6 Code: 63112-0 Heart Rate 1: 100 bpm Height: 5'11" SpO2: 96% Weight: 248 lbs 05/05/2016 Blood Pressure 1: 114/78 Code: 8480-6 BMI: 35.1 Code: 46260-4 Heart Rate 1: 81 bpm Height: 5'11" SpO2: 96% Weight: 252 lbs 03/08/2016 Blood Pressure 1: 120/64 Code: 8480-6 BMI: 34.3 Code: 81697-2 Heart Rate 1: 95 bpm Height: 5'11" SpO2: 97% Weight: 246 lbs 02/05/2016 Blood Pressure 1: 120/78 Code: 8480-6 BMI: 33.5 Code: 60783-6 Heart Rate 1: 104 bpm Height: 5'11" SpO2: 97% Weight: 240 lbs 12/22/2015 Blood Pressure 1: 120/82 Code: 8480-6 BMI: 34.3 Code: 38849-4 Heart Rate 1: 83 bpm Height: 5'11" [...] Encounters Encounter Performer Loca tion Codes Date 34904 EST. PATIENT, LEVEL III Diagnosis: Cutaneous abscess of buttock[ICD10: L02.31] Miracle Pereyra MD, [facility] CPT-4: 02815 11/17/2016 34042 EST. PATIENT, LEVEL III Diagnosis: Cutaneous abscess of left axilla[ICD10: L02.412] Diagnosis: Pain in right hand[ICD10: M79.641] Miracle Pereyra MD, [facility] CPT-4: 80129 09/27/2016 93165 EST. PATIENT, LEVEL III Diagnosis: Cutaneous abscess of right lower limb[ICD10: L02.415] Diagnosis: Hidradenitis suppurativa[ICD10: L73.2] Miracle Pereyra MD, [facility] CPT-4: 59510 05/05/2016 91368 EST. PATIENT, LEVEL IV Diagnosis: Other otitis externa, right ear[ICD10: H60.8X1] Diagnosis: Cutaneous abscess of left axilla[ICD10: L02.412] Diagnosis: Other acute sinusitis[ICD10: J01.80] Miarcle Pereyra MD, [facility] CPT- 4: 13846 03/08/2016 13930 EST. PATIENT, LEVEL III Diagnosis: Generalized anxiety disorder[ICD10: F41.1] Diagnosis: Acne vulgaris[ICD10: L70.0] Diagnosis: Plantar wart[ICD10: B07.0] Miracle Pereyra MD, [facility] CPT-4: 98645 02/05/2016 ([id number]) OFFICE [facility] - LEVEL 3 Diagnosis: Generalized anxiety disorder[ICD10: F41.1] Diagnosis: 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][ICD10: L30.1] Diagnosis: Acne vulgaris[ICD10: L70.0] Diagnosis: Other obesity due to excess calories[ICD10: E66.09] Miracle Pereyra MD, [facility] CPT-4: 38665 12/22/2015 Plan of Care Planned Activity Notes C odes Status Date Appointment: Miracle Gracia WPtel: [address] [place], [place] [phone] [place] (30 min) Complex 11/19/2016 Appointment: Miracle Gracia WPtel: [facility] [place] (15 min) Moderate 11/18/2016 Visit Plan: Abscess/Cellulitis - The pat ient was instructed in appropriate wound care. The patient was instructed to use the antibiotic ointment as per RX. The patient is to call for any change in symptoms, increase in size of the lesion, increase in pain. Pt is to return tomorrow for I&D if needed. 2016 Appointment: Miracle Gracia [facility]Ptel[facility] [place] (15 min) Moderate 11/17/2016 Patient Education: Patient Medication Summary Completed 11/17/2016 Patient Education: Smoking and Tobacco Addiction Completed 11/17/2016 Referral: Alberto Pearson Referral Initiated 09/30/2016 Care Plan: Referral Order SNOMED-CT : 833828195 Pending 09/28/2016 Visit Plan: Abscess/Cellulitis - Reoccur [...] Dr. Isaac. 09/27/2016 Appointment: Miracle Gracia WPtel[facility] [place] ([place]) Complex 09/27/2016 Patient Education: Patient Medication Summary Completed 09/27/2016 Patient Education: Smoking and Tobacco Addiction Completed 09/27/2016 Care Plan: Referral Order SNOMED-CT : 788767097 Pending 05/10/2016 Visit Plan: Abscess/Cellulitis - right l ateral hip - incision and drainage today in the office - The patient was instructed in appropriate wound care. The patient was instructed to use the antibiotic ointment as per RX. The patient is to call for any change in symptoms, increase in size of the lesion, increase in pain. 05/05/2016 Appointment: Gavi Soria WPtel: [address] [phone] (30 min) Complex 05/05/2016 Patient Education: Patient [...] current medications. 02/05/2016 Appointment: Miracle Gracia WPtel[facility] ([place] min) Complex 02/05/2016 Patient Education: Patient [...] 12/22/2015 Referral: Alberto Pearson Referral Initiated Referral: [facility] WPtel: Referral Completed Referral: [facility] WPtel: will call with appt time Initiated [...]
[2020-02-25] MEDS ORDERED: PROPOFOL INJECTION 50 ML IV ONE (10:44)
[2020-02-25] MEDS ORDERED: MIDAZOLAM 2 MG/2 ML (VERSED) VIAL ONE (10:44)
--- OUTSIDE RECORDS SUMMARY | 2020-02-25 10:44 | XMS REPORT | CCD ---
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 Name Role Phone PP Unavailable CCM Unavailable Summary Purpose Interface Exchange Insurance Providers Payer name Policy type / Coverage type Covered democrat ID Effective Begin Date Effective End Date [employer] Commercial Insurance [id number] Unknown Family history Mother Diagnosis Age At Onset Cancer Unknown Diabetes Unknown Social History Social History Element Codes Description Effective Dates Marital status Unknown M kelvin Bosch 09/14/[address]: 9383294 Former smoker Quit in October 2017 11/25/2017 Number of children Unknown 1 12/22/2015 Number of years using tobacco Unknown 5 - 10 12/22/2015 Number of cigarettes/day Unknown 10 (Half a pack) 12/22/2015 Alcohol history Unknown occasionally drinks alcohol 12/22/2015 Frequency of drinks SNOMED CT: 443087432 1-4 drinks per week 12/22/2015 Allergies, Adverse Reactions, Alerts Substance Reaction Codes Entered Date Inactivated Date Status Penicillin Unknown 09/14/2018 No In active Date Active Past Medical History Illness Codes Condition Status Onset Date Resolved Date Acute laryngopharyng itis ICD-9: 465.0 ICD-10: J06.0 [...] ICD-9: 300.02 ICD-10: F41.1 Active 02/04/2016 Unknown Hidradenitis suppura tiva ICD-9: 705.83 ICD-10: L73.2 Active 05/04/2016 Unknown Cutaneous abscess of buttock ICD-9: 682.5 [...] Condition Codes Effectiv e Dates Condition Status Acute laryngopharyng itis ICD-9: 465.0 ICD-10: J06.0 09/14/2018 Active Fever, unspecified ICD- 9: 780.60 ICD-10: R50.9 09/14/2018 Active Muscle spasm of back ICD-9: 724.8 ICD-10: M62.830 08/01/2018 Active Pain in left shoulder ICD-9: 719.41 ICD-10: M25.512 08/01/2018 Active Attention-deficit hy peractivity disorder, predominantly inattentive type ICD-9: 314.01 ICD-10: F90.0 12/12/2017 Active Generalized anxiety disorder ICD-9: 300.02 ICD-10: F41.1 02/04/2016 Active Hidradenitis suppura tiva ICD-9: 705.83 ICD-10: L73.2 05/04/2016 Active Cutaneous abscess of buttock ICD-9: 682.5 [...] Fill Instructions Adderall 10 mg tablet RxNorm: 224079 1 Tablet(s) PO BID 12/15/2018 01/13/2019 Active Bactrim DS 800 mg-16 0 mg tablet RxNorm: 855380 1 Tablet(s) PO BID 11/06/2018 11/25/2018 Inactive prednisone 20 mg tablet RxNorm: 539597 3 Tablet(s) PO daily 11/06/2018 11/10/2018 Inactive cefdinir 300 mg capsule RxNorm: 866332 1 Capsule(s) PO BID 09/14/2018 09/23/2018 Inactive Zithromax Z-Molina 250 mg tablet RxNorm: 442773 1 Tablet(s) PO UD 09/07/2018 09/11/2018 Inactive zpack as directed Adderall 10 mg tablet RxNorm: 860338 1 Tablet(s) PO BID 09/07/2018 10/06/2018 Inactive Zorvolex 18 mg capsule RxNorm: 0589441 1 Capsule(s) PO TID 08/10/2018 No Stop Date Active tramadol 50 mg tablet RxNorm: 158591 1 Tablet(s) PO QID as needed 08/09/2018 08/18/2018 Inactive baclofen 10 mg tablet RxNorm: 095334 1 Tablet(s) PO TID as needed muscle spas ms 08/09/2018 08/13/2018 In active baclofen 10 mg tablet RxNorm: 080501 1 Tablet(s) PO TID as needed muscle spas ms 08/01/2018 08/05/2018 In active prednisone 20 mg tablet RxNorm: 402903 3 Tablet(s) PO daily 08/01/2018 08/05/2018 Inactive diazepam 2 mg tablet RxNorm: 962030 Tablet(s) TAKE 1/2 TABLET BY MOUTH TWICE DAILY NEEDED FOR ANXIETY 07/21/2018 08/19/2018 Inactive Adderall 10 mg tablet RxNorm: 367023 1 Tablet(s) PO BID 07/14/2018 08/12/2018 Inactive Adderall 10 mg tablet RxNorm: 101747 1 Tablet(s) PO BID 05/26/2018 06/24/2018 Inactive Adderall 10 mg tablet RxNorm: 416838 1 Tablet(s) PO BID 04/28/2018 05/25/2018 Inactive Adderall 5 mg tablet RxNorm: 953721 1 Tablet(s) PO QAM as needed 04/04/2018 04/27/2018 Inactive diazepam 2 mg tablet RxNorm: 619472 Tablet(s) TAKE 1/2 TABLET BY MOUTH TWICE DAILY NEEDED FOR ANXIETY 04/04/2018 05/02/2018 Inactive Adderall XR 20 mg ca psule,extended release RxNorm: 793133 1 Capsule(s) PO daily 03/13/2018 04/03/2018 In active Kenalog 40 mg/mL rodrigo pension for injection RxNorm: 7734901 1 Milliliter(s) Inj 03/01/2018 03/01/2018 In active Adderall 5 mg tablet RxNorm: 422241 1 Tablet(s) PO QAM as needed 02/13/2018 03/14/2018 Inactive Adderall XR 20 mg ca psule,extended release RxNorm: 071391 1 Capsule(s) PO daily 02/13/2018 03/12/2018 In active prednisone 20 mg tablet RxNorm: 244873 2 Tablet(s) PO daily 02/10/2018 02/14/2018 Inactive Bactrim DS 800 mg-16 0 mg tablet RxNorm: 283002 1 Tablet(s) PO BID 01/16/2018 02/04/2018 Inactive Adderall 5 mg tablet RxNorm: 057010 2 Tablet(s) PO QAM and 1 PO QPM 01/16/2018 02/12/2018 In active Bactrim DS 800 mg-16 0 mg tablet RxNorm: 531054 1 Tablet(s) PO BID 01/04/2018 01/15/2018 Inactive Adderall 5 mg tablet RxNorm: 754892 2 Tablet(s) PO QAM and 1 PO QPM 12/13/2017 01/11/2018 In active Zithromax Z-Molina 250 mg tablet RxNorm: 955458 1 Tablet(s) PO UD 11/25/2017 03/12/2018 Inactive diazepam 2 mg tablet RxNorm: 923742 Tablet(s) TAKE 1/2 TABLET BY MOUTH TWICE DAILY NEEDED FOR ANXIETY 11/18/2017 12/17/2017 Inactive diazepam 2 mg tablet RxNorm: 529988 Tablet(s) TAKE 1/2 TABLET BY MOUTH TWICE DAILY NEEDED FOR ANXIETY 08/30/2017 10/28/2017 Inactive diazepam 2 mg tablet RxNorm: 455766 Tablet(s) TAKE 1/2 TABLET BY MOUTH TWICE DAILY NEEDED FOR ANXIETY 07/19/2017 08/29/2017 Inactive diazepam 2 mg tablet RxNorm: 255545 TAKE 1/2 TABLET BY MOUTH TWICE DAILY NEEDED FOR ANXIETY 07/15/2017 07/18/2017 Inactive Bactrim DS 800 mg-16 0 mg tablet RxNorm: 106684 1 Tablet(s) PO BID 06/01/2017 06/20/2017 Inactive diazepam 2 mg tablet RxNorm: 314079 1/2 Tablet(s) PO BID as needed anxiety 06/01/2017 06/29/2017 In active tramadol 50 mg tablet RxNorm: 617142 1 Tablet(s) PO QID as needed 04/14/2017 04/23/2017 Inactive Bactrim DS 800 mg-16 0 mg tablet RxNorm: 835208 1 Tablet(s) PO BID 04/14/2017 05/03/2017 Inactive diazepam 2 mg tablet RxNorm: 570920 1/2 Tablet(s) PO BID as needed anxiety 03/02/2017 04/30/2017 In active Zithromax Z-Molina 250 mg tablet RxNorm: 763453 1 Tablet(s) PO UD 03/02/2017 07/18/2017 Inactive Bactrim DS 800 mg-16 0 mg tablet RxNorm: 653774 1 Tablet(s) PO BID 03/01/2017 03/20/2017 Inactive diazepam 2 mg tablet RxNorm: 853101 1/2 Tablet(s) PO BID as needed anxiety 01/21/2017 02/19/2017 In active Bactrim DS 800 mg-16 0 mg tablet RxNorm: 171535 1 Tablet(s) PO BID 01/21/2017 01/30/2017 Inactive Bactrim DS 800 mg-16 0 mg tablet RxNorm: 483023 1 Tablet(s) PO BID 11/17/2016 11/26/2016 Inactive diazepam 2 mg tablet RxNorm: 505687 1/2 Tablet(s) PO BID as needed anxiety 11/12/2016 01/10/2017 In active diazepam 2 mg tablet RxNorm: 767913 1/2 Tablet(s) PO BID as needed anxiety 10/18/2016 12/14/2016 In active Zithromax Z-Molina 250 mg tablet RxNorm: 272845 1 Tablet(s) PO UD 09/27/2016 03/01/2017 Inactive diazepam 2 mg tablet RxNorm: 497051 1/2 Tablet(s) PO BID as needed anxiety 09/13/2016 11/11/2016 In active diazepam 2 mg tablet RxNorm: 897821 1/2 Tablet(s) PO BID as needed anxiety 07/07/2016 09/17/2016 In active Levaquin 500 mg tablet RxNorm: 846962 1 Tablet(s) PO daily 06/01/2016 05/31/2016 Inactive Levaquin 500 mg tablet RxNorm: 189295 1 Tablet(s) PO daily 06/01/2016 06/07/2016 Inactive Levaquin 500 mg tablet RxNorm: 662128 1 Tablet(s) PO daily 05/05/2016 05/04/2016 Inactive Levaquin 500 mg tablet RxNorm: 586365 1 Tablet(s) PO daily 05/05/2016 05/11/2016 Inactive minocycline 100 mg c apsule RxNorm: 977564 1 CAPSULE(S) PO BID W HEN NOT HAVING ACUTE FLARE DECREASE TO ONCE DAILY 04/21/2016 05/20/2016 Inactive Ciprodex 0.3 %-0.1 % ear drops,suspension RxNorm: 983087 4 Drop(s) OTIC BID 03/08/2016 03/14/2016 In active Zithromax Z-Molina 250 mg tablet RxNorm: 363474 Tablet(s) PO 03/08/2016 09/26/2016 Inactive diazepam 2 mg tablet RxNorm: 394147 1/2 Tablet(s) PO BID as needed anxiety 2016 04/18/2016 In active mupirocin 2 % topica l ointment RxNorm: 321488 1 Application TOP BID 02/05/2016 No Stop Date Active minocycline 100 mg c apsule RxNorm: 160719 1 Capsule(s) PO BID w hen not having acute flare decrease to once daily 02/05/2016 03/05/2016 Inactive Bactrim DS 800 mg-16 0 mg tablet RxNorm: 733150 1 Tablet(s) PO BID 02/05/2016 02/18/2016 Inactive diazepam 2 mg tablet RxNorm: 225476 1/2 Tablet(s) PO BID as needed anxiety 02/05/2016 02/05/2016 In active betamethasone alberto te 0.1 % topical cream RxNorm: 216792 1 Application TOP BID as needed rash 12/22/2015 No Stop Date Active minocycline 100 mg c apsule RxNorm: 982542 1 Capsule(s) PO BID w hen not having acute flare decrease to once daily 12/22/2015 01/20/2016 Inactive Medication Administered Medication Codes Instruc tions Start Date Status Kenalog 40 mg/mL suspension for injection RxNorm: 3486243 1Milliliter 03/01/2018 N o longer Active Immunizations No Immunization data Assessments Condition Codes Effectiv e Dates Acute laryngopharyngitis ICD-10: J06 .0 ICD-9: 465.0 09/14/2018 Fever, unspecified ICD-10: R50.9 ICD-9: 780.60 09/14/2018 Pain in left shoulder ICD-10: M25.51 2 ICD-9: 719.41 08/09/2018 Muscle spasm of back ICD-10: M62.830 ICD-9: 724.8 08/09/2018 Hidradenitis suppurativa ICD-10: L73 .2 ICD-9: 705.83 03/01/2018 Attention-deficit hyperactivity disorder , predominantly inattentive type [...] Visit Reason For Visit Effective Dates Notes sore throat 09/14/2018 shoulder pain 08/09/2018 shoulder pain 08/01/2018 medication follow up 03/01/2018 medication follow up 02/10/2018 anxiety 12/12/2017 emerson severino anxiety 11/25/2017 emerson mere skin lesion 03/02/2017 skin lesion 11/17/2016 skin lesion 09/27/2016 skin lesion 05/05/2016 earache 03/08/2016 anxiety 02/05/2016 anxiety 12/22/2015 Results Observation Observation Code Item Item Code Result Date C RAP A SC 5331193 Strep A Negative 09/14/2018 C A/B FLU 6394189 Influe nza A Scr Negative 09/14/2018 C A/B FLU 6591596 Influe nza B Scr Negative 09/14/2018 C A/B FLU 3868579 Influe nza Intrp B AG:PRID:PT:NOSE:NOM:IF See Footnote 09/14/2018 Tsh Ord6 hTSH II 1.82 uIU/mL 02/05/2016 Comp Metabolic Pzn212 NA 139 mEq/L 02/05/2016 Comp Metabolic Vst560 K 4.2 mEq/L 02/05/2016 Comp Metabolic Akn073 CL 103 mEq/L 02/05/2016 Comp Metabolic Jej684 CO2 29.0 mEq/L 02/05/2016 Comp Metabolic Jad063 AN ION GAP 11 02/05/2016 Comp Metabolic Vnu301 GL UCOSE 71 mg/dL 02/05/2016 Comp Metabolic Vkz022 Cr eat 0.9 mg/dL 02/05/2016 Comp Metabolic Tbr521 eG FR 101 ml/min/1.73m2 01/14 Comp Metabolic Vrp479 BUN 17 mg/dL 02/05/2016 Comp Metabolic Hlj883 B/ C Ratio 18.5 Ratio 02/05/2016 Comp Metabolic Cpc961 CA LCIUM 9.4 mg/dL 02/05/2016 Comp Metabolic Ylq208 AL K PHOS 63 U/L 02/05/2016 Comp Metabolic Uvr663 T(SGOT) 30 U/L 02/05/2016 Comp Metabolic Djs839 AL T(SGPT) 40 U/L 02/05/2016 Comp Metabolic Fyw956 BI LI T 0.5 mg/dL 02/05/2016 Comp Metabolic Nyx394 AL BUMIN 4.2 g/dL 02/05/2016 Comp Metabolic Oxt333 TP RO 7.2 g/dL 02/05/2016 Comp Metabolic Yxk260 GL OB 3.0 g/dL 02/05/2016 Comp Metabolic Die072 A/ G Ratio 1.4 Ratio 02/05/2016 Comp Metabolic Cdo953 Os mo 278 mOsmo 02/05/2016 Cbc With [...] 30.3 pg 02/05/2016 Cbc With Differential Ord2 [place]% 8.9 % 02/05/2016 Cbc With Differential Ord2 [...] 2.91 K/ul 02/05/2016 Cbc With Differential Ord2 [place] ABS# 1.1 K/ul 02/05/2016 Cbc With Differential Ord2 Eos ABS# 0.1 K/ul 02/05/2016 Cbc With Differential Ord2 Baso ABS# 0.0 K/ul 02/05/2016 Review of Systems System Result Effective Dates Constitutional recent illness 09/14/2018 Constitutional anorexia 09/14/2018 [...] No mental status change 03/08/2016 Psychiatric anxiety /12/2015 Psychiatric No depression 03/08/2016 Constitutional recent illness [...] Result Effective Dates Notes Full Exam - ENT Constitutional general appearance [...] lips 02/10/2018 None Full Exam - General 1995 Ears/Nose/Throat oral cavity/pharynx/larynx Overall: oral mucosa clear 02/10/2018 None Full Exam - General 1995 Ears/Nose/Throat [...] contact 12/22/2015 None Procedures Procedure Codes Date TRIAMCINOLONE ACET I [place] NOS CPT-4: J3301 08/09/2018 INJECT TRIGGER POINT S 3/> CPT-4: 94330 08/09/2018 TRIAMCINOLONE ACET I [place] NOS CPT-4: J3301 03/01/2018 THER/PROPH/DIAG INJ SC/IM CPT-4: 80318 03/01/2018 DRAINAGE OF SKIN ABS CESS CPT-4: 06611 05/05/2016 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-[address]: 818801817 CPT-4: G0436 12/22/2015 Vital Signs Date Vital 09/14/2018 Blood Pressure 1: 128/86 Code: 8480-6 BMI: 33.9 Code: 96585-9 Heart Rate 1: 128 bpm Height: 5'11" SpO2: 96% Temperature: 37.4 (C ) / 99.3 (F) Weight: 243 lbs 08/09/2018 Blood Pressure 1: 120/72 Code: 8480-6 Heart Rate 1: 90 bpm Height: SpO2: 98% Weight: 08/01/2018 Blood Pressure 1: 110/78 Code: 8480-6 BMI: 34.4 Code: 83040-8 Heart Rate 1: 109 bpm Height: 5'11" SpO2: 98% Weight: 247 lbs 03/01/2018 Blood Pressure 1: 120/80 Code: 8480-6 BMI: 32.9 Code: 86958-8 Heart Rate 1: 72 bpm Height: 5'11" SpO2: 96% Weight: 236 lbs 02/10/2018 Blood Pressure 1: 122/70 Code: 8480-6 BMI: 32.9 Code: 09517-4 Heart Rate 1: 90 bpm Height: 5'11" SpO2: 98% Weight: 236 lbs 12/12/2017 Blood Pressure 1: 124/72 Code: 8480-6 BMI: 35.0 Code: 43056-0 Heart Rate 1: 80 bpm Height: 5'11" SpO2: 96% Weight: 251 lbs 11/25/2017 Blood Pressure 1: 122/76 Code: 8480-6 BMI: 35.4 Code: 37299-7 Heart Rate 1: 74 bpm Height: 5'11" SpO2: 95% Weight: 254 lbs 03/02/2017 Blood Pressure 1: 120/70 Code: 8480-6 BMI: 33.8 Code: 50276-7 Heart Rate 1: 79 bpm Height: 5'11" SpO2: 99% Weight: 242 lbs 11/17/2016 Blood Pressure 1: 120/88 Code: 8480-6 BMI: 36.8 Code: 37141-3 Heart Rate 1: 104 bpm Height: 5'11" SpO2: 99% Weight: 264 lbs 09/27/2016 Blood Pressure 1: 122/78 Code: 8480-6 BMI: 34.6 Code: 71660-8 Heart Rate 1: 100 bpm Height: 5'11" SpO2: 96% Weight: 248 lbs 05/05/2016 Blood Pressure 1: 114/78 Code: 8480-6 BMI: 35.1 Code: 33197-7 Heart Rate 1: 81 bpm Height: 5'11" SpO2: 96% Weight: 252 lbs 03/08/2016 Blood Pressure 1: 120/64 Code: 8480-6 BMI: 34.3 Code: 97401-4 Heart Rate 1: 95 bpm Height: 5'11" SpO2: 97% Weight: 246 lbs 02/05/2016 Blood Pressure 1: 120/78 Code: 8480-6 BMI: 33.5 Code: 76200-2 Heart Rate 1: 104 bpm Height: 5'11" SpO2: 97% Weight: 240 lbs 12/22/2015 Blood Pressure 1: 120/82 Code: 8480-6 BMI: 34.3 Code: 39913-2 Heart Rate 1: 83 bpm Height: 5'11" SpO2: 97% Weight: 246 lbs Functional Status No Functional Status data History of Present Illness Symptom Name Status Resu lt Effective Date Notes Quality acute 09/14/2018 None Onset and Resolution [...] Encounters Encounter Performer Loca tion Codes Date ([id number]) 44507 EST. P ATIENT, LEVEL III Diagnosis: Acute laryngopharyngitis[ICD10: J06.0] Diagnosis: Fever, unspecified[ICD10: R50.9] Gavi Pereyra MD, [facility] CPT- 4: 84678 09/14/2018 55826 EST. PATIENT, LEVEL III Diagnosis: Pain in left shoulder[ICD10: M25.512] Diagnosis: Muscle spasm of back[ICD10: M62.830] Miracle Pereyra MD, [facility] CPT- 4: 28016 08/09/2018 00895 EST. PATIENT, LEVEL III Diagnosis: Pain in left shoulder[ICD10: M25.512] Diagnosis: Muscle spasm of back[ICD10: M62.830] Miracle Pereyra MD, [facility] CPT- 4: 45025 08/01/2018 81263 EST. PATIENT, LEVEL III Diagnosis: Hidradenitis suppurativa[ICD10: L73.2] Miracle Pereyra MD, [facility] CPT-4: 69795 03/01/2018 56428 EST. PATIENT, LEVEL III Diagnosis: Attention-deficit hyperactivity disorder, predominantly inattentive type[ICD10: F90.0] Diagnosis: Hidradenitis suppurativa[ICD10: L73.2] Diagnosis: Generalized anxiety disorder[ICD10: F41.1] Miracle Pereyra MD, [facility] CPT-4: 67615 02/10/2018 88220 EST. PATIENT, LEVEL IV Diagnosis: Attention-deficit hyperactivity disorder, predominantly inattentive type[ICD10: F90.0] Diagnosis: Generalized anxiety disorder[ICD10: F41.1] Miracle Pereyra MD, [facility] CPT-4: 61571 12/12/2017 20167 EST. PATIENT, LEVEL IV Diagnosis: Generalized anxiety disorder[ICD10: F41.1] Diagnosis: Hidradenitis suppurativa[ICD10: L73.2] Miracle Pereyra MD, [facility] CPT-4: 33312 11/25/2017 00066 EST. PATIENT, LEVEL III Diagnosis: Hidradenitis suppurativa[ICD10: L73.2] Diagnosis: Generalized anxiety disorder[ICD10: F41.1] Miracle Pereyra MD, [facility] CPT-4: 26534 03/02/2017 96865 EST. PATIENT, LEVEL III Diagnosis: Cutaneous abscess of buttock[ICD10: L02.31] Miracle Pereyra MD, [facility] CPT-4: 37092 11/17/2016 44491 EST. PATIENT, LEVEL III Diagnosis: Cutaneous abscess of left axilla[ICD10: L02.412] Diagnosis: Pain in right hand[ICD10: M79.641] Miracle Pereyra MD, [facility] CPT-4: 92581 09/27/2016 75147 EST. PATIENT, LEVEL III Diagnosis: Cutaneous abscess of right lower limb[ICD10: L02.415] Diagnosis: Hidradenitis suppurativa[ICD10: L73.2] Miracle Pereyra MD, [facility] CPT-4: 07358 05/05/2016 17961 EST. PATIENT, LEVEL IV Diagnosis: Other otitis externa, right ear[ICD10: H60.8X1] Diagnosis: Cutaneous abscess of left axilla[ICD10: L02.412] Diagnosis: Other acute sinusitis[ICD10: J01.80] Miracle Pereyra MD, [facility] CPT- 4: 92154 03/08/2016 50886 EST. PATIENT, LEVEL III Diagnosis: Generalized anxiety disorder[ICD10: F41.1] Diagnosis: Acne vulgaris[ICD10: L70.0] Diagnosis: Plantar wart[ICD10: B07.0] Miracle Pereyra MD, [facility] CPT-4: 83598 02/05/2016 ([id number]) OFFICE VISI T, [facility] - LEVEL 3 Diagnosis: Generalized anxiety disorder[ICD10: F41.1] Diagnosis: 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][ICD10: L30.1] Diagnosis: Acne vulgaris[ICD10: L70.0] Diagnosis: Other obesity due to excess calories[ICD10: E66.09] Miracle Pereyra MD, [facility] CPT-4: 79204 12/22/2015 Plan of Care Planned Activity Notes C odes Status Date Visit Plan: Pharyngitis-fever -flu and strep swabs obtained today in the office and will treat as appropriate-discussed natural and expected course of this diagnosis and need to alert me if symptoms do not follow expected course, or if any worse. Recommended salt water gargles as needed for pain. Tylenol/motrin as needed for fever/discomfort. 09/14/2018 Appointment: Gavi Soria: [phone] [phone] [place] (15 min) Moderate 09/14/2018 Patient Education: [...] disease process. 08/09/2018 Appointment: Miracle Gracia WPtel: [facility] [place] (30 min) Complex 08/09/2018 Patient Education: Patient Medication Summary Completed 08/09/2018 Visit Plan: Left shoulder pain, mus mishel spasm - will send RX - The pt is to use prn antiinflammatories to manage acute pain. The patient is to call the office if the pain is worsening or does not improve. 08/01/2018 Appointment: Miracle Gracia WPtel: [facility] [place] (15 min) Moderate 08/01/2018 Patient Education: [...] no changes. 02/10/2018 Appointment: Miracle Gracia WPtel: [facility] (15 min) Moderate 02/10/2018 Patient Education: [...] not prescribed. 12/12/2017 Appointment: [facility]el[facility] ([facility] min) Moderate 12/12/2017 Patient Education: Patient [...] or concerns. 11/25/2017 Appointment: Miracle Gracia WPtel: [facility] (15 min) Moderate 11/25/2017 Patient Education: Patient Medication Summary Completed 11/25/2017 Visit Plan: Abscess/Cellulitis - Th e patient was instructed in appropriate wound care. The patient was instructed to use the antibiotic ointment as per RX. The patient is to call for any change in symptoms, increase in size of the lesion, increase in pain. Pt is to discuss methotrexate with his container maker. 03/02/2017 Appointment: Miracle Gracia WPtel: [address] [place], [place] [phone] (30 min) Complex 03/02/2017 Patient Education: Patient Medication Summary Completed 03/02/2017 Patient Education: Smoking and Tobacco Addiction Completed 03/02/2017 Patient Education: Obesity Completed 03/02/2017 Appointment: Miracle Gracia WPtel[facility] ([facility] min) Complex 11/19/2016 Appointment: Miracle Gracia WPtel: [address] [place], [place] [address] (15 min) Moderate 11/18/2016 Visit Plan: Abscess/Cellulitis - Th e patient was instructed in appropriate wound care. The patient was instructed to use the antibiotic ointment as per RX. The patient is to call for any change in symptoms, increase in size of the lesion, increase in pain. Pt is to return tomorrow for I&D if needed. 11/17/2016 Appointment: Miracle Gracia WPtel[facility] [place] (15 min) Moderate 11/17/2016 Patient Education: Patient Medication Summary Completed 11/17/2016 Patient Education: Smoking and Tobacco Addiction Completed 11/17/2016 Referral: Alberto Pearson Referral Initiated 09/30/2016 Care Plan: Referral Order SNOMED-CT : [id number] Pending 09/28/2016 Visit Plan: Abscess/Cellulitis - Re [...] Isaac. 09/27/2016 Appointment: Mir[facility] Gracia [facility] [phone] [facility] (30 min) Complex 09/27/2016 Patient Education: Patient Medication Summary Completed 09/27/2016 Patient Education: Smoking and Tobacco Addiction Completed 09/27/2016 Care Plan: Referral Order SNOMED-CT : [id number] Pending 05/10/2016 Visit Plan: Abscess/Cellulitis - ri [...] pain. 05/05/2016 Appointment: [facility]oria [facility] [phone] [phone] (30 min) Complex 05/05/2016 Patient Education: Patient [...] 02/05/2016 Appointment: Miracle Gracia WPtel: [facility] (30 min) [facility] 02/05/2016 Patient Education: Patient Medication Summary Completed [...] 12/22/2015 Referral: Alberto Pearson Referral Initiated Referral: [facility] WPtel: Referral Completed Referral: [facility] WPtel: will call with appt time [...] Pt is to discuss methotrexate with his container maker. . Otitis Externa - p t [...] exposure. No change in current medications. . Left shoulder pain , muscle spasm [...]
--- OUTSIDE RECORDS SUMMARY | 2020-02-25 10:45 | XMS REPORT | CCD ---
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 Name Role Phone PP Unavailable CCM Unavailable Summary Purpose Interface Exchange Insurance Providers Payer name Policy type / Coverage type Covered green party ID Effective Begin Date Effective End Date [employer] Commercial Insurance [id number] Unknown Family history Mother Diagnosis Age At Onset Cancer Unknown Diabetes Unknown Social History Social History Element Codes Description Effective Dates Marital status Unknown M kelvin Bosch 09/14/[address]: 4636388 Former smoker Quit in October 2017 11/25/2017 Number of children Unknown 1 12/22/2015 Number of years using tobacco Unknown 5 - 10 12/22/2015 Number of cigarettes/day Unknown 10 (Half a pack) 12/22/2015 Alcohol history Unknown occasionally drinks alcohol 12/22/2015 Frequency of drinks SNOMED CT: 089006739 1-4 drinks per week 12/22/2015 Allergies, Adverse [...] DS 800 mg-16 0 mg tablet RxNorm: 531575 1 Tablet(s) PO BID 11/06/2018 11/25/2018 Active prednisone 20 mg tablet RxNorm: 020927 3 Tablet(s) PO daily 11/06/2018 11/10/2018 Active cefdinir 300 mg capsule RxNorm: 272084 1 Capsule(s) PO BID 09/14/2018 09/23/2018 Inactive Adderall 10 mg tablet RxNorm: 383971 1 Tablet(s) PO BID 09/07/2018 10/06/2018 Inactive Zithromax Z-Molina 250 mg tablet RxNorm: 477590 1 Tablet(s) PO UD 09/07/2018 09/11/2018 Inactive zpack as directed Zorvolex 18 mg capsule RxNorm: 2033638 1 Capsule(s) PO TID 08/10/2018 No Stop Date Active tramadol 50 mg tablet RxNorm: 465650 1 Tablet(s) PO QID as needed 08/09/2018 08/18/2018 Inactive baclofen 10 mg tablet RxNorm: 764570 1 Tablet(s) PO TID as needed muscle spas ms 08/09/2018 08/13/2018 In active baclofen 10 mg tablet RxNorm: 606188 1 Tablet(s) PO TID as needed muscle spas ms 08/01/2018 08/05/2018 In active prednisone 20 mg tablet RxNorm: 925566 3 Tablet(s) PO daily 08/01/2018 08/05/2018 Inactive diazepam 2 mg tablet RxNorm: 400028 Tablet(s) TAKE 1/2 TABLET BY MOUTH TWICE DAILY NEEDED FOR ANXIETY 07/21/2018 08/19/2018 Inactive Adderall 10 mg tablet RxNorm: 129090 1 Tablet(s) PO BID 07/14/2018 08/12/2018 Inactive Adderall 10 mg tablet RxNorm: 423657 1 Tablet(s) PO BID 05/26/2018 06/24/2018 Inactive Adderall 10 mg tablet RxNorm: 160583 1 Tablet(s) PO BID 04/28/2018 05/25/2018 Inactive Adderall 5 mg tablet RxNorm: 190639 1 Tablet(s) PO QAM as needed 04/04/2018 04/27/2018 Inactive diazepam 2 mg tablet RxNorm: 929475 Tablet(s) TAKE 1/2 TABLET BY MOUTH TWICE DAILY NEEDED FOR ANXIETY 04/04/2018 05/02/2018 Inactive Adderall XR 20 mg ca psule,extended release RxNorm: 376526 1 Capsule(s) PO daily 03/13/2018 04/03/2018 In active Kenalog 40 mg/mL rodrigo pension for injection RxNorm: 6136369 1 Milliliter(s) Inj 03/01/2018 03/01/2018 In active Adderall 5 mg tablet RxNorm: 510028 1 Tablet(s) PO QAM as needed 02/13/2018 03/14/2018 Inactive Adderall XR 20 mg ca psule,extended release RxNorm: 350910 1 Capsule(s) PO daily 02/13/2018 03/12/2018 In active prednisone 20 mg tablet RxNorm: 113812 2 Tablet(s) PO daily 02/10/2018 02/14/2018 Inactive Bactrim DS 800 mg-16 0 mg tablet RxNorm: 696539 1 Tablet(s) PO BID 01/16/2018 02/04/2018 Inactive Adderall 5 mg tablet RxNorm: 817803 2 Tablet(s) PO QAM and 1 PO QPM 01/16/2018 02/12/2018 In active Bactrim DS 800 mg-16 0 mg tablet RxNorm: 776983 1 Tablet(s) PO BID 01/04/2018 01/15/2018 Inactive Adderall 5 mg tablet RxNorm: 173755 2 Tablet(s) PO QAM and 1 PO QPM 12/13/2017 01/11/2018 In active Zithromax Z-Molina 250 mg tablet RxNorm: 570746 1 Tablet(s) PO UD 11/25/2017 03/12/2018 Inactive diazepam 2 mg tablet RxNorm: 182451 Tablet(s) TAKE 1/2 TABLET BY MOUTH TWICE DAILY NEEDED FOR ANXIETY 11/18/2017 12/17/2017 Inactive diazepam 2 mg tablet RxNorm: 134327 Tablet(s) TAKE 1/2 TABLET BY MOUTH TWICE DAILY NEEDED FOR ANXIETY 08/30/2017 10/28/2017 Inactive diazepam 2 mg tablet RxNorm: 147747 Tablet(s) TAKE 1/2 TABLET BY MOUTH TWICE DAILY NEEDED FOR ANXIETY 07/19/2017 08/29/2017 Inactive diazepam 2 mg tablet RxNorm: 227818 TAKE 1/2 TABLET BY MOUTH TWICE DAILY NEEDED FOR ANXIETY 07/15/2017 07/18/2017 Inactive Bactrim DS 800 mg-16 0 mg tablet RxNorm: 673404 1 Tablet(s) PO BID 06/01/2017 06/20/2017 Inactive diazepam 2 mg tablet RxNorm: 198844 1/2 Tablet(s) PO BID as needed anxiety 06/01/2017 06/29/2017 In active tramadol 50 mg tablet RxNorm: 280498 1 Tablet(s) PO QID as needed 04/14/2017 04/23/2017 Inactive Bactrim DS 800 mg-16 0 mg tablet RxNorm: 632124 1 Tablet(s) PO BID 04/14/2017 05/03/2017 Inactive diazepam 2 mg tablet RxNorm: 621395 1/2 Tablet(s) PO BID as needed anxiety 03/02/2017 04/30/2017 In active Zithromax Z-Molina 250 mg tablet RxNorm: 481501 1 Tablet(s) PO UD 03/02/2017 07/18/2017 Inactive Bactrim DS 800 mg-16 0 mg tablet RxNorm: 363068 1 Tablet(s) PO BID 03/01/2017 03/20/2017 Inactive diazepam 2 mg tablet RxNorm: 607467 1/2 Tablet(s) PO BID as needed anxiety 01/21/2017 02/19/2017 In active Bactrim DS 800 mg-16 0 mg tablet RxNorm: 200468 1 Tablet(s) PO BID 01/21/2017 01/30/2017 Inactive Bactrim DS 800 mg-16 0 mg tablet RxNorm: 943373 1 Tablet(s) PO BID 11/17/2016 11/26/2016 Inactive diazepam 2 mg tablet RxNorm: 812967 1/2 Tablet(s) PO BID as needed anxiety 11/12/2016 01/10/2017 In active diazepam 2 mg tablet RxNorm: 961886 1/2 Tablet(s) PO BID as needed anxiety 10/18/2016 12/14/2016 In active Zithromax Z-Molina 250 mg tablet RxNorm: 443232 1 Tablet(s) PO UD 09/27/2016 03/01/2017 Inactive diazepam 2 mg tablet RxNorm: 435374 1/2 Tablet(s) PO BID as needed anxiety 09/13/2016 11/11/2016 In active diazepam 2 mg tablet RxNorm: 581557 1/2 Tablet(s) PO BID as needed anxiety 07/07/2016 09/17/2016 In active Levaquin 500 mg tablet RxNorm: 291913 1 Tablet(s) PO daily 06/01/2016 05/31/2016 Inactive Levaquin 500 mg tablet RxNorm: 538601 1 Tablet(s) PO daily 06/01/2016 06/07/2016 Inactive Levaquin 500 mg tablet RxNorm: 008852 1 Tablet(s) PO daily 05/05/2016 05/04/2016 Inactive Levaquin 500 mg tablet RxNorm: 344689 1 Tablet(s) PO daily 05/05/2016 05/11/2016 Inactive minocycline 100 mg c apsule RxNorm: 958792 1 CAPSULE(S) PO BID W HEN NOT HAVING ACUTE FLARE DECREASE TO ONCE DAILY 04/21/2016 05/20/2016 Inactive Ciprodex 0.3 %-0.1 % ear drops,suspension RxNorm: 152381 4 Drop(s) OTIC BID 03/08/2016 03/14/2016 In active Zithromax Z-Molina 250 mg tablet RxNorm: 028728 Tablet(s) PO 03/08/2016 09/26/2016 Inactive diazepam 2 mg tablet RxNorm: 497402 1/2 Tablet(s) PO BID as needed anxiety 2016 04/18/2016 In active mupirocin 2 % topica l ointment RxNorm: 727428 1 Application TOP BID 02/05/2016 No Stop Date Active minocycline 100 mg c apsule RxNorm: 065814 1 Capsule(s) PO BID w hen not having acute flare decrease to once daily 02/05/2016 03/05/2016 Inactive Bactrim DS 800 mg-16 0 mg tablet RxNorm: 650329 1 Tablet(s) PO BID 02/05/2016 02/18/2016 Inactive diazepam 2 mg tablet RxNorm: 835041 1/2 Tablet(s) PO BID as needed anxiety 02/05/2016 02/05/2016 In active betamethasone alberto te 0.1 % topical cream RxNorm: 721296 1 Application TOP BID as needed rash 12/22/2015 No Stop Date Active minocycline 100 mg c apsule RxNorm: 873036 1 Capsule(s) PO BID w hen not having acute flare decrease to once daily 12/22/2015 01/20/2016 Inactive Medication Administered Medication Codes Instruc tions Start Date Status Kenalog 40 mg/mL suspension for injection RxNorm: 0035642 1Milliliter 03/01/2018 N o longer Active Immunizations [...] Code Result Date C RAP A SC 1170901 Strep A Negative 09/14/2018 C A/B FLU 8831350 Influe nza A Scr Negative 09/14/2018 C A/B FLU 3314402 Influe nza B Scr Negative 09/14/2018 C A/B FLU 1958719 Influe nza Intrp B AG:PRID:PT:NOSE:NOM:IF See Footnote 09/14/2018 Tsh Ord6 hTSH II 1.82 uIU/mL 02/05/2016 Comp Metabolic Qad661 NA 139 mEq/L 02/05/2016 Comp Metabolic Eij649 K 4.2 mEq/L 02/05/2016 Comp Metabolic Avb490 CL 103 mEq/L 02/05/2016 Comp Metabolic Hlm005 CO2 29.0 mEq/L 02/05/2016 Comp Metabolic Zpj497 AN ION GAP 11 02/05/2016 Comp Metabolic Zsj075 GL UCOSE 71 mg/dL 02/05/2016 Comp Metabolic Vwz606 Cr eat 0.9 mg/dL 02/05/2016 Comp Metabolic Wfq815 eG FR 101 ml/min/1.73m2 01/14 Comp Metabolic Orz624 BUN 17 mg/dL 02/05/2016 Comp Metabolic Bmo375 B/ C Ratio 18.5 Ratio 02/05/2016 Comp Metabolic Ltd646 CA LCIUM 9.4 mg/dL 02/05/2016 Comp Metabolic Yjz481 AL K PHOS 63 U/L 02/05/2016 Comp Metabolic Pki366 T(SGOT) 30 U/L 02/05/2016 Comp Metabolic Ffd546 AL T(SGPT) 40 U/L 02/05/2016 Comp Metabolic Rep486 BI LI T 0.5 mg/dL 02/05/2016 Comp Metabolic Iev778 AL BUMIN 4.2 g/dL 02/05/2016 Comp Metabolic Eda653 TP RO 7.2 g/dL 02/05/2016 Comp Metabolic Jev816 GL OB 3.0 g/dL 02/05/2016 Comp Metabolic Ioj863 A/ G Ratio 1.4 Ratio 02/05/2016 Comp Metabolic Lrh702 Os mo 278 mOsmo 02/05/2016 Cbc With [...] 30.3 pg 02/05/2016 Cbc With Differential Ord2 [place]% 8.9 % 02/05/2016 Cbc With Differential Ord2 [...] 2.91 K/ul 02/05/2016 Cbc With Differential Ord2 [place] ABS# 1.1 K/ul 02/05/2016 Cbc With Differential [...] No mental status change 12/22/2015 Psychiatric anxiety 050 04/2016 Psychiatric No depression 12/22/2015 Physical Exam [...] General 1995 Ears/Nose/Throat lips/teeth/gingiva Overall: benign lips 02/10/2018 None [...] 08/09/2018 INJECT TRIGGER POINT S 3/> CPT-4: 09235 08/09/2018 TRIAMCINOLONE ACET I [place] NOS CPT-4: J3301 03/01/2018 THER/PROPH/DIAG INJ SC/IM CPT-4: 10596 03/01/2018 DRAINAGE OF SKIN ABS CESS CPT-4: 47449 05/05/2016 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[address]: 071528569 CPT-4: G0436 12/22/2015 Vital Signs Date Vital 09/14/2018 Blood Pressure 1: 128/86 Code: 8480-6 BMI: 33.9 Code: 55959-7 Heart Rate 1: 128 bpm Height: 5'11" SpO2: 96% Temperature: 37.4 (C ) / 99.3 (F) Weight: 243 lbs 08/09/2018 Blood Pressure 1: 120/72 Code: 8480-6 Heart Rate 1: 90 bpm Height: SpO2: 98% Weight: 08/01/2018 Blood Pressure 1: 110/78 Code: 8480-6 BMI: 34.4 Code: 14029-9 Heart Rate 1: 109 bpm Height: 5'11" SpO2: 98% Weight: 247 lbs 03/01/2018 Blood Pressure 1: 120/80 Code: 8480-6 BMI: 32.9 Code: 55543-7 Heart Rate 1: 72 bpm Height: 5'11" SpO2: 96% Weight: 236 lbs 02/10/2018 Blood Pressure 1: 122/70 Code: 8480-6 BMI: 32.9 Code: 04544-6 Heart Rate 1: 90 bpm Height: 5'11" SpO2: 98% Weight: 236 lbs 12/12/2017 Blood Pressure 1: 124/72 Code: 8480-6 BMI: 35.0 Code: 07059-0 Heart Rate 1: 80 bpm Height: 5'11" SpO2: 96% Weight: 251 lbs 11/25/2017 Blood Pressure 1: 122/76 Code: 8480-6 BMI: 35.4 Code: 86017-5 Heart Rate 1: 74 bpm Height: 5'11" SpO2: 95% Weight: 254 lbs 03/02/2017 Blood Pressure 1: 120/70 Code: 8480-6 BMI: 33.8 Code: 66514-8 Heart Rate 1: 79 bpm Height: 5'11" SpO2: 99% Weight: 242 lbs 11/17/2016 Blood Pressure 1: 120/88 Code: 8480-6 BMI: 36.8 Code: 28896-1 Heart Rate 1: 104 bpm Height: 5'11" SpO2: 99% Weight: 264 lbs 09/27/2016 Blood Pressure 1: 122/78 Code: 8480-6 BMI: 34.6 Code: 85592-7 Heart Rate 1: 100 bpm Height: 5'11" SpO2: 96% Weight: 248 lbs 05/05/2016 Blood Pressure 1: 114/78 Code: 8480-6 BMI: 35.1 Code: 91836-2 Heart Rate 1: 81 bpm Height: 5'11" SpO2: 96% Weight: 252 lbs 03/08/2016 Blood Pressure 1: 120/64 Code: 8480-6 BMI: 34.3 Code: 36495-8 Heart Rate 1: 95 bpm Height: 5'11" SpO2: 97% Weight: 246 lbs 02/05/2016 Blood Pressure 1: 120/78 Code: 8480-6 BMI: 33.5 Code: 28433-7 Heart Rate 1: 104 bpm Height: 5'11" SpO2: 97% Weight: 240 lbs 12/22/2015 Blood Pressure 1: 120/82 Code: 8480-6 BMI: 34.3 Code: 91880-9 Heart Rate 1: 83 bpm Height: 5'11" [...] Encounters Encounter Performer Loca tion Codes Date ([id number]) 90152 EST. P ATIENT, LEVEL III Diagnosis: Acute laryngopharyngitis[ICD10: J06.0] Diagnosis: Fever, unspecified[ICD10: R50.9] Gavi Pereyra MD, [facility] CPT- 4: 65007 09/14/2018 [id number] EST. PATIENT, LEVEL III Diagnosis: Pain in left shoulder[ICD10: M25.512] Diagnosis: Muscle spasm of back[ICD10: M62.830] Miracle Pereyra MD, [facility] CPT- 4: 08000 08/09/2018 04714 EST. PATIENT, LEVEL III Diagnosis: Pain in left shoulder[ICD10: M25.512] Diagnosis: Muscle spasm of back[ICD10: M62.830] Miracle Pereyra MD, [facility] CPT- 4: 78935 08/01/2018 51208 EST. PATIENT, LEVEL III Diagnosis: Hidradenitis suppurativa[ICD10: L73.2] Miracle Pereyra MD, [facility] CPT-4: 07130 03/01/2018 82590 EST. 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 PATIENT, LEVEL IV Diagnosis: Generalized anxiety disorder[ICD10: F41.1] Diagnosis: Hidradenitis suppurativa[ICD10: L73.2] Miracle Pereyra MD, [facility] CPT-4: 30273 11/25/2017 14696 EST. PATIENT, LEVEL III Diagnosis: Hidradenitis suppurativa[ICD10: L73.2] Diagnosis: Generalized anxiety disorder[ICD10: F41.1] Miracle Pereyra MD, [facility] CPT-4: 93932 03/02/2017 93686 EST. PATIENT, LEVEL III Diagnosis: Cutaneous abscess of buttock[ICD10: L02.31] Miracle Pereyra MD, [facility] CPT-4: 30906 11/17/2016 53674 EST. PATIENT, LEVEL III Diagnosis: Cutaneous abscess of left axilla[ICD10: L02.412] Diagnosis: Pain in right hand[ICD10: M79.641] Miracle Pereyra MD, [facility] CPT-4: 26400 09/27/2016 74541 EST. PATIENT, LEVEL III Diagnosis: Cutaneous abscess of right lower limb[ICD10: L02.415] Diagnosis: Hidradenitis suppurativa[ICD10: L73.2] Miracle Pereyra MD, [facility] CPT-4: 67624 05/05/2016 03994 EST. PATIENT, LEVEL IV Diagnosis: Other otitis externa, right ear[ICD10: H60.8X1] Diagnosis: Cutaneous abscess of left axilla[ICD10: L02.412] Diagnosis: Other acute sinusitis[ICD10: J01.80] Miracle Pereyra MD, [facility] CPT- 4: 78166 03/08/2016 70017 EST. PATIENT, LEVEL III Diagnosis: Generalized anxiety disorder[ICD10: F41.1] Diagnosis: Acne vulgaris[ICD10: L70.0] Diagnosis: Plantar wart[ICD10: B07.0] Miracle Pereyra MD, [facility] CPT-4: 65255 02/05/2016 ([id number]) OFFICE VISI T [facility] - LEVEL 3 Diagnosis: Generalized anxiety disorder[ICD10: F41.1] Diagnosis: 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][ICD10: L30.1] Diagnosis: Acne vulgaris[ICD10: L70.0] Diagnosis: Other obesity due to excess calories[ICD10: E66.09] Miracle Pereyra MD, [facility] CPT-4: 50756 12/22/2015 Plan of Care Planned Activity Notes [...] for fever/discomfort. 09/14/2018 Appointment: Gavi Soria WPtel: [address] [place], [place] [phone] [place] (15 min) Moderate 09/14/2018 Patient Education: [...] process. 08/09/2018 Appointment: Miracle Gracia WPtel: [phone] [facility] [place] (30 min) Complex 08/09/2018 Patient Education: Patient Medication Summary Completed 08/09/2018 Visit Plan: Left shoulder pain, mus mishel spasm - will send RX - The pt is to use prn antiinflammatories to manage acute pain. The patient is to call the office if the pain is worsening or does not improve. 08/01/2018 App[phone] [facility] [place] (15 min) Moderate 08/01/2018 Patient Education: [...] no changes. 02/10/2018 Appointment: Miracle Gracia WPtel: [facility] (15 min) Moderate 02/10/2018 Patient [...] prescribed. 12/12/2017 Appointment: Miracle Gracia WPtel: [phone] [facility] (15 min) Moderate 12/12/2017 Patient Education: [...] concerns. 11/25/2017 Appointment: [facility] Gracia [phone] [facility] [place] (15 min) Moderate 11/25/2017 Patient Education: Patient Medication Summary Completed 11/25/2017 Visit Plan: Abscess/Cellulitis - Th e patient was instructed in appropriate wound care. The patient was instructed to use the antibiotic ointment as per RX. The patient is to call for any change in symptoms, increase in size of the lesion, increase in pain. 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 03/02/2017 Appointment: Miracle Gracia WPtel: [facility] [place] (30 min) Complex 03/02/2017 Patient Education: Patient Medication Summary Completed 03/02/2017 Patient Education: Smoking and Tobacco Addiction Completed 03/02/2017 Patient Education: Obesity Completed 03/02/2017 Appointment: Miracle Gracia WPtel: [facility] [place] (30 min) Complex 11/19/2016 Appointment: Miracle Gracia WPtel: [address] [place], [place] [address] [place] (15 min) Moderate 11/18/2016 Visit Plan: [...] Gracia WPtel: [facility] [place] (15 min) Moderate 11/17/2016 Patient Education: Patient Medication Summary Completed 11/17/2016 Patient Education: Smoking and Tobacco Addiction Completed 11/17/2016 Referral: Alberto Pearson Referral Initiated 09/30/2016 Care Plan: Referral Order SNOMED-CT : [id number] Pending 09/28/2016 Visit Plan: Abscess/Cellulitis - Re [...] Isaac. 09/27/2016 Appointment: [facility] Gracia [phone] [facility] (30 min) Complex 09/27/2016 Patient Education: Patient Medication Summary Completed 09/27/2016 Patient Education: Smoking and Tobacco Addiction Completed 09/27/2016 Care Plan: Referral Order SNOMED-CT : [id number] Pending 05/10/2016 Visit Plan: Abscess/Cellulitis - ri [...] pain. 05/05/2016 Appointment: G[facility] Soria [facility]Ptel[facility] [phone] [phone] (30 min) Complex 05/05/2016 Patient Education: [...] medications. 02/05/2016 Appointment: [facility] Gracia [facility]el[facility] [phone] 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 . Otitis Externa - p t [...]
--- OUTSIDE RECORDS SUMMARY | 2020-02-25 10:45 | XMS REPORT | CCD ---
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 Name Role Phone PP Unavailable CCM Unavailable Summary Purpose Interface Exchange Insurance Providers Payer name Policy type / Coverage type Covered constitution party ID Effective Begin Date Effective End Date [employer] Commercial Insurance [id number] Unknown Family history Mother Diagnosis Age At Onset Cancer Unknown Diabetes Unknown Social History Social History Element Codes Description Effective Dates Marital status Unknown M kelvin Bosch 09/14/[address]: 8184091 Former smoker Quit in October 2017 11/25/2017 Number of children Unknown 1 12/22/2015 Number of years using tobacco Unknown 5 - 10 12/22/2015 Number of cigarettes/day Unknown 10 (Half a pack) 12/22/2015 Alcohol history Unknown occasionally drinks alcohol 12/22/2015 Frequency of drinks SNOMED CT: 271567094 1-4 drinks per week 12/22/2015 Allergies, Adverse [...] Date Stop Date Sta tus Fill Instructions cefdinir 300 mg capsule RxNorm: 232107 1 Capsule(s) PO BID 09/14/2018 09/23/2018 Active Adderall 10 mg tablet RxNorm: 784609 1 Tablet(s) PO BID 09/07/2018 10/06/2018 Active Zithromax Z-Molina 250 mg tablet RxNorm: 139512 1 Tablet(s) PO UD 09/07/2018 09/11/2018 Inactive zpack as directed Zorvolex 18 mg capsule RxNorm: 6538852 1 Capsule(s) PO TID 08/10/2018 No Stop Date Active tramadol 50 mg tablet RxNorm: 120106 1 Tablet(s) PO QID as needed 08/09/2018 08/18/2018 Inactive baclofen 10 mg tablet RxNorm: 542605 1 Tablet(s) PO TID as needed muscle spas ms 08/09/2018 08/13/2018 In active baclofen 10 mg tablet RxNorm: 286808 1 Tablet(s) PO TID as needed muscle spas ms 08/01/2018 08/05/2018 In active prednisone 20 mg tablet RxNorm: 277532 3 Tablet(s) PO daily 08/01/2018 08/05/2018 Inactive diazepam 2 mg tablet RxNorm: 763114 Tablet(s) TAKE 1/2 TABLET BY MOUTH TWICE DAILY NEEDED FOR ANXIETY 07/21/2018 08/19/2018 Inactive Adderall 10 mg tablet RxNorm: 428633 1 Tablet(s) PO BID 07/14/2018 08/12/2018 Inactive Adderall 10 mg tablet RxNorm: 750298 1 Tablet(s) PO BID 05/26/2018 06/24/2018 Inactive Adderall 10 mg tablet RxNorm: 120076 1 Tablet(s) PO BID 04/28/2018 05/25/2018 Inactive Adderall 5 mg tablet RxNorm: 485717 1 Tablet(s) PO QAM as needed 04/04/2018 04/27/2018 Inactive diazepam 2 mg tablet RxNorm: 838143 Tablet(s) TAKE 1/2 TABLET BY MOUTH TWICE DAILY NEEDED FOR ANXIETY 04/04/2018 05/02/2018 Inactive Adderall XR 20 mg ca psule,extended release RxNorm: 771998 1 Capsule(s) PO daily 03/13/2018 04/03/2018 In active Kenalog 40 mg/mL rodrigo pension for injection RxNorm: 7527790 1 Milliliter(s) Inj 03/01/2018 03/01/2018 In active Adderall 5 mg tablet RxNorm: 264786 1 Tablet(s) PO QAM as needed 02/13/2018 03/14/2018 Inactive Adderall XR 20 mg ca psule,extended release RxNorm: 640605 1 Capsule(s) PO daily 02/13/2018 03/12/2018 In active prednisone 20 mg tablet RxNorm: 088374 2 Tablet(s) PO daily 02/10/2018 02/14/2018 Inactive Bactrim DS 800 mg-16 0 mg tablet RxNorm: 463852 1 Tablet(s) PO BID 01/16/2018 02/04/2018 Inactive Adderall 5 mg tablet RxNorm: 638208 2 Tablet(s) PO QAM and 1 PO QPM 01/16/2018 02/12/2018 In active Bactrim DS 800 mg-16 0 mg tablet RxNorm: 890587 1 Tablet(s) PO BID 01/04/2018 01/15/2018 Inactive Adderall 5 mg tablet RxNorm: 855263 2 Tablet(s) PO QAM and 1 PO QPM 12/13/2017 01/11/2018 In active Zithromax Z-Molina 250 mg tablet RxNorm: 117198 1 Tablet(s) PO UD 11/25/2017 03/12/2018 Inactive diazepam 2 mg tablet RxNorm: 994265 Tablet(s) TAKE 1/2 TABLET BY MOUTH TWICE DAILY NEEDED FOR ANXIETY 11/18/2017 12/17/2017 Inactive diazepam 2 mg tablet RxNorm: 362196 Tablet(s) TAKE 1/2 TABLET BY MOUTH TWICE DAILY NEEDED FOR ANXIETY 08/30/2017 10/28/2017 Inactive diazepam 2 mg tablet RxNorm: 394860 Tablet(s) TAKE 1/2 TABLET BY MOUTH TWICE DAILY NEEDED FOR ANXIETY 07/19/2017 08/29/2017 Inactive diazepam 2 mg tablet RxNorm: 961681 TAKE 1/2 TABLET BY MOUTH TWICE DAILY NEEDED FOR ANXIETY 07/15/2017 07/18/2017 Inactive Bactrim DS 800 mg-16 0 mg tablet RxNorm: 533069 1 Tablet(s) PO BID 06/01/2017 06/20/2017 Inactive diazepam 2 mg tablet RxNorm: 715942 1/2 Tablet(s) PO BID as needed anxiety 06/01/2017 06/29/2017 In active tramadol 50 mg tablet RxNorm: 977062 1 Tablet(s) PO QID as needed 04/14/2017 04/23/2017 Inactive Bactrim DS 800 mg-16 0 mg tablet RxNorm: 143860 1 Tablet(s) PO BID 04/14/2017 05/03/2017 Inactive diazepam 2 mg tablet RxNorm: 234738 1/2 Tablet(s) PO BID as needed anxiety 03/02/2017 04/30/2017 In active Zithromax Z-Molina 250 mg tablet RxNorm: 100392 1 Tablet(s) PO UD 03/02/2017 07/18/2017 Inactive Bactrim DS 800 mg-16 0 mg tablet RxNorm: 926775 1 Tablet(s) PO BID 03/01/2017 03/20/2017 Inactive diazepam 2 mg tablet RxNorm: 713731 1/2 Tablet(s) PO BID as needed anxiety 01/21/2017 02/19/2017 In active Bactrim DS 800 mg-16 0 mg tablet RxNorm: 983625 1 Tablet(s) PO BID 01/21/2017 01/30/2017 Inactive Bactrim DS 800 mg-16 0 mg tablet RxNorm: 645710 1 Tablet(s) PO BID 11/17/2016 11/26/2016 Inactive diazepam 2 mg tablet RxNorm: 625742 1/2 Tablet(s) PO BID as needed anxiety 11/12/2016 01/10/2017 In active diazepam 2 mg tablet RxNorm: 677435 1/2 Tablet(s) PO BID as needed anxiety 10/18/2016 12/14/2016 In active Zithromax Z-Molina 250 mg tablet RxNorm: 387805 1 Tablet(s) PO UD 09/27/2016 03/01/2017 Inactive diazepam 2 mg tablet RxNorm: 512649 1/2 Tablet(s) PO BID as needed anxiety 09/13/2016 11/11/2016 In active diazepam 2 mg tablet RxNorm: 891610 1/2 Tablet(s) PO BID as needed anxiety 07/07/2016 09/17/2016 In active Levaquin 500 mg tablet RxNorm: 264025 1 Tablet(s) PO daily 06/01/2016 05/31/2016 Inactive Levaquin 500 mg tablet RxNorm: 235315 1 Tablet(s) PO daily 06/01/2016 06/07/2016 Inactive Levaquin 500 mg tablet RxNorm: 022986 1 Tablet(s) PO daily 05/05/2016 05/04/2016 Inactive Levaquin 500 mg tablet RxNorm: 903363 1 Tablet(s) PO daily 05/05/2016 05/11/2016 Inactive minocycline 100 mg c apsule RxNorm: 092050 1 CAPSULE(S) PO BID W HEN NOT HAVING ACUTE FLARE DECREASE TO ONCE DAILY 04/21/2016 05/20/2016 Inactive Ciprodex 0.3 %-0.1 % ear drops,suspension RxNorm: 425219 4 Drop(s) OTIC BID 03/08/2016 03/14/2016 In active Zithromax Z-Molina 250 mg tablet RxNorm: 605331 Tablet(s) PO 03/08/2016 09/26/2016 Inactive diazepam 2 mg tablet RxNorm: 351668 1/2 Tablet(s) PO BID as needed anxiety 2016 04/18/2016 In active mupirocin 2 % topica l ointment RxNorm: 263255 1 Application TOP BID 02/05/2016 No Stop Date Active minocycline 100 mg c apsule RxNorm: 535574 1 Capsule(s) PO BID w hen not having acute flare decrease to once daily 02/05/2016 03/05/2016 Inactive Bactrim DS 800 mg-16 0 mg tablet RxNorm: 662689 1 Tablet(s) PO BID 02/05/2016 02/18/2016 Inactive diazepam 2 mg tablet RxNorm: 386006 1/2 Tablet(s) PO BID as needed anxiety 02/05/2016 02/05/2016 In active betamethasone alberto te 0.1 % topical cream RxNorm: 049629 1 Application TOP BID as needed rash 12/22/2015 No Stop Date Active minocycline 100 mg c apsule RxNorm: 808224 1 Capsule(s) PO BID w hen not having acute flare decrease to once daily 12/22/2015 01/20/2016 Inactive Medication Administered Medication Codes Instruc tions Start Date Status Kenalog 40 mg/mL suspension for injection RxNorm: 7617671 1Milliliter 03/01/2018 N o longer Active Immunizations No Immunization data Assessments Condition Codes Effectiv e Dates Acute laryngopharyngitis ICD-10: J06 .0 ICD-9: 465.0 09/14/2018 Fever, unspecified ICD-10: R50.9 ICD-9: 780.60 09/14/2018 Muscle spasm of back ICD-10: M62.830 ICD-9: 724.8 08/09/2018 Pain in left shoulder ICD-10: M25.51 2 ICD-9: 719.41 08/09/2018 Hidradenitis suppurativa ICD-10: L73 .2 ICD-9: 705.83 03/01/2018 Generalized anxiety disorder ICD-10: F41.1 ICD-9: 300.02 02/10/2018 Attention-deficit hyperactivity disorder , 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 ICD-9: 314.01 02/10/2018 Cutaneous abscess of buttock ICD-10: L02.31 ICD-9: 682.5 11/17/2016 Pain in right hand ICD-10: M79.641 ICD-9: 729.5 09/27/2016 Cutaneous abscess of left axilla ICD -10: L02.412 ICD-9: 682.3 09/27/2016 Cutaneous abscess of right lower limb ICD-10: L02.415 ICD-9: 682.6 05/05/2016 Other otitis externa, right ear ICD- 10: H60.8X1 ICD-9: 380.22 03/08/2016 Other acute sinusitis ICD-10: J01.80 ICD-9: 461.8 03/08/2016 Plantar wart ICD-10: B07.0 ICD-9: 078.12 02/05/2016 Acne vulgaris ICD-10: L70.0 ICD-9: 706.1 02/05/2016 Other obesity due to excess calories [...] Code Item Item Code Result Date C A/B FLU 2900343 Influe nza A Scr Negative 09/14/2018 C A/B FLU 4208660 Influe nza B Scr Negative 09/14/2018 C A/B FLU 7598948 Influe nza Intrp B AG:PRID:PT:NOSE:NOM:IF See Footnote 09/14/2018 C RAP A SC 0847417 Strep A Negative 09/14/2018 Tsh Ord6 hTSH II 1.82 uIU/mL 02/05/2016 Cbc With Differential Ord2 WBC 12.43 K/ul 02/05/2016 Cbc With Differential Ord2 RBC 5.41 M/ul 02/05/2016 Cbc With Differential Ord2 HGB 16.4 g/dl 02/05/2016 Cbc With Differential Ord2 Neut% 66.4 % 02/05/2016 Cbc With Differential Ord2 HCT 50.0 % 02/05/2016 Cbc With Differential Ord2 Lymph% 23.4 % 02/05/2016 Cbc With Differential Ord2 MCV 92.4 fl 02/05/2016 Cbc With Differential Ord2 MCH 30.3 pg 02/05/2016 Cbc With Differential Ord2 Evangeline% 8.9 % 02/05/2016 Cbc With Differential Ord2 [...] 2.91 K/ul 02/05/2016 Cbc With Differential Ord2 Evangeline ABS# 1.1 K/ul 02/05/2016 Cbc With Differential Ord2 Eos ABS# 0.1 K/ul 02/05/2016 Cbc With Differential Ord2 Baso ABS# 0.0 K/ul 02/05/2016 Comp Metabolic Xay634 NA 139 mEq/L 02/05/2016 Comp Metabolic Wko808 K 4.2 mEq/L 02/05/2016 Comp Metabolic Rrw690 CL 103 mEq/L 02/05/2016 Comp Metabolic Vmd126 CO2 29.0 mEq/L 02/05/2016 Comp Metabolic Uyb921 AN ION GAP 11 02/05/2016 Comp Metabolic Uxt651 GL UCOSE 71 mg/dL 02/05/2016 Comp Metabolic Isw528 Cr eat 0.9 mg/dL 02/05/2016 Comp Metabolic Fpx668 eG FR 101 ml/min/1.73m2 01/14 Comp Metabolic Dvq261 BUN 17 mg/dL 02/05/2016 Comp Metabolic Xed314 B/ C Ratio 18.5 Ratio 02/05/2016 Comp Metabolic Yym782 CA LCIUM 9.4 mg/dL 02/05/2016 Comp Metabolic Aqa604 AL K PHOS 63 U/L 02/05/2016 Comp Metabolic Agm187 T(SGOT) 30 U/L 02/05/2016 Comp Metabolic Blv217 AL T(SGPT) 40 U/L 02/05/2016 Comp Metabolic Rqg818 BI LI T 0.5 mg/dL 02/05/2016 Comp Metabolic Xsj552 AL BUMIN 4.2 g/dL 02/05/2016 Comp Metabolic Kdg299 TP RO 7.2 g/dL 02/05/2016 Comp Metabolic Bxl728 GL OB 3.0 g/dL 02/05/2016 Comp Metabolic Scd259 A/ G Ratio 1.4 Ratio 02/05/2016 Comp Metabolic Mwr487 Os mo 278 mOsmo 02/05/2016 Review of Systems System Result Effective [...] No mental status change 02/10/2018 Psychiatric anxiety 06/04/2018 Constitutional No recent illness 12/12/2017 Constitutional No [...] No mental status change 03/08/2016 Psychiatric anxiety 2 12/2015 Psychiatric No depression 03/08/2016 Constitutional recent illness [...] 08/09/2018 INJECT TRIGGER POINT S 3/> CPT-4: 86435 08/09/2018 TRIAMCINOLONE ACET I [place] NOS CPT-4: J3301 03/01/2018 THER/PROPH/DIAG INJ SC/IM CPT-4: 99022 03/01/2018 DRAINAGE OF SKIN ABS CESS CPT-4: 42826 05/05/2016 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 3-[address]: 231078050 CPT-4: G0436 12/22/2015 Vital Signs Date Vital 09/14/2018 Blood Pressure 1: 128/86 Code: 8480-6 BMI: 33.9 Code: 31678-0 Heart Rate 1: 128 bpm Height: 5'11" SpO2: 96% Temperature: 37.4 (C ) / 99.3 (F) Weight: 243 lbs 08/09/2018 Blood Pressure 1: 120/72 Code: 8480-6 Heart Rate 1: 90 bpm Height: SpO2: 98% Weight: 08/01/2018 Blood Pressure 1: 110/78 Code: 8480-6 BMI: 34.4 Code: 80162-8 Heart Rate 1: 109 bpm Height: 5'11" SpO2: 98% Weight: 247 lbs 03/01/2018 Blood Pressure 1: 120/80 Code: 8480-6 BMI: 32.9 Code: 76118-4 Heart Rate 1: 72 bpm Height: 5'11" SpO2: 96% Weight: 236 lbs 02/10/2018 Blood Pressure 1: 122/70 Code: 8480-6 BMI: 32.9 Code: 47011-8 Heart Rate 1: 90 bpm Height: 5'11" SpO2: 98% Weight: 236 lbs 12/12/2017 Blood Pressure 1: 124/72 Code: 8480-6 BMI: 35.0 Code: 93294-3 Heart Rate 1: 80 bpm Height: 5'11" SpO2: 96% Weight: 251 lbs 11/25/2017 Blood Pressure 1: 122/76 Code: 8480-6 BMI: 35.4 Code: 34012-3 Heart Rate 1: 74 bpm Height: 5'11" SpO2: 95% Weight: 254 lbs 03/02/2017 Blood Pressure 1: 120/70 Code: 8480-6 BMI: 33.8 Code: 98435-3 Heart Rate 1: 79 bpm Height: 5'11" SpO2: 99% Weight: 242 lbs 11/17/2016 Blood Pressure 1: 120/88 Code: 8480-6 BMI: 36.8 Code: 95885-8 Heart Rate 1: 104 bpm Height: 5'11" SpO2: 99% Weight: 264 lbs 09/27/2016 Blood Pressure 1: 122/78 Code: 8480-6 BMI: 34.6 Code: 43027-6 Heart Rate 1: 100 bpm Height: 5'11" SpO2: 96% Weight: 248 lbs 05/05/2016 Blood Pressure 1: 114/78 Code: 8480-6 BMI: 35.1 Code: 50247-1 Heart Rate 1: 81 bpm Height: 5'11" SpO2: 96% Weight: 252 lbs 03/08/2016 Blood Pressure 1: 120/64 Code: 8480-6 BMI: 34.3 Code: 14572-7 Heart Rate 1: 95 bpm Height: 5'11" SpO2: 97% Weight: 246 lbs 02/05/2016 Blood Pressure 1: 120/78 Code: 8480-6 BMI: 33.5 Code: 91988-5 Heart Rate 1: 104 bpm Height: 5'11" SpO2: 97% Weight: 240 lbs 12/22/2015 Blood Pressure 1: 120/82 Code: 8480-6 BMI: 34.3 Code: 32742-2 Heart Rate 1: 83 bpm Height: 5'11" [...] Encounters Encounter Performer Loca tion Codes Date ([id number]) [id number] EST. P ATIENT, LEVEL III Diagnosis: Acute laryngopharyngitis[ICD10: J06.0] Diagnosis: Fever, unspecified[ICD10: R50.9] [facility] CPT- 4: 81940 09/14/2018 [id number] EST. PATIENT, LEVEL III Diagnosis: Pain in left shoulder[ICD10: M25.512] Diagnosis: Muscle spasm of back[ICD10: M62.830] [facility] CPT- 4: 08819 08/09/2018 [id number] EST. PATIENT, LEVEL III Diagnosis: Pain in left shoulder[ICD10: M25.512] Diagnosis: Muscle spasm of back[ICD10: M62.830] Miracle Pereyra MD, [facility] CPT- 4: 56801 08/01/2018 65082 EST. PATIENT, LEVEL III Diagnosis: Hidradenitis suppurativa[ICD10: L73.2] [facility] Pe[facility]ra MD, [facility] CPT-4: 47985 03/01/2018 81879 EST. PATIENT, LEVEL III Diagnosis: Attention-deficit hyperactivity disorder, predominantly inattentive type[ICD10: F90.0] Diagnosis: Hidradenitis suppurativa[ICD10: L73.2] Diagnosis: Generalized anxiety disorder[ICD10: F41.1] Miracle Pereyra MD, [facility] CPT-4: 21386 02/10/2018 06809 EST. PATIENT, LEVEL IV Diagnosis: Attention-deficit hyperactivity disorder, predominantly inattentive type[ICD10: F90.0] Diagnosis: Generalized anxiety disorder[ICD10: F41.1] Miracle Pereyra MD, [facility] CPT-4: 60008 12/12/2017 98146 EST. PATIENT, LEVEL IV Diagnosis: Generalized anxiety disorder[ICD10: F41.1] Diagnosis: Hidradenitis suppurativa[ICD10: L73.2] Miracle Pereyra MD, [facility] CPT-4: 50133 11/25/2017 22774 EST. PATIENT, LEVEL III Diagnosis: Hidradenitis suppurativa[ICD10: L73.2] Diagnosis: Generalized anxiety disorder[ICD10: F41.1] Miracle Pereyra MD, [facility] CPT-4: 60439 03/02/2017 32558 EST. PATIENT, LEVEL III Diagnosis: Cutaneous abscess of buttock[ICD10: L02.31] Miracle Pereyra MD, [facility] CPT-4: 77683 11/17/2016 61878 EST. PATIENT, LEVEL III Diagnosis: Cutaneous abscess of left axilla[ICD10: L02.412] Diagnosis: Pain in right hand[ICD10: M79.641] Miracle Pereyra MD, [facility] CPT-4: 19865 09/27/2016 61370 EST. PATIENT, LEVEL III Diagnosis: Cutaneous abscess of right lower limb[ICD10: L02.415] Diagnosis: Hidradenitis suppurativa[ICD10: L73.2] Miracle Pereyra MD, [facility] CPT-4: 84938 05/05/2016 94476 EST. PATIENT, LEVEL IV Diagnosis: Other otitis externa, right ear[ICD10: H60.8X1] Diagnosis: Cutaneous abscess of left axilla[ICD10: L02.412] Diagnosis: Other acute sinusitis[ICD10: J01.80] [facility] CPT- 4: 89029 03/08/2016 57441 EST. PATIENT, LEVEL III Diagnosis: Generalized anxiety disorder[ICD10: F41.1] Diagnosis: Acne vulgaris[ICD10: L70.0] Diagnosis: Plantar wart[ICD10: B07.0] [facility] CPT-4: 86594 02/05/2016 ([id number]) OFFICE NAPOLEON CAMACHO - LEVEL 3 Diagnosis: Generalized anxiety disorder[ICD10: F41.1] Diagnosis: 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][ICD10: L30.1] Diagnosis: Acne vulgaris[ICD10: L70.0] Diagnosis: Other obesity due to excess calories[ICD10: E66.09] Miracle Pereyra MD, [facility] CPT-4: 34454 12/22/2015 Plan of Care Planned Activity Notes [...] for fever/discomfort. 09/14/2018 Appointment: Gavi Soria WPtel: [address] [place], [place] [phone] (15 min) Moderate 09/14/2018 Patient Education: Patient [...] disease process. 08/09/2018 [facility]ment[facility] [phone] [facility] [place] (30 min) Complex 08/09/2018 Patient Education: Patient Medication Summary Completed 08/09/2018 Visit Plan: Left shoulder pain, mus mishel spasm - will send RX - The pt is to use prn antiinflammatories to manage acute pain. The patient is to call the office if the pain is worsening or does not improve. 08/01/2018 Appointment: [facility] [phone] [facility] [place] (15 min) Moderate 08/01/2018 Patient [...] changes. 02/10/2018 Appointment: Miracle Gracia WPtel: [phone] [facility] (15 min) Moderate 02/10/2018 Patient Education: [...] Miracle Gracia WPtel: [facility]5 [facility] (15 min) Moderate 12/12/2017 Patient Education: Patient [...] or concerns. 11/25/2017 Appointment: Miracle Gracia WPtel: [facility]0 [facility] (15 min) Moderate 11/25/2017 Patient Education: Patient Medication Summary Completed 11/25/2017 Visit Plan: Abscess/Cellulitis - Th e patient was instructed in appropriate wound care. The patient was instructed to use the antibiotic ointment as per RX. The patient is to call for any change in symptoms, increase in size of the lesion, increase in pain. 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 03/02/2017 Appointment: Miracle Gracia WPtel: [address] [place], [place] [phone] (30 min) Complex 03/02/2017 Patient Education: Patient Medication Summary Completed 03/02/2017 Patient Education: Smoking and Tobacco Addiction Completed 03/02/2017 Patient Education: Obesity Completed 03/02/2017 Appointment: Miracle Gracia WPtel: [address] [place], [place] [phone] [place] (30 min) Complex 11/19/2016 Appointment: Miracle Gracia WPtel: [address] [place], [place] [address] (15 min) Moderate 11/18/2016 Visit Plan: Abscess/Cellulitis - Th e patient was instructed in appropriate wound care. The patient was instructed to use the antibiotic ointment as per RX. The patient is to call for any change in symptoms, increase in size of the lesion, increase in pain. Pt is to return tomorrow for I&D if needed. 11/17/2016 Appointment: Miracle Gracia WPtel: [address] [place], [place] [address] (15 min) Moderate 11/17/2016 Patient Education: Patient Medication Summary Completed 11/17/2016 Patient Education: Smoking and Tobacco Addiction Completed 11/17/2016 Referral: Alberto Pearson Referral Initiated 09/30/2016 Care Plan: Referral Order SNOMED-CT : 675960428 Pending 09/28/2016 Visit Plan: Abscess/Cellulitis - Re [...] Isaac. 09/27/2016 [facility]ment[facility] [phone] [facility] (30 min) Complex 09/27/2016 Patient Education: Patient Medication Summary Completed 09/27/2016 Patient Education: Smoking and Tobacco Addiction Completed 09/27/2016 Care Plan: Referral Order SNOMED-CT : 251551102 Pending 05/10/2016 Visit Plan: Abscess/Cellulitis - ri [...] pain. 05/05/2016 Appointment: [facility] [phone] [phone] (30 min) Complex 05/05/2016 Patient Education: [...] medications. 02/05/2016 Appointment: [facility]acia [facility] [phone] [facility] (30 min) Complex 02/05/2016 Patient Education: [...] 12/22/2015 Referral: Alberto Pearson Referral Initiated Referral: [facility] WPtel: Referral Completed Referral: [facility] WPtel: will call with appt time Initiated [...] Pt is to discuss methotrexate with his meat cutter. . Otitis Externa - p t given [...]
--- OUTSIDE RECORDS SUMMARY | 2020-02-25 10:46 | XMS REPORT | CCD ---
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 Role Phone PP Unavailable CCM Unavailable Summary Purpose Interface Exchange Insurance Providers Payer name Policy type / Coverage type Covered green party ID Effective Begin Date Effective End Date [employer] Commercial Insurance [id number] Unknown Family history Mother Diagnosis Age At Onset Cancer Unknown Diabetes Unknown Social History Social History Element Codes Description Effective Dates Marital status Unknown M kelvin Bosch 09/14/[address]: 2784080 Former smoker Quit in October 2017 11/25/2017 Number of children Unknown 1 12/22/2015 Number of years using tobacco Unknown 5 - 10 12/22/2015 Number of cigarettes/day Unknown 10 (Half a pack) 12/22/2015 Alcohol history Unknown occasionally drinks alcohol 12/22/2015 Frequency of drinks SNOMED CT: 148697852 1-4 drinks per week 12/22/2015 Allergies, Adverse [...] Fill Instructions cefdinir 300 mg capsule RxNorm: 461515 1 Capsule(s) PO BID 09/14/2018 09/23/2018 Active Adderall 10 mg tablet RxNorm: 665371 1 Tablet(s) PO BID 09/07/2018 10/06/2018 Active Zithromax Z-Molina 250 mg tablet RxNorm: 248618 1 Tablet(s) PO UD 09/07/2018 09/11/2018 Inactive zpack as directed Zorvolex 18 mg capsule RxNorm: 5343880 1 Capsule(s) PO TID 08/10/2018 No Stop Date Active tramadol 50 mg tablet RxNorm: 107892 1 Tablet(s) PO QID as needed 08/09/2018 08/18/2018 Inactive baclofen 10 mg tablet RxNorm: 013114 1 Tablet(s) PO TID as needed muscle spas ms 08/09/2018 08/13/2018 In active baclofen 10 mg tablet RxNorm: 214712 1 Tablet(s) PO TID as needed muscle spas ms 08/01/2018 08/05/2018 In active prednisone 20 mg tablet RxNorm: 796929 3 Tablet(s) PO daily 08/01/2018 08/05/2018 Inactive diazepam 2 mg tablet RxNorm: 853973 Tablet(s) TAKE 1/2 TABLET BY MOUTH TWICE DAILY NEEDED FOR ANXIETY 07/21/2018 08/19/2018 Inactive Adderall 10 mg tablet RxNorm: 236796 1 Tablet(s) PO BID 07/14/2018 08/12/2018 Inactive Adderall 10 mg tablet RxNorm: 766460 1 Tablet(s) PO BID 05/26/2018 06/24/2018 Inactive Adderall 10 mg tablet RxNorm: 688787 1 Tablet(s) PO BID 04/28/2018 05/25/2018 Inactive Adderall 5 mg tablet RxNorm: 447940 1 Tablet(s) PO QAM as needed 04/04/2018 04/27/2018 Inactive diazepam 2 mg tablet RxNorm: 530227 Tablet(s) TAKE 1/2 TABLET BY MOUTH TWICE DAILY NEEDED FOR ANXIETY 04/04/2018 05/02/2018 Inactive Adderall XR 20 mg ca psule,extended release RxNorm: 397955 1 Capsule(s) PO daily 03/13/2018 04/03/2018 In active Kenalog 40 mg/mL rodrigo pension for injection RxNorm: 1637694 1 Milliliter(s) Inj 03/01/2018 03/01/2018 In active Adderall 5 mg tablet RxNorm: 283896 1 Tablet(s) PO QAM as needed 02/13/2018 03/14/2018 Inactive Adderall XR 20 mg ca psule,extended release RxNorm: 064345 1 Capsule(s) PO daily 02/13/2018 03/12/2018 In active prednisone 20 mg tablet RxNorm: 159707 2 Tablet(s) PO daily 02/10/2018 02/14/2018 Inactive Bactrim DS 800 mg-16 0 mg tablet RxNorm: 130634 1 Tablet(s) PO BID 01/16/2018 02/04/2018 Inactive Adderall 5 mg tablet RxNorm: 105179 2 Tablet(s) PO QAM and 1 PO QPM 01/16/2018 02/12/2018 In active Bactrim DS 800 mg-16 0 mg tablet RxNorm: 687460 1 Tablet(s) PO BID 01/04/2018 01/15/2018 Inactive Adderall 5 mg tablet RxNorm: 509373 2 Tablet(s) PO QAM and 1 PO QPM 12/13/2017 01/11/2018 In active Zithromax Z-Molina 250 mg tablet RxNorm: 642170 1 Tablet(s) PO UD 11/25/2017 03/12/2018 Inactive diazepam 2 mg tablet RxNorm: 124141 Tablet(s) TAKE 1/2 TABLET BY MOUTH TWICE DAILY NEEDED FOR ANXIETY 11/18/2017 12/17/2017 Inactive diazepam 2 mg tablet RxNorm: 999626 Tablet(s) TAKE 1/2 TABLET BY MOUTH TWICE DAILY NEEDED FOR ANXIETY 08/30/2017 10/28/2017 Inactive diazepam 2 mg tablet RxNorm: 170468 Tablet(s) TAKE 1/2 TABLET BY MOUTH TWICE DAILY NEEDED FOR ANXIETY 07/19/2017 08/29/2017 Inactive diazepam 2 mg tablet RxNorm: 746474 TAKE 1/2 TABLET BY MOUTH TWICE DAILY NEEDED FOR ANXIETY 07/15/2017 07/18/2017 Inactive Bactrim DS 800 mg-16 0 mg tablet RxNorm: 527356 1 Tablet(s) PO BID 06/01/2017 06/20/2017 Inactive diazepam 2 mg tablet RxNorm: 680402 1/2 Tablet(s) PO BID as needed anxiety 06/01/2017 06/29/2017 In active tramadol 50 mg tablet RxNorm: 663242 1 Tablet(s) PO QID as needed 04/14/2017 04/23/2017 Inactive Bactrim DS 800 mg-16 0 mg tablet RxNorm: 440752 1 Tablet(s) PO BID 04/14/2017 05/03/2017 Inactive diazepam 2 mg tablet RxNorm: 536112 1/2 Tablet(s) PO BID as needed anxiety 03/02/2017 04/30/2017 In active Zithromax Z-Molina 250 mg tablet RxNorm: 121155 1 Tablet(s) PO UD 03/02/2017 07/18/2017 Inactive Bactrim DS 800 mg-16 0 mg tablet RxNorm: 670053 1 Tablet(s) PO BID 03/01/2017 03/20/2017 Inactive diazepam 2 mg tablet RxNorm: 520620 1/2 Tablet(s) PO BID as needed anxiety 01/21/2017 02/19/2017 In active Bactrim DS 800 mg-16 0 mg tablet RxNorm: 938909 1 Tablet(s) PO BID 01/21/2017 01/30/2017 Inactive Bactrim DS 800 mg-16 0 mg tablet RxNorm: 358674 1 Tablet(s) PO BID 11/17/2016 11/26/2016 Inactive diazepam 2 mg tablet RxNorm: 481125 1/2 Tablet(s) PO BID as needed anxiety 11/12/2016 01/10/2017 In active diazepam 2 mg tablet RxNorm: 662701 1/2 Tablet(s) PO BID as needed anxiety 10/18/2016 12/14/2016 In active Zithromax Z-Molina 250 mg tablet RxNorm: 166446 1 Tablet(s) PO UD 09/27/2016 03/01/2017 Inactive diazepam 2 mg tablet RxNorm: 186300 1/2 Tablet(s) PO BID as needed anxiety 09/13/2016 11/11/2016 In active diazepam 2 mg tablet RxNorm: 471304 1/2 Tablet(s) PO BID as needed anxiety 07/07/2016 09/17/2016 In active Levaquin 500 mg tablet RxNorm: 104304 1 Tablet(s) PO daily 06/01/2016 05/31/2016 Inactive Levaquin 500 mg tablet RxNorm: 897280 1 Tablet(s) PO daily 06/01/2016 06/07/2016 Inactive Levaquin 500 mg tablet RxNorm: 136856 1 Tablet(s) PO daily 05/05/2016 05/04/2016 Inactive Levaquin 500 mg tablet RxNorm: 296218 1 Tablet(s) PO daily 05/05/2016 05/11/2016 Inactive minocycline 100 mg c apsule RxNorm: 911159 1 CAPSULE(S) PO BID W HEN NOT HAVING ACUTE FLARE DECREASE TO ONCE DAILY 04/21/2016 05/20/2016 Inactive Ciprodex 0.3 %-0.1 % ear drops,suspension RxNorm: 455364 4 Drop(s) OTIC BID 03/08/2016 03/14/2016 In active Zithromax Z-Molina 250 mg tablet RxNorm: 054055 Tablet(s) PO 03/08/2016 09/26/2016 Inactive diazepam 2 mg tablet RxNorm: 038676 1/2 Tablet(s) PO BID as needed anxiety 2016 04/18/2016 In active mupirocin 2 % topica l ointment RxNorm: 936563 1 Application TOP BID 02/05/2016 No Stop Date Active minocycline 100 mg c apsule RxNorm: 563427 1 Capsule(s) PO BID w hen not having acute flare decrease to once daily 02/05/2016 03/05/2016 Inactive Bactrim DS 800 mg-16 0 mg tablet RxNorm: 931428 1 Tablet(s) PO BID 02/05/2016 02/18/2016 Inactive diazepam 2 mg tablet RxNorm: 979989 1/2 Tablet(s) PO BID as needed anxiety 02/05/2016 02/05/2016 In active betamethasone alberto te 0.1 % topical cream RxNorm: 137554 1 Application TOP BID as needed rash 12/22/2015 No Stop Date Active minocycline 100 mg c apsule RxNorm: 411539 1 Capsule(s) PO BID w hen not having acute flare decrease to once daily 12/22/2015 01/20/2016 Inactive Medication Administered Medication Codes Instruc tions Start Date Status Kenalog 40 mg/mL suspension for injection RxNorm: 0860490 1Milliliter 03/01/2018 N o longer Active Immunizations [...] limb ICD-10: L02.415 ICD-9: 682.6 05/05/2016 Other acute sinusitis ICD-10: J01.80 ICD-9: 461.8 03/08/2016 Other otitis externa, right ear ICD- 10: H60.8X1 ICD-9: 380.22 03/08/2016 Acne vulgaris ICD-10: L70.0 ICD-9: 706.1 02/05/2016 Plantar wart ICD-10: B07.0 ICD-9: 078.12 02/05/2016 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] ICD-10: L30. 1 ICD-9: 705.81 12/22/2015 Other obesity due to excess calories ICD-10: E66.09 ICD-9: 278.00 12/22/2015 Reason For Visit Reason For Visit Effective Dates Notes sore throat 09/14/2018 shoulder pain 08/09/2018 shoulder pain 08/01/2018 medication follow up 03/01/2018 medication follow up 02/10/2018 anxiety 12/12/2017 diaze mere anxiety 11/25/2017 emerson mere skin lesion 03/02/2017 skin lesion 11/17/2016 skin lesion 09/27/2016 skin lesion 05/05/2016 earache 03/08/2016 anxiety 02/05/2016 anxiety 12/22/2015 Results Observation Observation Code Item Item Code Result Date C RAP A SC 5924159 Strep A Negative 09/14/2018 C A/B FLU 1546217 Influe nza A Scr Negative 09/14/2018 C A/B FLU 5709899 Influe nza B Scr Negative 09/14/2018 C A/B FLU 6731856 Influe nza Intrp B AG:PRID:PT:NOSE:NOM:IF See Footnote 09/14/2018 Tsh Ord6 hTSH II 1.82 uIU/mL 02/05/2016 Comp Metabolic Ipj717 NA 139 mEq/L 02/05/2016 Comp Metabolic Szx752 K 4.2 mEq/L 02/05/2016 Comp Metabolic Uap546 CL 103 mEq/L 02/05/2016 Comp Metabolic Jkp350 CO2 29.0 mEq/L 02/05/2016 Comp Metabolic Gom988 AN ION GAP 11 02/05/2016 Comp Metabolic Yib354 GL UCOSE 71 mg/dL 02/05/2016 Comp Metabolic Bbq007 Cr eat 0.9 mg/dL 02/05/2016 Comp Metabolic Get906 eG FR 101 ml/min/1.73m2 01/14 Comp Metabolic Shb924 BUN 17 mg/dL 02/05/2016 Comp Metabolic Akt147 B/ C Ratio 18.5 Ratio 02/05/2016 Comp Metabolic Jdq121 CA LCIUM 9.4 mg/dL 02/05/2016 Comp Metabolic Soc541 AL K PHOS 63 U/L 02/05/2016 Comp Metabolic Yle498 T(SGOT) 30 U/L 02/05/2016 Comp Metabolic Zxj713 AL T(SGPT) 40 U/L 02/05/2016 Comp Metabolic Syn126 BI LI T 0.5 mg/dL 02/05/2016 Comp Metabolic Ged836 AL BUMIN 4.2 g/dL 02/05/2016 Comp Metabolic Ilz282 TP RO 7.2 g/dL 02/05/2016 Comp Metabolic Xcx820 GL OB 3.0 g/dL 02/05/2016 Comp Metabolic Brd750 A/ G Ratio 1.4 Ratio 02/05/2016 Comp Metabolic Gon826 Os mo 278 mOsmo 02/05/2016 Cbc With [...] 30.3 pg 02/05/2016 Cbc With Differential Ord2 Butts% 8.9 % 02/05/2016 Cbc With Differential Ord2 Eos% 1.1 % 02/05/2016 Cbc With Differential Ord2 MCHC 32.8 pg 02/05/2016 Cbc With Differential Ord2 Baso% 0.2 % 02/05/2016 Cbc With Differential Ord2 PLT 199 K/ul 02/05/2016 Cbc With Differential Ord2 Neut ABS# 8.24 K/ul 02/05/2016 Cbc With Differential Ord2 RDW 14.2 % 02/05/2016 Cbc With Differential Ord2 Lymph ABS# 2.91 K/ul 02/05/2016 Cbc With Differential Ord2 Butts ABS# 1.1 K/ul 02/05/2016 Cbc With Differential [...] 08/09/2018 INJECT TRIGGER POINT S 3/> CPT-4: 75617 08/09/2018 TRIAMCINOLONE ACET I [place] NOS CPT-4: J3301 03/01/2018 THER/PROPH/DIAG INJ SC/IM CPT-4: 53916 03/01/2018 DRAINAGE OF SKIN ABS CESS CPT-4: 92182 05/05/2016 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[address]: 753039034 CPT-4: G0436 12/22/2015 Vital Signs Date Vital 09/14/2018 Blood Pressure 1: 128/86 Code: 8480-6 BMI: 33.9 Code: 30883-0 Heart Rate 1: 128 bpm Height: 5'11" SpO2: 96% Temperature: 37.4 (C ) / 99.3 (F) Weight: 243 lbs 08/09/2018 Blood Pressure 1: 120/72 Code: 8480-6 Heart Rate 1: 90 bpm Height: SpO2: 98% Weight: 08/01/2018 Blood Pressure 1: 110/78 Code: 8480-6 BMI: 34.4 Code: 62868-4 Heart Rate 1: 109 bpm Height: 5'11" SpO2: 98% Weight: 247 lbs 03/01/2018 Blood Pressure 1: 120/80 Code: 8480-6 BMI: 32.9 Code: 49300-4 Heart Rate 1: 72 bpm Height: 5'11" SpO2: 96% Weight: 236 lbs 02/10/2018 Blood Pressure 1: 122/70 Code: 8480-6 BMI: 32.9 Code: 20222-4 Heart Rate 1: 90 bpm Height: 5'11" SpO2: 98% Weight: 236 lbs 12/12/2017 Blood Pressure 1: 124/72 Code: 8480-6 BMI: 35.0 Code: 11059-1 Heart Rate 1: 80 bpm Height: 5'11" SpO2: 96% Weight: 251 lbs 11/25/2017 Blood Pressure 1: 122/76 Code: 8480-6 BMI: 35.4 Code: 77662-4 Heart Rate 1: 74 bpm Height: 5'11" SpO2: 95% Weight: 254 lbs 03/02/2017 Blood Pressure 1: 120/70 Code: 8480-6 BMI: 33.8 Code: 62666-9 Heart Rate 1: 79 bpm Height: 5'11" SpO2: 99% Weight: 242 lbs 11/17/2016 Blood Pressure 1: 120/88 Code: 8480-6 BMI: 36.8 Code: 64301-0 Heart Rate 1: 104 bpm Height: 5'11" SpO2: 99% Weight: 264 lbs 09/27/2016 Blood Pressure 1: 122/78 Code: 8480-6 BMI: 34.6 Code: 72014-1 Heart Rate 1: 100 bpm Height: 5'11" SpO2: 96% Weight: 248 lbs 05/05/2016 Blood Pressure 1: 114/78 Code: 8480-6 BMI: 35.1 Code: 60726-0 Heart Rate 1: 81 bpm Height: 5'11" SpO2: 96% Weight: 252 lbs 03/08/2016 Blood Pressure 1: 120/64 Code: 8480-6 BMI: 34.3 Code: 33099-8 Heart Rate 1: 95 bpm Height: 5'11" SpO2: 97% Weight: 246 lbs 02/05/2016 Blood Pressure 1: 120/78 Code: 8480-6 BMI: 33.5 Code: 62948-1 Heart Rate 1: 104 bpm Height: 5'11" SpO2: 97% Weight: 240 lbs 12/22/2015 Blood Pressure 1: 120/82 Code: 8480-6 BMI: 34.3 Code: 42027-9 Heart Rate 1: 83 bpm Height: 5'11" [...] Encounters Encounter Performer Loca tion Codes Date ([id number]) 27794 EST. P ATIENT, LEVEL III Diagnosis: Acute laryngopharyngitis[ICD10: J06.0] Diagnosis: Fever, unspecified[ICD10: R50.9] [facility] CPT- 4: 01550 09/14/2018 55701 EST. PATIENT, LEVEL III Diagnosis: Pain in left shoulder[ICD10: M25.512] Diagnosis: Muscle spasm of back[ICD10: M62.830] [facility] CPT- 4: 15842 08/09/2018 92964 EST. PATIENT, LEVEL III Diagnosis: Pain in left shoulder[ICD10: M25.512] Diagnosis: Muscle spasm of back[ICD10: M62.830] Miracle Pereyra MD, [facility] CPT- 4: 73887 08/01/2018 18521 EST. PATIENT, LEVEL III Diagnosis: Hidradenitis suppurativa[ICD10: L73.2] Miracle Pereyra MD, [facility] CPT-4: 83106 03/01/2018 59495 EST. 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 PATIENT, LEVEL IV Diagnosis: Generalized anxiety disorder[ICD10: F41.1] Diagnosis: Hidradenitis suppurativa[ICD10: L73.2] Miracle Pereyra MD, [facility] CPT-4: 00532 11/25/2017 71527 EST. PATIENT, LEVEL III Diagnosis: Hidradenitis suppurativa[ICD10: L73.2] Diagnosis: Generalized anxiety disorder[ICD10: F41.1] Miracle Pereyra MD, [facility] CPT-4: 59219 03/02/2017 35333 EST. PATIENT, LEVEL III Diagnosis: Cutaneous abscess of buttock[ICD10: L02.31] Miracle Pereyra MD, [facility] CPT-4: 00475 11/17/2016 85621 EST. PATIENT, LEVEL III Diagnosis: Cutaneous abscess of left axilla[ICD10: L02.412] Diagnosis: Pain in right hand[ICD10: M79.641] Miracle Pereyra MD, [facility] CPT-4: 55636 09/27/2016 15601 EST. PATIENT, LEVEL III Diagnosis: Cutaneous abscess of right lower limb[ICD10: L02.415] Diagnosis: Hidradenitis suppurativa[ICD10: L73.2] Miracle Pereyra MD, [facility] CPT-4: 26000 05/05/2016 42239 EST. PATIENT, LEVEL IV Diagnosis: Other otitis externa, right ear[ICD10: H60.8X1] Diagnosis: Cutaneous abscess of left axilla[ICD10: L02.412] Diagnosis: Other acute sinusitis[ICD10: J01.80] Miracle Pereyra MD, [facility] CPT- 4: 26648 03/08/2016 75980 EST. PATIENT, LEVEL III Diagnosis: Generalized anxiety disorder[ICD10: F41.1] Diagnosis: Acne vulgaris[ICD10: L70.0] Diagnosis: Plantar wart[ICD10: B07.0] Miracle Pereyra MD, [facility] CPT-4: 01219 02/05/2016 ([id number]) OFFICE NAPOLEON CAMACHO - LEVEL 3 Diagnosis: Generalized anxiety disorder[ICD10: F41.1] Diagnosis: 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][ICD10: L30.1] Diagnosis: Acne vulgaris[ICD10: L70.0] Diagnosis: Other obesity due to excess calories[ICD10: E66.09] Miracle Pereyra MD, [facility] CPT-4: 74784 12/22/2015 Plan of Care Planned Activity Notes [...] pain. Tylenol/motrin as needed for fever/discomfort. 09/14/2018 Patient Education: Patient Medication Summary Completed [...] process. 08/09/2018 Appointment: Miracle Gracia [facility]: [phone] [facility] [place] (30 min) Complex 08/09/2018 Patient Education: Patient Medication Summary Completed 08/09/2018 Visit Plan: Left shoulder pain, mus mishel spasm - will send RX - The pt is to use prn antiinflammatories to manage acute pain. The patient is to call the office if the pain is worsening or does not improve. 08/01/2018 Appointment: Miracle Gracia [facility] [phone] [facility] [place] (15 min) Moderate [...] changes. 02/10/2018 Appointment: Miracle Gracia WPtel: [phone] [facility] (15 min) Moderate 02/10/2018 Patient Education: Patient [...] not prescribed. 12/12/2017 Appointment: Miracle Gracia WPtel: [facility] [facility] (15 min) Moderate 12/12/2017 Patient [...] or concerns. 11/25/2017 Appointment: Miracle Gracia WPtel: [phone] [facility] (15 min) Moderate 11/25/2017 Patient [...] Pt is to discuss methotrexate with his hand cooper helper. 03/02/2017 Appointment: Miracle Gracia: [facility] [place] [place] (30 min) Complex 03/02/2017 Patient Education: Patient Medication Summary Completed 03/02/2017 Patient Education: Smoking and Tobacco Addiction Completed 03/02/2017 Patient Education: Obesity Completed 03/02/2017 Appointment: Miracle Gracia WPtel: [facility] [place] (30 min) Complex 11/19/2016 Appointment: Miracle Gracia WPtel: [facility] [place] (15 min) Moderate 11/18/2016 [...] if needed. 11/17/2016 Appointment: Miracle Gracia WPtel: [facility] [facility] [place] (15 min) Moderate 11/17/2016 Patient Education: Patient Medication Summary Completed 11/17/2016 Patient Education: Smoking and Tobacco Addiction Completed 11/17/2016 Referral: Alberto Pearson Referral Initiated 09/30/2016 Care Plan: Referral Order SNOMED-CT : 176172108 Pending 09/28/2016 Visit Plan: Abscess/Cellulitis - Re [...] Dr. Isaac. 09/27/2016 Appointment: Miracle Gracia WPtel: [facility] [place] [place] (30 min) Complex 09/27/2016 Patient Education: Patient Medication Summary Completed 09/27/2016 Patient Education: Smoking and Tobacco Addiction Completed 09/27/2016 Care Plan: Referral Order SNOMED-CT : [id number] Pending 05/10/2016 Visit Plan: Abscess/Cellulitis - ri ght lateral hip - incision and drainage today in the office - The patient was instructed in appropriate wound care. The patient was instructed to use the antibiotic ointment as per RX. The patient is to call for any change in symptoms, increase in size of the lesion, increase in pain. 05/05/2016 Appointment: Gavi Soria WPtel: [facility] [phone] (30 min) [facility] 05/05/2016 Patient Education: Patient Medication Summary Completed [...] Referral: Alberto Pearson Referral Initiated Referral: [facility] WPtel: Referral Completed Referral: [facility] WPtel: will call with [...] Pt is to discuss methotrexate with his hand cooper helper. . Otitis Externa - p t [...]
--- OUTSIDE RECORDS SUMMARY | 2020-02-25 10:47 | XMS REPORT | CCD ---
Author Norbert Mancia Organization Celeste Pereyra MD, [facility] Address [address] [place] [address] Phone Care Team Providers Care Rip Sawyer Name Role Phone PP Unavailable CCM Unavailable Summary Purpose Interface Exchange Insurance Providers Payer name Policy type / Coverage type Covered green party ID Effective Begin Date Effective End Date [employer] Commercial Insurance [id number] Unknown Family history Mother Diagnosis Age At Onset Cancer Unknown Diabetes Unknown Social History Social History Element Codes Description Effective Dates Marital status Unknown M kelvin Bosch 09/14/[address]: 5275819 Former smoker Quit in October 2017 11/25/2017 Number of children Unknown 1 12/22/2015 Number of years using tobacco Unknown 5 - 10 12/22/2015 Number of cigarettes/day Unknown 10 (Half a pack) 12/22/2015 Alcohol history Unknown occasionally drinks alcohol 12/22/2015 Frequency of drinks SNOMED CT: 685664176 1-4 drinks per week 12/22/2015 Allergies, Adverse [...] Fill Instructions cefdinir 300 mg capsule RxNorm: 604012 1 Capsule(s) PO BID 09/14/2018 09/23/2018 Active Adderall 10 mg tablet RxNorm: 555013 1 Tablet(s) PO BID 09/07/2018 10/06/2018 Active Zithromax Z-Molina 250 mg tablet RxNorm: 923838 1 Tablet(s) PO UD 09/07/2018 09/11/2018 Inactive zpack as directed Zorvolex 18 mg capsule RxNorm: 5846713 1 Capsule(s) PO TID 08/10/2018 No Stop Date Active tramadol 50 mg tablet RxNorm: 169115 1 Tablet(s) PO QID as needed 08/09/2018 08/18/2018 Inactive baclofen 10 mg tablet RxNorm: 386339 1 Tablet(s) PO TID as needed muscle spas ms 08/09/2018 08/13/2018 In active baclofen 10 mg tablet RxNorm: 177448 1 Tablet(s) PO TID as needed muscle spas ms 08/01/2018 08/05/2018 In active prednisone 20 mg tablet RxNorm: 944740 3 Tablet(s) PO daily 08/01/2018 08/05/2018 Inactive diazepam 2 mg tablet RxNorm: 324716 Tablet(s) TAKE 1/2 TABLET BY MOUTH TWICE DAILY NEEDED FOR ANXIETY 07/21/2018 08/19/2018 Inactive Adderall 10 mg tablet RxNorm: 658721 1 Tablet(s) PO BID 07/14/2018 08/12/2018 Inactive Adderall 10 mg tablet RxNorm: 190326 1 Tablet(s) PO BID 05/26/2018 06/24/2018 Inactive Adderall 10 mg tablet RxNorm: 595915 1 Tablet(s) PO BID 04/28/2018 05/25/2018 Inactive Adderall 5 mg tablet RxNorm: 903700 1 Tablet(s) PO QAM as needed 04/04/2018 04/27/2018 Inactive diazepam 2 mg tablet RxNorm: 851965 Tablet(s) TAKE 1/2 TABLET BY MOUTH TWICE DAILY NEEDED FOR ANXIETY 04/04/2018 05/02/2018 Inactive Adderall XR 20 mg ca psule,extended release RxNorm: 827011 1 Capsule(s) PO daily 03/13/2018 04/03/2018 In active Kenalog 40 mg/mL rodrigo pension for injection RxNorm: 2746703 1 Milliliter(s) Inj 03/01/2018 03/01/2018 In active Adderall 5 mg tablet RxNorm: 101629 1 Tablet(s) PO QAM as needed 02/13/2018 03/14/2018 Inactive Adderall XR 20 mg ca psule,extended release RxNorm: 407239 1 Capsule(s) PO daily 02/13/2018 03/12/2018 In active prednisone 20 mg tablet RxNorm: 024873 2 Tablet(s) PO daily 02/10/2018 02/14/2018 Inactive Bactrim DS 800 mg-16 0 mg tablet RxNorm: 502161 1 Tablet(s) PO BID 01/16/2018 02/04/2018 Inactive Adderall 5 mg tablet RxNorm: 406188 2 Tablet(s) PO QAM and 1 PO QPM 01/16/2018 02/12/2018 In active Bactrim DS 800 mg-16 0 mg tablet RxNorm: 120595 1 Tablet(s) PO BID 01/04/2018 01/15/2018 Inactive Adderall 5 mg tablet RxNorm: 149491 2 Tablet(s) PO QAM and 1 PO QPM 12/13/2017 01/11/2018 In active Zithromax Z-Molina 250 mg tablet RxNorm: 508388 1 Tablet(s) PO UD 11/25/2017 03/12/2018 Inactive diazepam 2 mg tablet RxNorm: 855217 Tablet(s) TAKE 1/2 TABLET BY MOUTH TWICE DAILY NEEDED FOR ANXIETY 11/18/2017 12/17/2017 Inactive diazepam 2 mg tablet RxNorm: 474889 Tablet(s) TAKE 1/2 TABLET BY MOUTH TWICE DAILY NEEDED FOR ANXIETY 08/30/2017 10/28/2017 Inactive diazepam 2 mg tablet RxNorm: 750926 Tablet(s) TAKE 1/2 TABLET BY MOUTH TWICE DAILY NEEDED FOR ANXIETY 07/19/2017 08/29/2017 Inactive diazepam 2 mg tablet RxNorm: 037072 TAKE 1/2 TABLET BY MOUTH TWICE DAILY NEEDED FOR ANXIETY 07/15/2017 07/18/2017 Inactive Bactrim DS 800 mg-16 0 mg tablet RxNorm: 958319 1 Tablet(s) PO BID 06/01/2017 06/20/2017 Inactive diazepam 2 mg tablet RxNorm: 874340 1/2 Tablet(s) PO BID as needed anxiety 06/01/2017 06/29/2017 In active tramadol 50 mg tablet RxNorm: 571117 1 Tablet(s) PO QID as needed 04/14/2017 04/23/2017 Inactive Bactrim DS 800 mg-16 0 mg tablet RxNorm: 519026 1 Tablet(s) PO BID 04/14/2017 05/03/2017 Inactive diazepam 2 mg tablet RxNorm: 465544 1/2 Tablet(s) PO BID as needed anxiety 03/02/2017 04/30/2017 In active Zithromax Z-Molina 250 mg tablet RxNorm: 012186 1 Tablet(s) PO UD 03/02/2017 07/18/2017 Inactive Bactrim DS 800 mg-16 0 mg tablet RxNorm: 102312 1 Tablet(s) PO BID 03/01/2017 03/20/2017 Inactive diazepam 2 mg tablet RxNorm: 310079 1/2 Tablet(s) PO BID as needed anxiety 01/21/2017 02/19/2017 In active Bactrim DS 800 mg-16 0 mg tablet RxNorm: 537987 1 Tablet(s) PO BID 01/21/2017 01/30/2017 Inactive Bactrim DS 800 mg-16 0 mg tablet RxNorm: 944272 1 Tablet(s) PO BID 11/17/2016 11/26/2016 Inactive diazepam 2 mg tablet RxNorm: 095663 1/2 Tablet(s) PO BID as needed anxiety 11/12/2016 01/10/2017 In active diazepam 2 mg tablet RxNorm: 767450 1/2 Tablet(s) PO BID as needed anxiety 10/18/2016 12/14/2016 In active Zithromax Z-Molina 250 mg tablet RxNorm: 814740 1 Tablet(s) PO UD 09/27/2016 03/01/2017 Inactive diazepam 2 mg tablet RxNorm: 415066 1/2 Tablet(s) PO BID as needed anxiety 09/13/2016 11/11/2016 In active diazepam 2 mg tablet RxNorm: 652008 1/2 Tablet(s) PO BID as needed anxiety 07/07/2016 09/17/2016 In active Levaquin 500 mg tablet RxNorm: 984318 1 Tablet(s) PO daily 06/01/2016 05/31/2016 Inactive Levaquin 500 mg tablet RxNorm: 814679 1 Tablet(s) PO daily 06/01/2016 06/07/2016 Inactive Levaquin 500 mg tablet RxNorm: 770125 1 Tablet(s) PO daily 05/05/2016 05/04/2016 Inactive Levaquin 500 mg tablet RxNorm: 745623 1 Tablet(s) PO daily 05/05/2016 05/11/2016 Inactive minocycline 100 mg c apsule RxNorm: 192678 1 CAPSULE(S) PO BID W HEN NOT HAVING ACUTE FLARE DECREASE TO ONCE DAILY 04/21/2016 05/20/2016 Inactive Ciprodex 0.3 %-0.1 % ear drops,suspension RxNorm: 864450 4 Drop(s) OTIC BID 03/08/2016 03/14/2016 In active Zithromax Z-Molina 250 mg tablet RxNorm: 637974 Tablet(s) PO 03/08/2016 09/26/2016 Inactive diazepam 2 mg tablet RxNorm: 617084 1/2 Tablet(s) PO BID as needed anxiety 2016 04/18/2016 In active mupirocin 2 % topica l ointment RxNorm: 389852 1 Application TOP BID 02/05/2016 No Stop Date Active minocycline 100 mg c apsule RxNorm: 487754 1 Capsule(s) PO BID w hen not having acute flare decrease to once daily 02/05/2016 03/05/2016 Inactive Bactrim DS 800 mg-16 0 mg tablet RxNorm: 177592 1 Tablet(s) PO BID 02/05/2016 02/18/2016 Inactive diazepam 2 mg tablet RxNorm: 264595 1/2 Tablet(s) PO BID as needed anxiety 02/05/2016 02/05/2016 In active betamethasone alberto te 0.1 % topical cream RxNorm: 969798 1 Application TOP BID as needed rash 12/22/2015 No Stop Date Active minocycline 100 mg c apsule RxNorm: 713762 1 Capsule(s) PO BID w hen not having acute flare decrease to once daily 12/22/2015 01/20/2016 Inactive Medication Administered Medication Codes Instruc tions Start Date Status Kenalog 40 mg/mL suspension for injection RxNorm: 6529047 1Milliliter 03/01/2018 N o longer Active Immunizations [...] Code Result Date C RAP A SC 9692365 Strep A Negative 09/14/2018 C A/B FLU 5366975 Influe nza A Scr Negative 09/14/2018 C A/B FLU 6580587 Influe nza B Scr Negative 09/14/2018 C A/B FLU 8251410 Influe nza Intrp B AG:PRID:PT:NOSE:NOM:IF See Footnote 09/14/2018 Tsh Ord6 hTSH II 1.82 uIU/mL 02/05/2016 Comp Metabolic Ueg673 NA 139 mEq/L 02/05/2016 Comp Metabolic Tjh954 K 4.2 mEq/L 02/05/2016 Comp Metabolic Kbr362 CL 103 mEq/L 02/05/2016 Comp Metabolic Wtn283 CO2 29.0 mEq/L 02/05/2016 Comp Metabolic Qxb981 AN ION GAP 11 02/05/2016 Comp Metabolic Mxe102 GL UCOSE 71 mg/dL 02/05/2016 Comp Metabolic Qco995 Cr eat 0.9 mg/dL 02/05/2016 Comp Metabolic Whe731 eG FR 101 ml/min/1.73m2 01/14 Comp Metabolic Fnc752 BUN 17 mg/dL 02/05/2016 Comp Metabolic Wcg225 B/ C Ratio 18.5 Ratio 02/05/2016 Comp Metabolic Yim259 CA LCIUM 9.4 mg/dL 02/05/2016 Comp Metabolic Foj280 AL K PHOS 63 U/L 02/05/2016 Comp Metabolic Ykz176 T(SGOT) 30 U/L 02/05/2016 Comp Metabolic Oxx587 AL T(SGPT) 40 U/L 02/05/2016 Comp Metabolic Eeb037 BI LI T 0.5 mg/dL 02/05/2016 Comp Metabolic Tjb411 AL BUMIN 4.2 g/dL 02/05/2016 Comp Metabolic Jsn905 TP RO 7.2 g/dL 02/05/2016 Comp Metabolic Dir730 GL OB 3.0 g/dL 02/05/2016 Comp Metabolic Qrx277 A/ G Ratio 1.4 Ratio 02/05/2016 Comp Metabolic Pal909 Os mo 278 mOsmo 02/05/2016 Cbc With [...] 30.3 pg 02/05/2016 Cbc With Differential Ord2 [place]% 8.9 % 02/05/2016 Cbc With Differential Ord2 [...] 2.91 K/ul 02/05/2016 Cbc With Differential Ord2 [place] ABS# 1.1 K/ul 02/05/2016 Cbc With Differential [...] 08/09/2018 INJECT TRIGGER POINT S 3/> CPT-4: 71868 08/09/2018 TRIAMCINOLONE ACET I [place] NOS CPT-4: J3301 03/01/2018 THER/PROPH/DIAG INJ SC/IM CPT-4: 16027 03/01/2018 DRAINAGE OF SKIN ABS CESS CPT-4: 50592 05/05/2016 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-[address]: 607430151 CPT-4: G0436 12/22/2015 Vital Signs Date Vital 09/14/2018 Blood Pressure 1: 128/86 Code: 8480-6 BMI: 33.9 Code: 83644-7 Heart Rate 1: 128 bpm Height: 5'11" SpO2: 96% Temperature: 37.4 (C ) / 99.3 (F) Weight: 243 lbs 08/09/2018 Blood Pressure 1: 120/72 Code: 8480-6 Heart Rate 1: 90 bpm Height: SpO2: 98% Weight: 08/01/2018 Blood Pressure 1: 110/78 Code: 8480-6 BMI: 34.4 Code: 52478-4 Heart Rate 1: 109 bpm Height: 5'11" SpO2: 98% Weight: 247 lbs 03/01/2018 Blood Pressure 1: 120/80 Code: 8480-6 BMI: 32.9 Code: 02607-4 Heart Rate 1: 72 bpm Height: 5'11" SpO2: 96% Weight: 236 lbs 02/10/2018 Blood Pressure 1: 122/70 Code: 8480-6 BMI: 32.9 Code: 01404-1 Heart Rate 1: 90 bpm Height: 5'11" SpO2: 98% Weight: 236 lbs 12/12/2017 Blood Pressure 1: 124/72 Code: 8480-6 BMI: 35.0 Code: 30010-8 Heart Rate 1: 80 bpm Height: 5'11" SpO2: 96% Weight: 251 lbs 11/25/2017 Blood Pressure 1: 122/76 Code: 8480-6 BMI: 35.4 Code: 25740-0 Heart Rate 1: 74 bpm Height: 5'11" SpO2: 95% Weight: 254 lbs 03/02/2017 Blood Pressure 1: 120/70 Code: 8480-6 BMI: 33.8 Code: 95211-7 Heart Rate 1: 79 bpm Height: 5'11" SpO2: 99% Weight: 242 lbs 11/17/2016 Blood Pressure 1: 120/88 Code: 8480-6 BMI: 36.8 Code: 09704-7 Heart Rate 1: 104 bpm Height: 5'11" SpO2: 99% Weight: 264 lbs 09/27/2016 Blood Pressure 1: 122/78 Code: 8480-6 BMI: 34.6 Code: 56982-3 Heart Rate 1: 100 bpm Height: 5'11" SpO2: 96% Weight: 248 lbs 05/05/2016 Blood Pressure 1: 114/78 Code: 8480-6 BMI: 35.1 Code: 52233-9 Heart Rate 1: 81 bpm Height: 5'11" SpO2: 96% Weight: 252 lbs 03/08/2016 Blood Pressure 1: 120/64 Code: 8480-6 BMI: 34.3 Code: 55454-1 Heart Rate 1: 95 bpm Height: 5'11" SpO2: 97% Weight: 246 lbs 02/05/2016 Blood Pressure 1: 120/78 Code: 8480-6 BMI: 33.5 Code: 91947-6 Heart Rate 1: 104 bpm Height: 5'11" SpO2: 97% Weight: 240 lbs 12/22/2015 Blood Pressure 1: 120/82 Code: 8480-6 BMI: 34.3 Code: 56134-1 Heart Rate 1: 83 bpm Height: 5'11" [...] Encounters Encounter Performer Loca tion Codes Date ([id number]) [id number] EST. P ATIENT, LEVEL III Diagnosis: Acute laryngopharyngitis[ICD10: J06.0] Diagnosis: Fever, unspecified[ICD10: R50.9] [facility] CPT- 4: 67935 09/14/2018 75497 EST. PATIENT, LEVEL III Diagnosis: Pain in left shoulder[ICD10: M25.512] Diagnosis: Muscle spasm of back[ICD10: M62.830] [facility] CPT- 4: 76009 08/09/2018 55649 EST. PATIENT, LEVEL III Diagnosis: Pain in left shoulder[ICD10: M25.512] Diagnosis: Muscle spasm of back[ICD10: M62.830] Miracle Pereyra MD, [facility] CPT- 4: 38954 08/01/2018 12929 EST. PATIENT, LEVEL III Diagnosis: Hidradenitis suppurativa[ICD10: L73.2] Miracle Pereyra MD, [facility] CPT-4: 46103 03/01/2018 48832 EST. 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 PATIENT, LEVEL IV Diagnosis: Generalized anxiety disorder[ICD10: F41.1] Diagnosis: Hidradenitis suppurativa[ICD10: L73.2] Miracle Pereyra MD, [facility] CPT-4: 52155 11/25/2017 84907 EST. PATIENT, LEVEL III Diagnosis: Hidradenitis suppurativa[ICD10: L73.2] Diagnosis: Generalized anxiety disorder[ICD10: F41.1] Miracle Pereyra MD, [facility] CPT-4: 77719 03/02/2017 96138 EST. PATIENT, LEVEL III Diagnosis: Cutaneous abscess of buttock[ICD10: L02.31] Miracle Pereyra MD, [facility] CPT-4: 96399 11/17/2016 50365 EST. PATIENT, LEVEL III Diagnosis: Cutaneous abscess of left axilla[ICD10: L02.412] Diagnosis: Pain in right hand[ICD10: M79.641] Miracle Pereyra MD, [facility] CPT-4: 58919 09/27/2016 50367 EST. PATIENT, LEVEL III Diagnosis: Cutaneous abscess of right lower limb[ICD10: L02.415] Diagnosis: Hidradenitis suppurativa[ICD10: L73.2] Miracle Pereyra MD, [facility] CPT-4: 27268 05/05/2016 61678 EST. PATIENT, LEVEL IV Diagnosis: Other otitis externa, right ear[ICD10: H60.8X1] Diagnosis: Cutaneous abscess of left axilla[ICD10: L02.412] Diagnosis: Other acute sinusitis[ICD10: J01.80] Miracle Pereyra MD, [facility] CPT- 4: 37902 03/08/2016 74936 EST. PATIENT, LEVEL III Diagnosis: Generalized anxiety disorder[ICD10: F41.1] Diagnosis: Acne vulgaris[ICD10: L70.0] Diagnosis: Plantar wart[ICD10: B07.0] Miracle Pereyra MD, [facility] CPT-4: 14134 02/05/2016 ([id number]) OFFICE NAPOLEON CAMACHO - LEVEL 3 Diagnosis: Generalized anxiety disorder[ICD10: F41.1] Diagnosis: 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][ICD10: L30.1] Diagnosis: Acne vulgaris[ICD10: L70.0] Diagnosis: Other obesity due to excess calories[ICD10: E66.09] Miracle Pereyra MD, [facility] CPT-4: 81979 12/22/2015 Plan of Care Planned Activity Notes [...] process. 08/09/2018 Appointment: [phone] [facility] (30 min) Complex 08/09/2018 Patient Education: Patient Medication Summary Completed 08/09/2018 Visit Plan: Left shoulder pain, mus mishel spasm - will send RX - The pt is to use prn antiinflammatories to manage acute pain. The patient is to call the office if the pain is worsening or does not improve. 08/01/2018 Appointment: [facility] Gracia [phone] [facility] (15 min) Moderate 08/01/2018 Patient Education: Patient [...] changes. 02/10/2018 Appointment: Miracle Gracia WPtel: [phone] [facility] (15 min) Moderate 02/10/2018 Patient [...] prescribed. 12/12/2017 Appointment: Miracle Gracia WPtel: [facility] (15 min) Moderate 12/12/2017 Patient [...] or concerns. 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 03/02/2017 Appointment: Miracle Gracia: [facility] [place] (30 min) Complex 03/02/2017 Patient Education: Patient Medication Summary Completed 03/02/2017 Patient Education: Smoking and Tobacco Addiction Completed 03/02/2017 Patient Education: Obesity Completed 03/02/2017 Appointment: Miracle Gracia WPtel: [facility] [place] (30 min) Complex 11/19/2016 Appointment: Miracle Gracia WPtel: [facility] [place] (15 min) Moderate 11/18/2016 [...] if needed. 11/17/2016 Appointment: Miracle Gracia WPtel: [facility] [place] (15 min) Moderate 11/17/2016 Patient Education: Patient Medication Summary Completed 11/17/2016 Patient Education: Smoking and Tobacco Addiction Completed 11/17/2016 Referral: Alberto Pearson Referral Initiated 09/30/2016 Care Plan: Referral Order SNOMED-CT : 836220091 Pending 09/28/2016 Visit Plan: Abscess/Cellulitis - Re [...] Dr. Isaac. 09/27/2016 Appointment: Miracle Gracia WPtel: [facility] [place] (30 min) Complex 09/27/2016 Patient Education: Patient Medication Summary Completed 09/27/2016 Patient Education: Smoking and Tobacco Addiction Completed 09/27/2016 Care Plan: Referral Order SNOMED-CT : [id number] Pending 05/10/2016 Visit Plan: Abscess/Cellulitis - ri ght lateral hip - incision and drainage today in the office - The patient was instructed in appropriate wound care. The patient was instructed to use the antibiotic ointment as per RX. The patient is to call for any change in symptoms, increase in size of the lesion, increase in pain. 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 . Otitis Externa - p t given [...]
--- OUTSIDE RECORDS SUMMARY | 2020-02-25 10:48 | XMS REPORT | CCD ---
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 Name Role Phone PP Unavailable CCM Unavailable Summary Purpose Interface Exchange Insurance Providers Payer name Policy type / Coverage type Covered democrat ID Effective Begin Date Effective End Date [employer] Commercial Insurance [id number] Unknown Family history Mother Diagnosis Age At Onset Cancer Unknown Diabetes Unknown Social History Social History Element Codes Description Effective Dates Tobacco history SNOMED CT: 4246596 Former smoker Quit in October 2017 11/25/2017 Marital status Unknown M arried antonio 12/22/2015 Number of children Unknown 1 12/22/2015 Number of years using tobacco Unknown 5 - 10 12/22/2015 Number of cigarettes/day Unknown 10 (Half a pack) 12/22/2015 Alcohol history Unknown occasionally drinks alcohol 12/22/2015 Frequency of drinks SNOMED CT: 039044454 1-4 drinks per week 12/22/2015 Allergies, Adverse Reactions, Alerts Substance Reaction Codes Entered Date Inactivated Date Status Penicillin Unknown 12/22/2015 No In active Date Active Past Medical History Illness Codes Condition Status Onset Date Resolved Date Muscle spasm of back ICD-9: 724.8 ICD-10: [...] Condition Codes Effectiv e Dates Condition Status Muscle spasm of back ICD-9: 724.8 ICD-10: [...] Date Stop Date Sta tus Fill Instructions Zithromax Z-Molina 250 mg tablet RxNorm: 187752 1 Tablet(s) PO UD 09/07/2018 09/11/2018 Active zpack as directed Adderall 10 mg tablet RxNorm: 523958 1 Tablet(s) PO BID 09/07/2018 10/06/2018 Active Zorvolex 18 mg capsule RxNorm: 7743765 1 Capsule(s) PO TID 08/10/2018 No Stop Date Active tramadol 50 mg tablet RxNorm: 262026 1 Tablet(s) PO QID as needed 08/09/2018 08/18/2018 Inactive baclofen 10 mg tablet RxNorm: 579222 1 Tablet(s) PO TID as needed muscle spas ms 08/09/2018 08/13/2018 In active baclofen 10 mg tablet RxNorm: 220746 1 Tablet(s) PO TID as needed muscle spas ms 08/01/2018 08/05/2018 In active prednisone 20 mg tablet RxNorm: 980435 3 Tablet(s) PO daily 08/01/2018 08/05/2018 Inactive diazepam 2 mg tablet RxNorm: 618465 Tablet(s) TAKE 1/2 TABLET BY MOUTH TWICE DAILY NEEDED FOR ANXIETY 07/21/2018 08/19/2018 Inactive Adderall 10 mg tablet RxNorm: 747540 1 Tablet(s) PO BID 07/14/2018 08/12/2018 Inactive Adderall 10 mg tablet RxNorm: 624076 1 Tablet(s) PO BID 05/26/2018 06/24/2018 Inactive Adderall 10 mg tablet RxNorm: 913994 1 Tablet(s) PO BID 04/28/2018 05/25/2018 Inactive Adderall 5 mg tablet RxNorm: 919523 1 Tablet(s) PO QAM as needed 04/04/2018 04/27/2018 Inactive diazepam 2 mg tablet RxNorm: 189099 Tablet(s) TAKE 1/2 TABLET BY MOUTH TWICE DAILY NEEDED FOR ANXIETY 04/04/2018 05/02/2018 Inactive Adderall XR 20 mg ca psule,extended release RxNorm: 848685 1 Capsule(s) PO daily 03/13/2018 04/03/2018 In active Kenalog 40 mg/mL rodrigo pension for injection RxNorm: 9054138 1 Milliliter(s) Inj 03/01/2018 03/01/2018 In active Adderall 5 mg tablet RxNorm: 030654 1 Tablet(s) PO QAM as needed 02/13/2018 03/14/2018 Inactive Adderall XR 20 mg ca psule,extended release RxNorm: 919053 1 Capsule(s) PO daily 02/13/2018 03/12/2018 In active prednisone 20 mg tablet RxNorm: 683807 2 Tablet(s) PO daily 02/10/2018 02/14/2018 Inactive Bactrim DS 800 mg-16 0 mg tablet RxNorm: 815910 1 Tablet(s) PO BID 01/16/2018 02/04/2018 Inactive Adderall 5 mg tablet RxNorm: 989749 2 Tablet(s) PO QAM and 1 PO QPM 01/16/2018 02/12/2018 In active Bactrim DS 800 mg-16 0 mg tablet RxNorm: 300845 1 Tablet(s) PO BID 01/04/2018 01/15/2018 Inactive Adderall 5 mg tablet RxNorm: 093291 2 Tablet(s) PO QAM and 1 PO QPM 12/13/2017 01/11/2018 In active Zithromax Z-Molina 250 mg tablet RxNorm: 397687 1 Tablet(s) PO UD 11/25/2017 03/12/2018 Inactive diazepam 2 mg tablet RxNorm: 826257 Tablet(s) TAKE 1/2 TABLET BY MOUTH TWICE DAILY NEEDED FOR ANXIETY 11/18/2017 12/17/2017 Inactive diazepam 2 mg tablet RxNorm: 112183 Tablet(s) TAKE 1/2 TABLET BY MOUTH TWICE DAILY NEEDED FOR ANXIETY 08/30/2017 10/28/2017 Inactive diazepam 2 mg tablet RxNorm: 898779 Tablet(s) TAKE 1/2 TABLET BY MOUTH TWICE DAILY NEEDED FOR ANXIETY 07/19/2017 08/29/2017 Inactive diazepam 2 mg tablet RxNorm: 702420 TAKE 1/2 TABLET BY MOUTH TWICE DAILY NEEDED FOR ANXIETY 07/15/2017 07/18/2017 Inactive Bactrim DS 800 mg-16 0 mg tablet RxNorm: 909423 1 Tablet(s) PO BID 06/01/2017 06/20/2017 Inactive diazepam 2 mg tablet RxNorm: 330360 1/2 Tablet(s) PO BID as needed anxiety 06/01/2017 06/29/2017 In active tramadol 50 mg tablet RxNorm: 515124 1 Tablet(s) PO QID as needed 04/14/2017 04/23/2017 Inactive Bactrim DS 800 mg-16 0 mg tablet RxNorm: 688074 1 Tablet(s) PO BID 04/14/2017 05/03/2017 Inactive diazepam 2 mg tablet RxNorm: 899907 1/2 Tablet(s) PO BID as needed anxiety 03/02/2017 04/30/2017 In active Zithromax Z-Molina 250 mg tablet RxNorm: 350031 1 Tablet(s) PO UD 03/02/2017 07/18/2017 Inactive Bactrim DS 800 mg-16 0 mg tablet RxNorm: 247455 1 Tablet(s) PO BID 03/01/2017 03/20/2017 Inactive diazepam 2 mg tablet RxNorm: 891984 1/2 Tablet(s) PO BID as needed anxiety 01/21/2017 02/19/2017 In active Bactrim DS 800 mg-16 0 mg tablet RxNorm: 462422 1 Tablet(s) PO BID 01/21/2017 01/30/2017 Inactive Bactrim DS 800 mg-16 0 mg tablet RxNorm: 384675 1 Tablet(s) PO BID 11/17/2016 11/26/2016 Inactive diazepam 2 mg tablet RxNorm: 812229 1/2 Tablet(s) PO BID as needed anxiety 11/12/2016 01/10/2017 In active diazepam 2 mg tablet RxNorm: 290944 1/2 Tablet(s) PO BID as needed anxiety 10/18/2016 12/14/2016 In active Zithromax Z-Molina 250 mg tablet RxNorm: 344436 1 Tablet(s) PO UD 09/27/2016 03/01/2017 Inactive diazepam 2 mg tablet RxNorm: 838116 1/2 Tablet(s) PO BID as needed anxiety 09/13/2016 11/11/2016 In active diazepam 2 mg tablet RxNorm: 730366 1/2 Tablet(s) PO BID as needed anxiety 07/07/2016 09/17/2016 In active Levaquin 500 mg tablet RxNorm: 815709 1 Tablet(s) PO daily 06/01/2016 05/31/2016 Inactive Levaquin 500 mg tablet RxNorm: 732072 1 Tablet(s) PO daily 06/01/2016 06/07/2016 Inactive Levaquin 500 mg tablet RxNorm: 716614 1 Tablet(s) PO daily 05/05/2016 05/04/2016 Inactive Levaquin 500 mg tablet RxNorm: 254873 1 Tablet(s) PO daily 05/05/2016 05/11/2016 Inactive minocycline 100 mg c apsule RxNorm: 980207 1 CAPSULE(S) PO BID W HEN NOT HAVING ACUTE FLARE DECREASE TO ONCE DAILY 04/21/2016 05/20/2016 Inactive Ciprodex 0.3 %-0.1 % ear drops,suspension RxNorm: 490113 4 Drop(s) OTIC BID 03/08/2016 03/14/2016 In active Zithromax Z-Molina 250 mg tablet RxNorm: 740647 Tablet(s) PO 03/08/2016 09/26/2016 Inactive diazepam 2 mg tablet RxNorm: 201044 1/2 Tablet(s) PO BID as needed anxiety 2016 04/18/2016 In active mupirocin 2 % topica l ointment RxNorm: 099215 1 Application TOP BID 02/05/2016 No Stop Date Active minocycline 100 mg c apsule RxNorm: 952469 1 Capsule(s) PO BID w hen not having acute flare decrease to once daily 02/05/2016 03/05/2016 Inactive Bactrim DS 800 mg-16 0 mg tablet RxNorm: 091999 1 Tablet(s) PO BID 02/05/2016 02/18/2016 Inactive diazepam 2 mg tablet RxNorm: 476601 1/2 Tablet(s) PO BID as needed anxiety 02/05/2016 02/05/2016 In active betamethasone alberto te 0.1 % topical cream RxNorm: 144632 1 Application TOP BID as needed rash 12/22/2015 No Stop Date Active minocycline 100 mg c apsule RxNorm: 276712 1 Capsule(s) PO BID w hen not having acute flare decrease to once daily 12/22/2015 01/20/2016 Inactive Medication Administered Medication Codes Instruc tions Start Date Status Kenalog 40 mg/mL suspension for injection RxNorm: 8372230 1Milliliter 03/01/2018 N o longer Active Immunizations No Immunization data Assessments Condition Codes Effectiv e Dates Pain in left shoulder ICD-10: M25.51 2 [...] Visit Reason For Visit Effective Dates Notes shoulder pain 08/09/2018 shoulder pain 08/01/2018 medication follow up 03/01/2018 medication follow up 02/10/2018 anxiety 12/12/2017 diaze mere anxiety 11/25/2017 diaze mere skin lesion 03/02/2017 skin lesion 11/17/2016 skin lesion 09/27/2016 skin lesion 05/05/2016 earache 03/08/2016 anxiety 02/05/2016 anxiety 12/22/2015 Results Observation Observation Code Item Item Code Result Date Tsh Ord6 hTSH II 1.82 uIU/mL 02/05/2016 Comp Metabolic Hog321 NA 139 mEq/L 02/05/2016 Comp Metabolic Xtn173 K 4.2 mEq/L 02/05/2016 Comp Metabolic Dtc177 CL 103 mEq/L 02/05/2016 Comp Metabolic Zhi627 CO2 29.0 mEq/L 02/05/2016 Comp Metabolic Eih939 AN ION GAP 11 02/05/2016 Comp Metabolic Olb497 GL UCOSE 71 mg/dL 02/05/2016 Comp Metabolic Zyn803 Cr eat 0.9 mg/dL 02/05/2016 Comp Metabolic Swx096 eG FR 101 ml/min/1.73m2 01/14 Comp Metabolic Vyq878 BUN 17 mg/dL 02/05/2016 Comp Metabolic Usi475 B/ C Ratio 18.5 Ratio 02/05/2016 Comp Metabolic Sey854 CA LCIUM 9.4 mg/dL 02/05/2016 Comp Metabolic Ngp504 AL K PHOS 63 U/L 02/05/2016 Comp Metabolic Tgw934 T(SGOT) 30 U/L 02/05/2016 Comp Metabolic Gat635 AL T(SGPT) 40 U/L 02/05/2016 Comp Metabolic Chr232 BI LI T 0.5 mg/dL 02/05/2016 Comp Metabolic Hwb329 AL BUMIN 4.2 g/dL 02/05/2016 Comp Metabolic Vsg325 TP RO 7.2 g/dL 02/05/2016 Comp Metabolic Uno218 GL OB 3.0 g/dL 02/05/2016 Comp Metabolic Ifz551 A/ G Ratio 1.4 Ratio 02/05/2016 Comp Metabolic Gpg683 Os mo 278 mOsmo 02/05/2016 Cbc With Differential Ord2 WBC 12.43 K/ul 02/05/2016 Cbc With Differential Ord2 RBC 5.41 M/ul 02/05/2016 Cbc With Differential Ord2 HGB 16.4 g/dl 02/05/2016 Cbc With Differential Ord2 Neut% 66.4 % 02/05/2016 Cbc With Differential Ord2 HCT 50.0 % 02/05/2016 Cbc With Differential Ord2 MCV 92.4 fl 02/05/2016 Cbc With Differential Ord2 Lymph% 23.4 % 02/05/2016 Cbc With Differential Ord2 [place]% 8.9 % 02/05/2016 Cbc With Differential Ord2 MCH 30.3 pg 02/05/2016 Cbc With Differential Ord2 Eos% 1.1 % 02/05/2016 Cbc With Differential Ord2 MCHC 32.8 pg 02/05/2016 Cbc With Differential Ord2 Baso% 0.2 % 02/05/2016 Cbc With Differential Ord2 PLT 199 K/ul 02/05/2016 Cbc With Differential Ord2 RDW 14.2 % 02/05/2016 Cbc With Differential Ord2 Neut ABS# 8.24 K/ul 02/05/2016 Cbc With Differential Ord2 Lymph ABS# 2.91 K/ul 02/05/2016 Cbc With Differential Ord2 [place] ABS# 1.1 K/ul 02/05/2016 Cbc With Differential Ord2 Eos ABS# 0.1 K/ul 02/05/2016 Cbc With Differential Ord2 Baso ABS# 0.0 K/ul 02/05/2016 Review of Systems System Result Effective Dates Constitutional No recent illness 08/09/2018 Constitutional No [...] No mental status change 02/05/2016 Psychiatric anxiety 06/2 10/2015 Psychiatric No depression 02/05/2016 Constitutional No [...] Result Effective Dates Notes Full Exam - Orthopedics Constitutional general appearance [...] 08/09/2018 INJECT TRIGGER POINT S 3/> CPT-4: 63939 08/09/2018 TRIAMCINOLONE ACET I [place] NOS CPT-4: J3301 03/01/2018 THER/PROPH/DIAG INJ SC/IM CPT-4: 10783 03/01/2018 DRAINAGE OF SKIN ABS CESS CPT-4: 38601 05/05/2016 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-[address]: 164475315 CPT-4: G0436 12/22/2015 Vital Signs Date Vital 08/09/2018 Blood Pressure 1: 120/72 Code: 8480-6 Heart Rate 1: 90 bpm Height: SpO2: 98% Weight: 08/01/2018 Blood Pressure 1: 110/78 Code: 8480-6 BMI: 34.4 Code: 17602-2 Heart Rate 1: 109 bpm Height: 5'11" SpO2: 98% Weight: 247 lbs 03/01/2018 Blood Pressure 1: 120/80 Code: 8480-6 BMI: 32.9 Code: 79695-4 Heart Rate 1: 72 bpm Height: 5'11" SpO2: 96% Weight: 236 lbs 02/10/2018 Blood Pressure 1: 122/70 Code: 8480-6 BMI: 32.9 Code: 99920-7 Heart Rate 1: 90 bpm Height: 5'11" SpO2: 98% Weight: 236 lbs 12/12/2017 Blood Pressure 1: 124/72 Code: 8480-6 BMI: 35.0 Code: 89806-3 Heart Rate 1: 80 bpm Height: 5'11" SpO2: 96% Weight: 251 lbs 11/25/2017 Blood Pressure 1: 122/76 Code: 8480-6 BMI: 35.4 Code: 81424-0 Heart Rate 1: 74 bpm Height: 5'11" SpO2: 95% Weight: 254 lbs 03/02/2017 Blood Pressure 1: 120/70 Code: 8480-6 BMI: 33.8 Code: 83457-0 Heart Rate 1: 79 bpm Height: 5'11" SpO2: 99% Weight: 242 lbs 11/17/2016 Blood Pressure 1: 120/88 Code: 8480-6 BMI: 36.8 Code: 16183-3 Heart Rate 1: 104 bpm Height: 5'11" SpO2: 99% Weight: 264 lbs 09/27/2016 Blood Pressure 1: 122/78 Code: 8480-6 BMI: 34.6 Code: 67806-5 Heart Rate 1: 100 bpm Height: 5'11" SpO2: 96% Weight: 248 lbs 05/05/2016 Blood Pressure 1: 114/78 Code: 8480-6 BMI: 35.1 Code: 02888-8 Heart Rate 1: 81 bpm Height: 5'11" SpO2: 96% Weight: 252 lbs 03/08/2016 Blood Pressure 1: 120/64 Code: 8480-6 BMI: 34.3 Code: 57898-6 Heart Rate 1: 95 bpm Height: 5'11" SpO2: 97% Weight: 246 lbs 02/05/2016 Blood Pressure 1: 120/78 Code: 8480-6 BMI: 33.5 Code: 52293-6 Heart Rate 1: 104 bpm Height: 5'11" SpO2: 97% Weight: 240 lbs 12/22/2015 Blood Pressure 1: 120/82 Code: 8480-6 BMI: 34.3 Code: 95171-7 Heart Rate 1: 83 bpm Height: 5'11" SpO2: 97% Weight: 246 lbs Functional Status No Functional Status data History of Present Illness Symptom Name Status Resu lt Effective Date Notes Location deep 08/09/2018 None Quality aching 08/09/2018 [...] Encounters Encounter Performer Loca tion Codes Date 27387 EST. PATIENT, LEVEL III Diagnosis: Pain in left shoulder[ICD10: M25.512] Diagnosis: Muscle spasm of back[ICD10: M62.830] Miracle Pereyra MD, [facility] CPT- 4: 67220 08/09/2018 40592 EST. PATIENT, LEVEL III Diagnosis: Pain in left shoulder[ICD10: M25.512] Diagnosis: Muscle spasm of back[ICD10: M62.830] Miracle Pereyra MD, [facility] CPT- 4: 87590 08/01/2018 43020 EST. PATIENT, LEVEL III Diagnosis: Hidradenitis suppurativa[ICD10: L73.2] [facility] CPT-4: 73539 03/01/2018 14268 EST. 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 PATIENT, LEVEL IV Diagnosis: Generalized anxiety disorder[ICD10: F41.1] Diagnosis: Hidradenitis suppurativa[ICD10: L73.2] Miracle Pereyra MD, [facility] CPT-4: 54263 11/25/2017 20762 EST. PATIENT, LEVEL III Diagnosis: Hidradenitis suppurativa[ICD10: L73.2] Diagnosis: Generalized anxiety disorder[ICD10: F41.1] Miracle Pereyra MD, [facility] CPT-4: 57402 03/02/2017 56661 EST. PATIENT, LEVEL III Diagnosis: Cutaneous abscess of buttock[ICD10: L02.31] Miracle Pereyra MD, [facility] CPT-4: 35789 11/17/2016 17828 EST. PATIENT, LEVEL III Diagnosis: Cutaneous abscess of left axilla[ICD10: L02.412] Diagnosis: Pain in right hand[ICD10: M79.641] Miracle Pereyra MD, [facility] CPT-4: 23772 09/27/2016 02319 EST. PATIENT, LEVEL III Diagnosis: Cutaneous abscess of right lower limb[ICD10: L02.415] Diagnosis: Hidradenitis suppurativa[ICD10: L73.2] Miracle Pereyra MD, [facility] CPT-4: 18005 05/05/2016 78920 EST. PATIENT, LEVEL IV Diagnosis: Other otitis externa, right ear[ICD10: H60.8X1] Diagnosis: Cutaneous abscess of left axilla[ICD10: L02.412] Diagnosis: Other acute sinusitis[ICD10: J01.80] Miracle Pereyra MD, [facility] CPT- 4: 44241 03/08/2016 40676 EST. PATIENT, LEVEL III Diagnosis: Generalized anxiety disorder[ICD10: F41.1] Diagnosis: Acne vulgaris[ICD10: L70.0] Diagnosis: Plantar wart[ICD10: B07.0] [facility] CPT-4: 32434 02/05/2016 (10687) OFFICE [facility] - LEVEL 3 Diagnosis: Generalized anxiety disorder[ICD10: F41.1] Diagnosis: 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][ICD10: L30.1] Diagnosis: Acne vulgaris[ICD10: L70.0] Diagnosis: Other obesity due to excess calories[ICD10: E66.09] [facility] CPT-4: 19025 12/22/2015 Plan of Care Planned Activity Notes C odes Status Date Visit Plan: Left shoulder pain, mus mishel [...] disease process. 08/09/2018 Appointment: Miracle Gracia WPtel: [phone] [place] ([facility] min) Complex 08/09/2018 Patient Education: Patient Medication Summary Completed 08/09/2018 Visit Plan: Left shoulder pain, mus mishel spasm - will send RX - The pt is to use prn antiinflammatories to manage acute pain. The patient is to call the office if the pain is worsening or does not improve. 08/01/2018 Appointment: Miracle Gracia WPtel: [phone] [place] (15 min) Moderate 08/01/2018 Patient Education: [...] no changes. 02/10/2018 Appointment: Miracle Gracia WPtel: [phone] (15 min) Moderate 02/10/2018 Patient Education: Patient [...] prescribed. 12/12/2017 Appointment: Miracle Gracia WPtel: [phone] [phone] (15 min) Moderate 12/12/2017 Patient Education: Patient [...] concerns. 11/25/2017 Appointment: Miracle Gracia WPtel: [phone] (15 min) Moderate 11/25/2017 Patient Education: Patient Medication Summary Completed 11/25/2017 Visit Plan: Abscess/Cellulitis - Th e patient was instructed in appropriate wound care. The patient was instructed to use the antibiotic ointment as per RX. The patient is to call for any change in symptoms, increase in size of the lesion, increase in pain. Pt is to discuss methotrexate with his risk lead. 03/02/2017 Appointment: Miracle Gracia WPtel: [address] [place], [place] [phone] (30 min) Complex 03/02/2017 Patient Education: Patient Medication Summary Completed 03/02/2017 Patient Education: Smoking and Tobacco Addiction Completed 03/02/2017 Patient Education: Obesity Completed 03/02/2017 Appointment: Miracle Gracia WPtel: [address] [place], [place] [phone] [place] (30 min) Complex 11/19/2016 Appointment: Miracle Gracia WPtel: [address] [place], [place] [phone] [place] (15 min) Moderate 11/18/2016 Visit Plan: Abscess/Cellulitis - Th e patient was instructed in appropriate wound care. The patient was instructed to use the antibiotic ointment as per RX. The patient is to call for any change in symptoms, increase in size of the lesion, increase in pain. Pt is to return tomorrow for I&D if needed. 11/17/2016 Appointment: Miracle Gracia WPtel: [address] [place], [place] [phone] [place] (15 min) Moderate 11/17/2016 Patient Education: Patient Medication Summary Completed 11/17/2016 Patient Education: Smoking and Tobacco Addiction Completed 11/17/2016 Referral: Alberto Pearson Referral Initiated 09/30/2016 Care Plan: Referral Order SNOMED-CT : [id number] Pending 09/28/2016 Visit Plan: Abscess/Cellulitis - Re [...] Isaac. 09/27/2016 Appointment: Miracle Gracia WPtel: [phone] (30 min) Complex 09/27/2016 Patient Education: Patient Medication Summary Completed 09/27/2016 Patient Education: Smoking and Tobacco Addiction Completed 09/27/2016 Care Plan: Referral Order SNOMED-CT : [id number] Pending 05/10/2016 Visit Plan: Abscess/Cellulitis - ri [...] pain. 05/05/2016 Appointment: Gavi Soria WPtel: [phone] (30 min) Complex 05/05/2016 Patient Education: Patient [...] current medications. 02/05/2016 Appointment: Miracle Gracia WPtel: [phone] (30 min) Complex 02/05/2016 Patient Education: Patient [...] 12/22/2015 Referral: Alberto Pearson Referral Initiated Referral: [facility] WPtel: Referral Completed Referral: [facility] WPtel: will call with appt time Initiated [...] Pt is to discuss methotrexate with his risk lead. . Otitis Externa - p t given [...] of the lesion, increase in pain. . HS - will discuss with Dr. [...]
--- OUTSIDE RECORDS SUMMARY | 2020-02-25 10:49 | XMS REPORT | CCD ---
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 Name Role Phone PP Unavailable CCM Unavailable Summary Purpose Interface Exchange Insurance Providers Payer name Policy type / Coverage type Covered constitution party ID Effective Begin Date Effective End Date [employer] Commercial Insurance [id number] 2018 Unknown Family history Mother Diagnosis Age At Onset Cancer Unknown Diabetes Unknown Social History Social History Element Codes Description Effective Dates Tobacco history SNOMED CT: 2260788 Former smoker Quit in October 2017 11/25/2017 Marital status Unknown M arried antonio 12/22/2015 Number of children Unknown 1 12/22/2015 Number of years using tobacco Unknown 5 - 10 12/22/2015 Number of cigarettes/day Unknown 10 (Half a pack) 12/22/2015 Alcohol history Unknown occasionally drinks alcohol 12/22/2015 Frequency of drinks SNOMED CT: 286449531 1-4 drinks per week 12/22/2015 Allergies, Adverse [...] Date Stop Date Sta tus Fill Instructions Zorvolex 18 mg capsule RxNorm: 3241401 1 Capsule(s) PO TID 08/10/2018 No Stop Date Active tramadol 50 mg tablet RxNorm: 258397 1 Tablet(s) PO QID as needed 08/09/2018 08/18/2018 Active baclofen 10 mg tablet RxNorm: 627875 1 Tablet(s) PO TID as needed muscle spas ms 08/09/2018 08/13/2018 Ac tive baclofen 10 mg tablet RxNorm: 911169 1 Tablet(s) PO TID as needed muscle spas ms 08/01/2018 08/05/2018 In active prednisone 20 mg tablet RxNorm: 903134 3 Tablet(s) PO daily 08/01/2018 08/05/2018 Inactive diazepam 2 mg tablet RxNorm: 926336 Tablet(s) TAKE 1/2 TABLET BY MOUTH TWICE DAILY NEEDED FOR ANXIETY 07/21/2018 08/19/2018 Active Adderall 10 mg tablet RxNorm: 549449 1 Tablet(s) PO BID 07/14/2018 08/12/2018 Active Adderall 10 mg tablet RxNorm: 531585 1 Tablet(s) PO BID 05/26/2018 06/24/2018 Inactive Adderall 10 mg tablet RxNorm: 049111 1 Tablet(s) PO BID 04/28/2018 05/25/2018 Inactive Adderall 5 mg tablet RxNorm: 631324 1 Tablet(s) PO QAM as needed 04/04/2018 04/27/2018 Inactive diazepam 2 mg tablet RxNorm: 427248 Tablet(s) TAKE 1/2 TABLET BY MOUTH TWICE DAILY NEEDED FOR ANXIETY 04/04/2018 05/02/2018 Inactive Adderall XR 20 mg ca psule,extended release RxNorm: 286503 1 Capsule(s) PO daily 03/13/2018 04/03/2018 In active Kenalog 40 mg/mL rodrigo pension for injection RxNorm: 5382584 1 Milliliter(s) Inj 03/01/2018 03/01/2018 In active Adderall 5 mg tablet RxNorm: 200846 1 Tablet(s) PO QAM as needed 02/13/2018 03/14/2018 Inactive Adderall XR 20 mg ca psule,extended release RxNorm: 325973 1 Capsule(s) PO daily 02/13/2018 03/12/2018 In active prednisone 20 mg tablet RxNorm: 604237 2 Tablet(s) PO daily 02/10/2018 02/14/2018 Inactive Bactrim DS 800 mg-16 0 mg tablet RxNorm: 259676 1 Tablet(s) PO BID 01/16/2018 02/04/2018 Inactive Adderall 5 mg tablet RxNorm: 340400 2 Tablet(s) PO QAM and 1 PO QPM 01/16/2018 02/12/2018 In active Bactrim DS 800 mg-16 0 mg tablet RxNorm: 538902 1 Tablet(s) PO BID 01/04/2018 01/15/2018 Inactive Adderall 5 mg tablet RxNorm: 914711 2 Tablet(s) PO QAM and 1 PO QPM 12/13/2017 01/11/2018 In active Zithromax Z-Molina 250 mg tablet RxNorm: 495877 1 Tablet(s) PO UD 11/25/2017 03/12/2018 Inactive diazepam 2 mg tablet RxNorm: 425065 Tablet(s) TAKE 1/2 TABLET BY MOUTH TWICE DAILY NEEDED FOR ANXIETY 11/18/2017 12/17/2017 Inactive diazepam 2 mg tablet RxNorm: 556508 Tablet(s) TAKE 1/2 TABLET BY MOUTH TWICE DAILY NEEDED FOR ANXIETY 08/30/2017 10/28/2017 Inactive diazepam 2 mg tablet RxNorm: 415648 Tablet(s) TAKE 1/2 TABLET BY MOUTH TWICE DAILY NEEDED FOR ANXIETY 07/19/2017 08/29/2017 Inactive diazepam 2 mg tablet RxNorm: 195271 TAKE 1/2 TABLET BY MOUTH TWICE DAILY NEEDED FOR ANXIETY 07/15/2017 07/18/2017 Inactive Bactrim DS 800 mg-16 0 mg tablet RxNorm: 054409 1 Tablet(s) PO BID 06/01/2017 06/20/2017 Inactive diazepam 2 mg tablet RxNorm: 304677 1/2 Tablet(s) PO BID as needed anxiety 06/01/2017 06/29/2017 In active tramadol 50 mg tablet RxNorm: 000708 1 Tablet(s) PO QID as needed 04/14/2017 04/23/2017 Inactive Bactrim DS 800 mg-16 0 mg tablet RxNorm: 823134 1 Tablet(s) PO BID 04/14/2017 05/03/2017 Inactive diazepam 2 mg tablet RxNorm: 264907 1/2 Tablet(s) PO BID as needed anxiety 03/02/2017 04/30/2017 In active Zithromax Z-Molina 250 mg tablet RxNorm: 328478 1 Tablet(s) PO UD 03/02/2017 07/18/2017 Inactive Bactrim DS 800 mg-16 0 mg tablet RxNorm: 371235 1 Tablet(s) PO BID 03/01/2017 03/20/2017 Inactive diazepam 2 mg tablet RxNorm: 461083 1/2 Tablet(s) PO BID as needed anxiety 01/21/2017 02/19/2017 In active Bactrim DS 800 mg-16 0 mg tablet RxNorm: 261442 1 Tablet(s) PO BID 01/21/2017 01/30/2017 Inactive Bactrim DS 800 mg-16 0 mg tablet RxNorm: 880084 1 Tablet(s) PO BID 11/17/2016 11/26/2016 Inactive diazepam 2 mg tablet RxNorm: 699544 1/2 Tablet(s) PO BID as needed anxiety 11/12/2016 01/10/2017 In active diazepam 2 mg tablet RxNorm: 232316 1/2 Tablet(s) PO BID as needed anxiety 10/18/2016 12/14/2016 In active Zithromax Z-Molina 250 mg tablet RxNorm: 024801 1 Tablet(s) PO UD 09/27/2016 03/01/2017 Inactive diazepam 2 mg tablet RxNorm: 882844 1/2 Tablet(s) PO BID as needed anxiety 09/13/2016 11/11/2016 In active diazepam 2 mg tablet RxNorm: 234307 1/2 Tablet(s) PO BID as needed anxiety 07/07/2016 09/17/2016 In active Levaquin 500 mg tablet RxNorm: 008001 1 Tablet(s) PO daily 06/01/2016 05/31/2016 Inactive Levaquin 500 mg tablet RxNorm: 365182 1 Tablet(s) PO daily 06/01/2016 06/07/2016 Inactive Levaquin 500 mg tablet RxNorm: 608483 1 Tablet(s) PO daily 05/05/2016 05/04/2016 Inactive Levaquin 500 mg tablet RxNorm: 281321 1 Tablet(s) PO daily 05/05/2016 05/11/2016 Inactive minocycline 100 mg c apsule RxNorm: 019799 1 CAPSULE(S) PO BID W HEN NOT HAVING ACUTE FLARE DECREASE TO ONCE DAILY 04/21/2016 05/20/2016 Inactive Ciprodex 0.3 %-0.1 % ear drops,suspension RxNorm: 674370 4 Drop(s) OTIC BID 03/08/2016 03/14/2016 In active Zithromax Z-Molina 250 mg tablet RxNorm: 894826 Tablet(s) PO 03/08/2016 09/26/2016 Inactive diazepam 2 mg tablet RxNorm: 417138 1/2 Tablet(s) PO BID as needed anxiety 2016 04/18/2016 In active mupirocin 2 % topica l ointment RxNorm: 080392 1 Application TOP BID 02/05/2016 No Stop Date Active minocycline 100 mg c apsule RxNorm: 927003 1 Capsule(s) PO BID w hen not having acute flare decrease to once daily 02/05/2016 03/05/2016 Inactive Bactrim DS 800 mg-16 0 mg tablet RxNorm: 701519 1 Tablet(s) PO BID 02/05/2016 02/18/2016 Inactive diazepam 2 mg tablet RxNorm: 663726 1/2 Tablet(s) PO BID as needed anxiety 02/05/2016 02/05/2016 In active betamethasone albreto te 0.1 % topical cream RxNorm: 510896 1 Application TOP BID as needed rash 12/22/2015 No Stop Date Active minocycline 100 mg c apsule RxNorm: 810012 1 Capsule(s) PO BID w hen not having acute flare decrease to once daily 12/22/2015 01/20/2016 Inactive Medication Administered Medication Codes Instruc tions Start Date Status Kenalog 40 mg/mL suspension for injection RxNorm: 7851648 1Milliliter 03/01/2018 N o longer Active Immunizations [...] hTSH II 1.82 uIU/mL 02/05/2016 Comp Metabolic Got688 NA 139 mEq/L 02/05/2016 Comp Metabolic Wiz804 K 4.2 mEq/L 02/05/2016 Comp Metabolic Cnt313 CL 103 mEq/L 02/05/2016 Comp Metabolic Jxj434 CO2 29.0 mEq/L 02/05/2016 Comp Metabolic Zbp551 AN ION GAP 11 02/05/2016 Comp Metabolic Qkn557 GL UCOSE 71 mg/dL 02/05/2016 Comp Metabolic Gyb681 Cr eat 0.9 mg/dL 02/05/2016 Comp Metabolic Jde795 eG FR 101 ml/min/1.73m2 01/14 Comp Metabolic Lla637 BUN 17 mg/dL 02/05/2016 Comp Metabolic Mqw751 B/ C Ratio 18.5 Ratio 02/05/2016 Comp Metabolic Hur818 CA LCIUM 9.4 mg/dL 02/05/2016 Comp Metabolic Dfb236 AL K PHOS 63 U/L 02/05/2016 Comp Metabolic Vim629 T(SGOT) 30 U/L 02/05/2016 Comp Metabolic Qty489 AL T(SGPT) 40 U/L 02/05/2016 Comp Metabolic Vnp061 BI LI T 0.5 mg/dL 02/05/2016 Comp Metabolic Sne437 AL BUMIN 4.2 g/dL 02/05/2016 Comp Metabolic Qbb244 TP RO 7.2 g/dL 02/05/2016 Comp Metabolic Eyp528 GL OB 3.0 g/dL 02/05/2016 Comp Metabolic Tkq597 A/ G Ratio 1.4 Ratio 02/05/2016 Comp Metabolic Hxh221 Os mo 278 mOsmo 02/05/2016 Cbc With [...] 23.4 % 02/05/2016 Cbc With Differential Ord2 Catron% 8.9 % 02/05/2016 Cbc With Differential Ord2 [...] 2.91 K/ul 02/05/2016 Cbc With Differential Ord2 Catron ABS# 1.1 K/ul 02/05/2016 Cbc With Differential [...] No mental status change 12/22/2015 Psychiatric anxiety 0 04/2016 Psychiatric No depression 12/22/2015 Physical Exam [...] 08/09/2018 INJECT TRIGGER POINT S 3/> CPT-4: 76614 08/09/2018 TRIAMCINOLONE ACET I [place] NOS CPT-4: J3301 03/01/2018 THER/PROPH/DIAG INJ SC/IM CPT-4: 21866 03/01/2018 DRAINAGE OF SKIN ABS CESS CPT-4: 98820 05/05/2016 TOBACCO-USE OVEN DUMPER 3-[address]: 008882366 CPT-4: G0436 12/22/2015 Vital Signs Date Vital 08/09/2018 Blood Pressure 1: 120/72 Code: 8480-6 Heart Rate 1: 90 bpm Height: SpO2: 98% Weight: 08/01/2018 Blood Pressure 1: 110/78 Code: 8480-6 BMI: 34.4 Code: 42738-3 Heart Rate 1: 109 bpm Height: 5'11" SpO2: 98% Weight: 247 lbs 03/01/2018 Blood Pressure 1: 120/80 Code: 8480-6 BMI: 32.9 Code: 56616-4 Heart Rate 1: 72 bpm Height: 5'11" SpO2: 96% Weight: 236 lbs 02/10/2018 Blood Pressure 1: 122/70 Code: 8480-6 BMI: 32.9 Code: 00005-7 Heart Rate 1: 90 bpm Height: 5'11" SpO2: 98% Weight: 236 lbs 12/12/2017 Blood Pressure 1: 124/72 Code: 8480-6 BMI: 35.0 Code: 59762-9 Heart Rate 1: 80 bpm Height: 5'11" SpO2: 96% Weight: 251 lbs 11/25/2017 Blood Pressure 1: 122/76 Code: 8480-6 BMI: 35.4 Code: 13277-7 Heart Rate 1: 74 bpm Height: 5'11" SpO2: 95% Weight: 254 lbs 03/02/2017 Blood Pressure 1: 120/70 Code: 8480-6 BMI: 33.8 Code: 34559-5 Heart Rate 1: 79 bpm Height: 5'11" SpO2: 99% Weight: 242 lbs 11/17/2016 Blood Pressure 1: 120/88 Code: 8480-6 BMI: 36.8 Code: 09345-7 Heart Rate 1: 104 bpm Height: 5'11" SpO2: 99% Weight: 264 lbs 09/27/2016 Blood Pressure 1: 122/78 Code: 8480-6 BMI: 34.6 Code: 21325-9 Heart Rate 1: 100 bpm Height: 5'11" SpO2: 96% Weight: 248 lbs 05/05/2016 Blood Pressure 1: 114/78 Code: 8480-6 BMI: 35.1 Code: 07142-0 Heart Rate 1: 81 bpm Height: 5'11" SpO2: 96% Weight: 252 lbs 03/08/2016 Blood Pressure 1: 120/64 Code: 8480-6 BMI: 34.3 Code: 32063-1 Heart Rate 1: 95 bpm Height: 5'11" SpO2: 97% Weight: 246 lbs 02/05/2016 Blood Pressure 1: 120/78 Code: 8480-6 BMI: 33.5 Code: 37881-2 Heart Rate 1: 104 bpm Height: 5'11" SpO2: 97% Weight: 240 lbs 12/22/2015 Blood Pressure 1: 120/82 Code: 8480-6 BMI: 34.3 Code: 16011-3 Heart Rate 1: 83 bpm Height: 5'11" [...] Encounters Encounter Performer Loca tion Codes Date 97709 EST. PATIENT, LEVEL III Diagnosis: Pain in left shoulder[ICD10: M25.512] Diagnosis: Muscle spasm of back[ICD10: M62.830] Miracle Pereyra MD, [facility] CPT- 4: 48290 08/09/2018 [id number] EST. PATIENT, LEVEL III Diagnosis: Pain in left shoulder[ICD10: M25.512] Diagnosis: Muscle spasm of back[ICD10: M62.830] Miracle ePreyra MD, [facility] CPT- 4: 50730 08/01/2018 94894 EST. PATIENT, LEVEL III Diagnosis: Hidradenitis suppurativa[ICD10: L73.2] Miracle Pereyra MD, [facility] CPT-4: 19966 03/01/2018 34283 EST. 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 PATIENT, LEVEL IV Diagnosis: Generalized anxiety disorder[ICD10: F41.1] Diagnosis: Hidradenitis suppurativa[ICD10: L73.2] Miracle Pereyra MD, [facility] CPT-4: 78555 11/25/2017 11389 EST. PATIENT, LEVEL III Diagnosis: Hidradenitis suppurativa[ICD10: L73.2] Diagnosis: Generalized anxiety disorder[ICD10: F41.1] Miracel Pereyra MD, [facility] CPT-4: 18411 03/02/2017 73986 EST. PATIENT, LEVEL III Diagnosis: Cutaneous abscess of buttock[ICD10: L02.31] Miracle Pereyra MD, [facility] CPT-4: 57927 11/17/2016 35454 EST. PATIENT, LEVEL III Diagnosis: Cutaneous abscess of left axilla[ICD10: L02.412] Diagnosis: Pain in right hand[ICD10: M79.641] Miracle Pereyra MD, [facility] CPT-4: 76078 09/27/2016 00276 EST. PATIENT, LEVEL III Diagnosis: Cutaneous abscess of right lower limb[ICD10: L02.415] Diagnosis: Hidradenitis suppurativa[ICD10: L73.2] Miracle Pereyra MD, [facility] CPT-4: 00186 05/05/2016 18828 EST. PATIENT, LEVEL IV Diagnosis: Other otitis externa, right ear[ICD10: H60.8X1] Diagnosis: Cutaneous abscess of left axilla[ICD10: L02.412] Diagnosis: Other acute sinusitis[ICD10: J01.80] Miracle Pereyra MD, [facility] CPT- 4: 00357 03/08/2016 95223 EST. PATIENT, LEVEL III Diagnosis: Generalized anxiety disorder[ICD10: F41.1] Diagnosis: Acne vulgaris[ICD10: L70.0] Diagnosis: Plantar wart[ICD10: B07.0] Miracle Pereyra MD, [facility] CPT-4: 46116 02/05/2016 (40277) OFFICE VISI T, NEW - LEVEL 3 Diagnosis: Generalized anxiety disorder[ICD10: F41.1] Diagnosis: 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][ICD10: L30.1] Diagnosis: Acne vulgaris[ICD10: L70.0] Diagnosis: Other obesity due to excess calories[ICD10: E66.09] [facility] CPT-4: 20579 12/22/2015 Plan of Care Planned Activity Notes [...] process. 08/09/2018 [facility] [phone] [facility] [place] (30 min) Complex 08/09/2018 Patient Education: Patient Medication Summary Completed 08/09/2018 Visit Plan: Left shoulder pain, mus mishel spasm - will send RX - The pt is to use prn antiinflammatories to manage acute pain. The patient is to call the office if the pain is worsening or does not improve. 08/01/2018 Appointment: [facility] [phone] [facility] [place] (15 min) Moderate 08/01/2018 Patient Education: Patient Medication Summary Completed 08/01/2018 Visit Plan: - will discuss with Dr. Pereyra and [...] 03/01/2018 Visit Plan: ADHD - medication worki well for treatment of the pt's medical [...] no changes. 02/10/2018 Appointment: Miracle Gracia WPtel: [facility] (15 min) Moderate 02/10/2018 Patient Education: [...] not prescribed. 12/12/2017 Appointment: Miracle Gracia WPtel: [phone] [facility] (15 min) Moderate 12/12/2017 Patient Education: Patient [...] or concerns. 11/25/2017 Appointment: Miracle Gracia WPtel[facility] (15 min) Moderate 11/25/2017 Patient Education: Patient Medication Summary Completed 11/25/2017 Visit Plan: Abscess/Cellulitis - Th e patient was instructed in appropriate wound care. The patient was instructed to use the antibiotic ointment as per RX. The patient is to call for any change in symptoms, increase in size of the lesion, increase in pain. 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 03/02/2017 Appointment: Miracle Gracia WPtel: [address] [place], [place] [phone] (30 min) Complex 03/02/2017 Patient Education: Patient Medication Summary Completed 03/02/2017 Patient Education: Smoking and Tobacco Addiction Completed 03/02/2017 Patient Education: Obesity Completed 03/02/2017 Appointment: Miracle Gracia WPtel[facility] (30 min) Complex 11/19/2016 Appointment: Miracle Gracia WPtel: [address] [place], [place] [address] (15 min) Moderate 11/18/2016 Visit Plan: Abscess/Cellulitis - Th e patient was instructed in appropriate wound care. The patient was instructed to use the antibiotic ointment as per RX. The patient is to call for any change in symptoms, increase in size of the lesion, increase in pain. Pt is to return tomorrow for I&D if needed. 11/17/2016 Appointment: Miracle Gracia WPtel: [facility] (15 min) Moderate 11/17/2016 Patient Education: Patient Medication Summary Completed 11/17/2016 Patient Education: Smoking and Tobacco Addiction Completed 11/17/2016 Referral: Alberto Pearson Referral Initiated 09/30/2016 Care Plan: Referral Order SNOMED-CT : [id number] Pending 09/28/2016 Visit Plan: Abscess/Cellulitis - Re [...] Dr. Isaac. 09/27/2016 Appointment: Miracle Gracia WPtel: [facility] (30 min) Complex 09/27/2016 Patient Education: Patient Medication Summary Completed 09/27/2016 Patient Education: Smoking and Tobacco Addiction Completed 09/27/2016 Care Plan: Referral Order SNOMED-CT : [id number] Pending 05/10/2016 Visit Plan: Abscess/Cellulitis - ri [...] pain. 05/05/2016 Appointment: Gavi Soria WPtel: [phone] [phone] (30 min) Complex 05/05/2016 Patient Education: Patient [...] current medications. 02/05/2016 Appointment: Miracle Gracia WPtel: [address] [place], [place] [address] (30 min) Complex 02/05/2016 Patient Education: Patient [...] 12/22/2015 Referral: Alberto Pearson Referral Initiated Referral: [facility]: Referral Completed Referral: 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 . Otitis Externa - p t [...]
--- OUTSIDE RECORDS SUMMARY | 2020-02-25 10:49 | XMS REPORT | CCD ---
Author Norbert Mancia Organization Celeste Pereyra MD, 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 Name Role Phone PP Unavailable CCM Unavailable Summary Purpose Interface Exchange Insurance Providers Payer name Policy type / Coverage type Covered constitution party ID Effective Begin Date Effective End Date [employer] Commercial Insurance [id number] Unknown Family history Mother Diagnosis Age At Onset Cancer Unknown Diabetes Unknown Social History Social History Element Codes Description Effective Dates Tobacco history SNOMED CT: 3712009 Former smoker Quit in October 2017 11/25/2017 Marital status Unknown M arried antonio 12/22/2015 Number of children Unknown 1 12/22/2015 Number of years using tobacco Unknown 5 - 10 12/22/2015 Number of cigarettes/day Unknown 10 (Half a pack) 12/22/2015 Alcohol history Unknown occasionally drinks alcohol 12/22/2015 Frequency of drinks SNOMED CT: 952427163 1-4 drinks per week 12/22/2015 Allergies, Adverse [...] Fill Instructions Adderall 10 mg tablet RxNorm: 045462 1 Tablet(s) PO BID 09/07/2018 10/06/2018 Active Zorvolex 18 mg capsule RxNorm: 7910822 1 Capsule(s) PO TID 08/10/2018 No Stop Date Active tramadol 50 mg tablet RxNorm: 147286 1 Tablet(s) PO QID as needed 08/09/2018 08/18/2018 Inactive baclofen 10 mg tablet RxNorm: 901444 1 Tablet(s) PO TID as needed muscle spas ms 08/09/2018 08/13/2018 In active baclofen 10 mg tablet RxNorm: 027640 1 Tablet(s) PO TID as needed muscle spas ms 08/01/2018 08/05/2018 In active prednisone 20 mg tablet RxNorm: 625021 3 Tablet(s) PO daily 08/01/2018 08/05/2018 Inactive diazepam 2 mg tablet RxNorm: 622499 Tablet(s) TAKE 1/2 TABLET BY MOUTH TWICE DAILY NEEDED FOR ANXIETY 07/21/2018 08/19/2018 Inactive Adderall 10 mg tablet RxNorm: 647834 1 Tablet(s) PO BID 07/14/2018 08/12/2018 Inactive Adderall 10 mg tablet RxNorm: 826764 1 Tablet(s) PO BID 05/26/2018 06/24/2018 Inactive Adderall 10 mg tablet RxNorm: 831512 1 Tablet(s) PO BID 04/28/2018 05/25/2018 Inactive Adderall 5 mg tablet RxNorm: 313003 1 Tablet(s) PO QAM as needed 04/04/2018 04/27/2018 Inactive diazepam 2 mg tablet RxNorm: 397663 Tablet(s) TAKE 1/2 TABLET BY MOUTH TWICE DAILY NEEDED FOR ANXIETY 04/04/2018 05/02/2018 Inactive Adderall XR 20 mg ca psule,extended release RxNorm: 631096 1 Capsule(s) PO daily 03/13/2018 04/03/2018 In active Kenalog 40 mg/mL rodrigo pension for injection RxNorm: 0112943 1 Milliliter(s) Inj 03/01/2018 03/01/2018 In active Adderall 5 mg tablet RxNorm: 328037 1 Tablet(s) PO QAM as needed 02/13/2018 03/14/2018 Inactive Adderall XR 20 mg ca psule,extended release RxNorm: 982637 1 Capsule(s) PO daily 02/13/2018 03/12/2018 In active prednisone 20 mg tablet RxNorm: 504401 2 Tablet(s) PO daily 02/10/2018 02/14/2018 Inactive Bactrim DS 800 mg-16 0 mg tablet RxNorm: 748602 1 Tablet(s) PO BID 01/16/2018 02/04/2018 Inactive Adderall 5 mg tablet RxNorm: 562497 2 Tablet(s) PO QAM and 1 PO QPM 01/16/2018 02/12/2018 In active Bactrim DS 800 mg-16 0 mg tablet RxNorm: 202514 1 Tablet(s) PO BID 01/04/2018 01/15/2018 Inactive Adderall 5 mg tablet RxNorm: 102772 2 Tablet(s) PO QAM and 1 PO QPM 12/13/2017 01/11/2018 In active Zithromax Z-Molina 250 mg tablet RxNorm: 948108 1 Tablet(s) PO UD 11/25/2017 03/12/2018 Inactive diazepam 2 mg tablet RxNorm: 798081 Tablet(s) TAKE 1/2 TABLET BY MOUTH TWICE DAILY NEEDED FOR ANXIETY 11/18/2017 12/17/2017 Inactive diazepam 2 mg tablet RxNorm: 164420 Tablet(s) TAKE 1/2 TABLET BY MOUTH TWICE DAILY NEEDED FOR ANXIETY 08/30/2017 10/28/2017 Inactive diazepam 2 mg tablet RxNorm: 940751 Tablet(s) TAKE 1/2 TABLET BY MOUTH TWICE DAILY NEEDED FOR ANXIETY 07/19/2017 08/29/2017 Inactive diazepam 2 mg tablet RxNorm: 056030 TAKE 1/2 TABLET BY MOUTH TWICE DAILY NEEDED FOR ANXIETY 07/15/2017 07/18/2017 Inactive Bactrim DS 800 mg-16 0 mg tablet RxNorm: 353210 1 Tablet(s) PO BID 06/01/2017 06/20/2017 Inactive diazepam 2 mg tablet RxNorm: 389729 1/2 Tablet(s) PO BID as needed anxiety 06/01/2017 06/29/2017 In active tramadol 50 mg tablet RxNorm: 743200 1 Tablet(s) PO QID as needed 04/14/2017 04/23/2017 Inactive Bactrim DS 800 mg-16 0 mg tablet RxNorm: 337301 1 Tablet(s) PO BID 04/14/2017 05/03/2017 Inactive diazepam 2 mg tablet RxNorm: 396233 1/2 Tablet(s) PO BID as needed anxiety 03/02/2017 04/30/2017 In active Zithromax Z-Molina 250 mg tablet RxNorm: 018745 1 Tablet(s) PO UD 03/02/2017 07/18/2017 Inactive Bactrim DS 800 mg-16 0 mg tablet RxNorm: 093158 1 Tablet(s) PO BID 03/01/2017 03/20/2017 Inactive diazepam 2 mg tablet RxNorm: 001065 1/2 Tablet(s) PO BID as needed anxiety 01/21/2017 02/19/2017 In active Bactrim DS 800 mg-16 0 mg tablet RxNorm: 718545 1 Tablet(s) PO BID 01/21/2017 01/30/2017 Inactive Bactrim DS 800 mg-16 0 mg tablet RxNorm: 050503 1 Tablet(s) PO BID 11/17/2016 11/26/2016 Inactive diazepam 2 mg tablet RxNorm: 525439 1/2 Tablet(s) PO BID as needed anxiety 11/12/2016 01/10/2017 In active diazepam 2 mg tablet RxNorm: 061238 1/2 Tablet(s) PO BID as needed anxiety 10/18/2016 12/14/2016 In active Zithromax Z-Molina 250 mg tablet RxNorm: 056719 1 Tablet(s) PO UD 09/27/2016 03/01/2017 Inactive diazepam 2 mg tablet RxNorm: 182671 1/2 Tablet(s) PO BID as needed anxiety 09/13/2016 11/11/2016 In active diazepam 2 mg tablet RxNorm: 344925 1/2 Tablet(s) PO BID as needed anxiety 07/07/2016 09/17/2016 In active Levaquin 500 mg tablet RxNorm: 141500 1 Tablet(s) PO daily 06/01/2016 05/31/2016 Inactive Levaquin 500 mg tablet RxNorm: 700248 1 Tablet(s) PO daily 06/01/2016 06/07/2016 Inactive Levaquin 500 mg tablet RxNorm: 808517 1 Tablet(s) PO daily 05/05/2016 05/04/2016 Inactive Levaquin 500 mg tablet RxNorm: 406234 1 Tablet(s) PO daily 05/05/2016 05/11/2016 Inactive minocycline 100 mg c apsule RxNorm: 420110 1 CAPSULE(S) PO BID W HEN NOT HAVING ACUTE FLARE DECREASE TO ONCE DAILY 04/21/2016 05/20/2016 Inactive Ciprodex 0.3 %-0.1 % ear drops,suspension RxNorm: 360832 4 Drop(s) OTIC BID 03/08/2016 03/14/2016 In active Zithromax Z-Molina 250 mg tablet RxNorm: 895512 Tablet(s) PO 03/08/2016 09/26/2016 Inactive diazepam 2 mg tablet RxNorm: 145465 1/2 Tablet(s) PO BID as needed anxiety 2016 04/18/2016 In active mupirocin 2 % topica l ointment RxNorm: 211407 1 Application TOP BID 02/05/2016 No Stop Date Active minocycline 100 mg c apsule RxNorm: 961271 1 Capsule(s) PO BID w hen not having acute flare decrease to once daily 02/05/2016 03/05/2016 Inactive Bactrim DS 800 mg-16 0 mg tablet RxNorm: 351204 1 Tablet(s) PO BID 02/05/2016 02/18/2016 Inactive diazepam 2 mg tablet RxNorm: 291231 1/2 Tablet(s) PO BID as needed anxiety 02/05/2016 02/05/2016 In active betamethasone alberto te 0.1 % topical cream RxNorm: 491757 1 Application TOP BID as needed rash 12/22/2015 No Stop Date Active minocycline 100 mg c apsule RxNorm: 750832 1 Capsule(s) PO BID w hen not having acute flare decrease to once daily 12/22/2015 01/20/2016 Inactive Medication Administered Medication Codes Instruc tions Start Date Status Kenalog 40 mg/mL suspension for injection RxNorm: 2272020 1Milliliter 03/01/2018 N o longer Active Immunizations [...] hTSH II 1.82 uIU/mL 02/05/2016 Comp Metabolic Rzk164 NA 139 mEq/L 02/05/2016 Comp Metabolic Lcm166 K 4.2 mEq/L 02/05/2016 Comp Metabolic Enc767 CL 103 mEq/L 02/05/2016 Comp Metabolic Wbr648 CO2 29.0 mEq/L 02/05/2016 Comp Metabolic Ddy088 AN ION GAP 11 02/05/2016 Comp Metabolic Ghc819 GL UCOSE 71 mg/dL 02/05/2016 Comp Metabolic Vvv427 Cr eat 0.9 mg/dL 02/05/2016 Comp Metabolic Pdn400 eG FR 101 ml/min/1.73m2 01/14 Comp Metabolic Wfb498 BUN 17 mg/dL 02/05/2016 Comp Metabolic Agb227 B/ C Ratio 18.5 Ratio 02/05/2016 Comp Metabolic Ckb856 CA LCIUM 9.4 mg/dL 02/05/2016 Comp Metabolic Umd162 AL K PHOS 63 U/L 02/05/2016 Comp Metabolic Uaf872 T(SGOT) 30 U/L 02/05/2016 Comp Metabolic Vkb042 AL T(SGPT) 40 U/L 02/05/2016 Comp Metabolic Vaw456 BI LI T 0.5 mg/dL 02/05/2016 Comp Metabolic Xxz732 AL BUMIN 4.2 g/dL 02/05/2016 Comp Metabolic Lik154 TP RO 7.2 g/dL 02/05/2016 Comp Metabolic Gut464 GL OB 3.0 g/dL 02/05/2016 Comp Metabolic Skt520 A/ G Ratio 1.4 Ratio 02/05/2016 Comp Metabolic Clc088 Os mo 278 mOsmo 02/05/2016 Cbc With [...] 23.4 % 02/05/2016 Cbc With Differential Ord2 [place]% 8.9 % 02/05/2016 Cbc With Differential Ord2 [...] 2.91 K/ul 02/05/2016 Cbc With Differential Ord2 [place] ABS# 1.1 K/ul 02/05/2016 Cbc With Differential [...] nourished 02/10/2018 None Full Exam - General 1995 Eyes conjunctiva/eyelids Overall: eyelids normal 02/10/2018 None [...] 08/09/2018 INJECT TRIGGER POINT S 3/> CPT-4: 00095 08/09/2018 TRIAMCINOLONE ACET I [place] NOS CPT-4: J3301 03/01/2018 THER/PROPH/DIAG INJ SC/IM CPT-4: 85040 03/01/2018 DRAINAGE OF SKIN ABS CESS CPT-4: 63614 05/05/2016 TOBACCO-USE WHEAT AND OATS FLAKE MILLER 3-[address]: 804577314 CPT-4: G0436 12/22/2015 Vital Signs Date Vital 08/09/2018 Blood Pressure 1: 120/72 Code: 8480-6 Heart Rate 1: 90 bpm Height: SpO2: 98% Weight: 08/01/2018 Blood Pressure 1: 110/78 Code: 8480-6 BMI: 34.4 Code: 82746-8 Heart Rate 1: 109 bpm Height: 5'11" SpO2: 98% Weight: 247 lbs 03/01/2018 Blood Pressure 1: 120/80 Code: 8480-6 BMI: 32.9 Code: 42648-5 Heart Rate 1: 72 bpm Height: 5'11" SpO2: 96% Weight: 236 lbs 02/10/2018 Blood Pressure 1: 122/70 Code: 8480-6 BMI: 32.9 Code: 95042-0 Heart Rate 1: 90 bpm Height: 5'11" SpO2: 98% Weight: 236 lbs 12/12/2017 Blood Pressure 1: 124/72 Code: 8480-6 BMI: 35.0 Code: 61122-2 Heart Rate 1: 80 bpm Height: 5'11" SpO2: 96% Weight: 251 lbs 11/25/2017 Blood Pressure 1: 122/76 Code: 8480-6 BMI: 35.4 Code: 72233-3 Heart Rate 1: 74 bpm Height: 5'11" SpO2: 95% Weight: 254 lbs 03/02/2017 Blood Pressure 1: 120/70 Code: 8480-6 BMI: 33.8 Code: 60931-1 Heart Rate 1: 79 bpm Height: 5'11" SpO2: 99% Weight: 242 lbs 11/17/2016 Blood Pressure 1: 120/88 Code: 8480-6 BMI: 36.8 Code: 88589-7 Heart Rate 1: 104 bpm Height: 5'11" SpO2: 99% Weight: 264 lbs 09/27/2016 Blood Pressure 1: 122/78 Code: 8480-6 BMI: 34.6 Code: 65411-6 Heart Rate 1: 100 bpm Height: 5'11" SpO2: 96% Weight: 248 lbs 05/05/2016 Blood Pressure 1: 114/78 Code: 8480-6 BMI: 35.1 Code: 93046-4 Heart Rate 1: 81 bpm Height: 5'11" SpO2: 96% Weight: 252 lbs 03/08/2016 Blood Pressure 1: 120/64 Code: 8480-6 BMI: 34.3 Code: 12466-3 Heart Rate 1: 95 bpm Height: 5'11" SpO2: 97% Weight: 246 lbs 02/05/2016 Blood Pressure 1: 120/78 Code: 8480-6 BMI: 33.5 Code: 98903-5 Heart Rate 1: 104 bpm Height: 5'11" SpO2: 97% Weight: 240 lbs 12/22/2015 Blood Pressure 1: 120/82 Code: 8480-6 BMI: 34.3 Code: 60386-9 Heart Rate 1: 83 bpm Height: 5'11" [...] Encounters Encounter Performer Loca tion Codes Date 97610 EST. PATIENT, LEVEL III Diagnosis: Pain in left shoulder[ICD10: M25.512] Diagnosis: Muscle spasm of back[ICD10: M62.830] Miracle Pereyra MD, [facility] CPT- 4: 15945 08/09/2018 [id number] EST. PATIENT, LEVEL III Diagnosis: Pain in left shoulder[ICD10: M25.512] Diagnosis: Muscle spasm of back[ICD10: M62.830] Miracle Pereyra MD, [facility] CPT- 4: 53453 08/01/2018 83218 EST. PATIENT, LEVEL III Diagnosis: Hidradenitis suppurativa[ICD10: L73.2] Miracle Pereyra MD, [facility] CPT-4: 15256 03/01/2018 84125 EST. 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 CPT-4: 11382 02/10/2018 35697 EST. 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 CPT-4: 26215 12/12/2017 08772 EST. PATIENT, LEVEL IV Diagnosis: Generalized anxiety disorder[ICD10: F41.1] Diagnosis: Hidradenitis suppurativa[ICD10: L73.2] Miracle Pereyra MD, [facility] CPT-4: 89610 11/25/2017 51790 EST. PATIENT, LEVEL III Diagnosis: Hidradenitis suppurativa[ICD10: L73.2] Diagnosis: Generalized anxiety disorder[ICD10: F41.1] Miracle Pereyra MD, [facility] CPT-4: 04946 03/02/2017 19974 EST. PATIENT, LEVEL III Diagnosis: Cutaneous abscess of buttock[ICD10: L02.31] Miracle Pereyra MD, [facility] CPT-4: 24511 11/17/2016 56097 EST. PATIENT, LEVEL III Diagnosis: Cutaneous abscess of left axilla[ICD10: L02.412] Diagnosis: Pain in right hand[ICD10: M79.641] Miracle Pereyra MD, [facility] CPT-4: 51738 09/27/2016 35620 EST. PATIENT, LEVEL III Diagnosis: Cutaneous abscess of right lower limb[ICD10: L02.415] Diagnosis: Hidradenitis suppurativa[ICD10: L73.2] Miracle Pereyra MD, [facility] CPT-4: 15120 05/05/2016 72042 EST. PATIENT, LEVEL IV Diagnosis: Other otitis externa, right ear[ICD10: H60.8X1] Diagnosis: Cutaneous abscess of left axilla[ICD10: L02.412] Diagnosis: Other acute sinusitis[ICD10: J01.80] Miracle Pereyra MD, [facility] CPT- 4: 52179 03/08/2016 77322 EST. PATIENT, LEVEL III Diagnosis: Generalized anxiety disorder[ICD10: F41.1] Diagnosis: Acne vulgaris[ICD10: L70.0] Diagnosis: Plantar wart[ICD10: B07.0] Miracle Pereyra MD, [facility] CPT-4: 10451 02/05/2016 (38133) OFFICE VISI T, NEW - LEVEL 3 Diagnosis: Generalized anxiety disorder[ICD10: F41.1] Diagnosis: 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][ICD10: L30.1] Diagnosis: Acne vulgaris[ICD10: L70.0] Diagnosis: Other obesity due to excess calories[ICD10: E66.09] [facility] CPT-4: 03840 12/22/2015 Plan of Care Planned Activity Notes [...] disease process. 08/09/2018 Appointment: Miracle Gracia WPtel: [facility] [place] ([facility] [place] Complex 08/09/2018 Patient Education: Patient Medication Summary Completed 08/09/2018 Visit Plan: Left shoulder pain, mus mishel spasm - will send RX - The pt is to use prn antiinflammatories to manage acute pain. The patient is to call the office if the pain is worsening or does not improve. 08/01/2018 Appointment: Miracle Gracia WPtel[phone] [place] (15 min) Moderate 08/01/2018 Patient Education: [...] no changes. 02/10/2018 Appointment: Miracle Gracia WPtel: [address] [facility] (15 min) Moderate 02/10/2018 [...] prescribed. 12/12/2017 Appointment: Miracle Gracia WPtel[facility] [phone] [facility] (15 min) Moderate 12/12/2017 Patient Education: Patient [...] or concerns. 11/25/2017 Appointment: Miracle Gracia WPtel: [facility] (15 min) Moderate 11/25/2017 Patient Education: Patient Medication Summary Completed 11/25/2017 Visit Plan: Abscess/Cellulitis - Th e patient was instructed in appropriate wound care. The patient was instructed to use the antibiotic ointment as per RX. The patient is to call for any change in symptoms, increase in size of the lesion, increase in pain. Pt is to discuss methotrexate with his shopper. 03/02/2017 Appointment: Miracle Gracia WPtel: [facility] (30 min) Complex 03/02/2017 Patient Education: Patient Medication Summary Completed 03/02/2017 Patient Education: Smoking and Tobacco Addiction Completed 03/02/2017 Patient Education: Obesity Completed 03/02/2017 Appointment: Miracle Gracia WPtel: [facility] [place] (30 min) Complex 11/19/2016 Appointment: Miracle Gracia WPtel: [address] [place], [place] [phone] [place] (15 min) Moderate 11/18/2016 Visit Plan: Abscess/Cellulitis - Th e patient was instructed in appropriate wound care. The patient was instructed to use the antibiotic ointment as per RX. The patient is to call for any change in symptoms, increase in size of the lesion, increase in pain. Pt is to return tomorrow for I&D if needed. 11/17/2016 Appointment: Miralce Gracia WPtel: [facility] [place] (15 min) Moderate 11/17/2016 Patient Education: Patient Medication Summary Completed 11/17/2016 Patient Education: Smoking and Tobacco Addiction Completed 11/17/2016 Referral: Alberto Pearson Referral Initiated 09/30/2016 Care Plan: Referral Order SNOMED-CT : 574621035 Pending 09/28/2016 Visit Plan: Abscess/Cellulitis - Re [...] Dr. Isaac. 09/27/2016 Appointment: Miracle Gracia WPtel: [facility] [place] (30 min) Complex 09/27/2016 Patient Education: Patient Medication Summary Completed 09/27/2016 Patient Education: Smoking and Tobacco Addiction Completed 09/27/2016 Care Plan: Referral Order SNOMED-CT : 888429676 Pending 05/10/2016 Visit Plan: Abscess/Cellulitis - ri ght lateral hip - incision and drainage today in the office - The patient was instructed in appropriate wound care. The patient was instructed to use the antibiotic ointment as per RX. The patient is to call for any change in symptoms, increase in size of the lesion, increase in pain. 05/05/2016 Appointment: Gavi Soria WPtel: [phone] [place] (30 min) Complex 05/05/2016 Patient Education: Patient [...] current medications. 02/05/2016 Appointment: Miracle Gracia WPtel: [address] [place], [place] [id number] (30 min) [facility] 02/05/2016 Patient Education: Patient Medication Summary Completed [...] 12/22/2015 Referral: Alberto Pearson Referral Initiated Referral: [facility] WPtel: Referral Completed Referral: [facility] WPtel: will call with appt time [...] Pt is to discuss methotrexate with his shopper. . Otitis Externa - p t given [...]
--- OUTSIDE RECORDS SUMMARY | 2020-02-25 10:50 | XMS REPORT | CCD ---
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 Name Role Phone PP Unavailable CCM Unavailable Summary Purpose Interface Exchange Insurance Providers Payer name Policy type / Coverage type Covered republican ID Effective Begin Date Effective End Date [employer] Commercial Insurance [id number] 2018 Unknown Family history Mother Diagnosis Age At Onset Cancer Unknown Diabetes Unknown Social History Social History Element Codes Description Effective Dates Tobacco history SNOMED CT: 6525857 Former smoker Quit in October 2017 11/25/2017 Marital status Unknown M arried antonio 12/22/2015 Number of children Unknown 1 12/22/2015 Number of years using tobacco Unknown 5 - 10 12/22/2015 Number of cigarettes/day Unknown 10 (Half a pack) 12/22/2015 Alcohol history Unknown occasionally drinks alcohol 12/22/2015 Frequency of drinks SNOMED CT: 694983679 1-4 drinks per week 12/22/2015 Allergies, Adverse [...] Fill Instructions Zorvolex 18 mg capsule RxNorm: 0862308 1 Capsule(s) PO TID 08/10/2018 No Stop Date Active tramadol 50 mg tablet RxNorm: 051329 1 Tablet(s) PO QID as needed 08/09/2018 08/18/2018 Active baclofen 10 mg tablet RxNorm: 755472 1 Tablet(s) PO TID as needed muscle spas ms 08/09/2018 08/13/2018 Ac tive baclofen 10 mg tablet RxNorm: 428535 1 Tablet(s) PO TID as needed muscle spas ms 08/01/2018 08/05/2018 In active prednisone 20 mg tablet RxNorm: 839581 3 Tablet(s) PO daily 08/01/2018 08/05/2018 Inactive diazepam 2 mg tablet RxNorm: 423265 Tablet(s) TAKE 1/2 TABLET BY MOUTH TWICE DAILY NEEDED FOR ANXIETY 07/21/2018 08/19/2018 Active Adderall 10 mg tablet RxNorm: 513170 1 Tablet(s) PO BID 07/14/2018 08/12/2018 Active Adderall 10 mg tablet RxNorm: 650375 1 Tablet(s) PO BID 05/26/2018 06/24/2018 Inactive Adderall 10 mg tablet RxNorm: 152523 1 Tablet(s) PO BID 04/28/2018 05/25/2018 Inactive Adderall 5 mg tablet RxNorm: 799414 1 Tablet(s) PO QAM as needed 04/04/2018 04/27/2018 Inactive diazepam 2 mg tablet RxNorm: 185161 Tablet(s) TAKE 1/2 TABLET BY MOUTH TWICE DAILY NEEDED FOR ANXIETY 04/04/2018 05/02/2018 Inactive Adderall XR 20 mg ca psule,extended release RxNorm: 677328 1 Capsule(s) PO daily 03/13/2018 04/03/2018 In active Kenalog 40 mg/mL rodrigo pension for injection RxNorm: 7867259 1 Milliliter(s) Inj 03/01/2018 03/01/2018 In active Adderall 5 mg tablet RxNorm: 712790 1 Tablet(s) PO QAM as needed 02/13/2018 03/14/2018 Inactive Adderall XR 20 mg ca psule,extended release RxNorm: 392320 1 Capsule(s) PO daily 02/13/2018 03/12/2018 In active prednisone 20 mg tablet RxNorm: 979696 2 Tablet(s) PO daily 02/10/2018 02/14/2018 Inactive Bactrim DS 800 mg-16 0 mg tablet RxNorm: 876847 1 Tablet(s) PO BID 01/16/2018 02/04/2018 Inactive Adderall 5 mg tablet RxNorm: 649176 2 Tablet(s) PO QAM and 1 PO QPM 01/16/2018 02/12/2018 In active Bactrim DS 800 mg-16 0 mg tablet RxNorm: 348720 1 Tablet(s) PO BID 01/04/2018 01/15/2018 Inactive Adderall 5 mg tablet RxNorm: 232823 2 Tablet(s) PO QAM and 1 PO QPM 12/13/2017 01/11/2018 In active Zithromax Z-Molina 250 mg tablet RxNorm: 159880 1 Tablet(s) PO UD 11/25/2017 03/12/2018 Inactive diazepam 2 mg tablet RxNorm: 868634 Tablet(s) TAKE 1/2 TABLET BY MOUTH TWICE DAILY NEEDED FOR ANXIETY 11/18/2017 12/17/2017 Inactive diazepam 2 mg tablet RxNorm: 814302 Tablet(s) TAKE 1/2 TABLET BY MOUTH TWICE DAILY NEEDED FOR ANXIETY 08/30/2017 10/28/2017 Inactive diazepam 2 mg tablet RxNorm: 802248 Tablet(s) TAKE 1/2 TABLET BY MOUTH TWICE DAILY NEEDED FOR ANXIETY 07/19/2017 08/29/2017 Inactive diazepam 2 mg tablet RxNorm: 762503 TAKE 1/2 TABLET BY MOUTH TWICE DAILY NEEDED FOR ANXIETY 07/15/2017 07/18/2017 Inactive Bactrim DS 800 mg-16 0 mg tablet RxNorm: 754057 1 Tablet(s) PO BID 06/01/2017 06/20/2017 Inactive diazepam 2 mg tablet RxNorm: 594273 1/2 Tablet(s) PO BID as needed anxiety 06/01/2017 06/29/2017 In active tramadol 50 mg tablet RxNorm: 886874 1 Tablet(s) PO QID as needed 04/14/2017 04/23/2017 Inactive Bactrim DS 800 mg-16 0 mg tablet RxNorm: 875053 1 Tablet(s) PO BID 04/14/2017 05/03/2017 Inactive diazepam 2 mg tablet RxNorm: 076032 1/2 Tablet(s) PO BID as needed anxiety 03/02/2017 04/30/2017 In active Zithromax Z-Molina 250 mg tablet RxNorm: 282242 1 Tablet(s) PO UD 03/02/2017 07/18/2017 Inactive Bactrim DS 800 mg-16 0 mg tablet RxNorm: 143839 1 Tablet(s) PO BID 03/01/2017 03/20/2017 Inactive diazepam 2 mg tablet RxNorm: 969588 1/2 Tablet(s) PO BID as needed anxiety 01/21/2017 02/19/2017 In active Bactrim DS 800 mg-16 0 mg tablet RxNorm: 139374 1 Tablet(s) PO BID 01/21/2017 01/30/2017 Inactive Bactrim DS 800 mg-16 0 mg tablet RxNorm: 100019 1 Tablet(s) PO BID 11/17/2016 11/26/2016 Inactive diazepam 2 mg tablet RxNorm: 021957 1/2 Tablet(s) PO BID as needed anxiety 11/12/2016 01/10/2017 In active diazepam 2 mg tablet RxNorm: 787768 1/2 Tablet(s) PO BID as needed anxiety 10/18/2016 12/14/2016 In active Zithromax Z-Molina 250 mg tablet RxNorm: 986523 1 Tablet(s) PO UD 09/27/2016 03/01/2017 Inactive diazepam 2 mg tablet RxNorm: 156207 1/2 Tablet(s) PO BID as needed anxiety 09/13/2016 11/11/2016 In active diazepam 2 mg tablet RxNorm: 003749 1/2 Tablet(s) PO BID as needed anxiety 07/07/2016 09/17/2016 In active Levaquin 500 mg tablet RxNorm: 545249 1 Tablet(s) PO daily 06/01/2016 05/31/2016 Inactive Levaquin 500 mg tablet RxNorm: 460944 1 Tablet(s) PO daily 06/01/2016 06/07/2016 Inactive Levaquin 500 mg tablet RxNorm: 300795 1 Tablet(s) PO daily 05/05/2016 05/04/2016 Inactive Levaquin 500 mg tablet RxNorm: 821631 1 Tablet(s) PO daily 05/05/2016 05/11/2016 Inactive minocycline 100 mg c apsule RxNorm: 934823 1 CAPSULE(S) PO BID W HEN NOT HAVING ACUTE FLARE DECREASE TO ONCE DAILY 04/21/2016 05/20/2016 Inactive Ciprodex 0.3 %-0.1 % ear drops,suspension RxNorm: 060754 4 Drop(s) OTIC BID 03/08/2016 03/14/2016 In active Zithromax Z-Molina 250 mg tablet RxNorm: 821064 Tablet(s) PO 03/08/2016 09/26/2016 Inactive diazepam 2 mg tablet RxNorm: 586712 1/2 Tablet(s) PO BID as needed anxiety 2016 04/18/2016 In active mupirocin 2 % topica l ointment RxNorm: 182882 1 Application TOP BID 02/05/2016 No Stop Date Active minocycline 100 mg c apsule RxNorm: 262479 1 Capsule(s) PO BID w hen not having acute flare decrease to once daily 02/05/2016 03/05/2016 Inactive Bactrim DS 800 mg-16 0 mg tablet RxNorm: 302489 1 Tablet(s) PO BID 02/05/2016 02/18/2016 Inactive diazepam 2 mg tablet RxNorm: 191775 1/2 Tablet(s) PO BID as needed anxiety 02/05/2016 02/05/2016 In active betamethasone alberto te 0.1 % topical cream RxNorm: 083066 1 Application TOP BID as needed rash 12/22/2015 No Stop Date Active minocycline 100 mg c apsule RxNorm: 731067 1 Capsule(s) PO BID w hen not having acute flare decrease to once daily 12/22/2015 01/20/2016 Inactive Medication Administered Medication Codes Instruc tions Start Date Status Kenalog 40 mg/mL suspension for injection RxNorm: 3103272 1Milliliter 03/01/2018 N o longer Active Immunizations [...] hTSH II 1.82 uIU/mL 02/05/2016 Comp Metabolic Roi978 NA 139 mEq/L 02/05/2016 Comp Metabolic Yhh073 K 4.2 mEq/L 02/05/2016 Comp Metabolic Xbe210 CL 103 mEq/L 02/05/2016 Comp Metabolic Kqj044 CO2 29.0 mEq/L 02/05/2016 Comp Metabolic Zdf555 AN ION GAP 11 02/05/2016 Comp Metabolic Ben051 GL UCOSE 71 mg/dL 02/05/2016 Comp Metabolic Hkn221 Cr eat 0.9 mg/dL 02/05/2016 Comp Metabolic Npt932 eG FR 101 ml/min/1.73m2 01/14 Comp Metabolic Rjc548 BUN 17 mg/dL 02/05/2016 Comp Metabolic Mcy532 B/ C Ratio 18.5 Ratio 02/05/2016 Comp Metabolic Cko347 CA LCIUM 9.4 mg/dL 02/05/2016 Comp Metabolic Gir275 AL K PHOS 63 U/L 02/05/2016 Comp Metabolic Ogv509 T(SGOT) 30 U/L 02/05/2016 Comp Metabolic Gmj958 AL T(SGPT) 40 U/L 02/05/2016 Comp Metabolic Cdy843 BI LI T 0.5 mg/dL 02/05/2016 Comp Metabolic Mte643 AL BUMIN 4.2 g/dL 02/05/2016 Comp Metabolic Hfi598 TP RO 7.2 g/dL 02/05/2016 Comp Metabolic Qwl976 GL OB 3.0 g/dL 02/05/2016 Comp Metabolic Mka760 A/ G Ratio 1.4 Ratio 02/05/2016 Comp Metabolic Cny213 Os mo 278 mOsmo 02/05/2016 Cbc With [...] 23.4 % 02/05/2016 Cbc With Differential Ord2 [place]% 8.9 [...] 08/09/2018 INJECT TRIGGER POINT S 3/> CPT-4: 75013 08/09/2018 TRIAMCINOLONE ACET I [place] NOS CPT-4: J3301 03/01/2018 THER/PROPH/DIAG INJ SC/IM CPT-4: 43017 03/01/2018 DRAINAGE OF SKIN ABS CESS CPT-4: 77063 05/05/2016 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-[address]: 819111136 CPT-4: G0436 12/22/2015 Vital Signs Date Vital 08/09/2018 Blood Pressure 1: 120/72 Code: 8480-6 Heart Rate 1: 90 bpm Height: SpO2: 98% Weight: 08/01/2018 Blood Pressure 1: 110/78 Code: 8480-6 BMI: 34.4 Code: 54941-9 Heart Rate 1: 109 bpm Height: 5'11" SpO2: 98% Weight: 247 lbs 03/01/2018 Blood Pressure 1: 120/80 Code: 8480-6 BMI: 32.9 Code: 50623-2 Heart Rate 1: 72 bpm Height: 5'11" SpO2: 96% Weight: 236 lbs 02/10/2018 Blood Pressure 1: 122/70 Code: 8480-6 BMI: 32.9 Code: 59575-9 Heart Rate 1: 90 bpm Height: 5'11" SpO2: 98% Weight: 236 lbs 12/12/2017 Blood Pressure 1: 124/72 Code: 8480-6 BMI: 35.0 Code: 61769-1 Heart Rate 1: 80 bpm Height: 5'11" SpO2: 96% Weight: 251 lbs 11/25/2017 Blood Pressure 1: 122/76 Code: 8480-6 BMI: 35.4 Code: 27095-6 Heart Rate 1: 74 bpm Height: 5'11" SpO2: 95% Weight: 254 lbs 03/02/2017 Blood Pressure 1: 120/70 Code: 8480-6 BMI: 33.8 Code: 04262-5 Heart Rate 1: 79 bpm Height: 5'11" SpO2: 99% Weight: 242 lbs 11/17/2016 Blood Pressure 1: 120/88 Code: 8480-6 BMI: 36.8 Code: 07918-1 Heart Rate 1: 104 bpm Height: 5'11" SpO2: 99% Weight: 264 lbs 09/27/2016 Blood Pressure 1: 122/78 Code: 8480-6 BMI: 34.6 Code: 46403-0 Heart Rate 1: 100 bpm Height: 5'11" SpO2: 96% Weight: 248 lbs 05/05/2016 Blood Pressure 1: 114/78 Code: 8480-6 BMI: 35.1 Code: 21556-5 Heart Rate 1: 81 bpm Height: 5'11" SpO2: 96% Weight: 252 lbs 03/08/2016 Blood Pressure 1: 120/64 Code: 8480-6 BMI: 34.3 Code: 98233-8 Heart Rate 1: 95 bpm Height: 5'11" SpO2: 97% Weight: 246 lbs 02/05/2016 Blood Pressure 1: 120/78 Code: 8480-6 BMI: 33.5 Code: 43981-1 Heart Rate 1: 104 bpm Height: 5'11" SpO2: 97% Weight: 240 lbs 12/22/2015 Blood Pressure 1: 120/82 Code: 8480-6 BMI: 34.3 Code: 08287-2 Heart Rate 1: 83 bpm Height: 5'11" [...] Encounters Encounter Performer Loca tion Codes Date 14327 EST. PATIENT, LEVEL III Diagnosis: Pain in left shoulder[ICD10: M25.512] Diagnosis: Muscle spasm of back[ICD10: M62.830] Miracle Pereyra MD, [facility] CPT- 4: 21695 08/09/2018 95029 EST. PATIENT, LEVEL III Diagnosis: Pain in left shoulder[ICD10: M25.512] Diagnosis: Muscle spasm of back[ICD10: M62.830] Miracle Pereyra MD, [facility] CPT- 4: 05124 08/01/2018 99776 EST. PATIENT, LEVEL III Diagnosis: Hidradenitis suppurativa[ICD10: L73.2] Miracle Pereyra MD, [facility] CPT-4: 90528 03/01/2018 83082 EST. 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 PATIENT, LEVEL IV Diagnosis: Generalized anxiety disorder[ICD10: F41.1] Diagnosis: Hidradenitis suppurativa[ICD10: L73.2] Miracle Pereyra MD, [facility] CPT-4: 83897 11/25/2017 45750 EST. PATIENT, LEVEL III Diagnosis: Hidradenitis suppurativa[ICD10: L73.2] Diagnosis: Generalized anxiety disorder[ICD10: F41.1] Miracle Pereyra MD, [facility] CPT-4: 40160 03/02/2017 77020 EST. PATIENT, LEVEL III Diagnosis: Cutaneous abscess of buttock[ICD10: L02.31] Miracle Pereyra MD, [facility] CPT-4: 78060 11/17/2016 06999 EST. PATIENT, LEVEL III Diagnosis: Cutaneous abscess of left axilla[ICD10: L02.412] Diagnosis: Pain in right hand[ICD10: M79.641] Miracle Pereyra MD, [facility] CPT-4: 94551 09/27/2016 30860 EST. PATIENT, LEVEL III Diagnosis: Cutaneous abscess of right lower limb[ICD10: L02.415] Diagnosis: Hidradenitis suppurativa[ICD10: L73.2] Miracle Pereyra MD, [facility] CPT-4: 49404 05/05/2016 79395 EST. PATIENT, LEVEL IV Diagnosis: Other otitis externa, right ear[ICD10: H60.8X1] Diagnosis: Cutaneous abscess of left axilla[ICD10: L02.412] Diagnosis: Other acute sinusitis[ICD10: J01.80] Miracle Pereyra MD, [facility] CPT- 4: 12871 03/08/2016 27185 EST. PATIENT, LEVEL III Diagnosis: Generalized anxiety disorder[ICD10: F41.1] Diagnosis: Acne vulgaris[ICD10: L70.0] Diagnosis: Plantar wart[ICD10: B07.0] Miracle Pereyra MD, [facility] CPT-4: 15589 02/05/2016 (70761) OFFICE VISI T, NEW - LEVEL 3 Diagnosis: Generalized anxiety disorder[ICD10: F41.1] Diagnosis: 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][ICD10: L30.1] Diagnosis: Acne vulgaris[ICD10: L70.0] Diagnosis: Other obesity due to excess calories[ICD10: E66.09] [facility] CPT-4: 21531 12/22/2015 Plan of Care Planned Activity Notes [...] process. 08/09/2018 Appointment: Miracle [facility] [phone] [facility] [place] [place] (30 min) Complex 08/09/2018 Patient Education: Patient Medication Summary Completed 08/09/2018 Visit Plan: Left shoulder pain, mus mishel spasm - will send RX - The pt is to use prn antiinflammatories to manage acute pain. The patient is to call the office if the pain is worsening or does not improve. 08/01/2018 Appointment: Miracle Gracia [facility] [phone] [facility] [place] [place] (15 min) Moderate 08/01/2018 Patient Education: [...] no changes. 02/10/2018 Appointment: Miracle Gracia WPtel: [facility] (15 min) Moderate 02/10/2018 [...] not prescribed. 12/12/2017 Appointment: Miracle Gracia WPtel: [phone] [facility] (15 min) Moderate 12/12/2017 Patient Education: Patient [...] or concerns. 11/25/2017 Appointment: Miracle Gracia WPtel: [facility] [place] (15 min) Moderate 11/25/2017 Patient Education: Patient Medication Summary Completed 11/25/2017 Visit Plan: Abscess/Cellulitis - Th e patient was instructed in appropriate wound care. The patient was instructed to use the antibiotic ointment as per RX. The patient is to call for any change in symptoms, increase in size of the lesion, increase in pain. 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 03/02/2017 Appointment: Miracle Gracia WPtel: [address] [place], [place] [phone] (30 min) Complex 03/02/2017 Patient Education: Patient Medication Summary Completed 03/02/2017 Patient Education: Smoking and Tobacco Addiction Completed 03/02/2017 Patient Education: Obesity Completed 03/02/2017 Appointment: Miracle Gracia WPtel: [facility] [place] (30 min) Complex 11/19/2016 Appointment: Miracle Gracia WPtel: [address] [place], [place] [id number] (15 min) Moderate 11/18/2016 Visit Plan: Abscess/Cellulitis - Th e patient was instructed in appropriate wound care. The patient was instructed to use the antibiotic ointment as per RX. The patient is to call for any change in symptoms, increase in size of the lesion, increase in pain. Pt is to return tomorrow for I&D if needed. 11/17/2016 Appointment: Miracle Gracia WPtel: [facility] (15 min) Moderate 11/17/2016 Patient Education: Patient Medication Summary Completed 11/17/2016 Patient Education: Smoking and Tobacco Addiction Completed 11/17/2016 Referral: Alberto Pearson Referral Initiated 09/30/2016 Care Plan: Referral Order SNOMED-CT : 751289258 Pending 09/28/2016 Visit Plan: Abscess/Cellulitis - Re [...] Isaac. 09/27/2016 Appointment: Miracle Gracia WPtel: [facility]5 [facility] (30 min) Complex 09/27/2016 Patient Education: Patient Medication Summary Completed 09/27/2016 Patient Education: Smoking and Tobacco Addiction Completed 09/27/2016 Care Plan: Referral Order SNOMED-CT : 063005580 Pending 05/10/2016 Visit Plan: Abscess/Cellulitis - ri [...] pain. 05/05/2016 Appointment: Gavi Soria WPtel: [phone] [phone] (30 min) Complex 05/05/2016 Patient Education: Patient [...] current medications. 02/05/2016 Appointment: Miracle Gracia WPtel: [address] [place], [place] [id number] (30 min) Complex 02/05/2016 Patient Education: Patient [...] 12/22/2015 Referral: Alberto Pearson Referral Initiated Referral: [facility] WPtel: Referral Completed Referral: [facility] WPtel: will call with appt [...] Pt is to discuss methotrexate with his manager of selection and assessment. . Otitis Externa - p t given [...]
--- OUTSIDE RECORDS SUMMARY | 2020-02-25 10:51 | XMS REPORT | CCD ---
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 Name Role Phone PP Unavailable CCM Unavailable Summary Purpose Interface Exchange Insurance Providers Payer name Policy type / Coverage type Covered constitution party ID Effective Begin Date Effective End Date [employer] Commercial Insurance [id number] 2018 Unknown Family history Mother Diagnosis Age At Onset Cancer Unknown Diabetes Unknown Social History Social History Element Codes Description Effective Dates Tobacco history SNOMED CT: 8842927 Former smoker Quit in October 2017 11/25/2017 Marital status Unknown M arried antonio 12/22/2015 Number of children Unknown 1 12/22/2015 Number of years using tobacco Unknown 5 - 10 12/22/2015 Number of cigarettes/day Unknown 10 (Half a pack) 12/22/2015 Alcohol history Unknown occasionally drinks alcohol 12/22/2015 Frequency of drinks SNOMED CT: 893671986 1-4 drinks per week 12/22/2015 Allergies, Adverse [...] Date Stop Date Sta tus Fill Instructions tramadol 50 mg tablet RxNorm: 654986 1 Tablet(s) PO QID as needed 08/09/2018 08/18/2018 Active baclofen 10 mg tablet RxNorm: 155119 1 Tablet(s) PO TID as needed muscle spas ms 08/09/2018 08/13/2018 Ac tive baclofen 10 mg tablet RxNorm: 791701 1 Tablet(s) PO TID as needed muscle spas ms 08/01/2018 08/05/2018 In active prednisone 20 mg tablet RxNorm: 798678 3 Tablet(s) PO daily 08/01/2018 08/05/2018 Inactive diazepam 2 mg tablet RxNorm: 405312 Tablet(s) TAKE 1/2 TABLET BY MOUTH TWICE DAILY NEEDED FOR ANXIETY 07/21/2018 08/19/2018 Active Adderall 10 mg tablet RxNorm: 566735 1 Tablet(s) PO BID 07/14/2018 08/12/2018 Active Adderall 10 mg tablet RxNorm: 939916 1 Tablet(s) PO BID 05/26/2018 06/24/2018 Inactive Adderall 10 mg tablet RxNorm: 198911 1 Tablet(s) PO BID 04/28/2018 05/25/2018 Inactive Adderall 5 mg tablet RxNorm: 573921 1 Tablet(s) PO QAM as needed 04/04/2018 04/27/2018 Inactive diazepam 2 mg tablet RxNorm: 279476 Tablet(s) TAKE 1/2 TABLET BY MOUTH TWICE DAILY NEEDED FOR ANXIETY 04/04/2018 05/02/2018 Inactive Adderall XR 20 mg ca psule,extended release RxNorm: 700833 1 Capsule(s) PO daily 03/13/2018 04/03/2018 In active Kenalog 40 mg/mL rodrigo pension for injection RxNorm: 5698258 1 Milliliter(s) Inj 03/01/2018 03/01/2018 In active Adderall 5 mg tablet RxNorm: 443082 1 Tablet(s) PO QAM as needed 02/13/2018 03/14/2018 Inactive Adderall XR 20 mg ca psule,extended release RxNorm: 198552 1 Capsule(s) PO daily 02/13/2018 03/12/2018 In active prednisone 20 mg tablet RxNorm: 676486 2 Tablet(s) PO daily 02/10/2018 02/14/2018 Inactive Bactrim DS 800 mg-16 0 mg tablet RxNorm: 810292 1 Tablet(s) PO BID 01/16/2018 02/04/2018 Inactive Adderall 5 mg tablet RxNorm: 316419 2 Tablet(s) PO QAM and 1 PO QPM 01/16/2018 02/12/2018 In active Bactrim DS 800 mg-16 0 mg tablet RxNorm: 589199 1 Tablet(s) PO BID 01/04/2018 01/15/2018 Inactive Adderall 5 mg tablet RxNorm: 614993 2 Tablet(s) PO QAM and 1 PO QPM 12/13/2017 01/11/2018 In active Zithromax Z-Molina 250 mg tablet RxNorm: 638469 1 Tablet(s) PO UD 11/25/2017 03/12/2018 Inactive diazepam 2 mg tablet RxNorm: 896432 Tablet(s) TAKE 1/2 TABLET BY MOUTH TWICE DAILY NEEDED FOR ANXIETY 11/18/2017 12/17/2017 Inactive diazepam 2 mg tablet RxNorm: 840603 Tablet(s) TAKE 1/2 TABLET BY MOUTH TWICE DAILY NEEDED FOR ANXIETY 08/30/2017 10/28/2017 Inactive diazepam 2 mg tablet RxNorm: 538554 Tablet(s) TAKE 1/2 TABLET BY MOUTH TWICE DAILY NEEDED FOR ANXIETY 07/19/2017 08/29/2017 Inactive diazepam 2 mg tablet RxNorm: 477462 TAKE 1/2 TABLET BY MOUTH TWICE DAILY NEEDED FOR ANXIETY 07/15/2017 07/18/2017 Inactive Bactrim DS 800 mg-16 0 mg tablet RxNorm: 698142 1 Tablet(s) PO BID 06/01/2017 06/20/2017 Inactive diazepam 2 mg tablet RxNorm: 583420 1/2 Tablet(s) PO BID as needed anxiety 06/01/2017 06/29/2017 In active tramadol 50 mg tablet RxNorm: 137054 1 Tablet(s) PO QID as needed 04/14/2017 04/23/2017 Inactive Bactrim DS 800 mg-16 0 mg tablet RxNorm: 804350 1 Tablet(s) PO BID 04/14/2017 05/03/2017 Inactive diazepam 2 mg tablet RxNorm: 071540 1/2 Tablet(s) PO BID as needed anxiety 03/02/2017 04/30/2017 In active Zithromax Z-Molina 250 mg tablet RxNorm: 361155 1 Tablet(s) PO UD 03/02/2017 07/18/2017 Inactive Bactrim DS 800 mg-16 0 mg tablet RxNorm: 663849 1 Tablet(s) PO BID 03/01/2017 03/20/2017 Inactive diazepam 2 mg tablet RxNorm: 132009 1/2 Tablet(s) PO BID as needed anxiety 01/21/2017 02/19/2017 In active Bactrim DS 800 mg-16 0 mg tablet RxNorm: 342763 1 Tablet(s) PO BID 01/21/2017 01/30/2017 Inactive Bactrim DS 800 mg-16 0 mg tablet RxNorm: 783080 1 Tablet(s) PO BID 11/17/2016 11/26/2016 Inactive diazepam 2 mg tablet RxNorm: 105587 1/2 Tablet(s) PO BID as needed anxiety 11/12/2016 01/10/2017 In active diazepam 2 mg tablet RxNorm: 708043 1/2 Tablet(s) PO BID as needed anxiety 10/18/2016 12/14/2016 In active Zithromax Z-Molina 250 mg tablet RxNorm: 984575 1 Tablet(s) PO UD 09/27/2016 03/01/2017 Inactive diazepam 2 mg tablet RxNorm: 666105 1/2 Tablet(s) PO BID as needed anxiety 09/13/2016 11/11/2016 In active diazepam 2 mg tablet RxNorm: 790991 1/2 Tablet(s) PO BID as needed anxiety 07/07/2016 09/17/2016 In active Levaquin 500 mg tablet RxNorm: 763442 1 Tablet(s) PO daily 06/01/2016 05/31/2016 Inactive Levaquin 500 mg tablet RxNorm: 261620 1 Tablet(s) PO daily 06/01/2016 06/07/2016 Inactive Levaquin 500 mg tablet RxNorm: 132336 1 Tablet(s) PO daily 05/05/2016 05/04/2016 Inactive Levaquin 500 mg tablet RxNorm: 256758 1 Tablet(s) PO daily 05/05/2016 05/11/2016 Inactive minocycline 100 mg c apsule RxNorm: 496755 1 CAPSULE(S) PO BID W HEN NOT HAVING ACUTE FLARE DECREASE TO ONCE DAILY 04/21/2016 05/20/2016 Inactive Ciprodex 0.3 %-0.1 % ear drops,suspension RxNorm: 860203 4 Drop(s) OTIC BID 03/08/2016 03/14/2016 In active Zithromax Z-Molina 250 mg tablet RxNorm: 473885 Tablet(s) PO 03/08/2016 09/26/2016 Inactive diazepam 2 mg tablet RxNorm: 292617 1/2 Tablet(s) PO BID as needed anxiety 2016 04/18/2016 In active mupirocin 2 % topica l ointment RxNorm: 611759 1 Application TOP BID 02/05/2016 No Stop Date Active minocycline 100 mg c apsule RxNorm: 527323 1 Capsule(s) PO BID w hen not having acute flare decrease to once daily 02/05/2016 03/05/2016 Inactive Bactrim DS 800 mg-16 0 mg tablet RxNorm: 274198 1 Tablet(s) PO BID 02/05/2016 02/18/2016 Inactive diazepam 2 mg tablet RxNorm: 168499 1/2 Tablet(s) PO BID as needed anxiety 02/05/2016 02/05/2016 In active betamethasone alberto te 0.1 % topical cream RxNorm: 071135 1 Application TOP BID as needed rash 12/22/2015 No Stop Date Active minocycline 100 mg c apsule RxNorm: 053563 1 Capsule(s) PO BID w hen not having acute flare decrease to once daily 12/22/2015 01/20/2016 Inactive Medication Administered Medication Codes Instruc tions Start Date Status Kenalog 40 mg/mL suspension for injection RxNorm: 6696294 1Milliliter 03/01/2018 N o longer Active Immunizations No Immunization data Assessments Condition Codes Effectiv e Dates Pain in left shoulder ICD-10: M25.51 2 ICD-9: 719.41 08/01/2018 Muscle spasm of back ICD-10: M62.830 ICD-9: 724.8 08/01/2018 Hidradenitis suppurativa ICD-10: L73 .2 ICD-9: 705.83 [...] For Visit Effective Dates Notes shoulder pain 08/01/2018 medication follow up 03/01/2018 medication follow up 02/10/2018 anxiety 12/12/2017 emerson severino anxiety 11/25/2017 emerson severino skin lesion 03/02/2017 skin lesion 11/17/2016 skin lesion 09/27/2016 skin lesion 05/05/2016 earache 03/08/2016 anxiety 02/05/2016 anxiety 12/22/2015 Results Observation Observation Code Item Item Code Result Date Tsh Ord6 hTSH II 1.82 uIU/mL 02/05/2016 Comp Metabolic Xkn160 NA 139 mEq/L 02/05/2016 Comp Metabolic Bcl370 K 4.2 mEq/L 02/05/2016 Comp Metabolic Scm235 CL 103 mEq/L 02/05/2016 Comp Metabolic Tyx481 CO2 29.0 mEq/L 02/05/2016 Comp Metabolic Gtn353 AN ION GAP 11 02/05/2016 Comp Metabolic Mjf742 GL UCOSE 71 mg/dL 02/05/2016 Comp Metabolic Jwf721 Cr eat 0.9 mg/dL 02/05/2016 Comp Metabolic Kvc648 eG FR 101 ml/min/1.73m2 01/14 Comp Metabolic Xwf062 BUN 17 mg/dL 02/05/2016 Comp Metabolic Xzb911 B/ C Ratio 18.5 Ratio 02/05/2016 Comp Metabolic Mrp343 CA LCIUM 9.4 mg/dL 02/05/2016 Comp Metabolic Muc116 AL K PHOS 63 U/L 02/05/2016 Comp Metabolic Ayf839 T(SGOT) 30 U/L 02/05/2016 Comp Metabolic Yom079 AL T(SGPT) 40 U/L 02/05/2016 Comp Metabolic Ikf136 BI LI T 0.5 mg/dL 02/05/2016 Comp Metabolic Vdr981 AL BUMIN 4.2 g/dL 02/05/2016 Comp Metabolic Ahh333 TP RO 7.2 g/dL 02/05/2016 Comp Metabolic Xnb611 GL OB 3.0 g/dL 02/05/2016 Comp Metabolic Kam593 A/ G Ratio 1.4 Ratio 02/05/2016 Comp Metabolic Sxo337 Os mo 278 mOsmo 02/05/2016 Cbc With [...] 23.4 % 02/05/2016 Cbc With Differential Ord2 [place]% 8.9 % 02/05/2016 Cbc With Differential Ord2 [...] 2.91 K/ul 02/05/2016 Cbc With Differential Ord2 [place] ABS# 1.1 K/ul 02/05/2016 Cbc With Differential Ord2 Eos ABS# 0.1 K/ul 02/05/2016 Cbc With Differential Ord2 Baso ABS# 0.0 K/ul 02/05/2016 Review of Systems System Result Effective Dates Constitutional No recent illness 08/01/2018 Constitutional No [...] No mental status change 12/12/2017 Psychiatric anxiety 04/3 Constitutional No recent illness 11/25/2017 Constitutional No chills 11/25/2017 Constitutional No diaphoresis 11/25/2017 Constitutional No fever 11/25/2017 Eyes No eye erythema Ears/Nose/Throat/Neck No nasal allergies 11/25/2017 Ears/Nose/Throat/Neck No nasal discharge 11/25/2017 Cardiovascular No chest pain/pressure 11/25/2017 Dermatologic sores 11/25 Neurologic No alteration of consciousness 11/25/2017 Neurologic No mental status change 11/25/2017 Respiratory No cough Respiratory No chest congestion 11/25/2017 Psychiatric anxiety 04/1 10/2017 Constitutional No recent illness 03/02/2017 Constitutional [...] CPT-4: J3301 03/01/2018 THER/PROPH/DIAG INJ SC/IM CPT-4: 85310 03/01/2018 DRAINAGE OF SKIN ABS CESS CPT-4: 75263 05/05/2016 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-[address]: 699112353 CPT-4: G0436 12/22/2015 Vital Signs Date Vital 08/01/2018 Blood Pressure 1: 110/78 Code: 8480-6 BMI: 34.4 Code: 20367-3 Heart Rate 1: 109 bpm Height: 5'11" SpO2: 98% Weight: 247 lbs 03/01/2018 Blood Pressure 1: 120/80 Code: 8480-6 BMI: 32.9 Code: 57668-3 Heart Rate 1: 72 bpm Height: 5'11" SpO2: 96% Weight: 236 lbs 02/10/2018 Blood Pressure 1: 122/70 Code: 8480-6 BMI: 32.9 Code: 17502-4 Heart Rate 1: 90 bpm Height: 5'11" SpO2: 98% Weight: 236 lbs 12/12/2017 Blood Pressure 1: 124/72 Code: 8480-6 BMI: 35.0 Code: 02330-1 Heart Rate 1: 80 bpm Height: 5'11" SpO2: 96% Weight: 251 lbs 11/25/2017 Blood Pressure 1: 122/76 Code: 8480-6 BMI: 35.4 Code: 37967-6 Heart Rate 1: 74 bpm Height: 5'11" SpO2: 95% Weight: 254 lbs 03/02/2017 Blood Pressure 1: 120/70 Code: 8480-6 BMI: 33.8 Code: 71252-2 Heart Rate 1: 79 bpm Height: 5'11" SpO2: 99% Weight: 242 lbs 11/17/2016 Blood Pressure 1: 120/88 Code: 8480-6 BMI: 36.8 Code: 82867-5 Heart Rate 1: 104 bpm Height: 5'11" SpO2: 99% Weight: 264 lbs 09/27/2016 Blood Pressure 1: 122/78 Code: 8480-6 BMI: 34.6 Code: 82571-5 Heart Rate 1: 100 bpm Height: 5'11" SpO2: 96% Weight: 248 lbs 05/05/2016 Blood Pressure 1: 114/78 Code: 8480-6 BMI: 35.1 Code: 57925-5 Heart Rate 1: 81 bpm Height: 5'11" SpO2: 96% Weight: 252 lbs 03/08/2016 Blood Pressure 1: 120/64 Code: 8480-6 BMI: 34.3 Code: 22762-6 Heart Rate 1: 95 bpm Height: 5'11" SpO2: 97% Weight: 246 lbs 02/05/2016 Blood Pressure 1: 120/78 Code: 8480-6 BMI: 33.5 Code: 17811-5 Heart Rate 1: 104 bpm Height: 5'11" SpO2: 97% Weight: 240 lbs 12/22/2015 Blood Pressure 1: 120/82 Code: 8480-6 BMI: 34.3 Code: 00678-0 Heart Rate 1: 83 bpm Height: 5'11" SpO2: 97% Weight: 246 lbs Functional Status No Functional Status data History of Present Illness Symptom Name Status Resu lt Effective Date Notes Location deep 08/01/2018 None Quality aching 08/01/2018 [...] Encounters Encounter Performer Loca tion Codes Date 22922 EST. PATIENT, LEVEL III Diagnosis: Pain in left shoulder[ICD10: M25.512] Diagnosis: Muscle spasm of back[ICD10: M62.830] Miracle Pereyra MD, [facility] CPT- 4: 81403 08/01/2018 35171 EST. PATIENT, LEVEL III Diagnosis: Hidradenitis suppurativa[ICD10: L73.2] Miracle Pereyra MD, [facility] CPT-4: 66280 03/01/2018 38045 EST. 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 PATIENT, LEVEL IV Diagnosis: Generalized anxiety disorder[ICD10: F41.1] Diagnosis: Hidradenitis suppurativa[ICD10: L73.2] Miracle Pereyra MD, [facility] CPT-4: 67461 11/25/2017 19635 EST. PATIENT, LEVEL III Diagnosis: Hidradenitis suppurativa[ICD10: L73.2] Diagnosis: Generalized anxiety disorder[ICD10: F41.1] Miracle Pereyra MD, [facility] CPT-4: 89103 03/02/2017 14355 EST. PATIENT, LEVEL III Diagnosis: Cutaneous abscess of buttock[ICD10: L02.31] Miracle Pereyra MD, [facility] CPT-4: 77266 11/17/2016 64213 EST. PATIENT, LEVEL III Diagnosis: Cutaneous abscess of left axilla[ICD10: L02.412] Diagnosis: Pain in right hand[ICD10: M79.641] Miracle Pereyra MD, [facility] CPT-4: 27273 09/27/2016 90702 EST. PATIENT, LEVEL III Diagnosis: Cutaneous abscess of right lower limb[ICD10: L02.415] Diagnosis: Hidradenitis suppurativa[ICD10: L73.2] Miracle Pereyra MD, [facility] CPT-4: 31875 05/05/2016 02801 EST. PATIENT, LEVEL IV Diagnosis: Other otitis externa, right ear[ICD10: H60.8X1] Diagnosis: Cutaneous abscess of left axilla[ICD10: L02.412] Diagnosis: Other acute sinusitis[ICD10: J01.80] [facility] CPT- 4: 08235 03/08/2016 13469 EST. PATIENT, LEVEL III Diagnosis: Generalized anxiety disorder[ICD10: F41.1] Diagnosis: Acne vulgaris[ICD10: L70.0] Diagnosis: Plantar wart[ICD10: B07.0] [facility] CPT-4: 69424 02/05/2016 (15081) OFFICE VISI T, NEW - LEVEL 3 Diagnosis: Generalized anxiety disorder[ICD10: F41.1] Diagnosis: 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][ICD10: L30.1] Diagnosis: Acne vulgaris[ICD10: L70.0] Diagnosis: Other obesity due to excess calories[ICD10: E66.09] [facility] CPT-4: 47959 12/22/2015 Plan of Care Planned Activity Notes C odes Status Date Visit Plan: Left shoulder pain, mus mishel spasm - will send RX - The pt is to use prn antiinflammatories to manage acute pain. The patient is to call the office if the pain is worsening or does not improve. 08/01/2018 Appointment: Miracle Gracia WPtel: [address] [place], [place] [phone] (15 min) Moderate 08/01/2018 Patient Education: Patient [...] no changes. 02/10/2018 Appointment: Miracle Gracia WPtel: [facility] (15 min) Moderate 02/10/2018 Patient [...] not prescribed. 12/12/2017 Appointment: Miracle Gracia WPtel[facility] (15 min) Moderate 12/12/2017 Patient Education: Patient [...] or concerns. 11/25/2017 Appointment: Miracle Gracia [facility]Ptel[facility] [address] [facility] (15 min) Moderate 11/25/2017 Patient Education: Patient Medication Summary Completed 11/25/2017 Visit Plan: Abscess/Cellulitis - Th e patient was instructed in appropriate wound care. The patient was instructed to use the antibiotic ointment as per RX. The patient is to call for any change in symptoms, increase in size of the lesion, increase in pain. 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 03/02/2017 Appointment: Miracle Gracia WPtel: [facility] (30 min) Complex 03/02/2017 Patient Education: Patient Medication Summary Completed 03/02/2017 Patient Education: Smoking and Tobacco Addiction Completed 03/02/2017 Patient Education: Obesity Completed 03/02/2017 Appointment: Miracle Gracia WPtel: [facility] [place] (30 min) Complex 11/19/2016 Appointment: Miracle Gracia WPtel: [facility] [place] (15 min) Moderate 11/18/2016 Visit Plan: Abscess/Cellulitis - Th e patient was instructed in appropriate wound care. The patient was instructed to use the antibiotic ointment as per RX. The patient is to call for any change in symptoms, increase in size of the lesion, increase in pain. Pt is to return tomorrow for I&D if needed. 11/17/2016 Appointment: Miracle Gracia WPtel: [facility] [place] (15 min) Moderate 11/17/2016 Patient Education: Patient Medication Summary Completed 11/17/2016 Patient Education: Smoking and Tobacco Addiction Completed 11/17/2016 Referral: Alberto Pearson Referral Initiated 09/30/2016 Care Plan: Referral Order SNOMED-CT : 975985084 Pending 09/28/2016 Visit Plan: Abscess/Cellulitis - Re [...] Dr. Isaac. 09/27/2016 Appointment: Miracle Gracia WPtel: [facility] [place] (30 min) Complex 09/27/2016 Patient Education: Patient Medication Summary Completed 09/27/2016 Patient Education: Smoking and Tobacco Addiction Completed 09/27/2016 Care Plan: Referral Order SNOMED-CT : [id number] Pending 05/10/2016 Visit Plan: Abscess/Cellulitis - ri ght lateral hip - incision and drainage today in the office - The patient was instructed in appropriate wound care. The patient was instructed to use the antibiotic ointment as per RX. The patient is to call for any change in symptoms, increase in size of the lesion, increase in pain. 05/05/2016 Appointment: Gavi Soria WPtel: [phone] [place] (30 min) Complex 05/05/2016 Patient Education: [...] current medications. 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 . Otitis Externa - p t given [...]
--- OUTSIDE RECORDS SUMMARY | 2020-02-25 10:52 | XMS REPORT | CCD ---
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 Name Role Phone PP Unavailable CCM Unavailable Summary Purpose Interface Exchange Insurance Providers Payer name Policy type / Coverage type Covered republican ID Effective Begin Date Effective End Date [employer] Commercial Insurance [id number] Unknown Family history Mother Diagnosis Age At Onset Cancer Unknown Diabetes Unknown Social History Social History Element Codes Description Effective Dates Tobacco history SNOMED CT: 4870211 Former smoker Quit in October 2017 11/25/2017 Marital status Unknown M kelvin alvarez 12/22/2015 Number of children Unknown 1 12/22/2015 Number of years using tobacco Unknown 5 - 10 12/22/2015 Number of cigarettes/day Unknown 10 (Half a pack) 12/22/2015 Alcohol history Unknown occasionally drinks alcohol 12/22/2015 Frequency of drinks SNOMED CT: 520518079 1-4 drinks per week 12/22/2015 Allergies, Adverse Reactions, Alerts Substance Reaction Codes Entered Date Inactivated Date Status Penicillin Unknown 12/22/2015 No In active Date Active Past Medical History Illness Codes Condition Status Onset Date Resolved Date Attention-deficit hy peractivity disorder, predominantly inattentive type [...] Condition Codes Effectiv e Dates Condition Status Attention-deficit hy peractivity disorder, predominantly inattentive type [...] Fill Instructions diazepam 2 mg tablet RxNorm: 923810 Tablet(s) TAKE 1/2 TABLET BY MOUTH TWICE DAILY NEEDED FOR ANXIETY 07/21/2018 08/19/2018 Active Adderall 10 mg tablet RxNorm: 059294 1 Tablet(s) PO BID 07/14/2018 08/12/2018 Active Adderall 10 mg tablet RxNorm: 461429 1 Tablet(s) PO BID 05/26/2018 06/24/2018 Inactive Adderall 10 mg tablet RxNorm: 621061 1 Tablet(s) PO BID 04/28/2018 05/25/2018 Inactive Adderall 5 mg tablet RxNorm: 046298 1 Tablet(s) PO QAM as needed 04/04/2018 04/27/2018 Inactive diazepam 2 mg tablet RxNorm: 101573 Tablet(s) TAKE 1/2 TABLET BY MOUTH TWICE DAILY NEEDED FOR ANXIETY 04/04/2018 05/02/2018 Inactive Adderall XR 20 mg ca psule,extended release RxNorm: 309878 1 Capsule(s) PO daily 03/13/2018 04/03/2018 In active Kenalog 40 mg/mL rodrigo pension for injection RxNorm: 7403964 1 Milliliter(s) Inj 03/01/2018 03/01/2018 In active Adderall 5 mg tablet RxNorm: 138544 1 Tablet(s) PO QAM as needed 02/13/2018 03/14/2018 Inactive Adderall XR 20 mg ca psule,extended release RxNorm: 284036 1 Capsule(s) PO daily 02/13/2018 03/12/2018 In active prednisone 20 mg tablet RxNorm: 338829 2 Tablet(s) PO daily 02/10/2018 02/14/2018 Inactive Bactrim DS 800 mg-16 0 mg tablet RxNorm: 364861 1 Tablet(s) PO BID 01/16/2018 02/04/2018 Inactive Adderall 5 mg tablet RxNorm: 934881 2 Tablet(s) PO QAM and 1 PO QPM 01/16/2018 02/12/2018 In active Bactrim DS 800 mg-16 0 mg tablet RxNorm: 244372 1 Tablet(s) PO BID 01/04/2018 01/15/2018 Inactive Adderall 5 mg tablet RxNorm: 422470 2 Tablet(s) PO QAM and 1 PO QPM 12/13/2017 01/11/2018 In active Zithromax Z-Molina 250 mg tablet RxNorm: 745528 1 Tablet(s) PO UD 11/25/2017 03/12/2018 Inactive diazepam 2 mg tablet RxNorm: 245980 Tablet(s) TAKE 1/2 TABLET BY MOUTH TWICE DAILY NEEDED FOR ANXIETY 11/18/2017 12/17/2017 Inactive diazepam 2 mg tablet RxNorm: 742818 Tablet(s) TAKE 1/2 TABLET BY MOUTH TWICE DAILY NEEDED FOR ANXIETY 08/30/2017 10/28/2017 Inactive diazepam 2 mg tablet RxNorm: 312010 Tablet(s) TAKE 1/2 TABLET BY MOUTH TWICE DAILY NEEDED FOR ANXIETY 07/19/2017 08/29/2017 Inactive diazepam 2 mg tablet RxNorm: 957828 TAKE 1/2 TABLET BY MOUTH TWICE DAILY NEEDED FOR ANXIETY 07/15/2017 07/18/2017 Inactive Bactrim DS 800 mg-16 0 mg tablet RxNorm: 621015 1 Tablet(s) PO BID 06/01/2017 06/20/2017 Inactive diazepam 2 mg tablet RxNorm: 682790 1/2 Tablet(s) PO BID as needed anxiety 06/01/2017 06/29/2017 In active tramadol 50 mg tablet RxNorm: 511594 1 Tablet(s) PO QID as needed 04/14/2017 04/23/2017 Inactive Bactrim DS 800 mg-16 0 mg tablet RxNorm: 609018 1 Tablet(s) PO BID 04/14/2017 05/03/2017 Inactive diazepam 2 mg tablet RxNorm: 211185 1/2 Tablet(s) PO BID as needed anxiety 03/02/2017 04/30/2017 In active Zithromax Z-Molina 250 mg tablet RxNorm: 501880 1 Tablet(s) PO UD 03/02/2017 07/18/2017 Inactive Bactrim DS 800 mg-16 0 mg tablet RxNorm: 068807 1 Tablet(s) PO BID 03/01/2017 03/20/2017 Inactive diazepam 2 mg tablet RxNorm: 998600 1/2 Tablet(s) PO BID as needed anxiety 01/21/2017 02/19/2017 In active Bactrim DS 800 mg-16 0 mg tablet RxNorm: 129449 1 Tablet(s) PO BID 01/21/2017 01/30/2017 Inactive Bactrim DS 800 mg-16 0 mg tablet RxNorm: 700233 1 Tablet(s) PO BID 11/17/2016 11/26/2016 Inactive diazepam 2 mg tablet RxNorm: 283521 1/2 Tablet(s) PO BID as needed anxiety 11/12/2016 01/10/2017 In active diazepam 2 mg tablet RxNorm: 395392 1/2 Tablet(s) PO BID as needed anxiety 10/18/2016 12/14/2016 In active Zithromax Z-Molina 250 mg tablet RxNorm: 257364 1 Tablet(s) PO UD 09/27/2016 03/01/2017 Inactive diazepam 2 mg tablet RxNorm: 078402 1/2 Tablet(s) PO BID as needed anxiety 09/13/2016 11/11/2016 In active diazepam 2 mg tablet RxNorm: 730487 1/2 Tablet(s) PO BID as needed anxiety 07/07/2016 09/17/2016 In active Levaquin 500 mg tablet RxNorm: 230084 1 Tablet(s) PO daily 06/01/2016 05/31/2016 Inactive Levaquin 500 mg tablet RxNorm: 033511 1 Tablet(s) PO daily 06/01/2016 06/07/2016 Inactive Levaquin 500 mg tablet RxNorm: 547382 1 Tablet(s) PO daily 05/05/2016 05/04/2016 Inactive Levaquin 500 mg tablet RxNorm: 786641 1 Tablet(s) PO daily 05/05/2016 05/11/2016 Inactive minocycline 100 mg c apsule RxNorm: 305276 1 CAPSULE(S) PO BID W HEN NOT HAVING ACUTE FLARE DECREASE TO ONCE DAILY 04/21/2016 05/20/2016 Inactive Ciprodex 0.3 %-0.1 % ear drops,suspension RxNorm: 749874 4 Drop(s) OTIC BID 03/08/2016 03/14/2016 In active Zithromax Z-Molina 250 mg tablet RxNorm: 634655 Tablet(s) PO 03/08/2016 09/26/2016 Inactive diazepam 2 mg tablet RxNorm: 140201 1/2 Tablet(s) PO BID as needed anxiety 2016 04/18/2016 In active mupirocin 2 % topica l ointment RxNorm: 580395 1 Application TOP BID 02/05/2016 No Stop Date Active minocycline 100 mg c apsule RxNorm: 576645 1 Capsule(s) PO BID w hen not having acute flare decrease to once daily 02/05/2016 03/05/2016 Inactive Bactrim DS 800 mg-16 0 mg tablet RxNorm: 071557 1 Tablet(s) PO BID 02/05/2016 02/18/2016 Inactive diazepam 2 mg tablet RxNorm: 022817 1/2 Tablet(s) PO BID as needed anxiety 02/05/2016 02/05/2016 In active betamethasone alberto te 0.1 % topical cream RxNorm: 121593 1 Application TOP BID as needed rash 12/22/2015 No Stop Date Active minocycline 100 mg c apsule RxNorm: 110552 1 Capsule(s) PO BID w hen not having acute flare decrease to once daily 12/22/2015 01/20/2016 Inactive Medication Administered Medication Codes Instruc tions Start Date Status Kenalog 40 mg/mL suspension for injection RxNorm: 8299366 1Milliliter 03/01/2018 N o longer Active Immunizations [...] Visit Reason For Visit Effective Dates Notes medication follow up 03/01/2018 medication follow up 02/10/2018 anxiety 12/12/2017 diaze mere anxiety 11/25/2017 diaze mere skin lesion 03/02/2017 skin lesion 11/17/2016 skin lesion 09/27/2016 skin lesion 05/05/2016 earache 03/08/2016 anxiety 02/05/2016 anxiety 12/22/2015 Results Observation Observation Code Item Item Code Result Date Cbc With Differential Ord2 WBC 12.43 K/ul [...] 30.3 pg 02/05/2016 Cbc With Differential Ord2 Zapata% 8.9 % 02/05/2016 Cbc With Differential Ord2 [...] 2.91 K/ul 02/05/2016 Cbc With Differential Ord2 Zapata ABS# 1.1 K/ul 02/05/2016 Cbc With Differential Ord2 Eos ABS# 0.1 K/ul 02/05/2016 Cbc With Differential Ord2 Baso ABS# 0.0 K/ul 02/05/2016 Comp Metabolic Tdr808 NA 139 mEq/L 02/05/2016 Comp Metabolic Uue044 K 4.2 mEq/L 02/05/2016 Comp Metabolic Ikc502 CL 103 mEq/L 02/05/2016 Comp Metabolic Iix315 CO2 29.0 mEq/L 02/05/2016 Comp Metabolic Vzo680 AN ION GAP 11 02/05/2016 Comp Metabolic Dde715 GL UCOSE 71 mg/dL 02/05/2016 Comp Metabolic Qaf819 Cr eat 0.9 mg/dL 02/05/2016 Comp Metabolic Bwa937 eG FR 101 ml/min/1.73m2 01/14 Comp Metabolic Nsd821 BUN 17 mg/dL 02/05/2016 Comp Metabolic Tyh300 B/ C Ratio 18.5 Ratio 02/05/2016 Comp Metabolic Iez391 CA LCIUM 9.4 mg/dL 02/05/2016 Comp Metabolic Wjx967 AL K PHOS 63 U/L 02/05/2016 Comp Metabolic Tvv105 T(SGOT) 30 U/L 02/05/2016 Comp Metabolic Xdv177 AL T(SGPT) 40 U/L 02/05/2016 Comp Metabolic Xpe057 BI LI T 0.5 mg/dL 02/05/2016 Comp Metabolic Ndm393 AL BUMIN 4.2 g/dL 02/05/2016 Comp Metabolic Xda830 TP RO 7.2 g/dL 02/05/2016 Comp Metabolic Jwu911 GL OB 3.0 g/dL 02/05/2016 Comp Metabolic Tky176 A/ G Ratio 1.4 Ratio 02/05/2016 Comp Metabolic Blt589 Os mo 278 mOsmo 02/05/2016 Tsh Ord6 hTSH II 1.82 uIU/mL 02/05/2016 Review of Systems System Result Effective Dates Constitutional No recent illness 03/01/2018 Constitutional No [...] affect 03/01/2018 None Full Exam - General 1995 Constitutional general appearance Overall: well developed 02/10/2018 [...] CPT-4: J3301 03/01/2018 THER/PROPH/DIAG INJ SC/IM CPT-4: 19238 03/01/2018 DRAINAGE OF SKIN ABS CESS CPT-4: 58921 05/05/2016 TOBACCO-USE INSULATION CUPOLA CHARGER 3-[address]: 747340781 CPT-4: G0436 12/22/2015 Vital Signs Date Vital 03/01/2018 Blood Pressure 1: 120/80 Code: 8480-6 BMI: 32.9 Code: 81600-1 Heart Rate 1: 72 bpm Height: 5'11" SpO2: 96% Weight: 236 lbs 02/10/2018 Blood Pressure 1: 122/70 Code: 8480-6 BMI: 32.9 Code: 95862-8 Heart Rate 1: 90 bpm Height: 5'11" SpO2: 98% Weight: 236 lbs 12/12/2017 Blood Pressure 1: 124/72 Code: 8480-6 BMI: 35.0 Code: 23777-6 Heart Rate 1: 80 bpm Height: 5'11" SpO2: 96% Weight: 251 lbs 11/25/2017 Blood Pressure 1: 122/76 Code: 8480-6 BMI: 35.4 Code: 84307-4 Heart Rate 1: 74 bpm Height: 5'11" SpO2: 95% Weight: 254 lbs 03/02/2017 Blood Pressure 1: 120/70 Code: 8480-6 BMI: 33.8 Code: 25005-5 Heart Rate 1: 79 bpm Height: 5'11" SpO2: 99% Weight: 242 lbs 11/17/2016 Blood Pressure 1: 120/88 Code: 8480-6 BMI: 36.8 Code: 63019-2 Heart Rate 1: 104 bpm Height: 5'11" SpO2: 99% Weight: 264 lbs 09/27/2016 Blood Pressure 1: 122/78 Code: 8480-6 BMI: 34.6 Code: 79246-7 Heart Rate 1: 100 bpm Height: 5'11" SpO2: 96% Weight: 248 lbs 05/05/2016 Blood Pressure 1: 114/78 Code: 8480-6 BMI: 35.1 Code: 32038-5 Heart Rate 1: 81 bpm Height: 5'11" SpO2: 96% Weight: 252 lbs 03/08/2016 Blood Pressure 1: 120/64 Code: 8480-6 BMI: 34.3 Code: 76288-5 Heart Rate 1: 95 bpm Height: 5'11" SpO2: 97% Weight: 246 lbs 02/05/2016 Blood Pressure 1: 120/78 Code: 8480-6 BMI: 33.5 Code: 15604-5 Heart Rate 1: 104 bpm Height: 5'11" SpO2: 97% Weight: 240 lbs 12/22/2015 Blood Pressure 1: 120/82 Code: 8480-6 BMI: 34.3 Code: 70286-1 Heart Rate 1: 83 bpm Height: 5'11" SpO2: 97% Weight: 246 lbs Functional Status No Functional Status data History of Present Illness Symptom Name Status Resu lt Effective Date Notes medication follow up Location oral intake 03/01/2018 [...] Encounters Encounter Performer Loca tion Codes Date 22910 EST. PATIENT, LEVEL III Diagnosis: Hidradenitis suppurativa[ICD10: L73.2] Miracle Pereyra MD, [facility] CPT-4: 98655 03/01/2018 [id number] EST. 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 PATIENT, LEVEL IV Diagnosis: Generalized anxiety disorder[ICD10: F41.1] Diagnosis: Hidradenitis suppurativa[ICD10: L73.2] Miracle Pereyra MD, [facility] CPT-4: 25254 11/25/2017 33348 EST. PATIENT, LEVEL III Diagnosis: Hidradenitis suppurativa[ICD10: L73.2] Diagnosis: Generalized anxiety disorder[ICD10: F41.1] Miracle Pereyra MD, [facility] CPT-4: 87895 03/02/2017 94042 EST. PATIENT, LEVEL III Diagnosis: Cutaneous abscess of buttock[ICD10: L02.31] Miracle Pereyra MD, [facility] CPT-4: 71510 11/17/2016 69445 EST. PATIENT, LEVEL III Diagnosis: Cutaneous abscess of left axilla[ICD10: L02.412] Diagnosis: Pain in right hand[ICD10: M79.641] Miracle Pereyra MD, [facility] CPT-4: 05249 09/27/2016 83187 EST. PATIENT, LEVEL III Diagnosis: Cutaneous abscess of right lower limb[ICD10: L02.415] Diagnosis: Hidradenitis suppurativa[ICD10: L73.2] Miracle Pereyra MD, [facility] CPT-4: 15674 05/05/2016 87053 EST. PATIENT, LEVEL IV Diagnosis: Other otitis externa, right ear[ICD10: H60.8X1] Diagnosis: Cutaneous abscess of left axilla[ICD10: L02.412] Diagnosis: Other acute sinusitis[ICD10: J01.80] [facility] CPT- 4: 37858 03/08/2016 64627 EST. PATIENT, LEVEL III Diagnosis: Generalized anxiety disorder[ICD10: F41.1] Diagnosis: Acne vulgaris[ICD10: L70.0] Diagnosis: Plantar wart[ICD10: B07.0] [facility] CPT-4: 60623 02/05/2016 (91164) OFFICE VISI T, NEW - LEVEL 3 Diagnosis: Generalized anxiety disorder[ICD10: F41.1] Diagnosis: 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][ICD10: L30.1] Diagnosis: Acne vulgaris[ICD10: L70.0] Diagnosis: Other obesity due to excess calories[ICD10: E66.09] [facility] CPT-4: 95770 12/22/2015 Plan of Care Planned Activity Notes C odes Status Date Visit Plan: HS - will discuss with [...] no changes. 02/10/2018 Appointment: Miracle Gracia WPtel: [facility] (15 min) Moderate 02/10/2018 Patient [...] not prescribed. 12/12/2017 Appointment: Miracle Gracia WPtel: [facility] (15 min) Moderate 12/12/2017 Patient [...] or concerns. 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 03/02/2017 Appointment: Miracle Gracia WPtel: [phone] [facility] [place] (30 min) Complex 03/02/2017 Patient Education: Patient Medication Summary Completed 03/02/2017 Patient Education: Smoking and Tobacco Addiction Completed 03/02/2017 Patient Education: Obesity Completed 03/02/2017 Appointment: Miracle Gracia WPtel: [phone] [facility] [place] (30 min) Complex 11/19/2016 Appointment: Miracle Gracia WPtel: [phone] [facility] [place] (15 min) Moderate 11/18/2016 [...] if needed. 11/17/2016 [phone] [place] (15 min) Moderate 11/17/2016 Patient Education: Patient Medication Summary Completed 11/17/2016 Patient Education: Smoking and Tobacco Addiction Completed 11/17/2016 Referral: Alberto Pearosn Referral Initiated 09/30/2016 Care Plan: Referral Order SNOMED-CT : [id number] Pending 09/28/2016 Visit Plan: Abscess/Cellulitis - Re [...] Isaac. 09/27/2016 Appointment: Miracle Gracia WPtel: [phone] [facility] (30 min) Complex 09/27/2016 Patient Education: Patient Medication Summary Completed 09/27/2016 Patient Education: Smoking and Tobacco Addiction Completed 09/27/2016 Care Plan: Referral Order SNOMED-CT : [id number] Pending 05/10/2016 Visit Plan: Abscess/Cellulitis - ri [...] pain. 05/05/2016 [phone] [phone] (30 min) Complex 05/05/2016 Patient Education: [...] medications. 02/05/2016 [facility]ment[phone] [facility] ([facility]) [facility] 02/05/2016 Patient Education: Patient Medication Summary [...] 12/22/2015 Referral: Alberto Pearson Referral Initiated Referral: [facility] WPtel: Referral Completed Referral: [facility] WPtel: will call with appt time Initiated [...] Pt is to discuss methotrexate with his stroke program coordinator. . Otitis Externa - p t given [...]
--- OUTSIDE RECORDS SUMMARY | 2020-02-25 10:52 | XMS REPORT | CCD ---
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 [id number] 2018 Unknown Family history Mother Diagnosis Age At Onset Cancer Unknown Diabetes Unknown Social History Social History Element Codes Description Effective Dates Tobacco history SNOMED CT: 9734149 Former smoker Quit in October 2017 11/25/2017 Marital status Unknown M arried antonio 12/22/2015 Number of children Unknown 1 12/22/2015 Number of years using tobacco Unknown 5 - 10 12/22/2015 Number of cigarettes/day Unknown 10 (Half a pack) 12/22/2015 Alcohol history Unknown occasionally drinks alcohol 12/22/2015 Frequency of drinks SNOMED CT: 096198742 1-4 drinks per week 12/22/2015 Allergies, Adverse [...] Date Stop Date Sta tus Fill Instructions baclofen 10 mg tablet RxNorm: 721185 1 Tablet(s) PO TID as needed muscle spas ms 08/01/2018 08/05/2018 Ac tive prednisone 20 mg tablet RxNorm: 763632 3 Tablet(s) PO daily 08/01/2018 08/05/2018 Active diazepam 2 mg tablet RxNorm: 334123 Tablet(s) TAKE 1/2 TABLET BY MOUTH TWICE DAILY NEEDED FOR ANXIETY 07/21/2018 08/19/2018 Active Adderall 10 mg tablet RxNorm: 976114 1 Tablet(s) PO BID 07/14/2018 08/12/2018 Active Adderall 10 mg tablet RxNorm: 922773 1 Tablet(s) PO BID 05/26/2018 06/24/2018 Inactive Adderall 10 mg tablet RxNorm: 567905 1 Tablet(s) PO BID 04/28/2018 05/25/2018 Inactive Adderall 5 mg tablet RxNorm: 571381 1 Tablet(s) PO QAM as needed 04/04/2018 04/27/2018 Inactive diazepam 2 mg tablet RxNorm: 175635 Tablet(s) TAKE 1/2 TABLET BY MOUTH TWICE DAILY NEEDED FOR ANXIETY 04/04/2018 05/02/2018 Inactive Adderall XR 20 mg ca psule,extended release RxNorm: 545531 1 Capsule(s) PO daily 03/13/2018 04/03/2018 In active Kenalog 40 mg/mL rodrigo pension for injection RxNorm: 5927977 1 Milliliter(s) Inj 03/01/2018 03/01/2018 In active Adderall 5 mg tablet RxNorm: 740887 1 Tablet(s) PO QAM as needed 02/13/2018 03/14/2018 Inactive Adderall XR 20 mg ca psule,extended release RxNorm: 220905 1 Capsule(s) PO daily 02/13/2018 03/12/2018 In active prednisone 20 mg tablet RxNorm: 933846 2 Tablet(s) PO daily 02/10/2018 02/14/2018 Inactive Bactrim DS 800 mg-16 0 mg tablet RxNorm: 494227 1 Tablet(s) PO BID 01/16/2018 02/04/2018 Inactive Adderall 5 mg tablet RxNorm: 254368 2 Tablet(s) PO QAM and 1 PO QPM 01/16/2018 02/12/2018 In active Bactrim DS 800 mg-16 0 mg tablet RxNorm: 673112 1 Tablet(s) PO BID 01/04/2018 01/15/2018 Inactive Adderall 5 mg tablet RxNorm: 187220 2 Tablet(s) PO QAM and 1 PO QPM 12/13/2017 01/11/2018 In active Zithromax Z-Molina 250 mg tablet RxNorm: 123138 1 Tablet(s) PO UD 11/25/2017 03/12/2018 Inactive diazepam 2 mg tablet RxNorm: 716305 Tablet(s) TAKE 1/2 TABLET BY MOUTH TWICE DAILY NEEDED FOR ANXIETY 11/18/2017 12/17/2017 Inactive diazepam 2 mg tablet RxNorm: 524406 Tablet(s) TAKE 1/2 TABLET BY MOUTH TWICE DAILY NEEDED FOR ANXIETY 08/30/2017 10/28/2017 Inactive diazepam 2 mg tablet RxNorm: 273268 Tablet(s) TAKE 1/2 TABLET BY MOUTH TWICE DAILY NEEDED FOR ANXIETY 07/19/2017 08/29/2017 Inactive diazepam 2 mg tablet RxNorm: 683317 TAKE 1/2 TABLET BY MOUTH TWICE DAILY NEEDED FOR ANXIETY 07/15/2017 07/18/2017 Inactive Bactrim DS 800 mg-16 0 mg tablet RxNorm: 646424 1 Tablet(s) PO BID 06/01/2017 06/20/2017 Inactive diazepam 2 mg tablet RxNorm: 424956 1/2 Tablet(s) PO BID as needed anxiety 06/01/2017 06/29/2017 In active tramadol 50 mg tablet RxNorm: 315667 1 Tablet(s) PO QID as needed 04/14/2017 04/23/2017 Inactive Bactrim DS 800 mg-16 0 mg tablet RxNorm: 449926 1 Tablet(s) PO BID 04/14/2017 05/03/2017 Inactive diazepam 2 mg tablet RxNorm: 783896 1/2 Tablet(s) PO BID as needed anxiety 03/02/2017 04/30/2017 In active Zithromax Z-Molina 250 mg tablet RxNorm: 637542 1 Tablet(s) PO UD 03/02/2017 07/18/2017 Inactive Bactrim DS 800 mg-16 0 mg tablet RxNorm: 823252 1 Tablet(s) PO BID 03/01/2017 03/20/2017 Inactive diazepam 2 mg tablet RxNorm: 113372 1/2 Tablet(s) PO BID as needed anxiety 01/21/2017 02/19/2017 In active Bactrim DS 800 mg-16 0 mg tablet RxNorm: 240425 1 Tablet(s) PO BID 01/21/2017 01/30/2017 Inactive Bactrim DS 800 mg-16 0 mg tablet RxNorm: 361018 1 Tablet(s) PO BID 11/17/2016 11/26/2016 Inactive diazepam 2 mg tablet RxNorm: 107003 1/2 Tablet(s) PO BID as needed anxiety 11/12/2016 01/10/2017 In active diazepam 2 mg tablet RxNorm: 117052 1/2 Tablet(s) PO BID as needed anxiety 10/18/2016 12/14/2016 In active Zithromax Z-Molina 250 mg tablet RxNorm: 379016 1 Tablet(s) PO UD 09/27/2016 03/01/2017 Inactive diazepam 2 mg tablet RxNorm: 198419 1/2 Tablet(s) PO BID as needed anxiety 09/13/2016 11/11/2016 In active diazepam 2 mg tablet RxNorm: 321500 1/2 Tablet(s) PO BID as needed anxiety 07/07/2016 09/17/2016 In active Levaquin 500 mg tablet RxNorm: 887815 1 Tablet(s) PO daily 06/01/2016 05/31/2016 Inactive Levaquin 500 mg tablet RxNorm: 004543 1 Tablet(s) PO daily 06/01/2016 06/07/2016 Inactive Levaquin 500 mg tablet RxNorm: 430780 1 Tablet(s) PO daily 05/05/2016 05/04/2016 Inactive Levaquin 500 mg tablet RxNorm: 535995 1 Tablet(s) PO daily 05/05/2016 05/11/2016 Inactive minocycline 100 mg c apsule RxNorm: 252125 1 CAPSULE(S) PO BID W HEN NOT HAVING ACUTE FLARE DECREASE TO ONCE DAILY 04/21/2016 05/20/2016 Inactive Ciprodex 0.3 %-0.1 % ear drops,suspension RxNorm: 722170 4 Drop(s) OTIC BID 03/08/2016 03/14/2016 In active Zithromax Z-Molina 250 mg tablet RxNorm: 286319 Tablet(s) PO 03/08/2016 09/26/2016 Inactive diazepam 2 mg tablet RxNorm: 095694 1/2 Tablet(s) PO BID as needed anxiety 2016 04/18/2016 In active mupirocin 2 % topica l ointment RxNorm: 677388 1 Application TOP BID 02/05/2016 No Stop Date Active minocycline 100 mg c apsule RxNorm: 175171 1 Capsule(s) PO BID w hen not having acute flare decrease to once daily 02/05/2016 03/05/2016 Inactive Bactrim DS 800 mg-16 0 mg tablet RxNorm: 226036 1 Tablet(s) PO BID 02/05/2016 02/18/2016 Inactive diazepam 2 mg tablet RxNorm: 180619 1/2 Tablet(s) PO BID as needed anxiety 02/05/2016 02/05/2016 In active betamethasone alberto te 0.1 % topical cream RxNorm: 132957 1 Application TOP BID as needed rash 12/22/2015 No Stop Date Active minocycline 100 mg c apsule RxNorm: 999456 1 Capsule(s) PO BID w hen not having acute flare decrease to once daily 12/22/2015 01/20/2016 Inactive Medication Administered Medication Codes Instruc tions Start Date Status Kenalog 40 mg/mL suspension for injection RxNorm: 0760887 1Milliliter 03/01/2018 N o longer Active Immunizations [...] hTSH II 1.82 uIU/mL 02/05/2016 Comp Metabolic Dam858 NA 139 mEq/L 02/05/2016 Comp Metabolic Ioh778 K 4.2 mEq/L 02/05/2016 Comp Metabolic Fxy185 CL 103 mEq/L 02/05/2016 Comp Metabolic Nei588 CO2 29.0 mEq/L 02/05/2016 Comp Metabolic Faq815 AN ION GAP 11 02/05/2016 Comp Metabolic Mlo203 GL UCOSE 71 mg/dL 02/05/2016 Comp Metabolic Nwu178 Cr eat 0.9 mg/dL 02/05/2016 Comp Metabolic Uqe326 eG FR 101 ml/min/1.73m2 01/14 Comp Metabolic Byc890 BUN 17 mg/dL 02/05/2016 Comp Metabolic Eod420 B/ C Ratio 18.5 Ratio 02/05/2016 Comp Metabolic Kzd441 CA LCIUM 9.4 mg/dL 02/05/2016 Comp Metabolic Ozr026 AL K PHOS 63 U/L 02/05/2016 Comp Metabolic Pya459 T(SGOT) 30 U/L 02/05/2016 Comp Metabolic Gvs967 AL T(SGPT) 40 U/L 02/05/2016 Comp Metabolic Ona706 BI LI T 0.5 mg/dL 02/05/2016 Comp Metabolic Lta123 AL BUMIN 4.2 g/dL 02/05/2016 Comp Metabolic Cjz898 TP RO 7.2 g/dL 02/05/2016 Comp Metabolic Csz879 GL OB 3.0 g/dL 02/05/2016 Comp Metabolic Dqn048 A/ G Ratio 1.4 Ratio 02/05/2016 Comp Metabolic Iur588 Os mo 278 mOsmo 02/05/2016 Cbc With [...] 23.4 % 02/05/2016 Cbc With Differential Ord2 Reagan% 8.9 % 02/05/2016 Cbc With Differential Ord2 [...] 2.91 K/ul 02/05/2016 Cbc With Differential Ord2 Reagan ABS# 1.1 K/ul 02/05/2016 Cbc With Differential [...] CPT-4: J3301 03/01/2018 THER/PROPH/DIAG INJ SC/IM CPT-4: 46812 03/01/2018 DRAINAGE OF SKIN ABS CESS CPT-4: 63274 05/05/2016 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-[address]: 332694353 CPT-4: G0436 12/22/2015 Vital Signs Date Vital 08/01/2018 Blood Pressure 1: 110/78 Code: 8480-6 BMI: 34.4 Code: 18062-5 Heart Rate 1: 109 bpm Height: 5'11" SpO2: 98% Weight: 247 lbs 03/01/2018 Blood Pressure 1: 120/80 Code: 8480-6 BMI: 32.9 Code: 57991-6 Heart Rate 1: 72 bpm Height: 5'11" SpO2: 96% Weight: 236 lbs 02/10/2018 Blood Pressure 1: 122/70 Code: 8480-6 BMI: 32.9 Code: 98578-3 Heart Rate 1: 90 bpm Height: 5'11" SpO2: 98% Weight: 236 lbs 12/12/2017 Blood Pressure 1: 124/72 Code: 8480-6 BMI: 35.0 Code: 74767-9 Heart Rate 1: 80 bpm Height: 5'11" SpO2: 96% Weight: 251 lbs 11/25/2017 Blood Pressure 1: 122/76 Code: 8480-6 BMI: 35.4 Code: 60510-3 Heart Rate 1: 74 bpm Height: 5'11" SpO2: 95% Weight: 254 lbs 03/02/2017 Blood Pressure 1: 120/70 Code: 8480-6 BMI: 33.8 Code: 02428-8 Heart Rate 1: 79 bpm Height: 5'11" SpO2: 99% Weight: 242 lbs 11/17/2016 Blood Pressure 1: 120/88 Code: 8480-6 BMI: 36.8 Code: 47055-6 Heart Rate 1: 104 bpm Height: 5'11" SpO2: 99% Weight: 264 lbs 09/27/2016 Blood Pressure 1: 122/78 Code: 8480-6 BMI: 34.6 Code: 59753-9 Heart Rate 1: 100 bpm Height: 5'11" SpO2: 96% Weight: 248 lbs 05/05/2016 Blood Pressure 1: 114/78 Code: 8480-6 BMI: 35.1 Code: 42841-1 Heart Rate 1: 81 bpm Height: 5'11" SpO2: 96% Weight: 252 lbs 03/08/2016 Blood Pressure 1: 120/64 Code: 8480-6 BMI: 34.3 Code: 79533-7 Heart Rate 1: 95 bpm Height: 5'11" SpO2: 97% Weight: 246 lbs 02/05/2016 Blood Pressure 1: 120/78 Code: 8480-6 BMI: 33.5 Code: 37904-1 Heart Rate 1: 104 bpm Height: 5'11" SpO2: 97% Weight: 240 lbs 12/22/2015 Blood Pressure 1: 120/82 Code: 8480-6 BMI: 34.3 Code: 31904-3 Heart Rate 1: 83 bpm Height: 5'11" [...] Codes Date EST. PATIENT, LEVEL III Diagnosis: Pain in left shoulder[ICD10: M25.512] Diagnosis: Muscle spasm of back[ICD10: M62.830] [facility] CPT- 4: 92701 08/01/2018 56685 EST. PATIENT, LEVEL III Diagnosis: Hidradenitis suppurativa[ICD10: L73.2] [facility] CPT-4: 34119 03/01/2018 50090 EST. 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 PATIENT, LEVEL IV Diagnosis: Generalized anxiety disorder[ICD10: F41.1] Diagnosis: Hidradenitis suppurativa[ICD10: L73.2] Miracle Pereyra MD, [facility] CPT-4: 32741 11/25/2017 83766 EST. PATIENT, LEVEL III Diagnosis: Hidradenitis suppurativa[ICD10: L73.2] Diagnosis: Generalized anxiety disorder[ICD10: F41.1] Miracle Pereyra MD, [facility] CPT-4: 62654 03/02/2017 11506 EST. PATIENT, LEVEL III Diagnosis: Cutaneous abscess of buttock[ICD10: L02.31] Miracle Pereyra MD, [facility] CPT-4: 89189 11/17/2016 69810 EST. PATIENT, LEVEL III Diagnosis: Cutaneous abscess of left axilla[ICD10: L02.412] Diagnosis: Pain in right hand[ICD10: M79.641] Miracle Pereyra MD, [facility] CPT-4: 28808 09/27/2016 91664 EST. PATIENT, LEVEL III Diagnosis: Cutaneous abscess of right lower limb[ICD10: L02.415] Diagnosis: Hidradenitis suppurativa[ICD10: L73.2] Miracle Pereyra MD, [facility] CPT-4: 98396 05/05/2016 88714 EST. PATIENT, LEVEL IV Diagnosis: Other otitis externa, right ear[ICD10: H60.8X1] Diagnosis: Cutaneous abscess of left axilla[ICD10: L02.412] Diagnosis: Other acute sinusitis[ICD10: J01.80] [facility] CPT- 4: 95984 03/08/2016 85481 EST. PATIENT, LEVEL III Diagnosis: Generalized anxiety disorder[ICD10: F41.1] Diagnosis: Acne vulgaris[ICD10: L70.0] Diagnosis: Plantar wart[ICD10: B07.0] [facility] CPT-4: 03605 02/05/2016 (82423) OFFICE VISI T, NEW - LEVEL 3 Diagnosis: Generalized anxiety disorder[ICD10: F41.1] Diagnosis: 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][ICD10: L30.1] Diagnosis: Acne vulgaris[ICD10: L70.0] Diagnosis: Other obesity due to excess calories[ICD10: E66.09] [facility] CPT-4: 01359 12/22/2015 Plan of Care Planned Activity Notes C odes Status Date Visit Plan: Left shoulder pain, mus mishel spasm - will send RX - The pt is to use prn antiinflammatories to manage acute pain. The patient is to call the office if the pain is worsening or does not improve. 08/01/2018 Patient Education: Patient Medication Summary Completed [...] no changes. 02/10/2018 Appointment: Miracle Gracia WPtel: [facility]5 [facility] [address] (15 [...] not prescribed. 12/12/2017 Appointment: Miracle Gracia WPtel: [facility]0 [facility] [address] (15 min) Moderate 12/12/2017 Patient Education: Patient [...] or concerns. 11/25/2017 Appointment: Miracle Gracia WPtel: [facility]6 [facility] [address] (15 min) Moderate 11/25/2017 Patient Education: Patient Medication Summary Completed 11/25/2017 Visit Plan: Abscess/Cellulitis - Th e patient was instructed in appropriate wound care. The patient was instructed to use the antibiotic ointment as per RX. The patient is to call for any change in symptoms, increase in size of the lesion, increase in pain. 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 03/02/2017 Appointment: Miracle Gracia WPtel: [address] [facility] [address] [place] (30 min) Complex 03/02/2017 Patient Education: Patient Medication Summary Completed 03/02/2017 Patient Education: Smoking and Tobacco Addiction Completed 03/02/2017 Patient Education: Obesity Completed 03/02/2017 Appointment: Miracle Gracia WPtel: [address] [facility] [address] [place] (30 min) Complex 11/19/2016 Appointment: Miracle Gracia WPtel: [facility]5 [facility] [address] [place] (15 min) Moderate 11/18/2016 Visit Plan: Abscess/Cellulitis - Th e patient was instructed in appropriate wound care. The patient was instructed to use the antibiotic ointment as per RX. The patient is to call for any change in symptoms, increase in size of the lesion, increase in pain. Pt is to return tomorrow for I&D if needed. 11/17/2016 Appointment: Miracle Gracia WPtel: [facility]5 [facility] [address] [place] (15 min) Moderate 11/17/2016 Patient Education: Patient Medication Summary Completed 11/17/2016 Patient Education: Smoking and Tobacco Addiction Completed 11/17/2016 Referral: Alberto Pearson Referral Initiated 09/30/2016 Care Plan: Referral Order SNOMED-CT : [id number] Pending 09/28/2016 Visit Plan: Abscess/Cellulitis - Re [...] Gracia WPtel: [address] [facility] [address] (30 min) Complex 09/27/2016 Patient Education: Patient Medication Summary Completed 09/27/2016 Patient Education: Smoking and Tobacco Addiction Completed 09/27/2016 Care Plan: Referral Order SNOMED-CT : [id number] Pending 05/10/2016 Visit Plan: Abscess/Cellulitis - ri [...] pain. 05/05/2016 [facility] ([facility] min) Complex 05/05/2016 Patient [...] No change in current medications. 02/05/2016 Appointment: Basil Miracle WPtel: [facility] ([facility] min) Complex 02/05/2016 Patient Education: [...] 12/22/2015 Referral: Alberto Pearson Referral Initiated Referral: [facility] WPtel: Referral Completed Referral: [facility] WPtel: will call with appt [...] Pt is to discuss methotrexate with his food product inspector. . Otitis Externa - p t given [...]
--- OUTSIDE RECORDS SUMMARY | 2020-02-25 10:53 | XMS REPORT | CCD ---
Author Norbert Mancia Organization Celeste Pereyra MD, [facility] Address [address] [place] [address] Phone Care Team Providers Care Dock Supervisor Name Role Phone PP Unavailable CCM Unavailable Summary Purpose Interface Exchange Insurance Providers Payer name Policy type / Coverage type Covered democrat ID Effective Begin Date Effective End Date [employer] Commercial Insurance [id number] Unknown Family history Mother Diagnosis Age At Onset Cancer Unknown Diabetes Unknown Social History Social History Element Codes Description Effective Dates Tobacco history SNOMED CT: 3307166 Former smoker Quit in October 2017 11/25/2017 Marital status Unknown M kelvin alvarez 12/22/2015 Number of children Unknown 1 12/22/2015 Number of years using tobacco Unknown 5 - 10 12/22/2015 Number of cigarettes/day Unknown 10 (Half a pack) 12/22/2015 Alcohol history Unknown occasionally drinks alcohol 12/22/2015 Frequency of drinks SNOMED CT: 178988582 1-4 drinks per week 12/22/2015 Allergies, Adverse [...] Fill Instructions Adderall 10 mg tablet RxNorm: 404083 1 Tablet(s) PO BID 07/14/2018 08/12/2018 Active Adderall 10 mg tablet RxNorm: 933970 1 Tablet(s) PO BID 05/26/2018 06/24/2018 Inactive Adderall 10 mg tablet RxNorm: 329305 1 Tablet(s) PO BID 04/28/2018 05/25/2018 Inactive diazepam 2 mg tablet RxNorm: 863700 Tablet(s) TAKE 1/2 TABLET BY MOUTH TWICE DAILY NEEDED FOR ANXIETY 04/04/2018 05/03/2018 Inactive Adderall 5 mg tablet RxNorm: 726123 1 Tablet(s) PO QAM as needed 04/04/2018 04/27/2018 Inactive Adderall XR 20 mg ca psule,extended release RxNorm: 407894 1 Capsule(s) PO daily 03/13/2018 04/03/2018 In active Kenalog 40 mg/mL rodrigo pension for injection RxNorm: 3524619 1 Milliliter(s) Inj 03/01/2018 03/01/2018 In active Adderall 5 mg tablet RxNorm: 666183 1 Tablet(s) PO QAM as needed 02/13/2018 03/14/2018 Inactive Adderall XR 20 mg ca psule,extended release RxNorm: 980089 1 Capsule(s) PO daily 02/13/2018 03/12/2018 In active prednisone 20 mg tablet RxNorm: 247546 2 Tablet(s) PO daily 02/10/2018 02/14/2018 Inactive Bactrim DS 800 mg-16 0 mg tablet RxNorm: 210830 1 Tablet(s) PO BID 01/16/2018 02/04/2018 Inactive Adderall 5 mg tablet RxNorm: 485318 2 Tablet(s) PO QAM and 1 PO QPM 01/16/2018 02/12/2018 In active Bactrim DS 800 mg-16 0 mg tablet RxNorm: 875605 1 Tablet(s) PO BID 01/04/2018 01/15/2018 Inactive Adderall 5 mg tablet RxNorm: 991453 2 Tablet(s) PO QAM and 1 PO QPM 12/13/2017 01/11/2018 In active Zithromax Z-Molina 250 mg tablet RxNorm: 533345 1 Tablet(s) PO UD 11/25/2017 03/12/2018 Inactive diazepam 2 mg tablet RxNorm: 832837 Tablet(s) TAKE 1/2 TABLET BY MOUTH TWICE DAILY NEEDED FOR ANXIETY 11/18/2017 12/17/2017 Inactive diazepam 2 mg tablet RxNorm: 578790 Tablet(s) TAKE 1/2 TABLET BY MOUTH TWICE DAILY NEEDED FOR ANXIETY 08/30/2017 10/28/2017 Inactive diazepam 2 mg tablet RxNorm: 483816 Tablet(s) TAKE 1/2 TABLET BY MOUTH TWICE DAILY NEEDED FOR ANXIETY 07/19/2017 08/29/2017 Inactive diazepam 2 mg tablet RxNorm: 377724 TAKE 1/2 TABLET BY MOUTH TWICE DAILY NEEDED FOR ANXIETY 07/15/2017 07/18/2017 Inactive Bactrim DS 800 mg-16 0 mg tablet RxNorm: 931281 1 Tablet(s) PO BID 06/01/2017 06/20/2017 Inactive diazepam 2 mg tablet RxNorm: 654399 1/2 Tablet(s) PO BID as needed anxiety 06/01/2017 06/29/2017 In active tramadol 50 mg tablet RxNorm: 856426 1 Tablet(s) PO QID as needed 04/14/2017 04/23/2017 Inactive Bactrim DS 800 mg-16 0 mg tablet RxNorm: 045931 1 Tablet(s) PO BID 04/14/2017 05/03/2017 Inactive diazepam 2 mg tablet RxNorm: 429538 1/2 Tablet(s) PO BID as needed anxiety 03/02/2017 04/30/2017 In active Zithromax Z-Molina 250 mg tablet RxNorm: 247739 1 Tablet(s) PO UD 03/02/2017 07/18/2017 Inactive Bactrim DS 800 mg-16 0 mg tablet RxNorm: 339588 1 Tablet(s) PO BID 03/01/2017 03/20/2017 Inactive diazepam 2 mg tablet RxNorm: 137183 1/2 Tablet(s) PO BID as needed anxiety 01/21/2017 02/19/2017 In active Bactrim DS 800 mg-16 0 mg tablet RxNorm: 219244 1 Tablet(s) PO BID 01/21/2017 01/30/2017 Inactive Bactrim DS 800 mg-16 0 mg tablet RxNorm: 109076 1 Tablet(s) PO BID 11/17/2016 11/26/2016 Inactive diazepam 2 mg tablet RxNorm: 135749 1/2 Tablet(s) PO BID as needed anxiety 11/12/2016 01/10/2017 In active diazepam 2 mg tablet RxNorm: 584431 1/2 Tablet(s) PO BID as needed anxiety 10/18/2016 12/14/2016 In active Zithromax Z-Molina 250 mg tablet RxNorm: 304232 1 Tablet(s) PO UD 09/27/2016 03/01/2017 Inactive diazepam 2 mg tablet RxNorm: 196681 1/2 Tablet(s) PO BID as needed anxiety 09/13/2016 11/11/2016 In active diazepam 2 mg tablet RxNorm: 712451 1/2 Tablet(s) PO BID as needed anxiety 07/07/2016 09/17/2016 In active Levaquin 500 mg tablet RxNorm: 367495 1 Tablet(s) PO daily 06/01/2016 05/31/2016 Inactive Levaquin 500 mg tablet RxNorm: 310163 1 Tablet(s) PO daily 06/01/2016 06/07/2016 Inactive Levaquin 500 mg tablet RxNorm: 202409 1 Tablet(s) PO daily 05/05/2016 05/04/2016 Inactive Levaquin 500 mg tablet RxNorm: 776588 1 Tablet(s) PO daily 05/05/2016 05/11/2016 Inactive minocycline 100 mg c apsule RxNorm: 615075 1 CAPSULE(S) PO BID W HEN NOT HAVING ACUTE FLARE DECREASE TO ONCE DAILY 04/21/2016 05/20/2016 Inactive Ciprodex 0.3 %-0.1 % ear drops,suspension RxNorm: 456976 4 Drop(s) OTIC BID 03/08/2016 03/14/2016 In active Zithromax Z-Molina 250 mg tablet RxNorm: 417919 Tablet(s) PO 03/08/2016 09/26/2016 Inactive diazepam 2 mg tablet RxNorm: 690555 1/2 Tablet(s) PO BID as needed anxiety 2016 04/18/2016 In active mupirocin 2 % topica l ointment RxNorm: 917547 1 Application TOP BID 02/05/2016 No Stop Date Active minocycline 100 mg c apsule RxNorm: 253938 1 Capsule(s) PO BID w hen not having acute flare decrease to once daily 02/05/2016 03/05/2016 Inactive Bactrim DS 800 mg-16 0 mg tablet RxNorm: 115463 1 Tablet(s) PO BID 02/05/2016 02/18/2016 Inactive diazepam 2 mg tablet RxNorm: 446473 1/2 Tablet(s) PO BID as needed anxiety 02/05/2016 02/05/2016 In active betamethasone alberto te 0.1 % topical cream RxNorm: 258181 1 Application TOP BID as needed rash 12/22/2015 No Stop Date Active minocycline 100 mg c apsule RxNorm: 413142 1 Capsule(s) PO BID w hen not having acute flare decrease to once daily 12/22/2015 01/20/2016 Inactive Medication Administered Medication Codes Instruc tions Start Date Status Kenalog 40 mg/mL suspension for injection RxNorm: 9374791 1Milliliter 03/01/2018 N o longer Active Immunizations [...] hTSH II 1.82 uIU/mL 02/05/2016 Comp Metabolic Flo728 NA 139 mEq/L 02/05/2016 Comp Metabolic Lwy222 K 4.2 mEq/L 02/05/2016 Comp Metabolic Qpo602 CL 103 mEq/L 02/05/2016 Comp Metabolic Laj257 CO2 29.0 mEq/L 02/05/2016 Comp Metabolic Wwj135 AN ION GAP 11 02/05/2016 Comp Metabolic Ofx521 GL UCOSE 71 mg/dL 02/05/2016 Comp Metabolic Kat986 Cr eat 0.9 mg/dL 02/05/2016 Comp Metabolic Ilg748 eG FR 101 ml/min/1.73m2 01/14 Comp Metabolic Krw113 BUN 17 mg/dL 02/05/2016 Comp Metabolic Xmf204 B/ C Ratio 18.5 Ratio 02/05/2016 Comp Metabolic Ggw256 CA LCIUM 9.4 mg/dL 02/05/2016 Comp Metabolic Quk395 AL K PHOS 63 U/L 02/05/2016 Comp Metabolic Eyf969 T(SGOT) 30 U/L 02/05/2016 Comp Metabolic Syh955 AL T(SGPT) 40 U/L 02/05/2016 Comp Metabolic Hnl060 BI LI T 0.5 mg/dL 02/05/2016 Comp Metabolic Utc843 AL BUMIN 4.2 g/dL 02/05/2016 Comp Metabolic Gix408 TP RO 7.2 g/dL 02/05/2016 Comp Metabolic Mvz157 GL OB 3.0 g/dL 02/05/2016 Comp Metabolic Ugv700 A/ G Ratio 1.4 Ratio 02/05/2016 Comp Metabolic Ret170 Os mo 278 mOsmo 02/05/2016 Cbc With [...] 23.4 % 02/05/2016 Cbc With Differential Ord2 [place]% 8.9 % 02/05/2016 Cbc With Differential Ord2 [...] 2.91 K/ul 02/05/2016 Cbc With Differential Ord2 [place] ABS# 1.1 K/ul 02/05/2016 Cbc With Differential [...] No mental status change 12/12/2017 Psychiatric anxiety 3 Constitutional No recent illness 11/25/2017 Constitutional No [...] CPT-4: J3301 03/01/2018 THER/PROPH/DIAG INJ SC/IM CPT-4: 74583 03/01/2018 DRAINAGE OF SKIN ABS CESS CPT-4: 45676 05/05/2016 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 3-[address]: 960107127 CPT-4: G0436 12/22/2015 Vital Signs Date Vital 03/01/2018 Blood Pressure 1: 120/80 Code: 8480-6 BMI: 32.9 Code: 87109-0 Heart Rate 1: 72 bpm Height: 5'11" SpO2: 96% Weight: 236 lbs 02/10/2018 Blood Pressure 1: 122/70 Code: 8480-6 BMI: 32.9 Code: 86552-6 Heart Rate 1: 90 bpm Height: 5'11" SpO2: 98% Weight: 236 lbs 12/12/2017 Blood Pressure 1: 124/72 Code: 8480-6 BMI: 35.0 Code: 77480-7 Heart Rate 1: 80 bpm Height: 5'11" SpO2: 96% Weight: 251 lbs 11/25/2017 Blood Pressure 1: 122/76 Code: 8480-6 BMI: 35.4 Code: 61754-0 Heart Rate 1: 74 bpm Height: 5'11" SpO2: 95% Weight: 254 lbs 03/02/2017 Blood Pressure 1: 120/70 Code: 8480-6 BMI: 33.8 Code: 63145-7 Heart Rate 1: 79 bpm Height: 5'11" SpO2: 99% Weight: 242 lbs 11/17/2016 Blood Pressure 1: 120/88 Code: 8480-6 BMI: 36.8 Code: 61243-1 Heart Rate 1: 104 bpm Height: 5'11" SpO2: 99% Weight: 264 lbs 09/27/2016 Blood Pressure 1: 122/78 Code: 8480-6 BMI: 34.6 Code: 59328-1 Heart Rate 1: 100 bpm Height: 5'11" SpO2: 96% Weight: 248 lbs 05/05/2016 Blood Pressure 1: 114/78 Code: 8480-6 BMI: 35.1 Code: 47716-8 Heart Rate 1: 81 bpm Height: 5'11" SpO2: 96% Weight: 252 lbs 03/08/2016 Blood Pressure 1: 120/64 Code: 8480-6 BMI: 34.3 Code: 03666-2 Heart Rate 1: 95 bpm Height: 5'11" SpO2: 97% Weight: 246 lbs 02/05/2016 Blood Pressure 1: 120/78 Code: 8480-6 BMI: 33.5 Code: 61254-0 Heart Rate 1: 104 bpm Height: 5'11" SpO2: 97% Weight: 240 lbs 12/22/2015 Blood Pressure 1: 120/82 Code: 8480-6 BMI: 34.3 Code: 59854-6 Heart Rate 1: 83 bpm Height: 5'11" [...] Encounters Encounter Performer Loca tion Codes Date 60237 EST. PATIENT, LEVEL III Diagnosis: Hidradenitis suppurativa[ICD10: L73.2] [facility] CPT-4: 25640 03/01/2018 53467 EST. 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 PATIENT, LEVEL IV Diagnosis: Generalized anxiety disorder[ICD10: F41.1] Diagnosis: Hidradenitis suppurativa[ICD10: L73.2] Miracle Pereyra MD, [facility] CPT-4: 82079 11/25/2017 05746 EST. PATIENT, LEVEL III Diagnosis: Hidradenitis suppurativa[ICD10: L73.2] Diagnosis: Generalized anxiety disorder[ICD10: F41.1] Miracle Pereyra MD, [facility] CPT-4: 82094 03/02/2017 10501 EST. PATIENT, LEVEL III Diagnosis: Cutaneous abscess of buttock[ICD10: L02.31] Miracle Pereyra MD, [facility] CPT-4: 33767 11/17/2016 17040 EST. PATIENT, LEVEL III Diagnosis: Cutaneous abscess of left axilla[ICD10: L02.412] Diagnosis: Pain in right hand[ICD10: M79.641] Miracle Pereyra MD, [facility] CPT-4: 28494 09/27/2016 37824 EST. PATIENT, LEVEL III Diagnosis: Cutaneous abscess of right lower limb[ICD10: L02.415] Diagnosis: Hidradenitis suppurativa[ICD10: L73.2] Miracle Pereyra MD, [facility] CPT-4: 02754 05/05/2016 72991 EST. PATIENT, LEVEL IV Diagnosis: Other otitis externa, right ear[ICD10: H60.8X1] Diagnosis: Cutaneous abscess of left axilla[ICD10: L02.412] Diagnosis: Other acute sinusitis[ICD10: J01.80] [facility] CPT- 4: 32171 03/08/2016 85936 EST. PATIENT, LEVEL III Diagnosis: Generalized anxiety disorder[ICD10: F41.1] Diagnosis: Acne vulgaris[ICD10: L70.0] Diagnosis: Plantar wart[ICD10: B07.0] [facility] CPT-4: 06696 02/05/2016 (17327) OFFICE VISI T, NEW - LEVEL 3 Diagnosis: Generalized anxiety disorder[ICD10: F41.1] Diagnosis: 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][ICD10: L30.1] Diagnosis: Acne vulgaris[ICD10: L70.0] Diagnosis: Other obesity due to excess calories[ICD10: E66.09] [facility] CPT-4: 34062 12/22/2015 Plan of Care Planned Activity Notes [...] no changes. 02/10/2018 Appointment: Miracle Gracia WPtel: [address] [place], [place] [phone] (15 min) Moderate 02/10/2018 Patient Education: Patient [...] [facility] (15 min) Moderate 12/12/2017 Patient [...] [facility] (15 min) Moderate 11/25/2017 Patient [...] Pt is to discuss methotrexate with his sr risk management consultant. 03/02/2017 Appointment: Miracle Gracia WPtel: [address] [place], [place] [phone] (30 min) Complex 03/02/2017 Patient Education: Patient Medication Summary Completed 03/02/2017 Patient Education: Smoking and Tobacco Addiction Completed 03/02/2017 Patient Education: Obesity Completed 03/02/2017 Appointment: Miracle Gracia WPtel: [address] [place], [place] [phone] (30 min) Complex 11/19/2016 Appointment: Miracle Gracia WPtel: [address] [place], [place] [phone] (15 min) Moderate 11/18/2016 Visit Plan: Abscess/Cellulitis - Th e patient was instructed in appropriate wound care. The patient was instructed to use the antibiotic ointment as per RX. The patient is to call for any change in symptoms, increase in size of the lesion, increase in pain. Pt is to return tomorrow for I&D if needed. 11/17/2016 Appointment: Miracle Gracia WPtel: [address] [place], [place] [phone] (15 min) Moderate 11/17/2016 Patient Education: Patient Medication Summary Completed 11/17/2016 Patient Education: Smoking and Tobacco Addiction Completed 11/17/2016 Referral: Alberto Pearson Referral Initiated 09/30/2016 Care Plan: Referral Order SNOMED-CT : [id number] Pending 09/28/2016 Visit Plan: Abscess/Cellulitis - Re [...] Dr. Isaac. 09/27/2016 Appointment: Miracle Gracia WPtel: [address] [place], [place] [phone] [place] (30 min) Complex 09/27/2016 Patient Education: Patient Medication Summary Completed 09/27/2016 Patient Education: Smoking and Tobacco Addiction Completed 09/27/2016 Care Plan: Referral Order SNOMED-CT : [id number] Pending 05/10/2016 Visit Plan: Abscess/Cellulitis - ri ght lateral hip - incision and drainage today in the office - The patient was instructed in appropriate wound care. The patient was instructed to use the antibiotic ointment as per RX. The patient is to call for any change in symptoms, increase in size of the lesion, increase in pain. 05/05/2016 Appointment: Gavi Soria WPtel[phone] [place] (30 min) Complex 05/05/2016 Patient [...] medications. 02/05/2016 Appointment: Miracle Gracia [facility]el[facility] [address] [facility] (30 min) Complex 02/05/2016 Patient Education: [...] Pt is to discuss methotrexate with his sr risk management consultant. . Otitis Externa - p t given [...] increase in pain. . Anxiety - the ogla ent has uncontrolled anxiety I believe that [...]
--- OUTSIDE RECORDS SUMMARY | 2020-02-25 10:54 | XMS REPORT | CCD ---
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 Name Role Phone PP Unavailable CCM Unavailable Summary Purpose Interface Exchange Insurance Providers Payer name Policy type / Coverage type Covered constitution party ID Effective Begin Date Effective End Date Cigna Commercial Insurance [id number] Unknown Family history Mother Diagnosis Age At Onset Cancer Unknown Diabetes Unknown Social History Social History Element Codes Description Effective Dates Tobacco history SNOMED CT: 3053377 Former smoker Quit in October 2017 11/25/2017 Marital status Unknown M kelvin alvarez 12/22/2015 Number of children Unknown 1 12/22/2015 Number of years using tobacco Unknown 5 - 10 12/22/2015 Number of cigarettes/day Unknown 10 (Half a pack) 12/22/2015 Alcohol history Unknown occasionally drinks alcohol 12/22/2015 Frequency of drinks SNOMED CT: 654803125 1-4 drinks per week 12/22/2015 Allergies, Adverse [...] Fill Instructions diazepam 2 mg tablet RxNorm: 220946 Tablet(s) TAKE 1/2 TABLET BY MOUTH TWICE DAILY NEEDED FOR ANXIETY 04/04/2018 05/03/2018 Active Adderall XR 20 mg ca psule,extended release RxNorm: 757928 1 Capsule(s) PO daily 03/13/2018 04/11/2018 Ac tive Kenalog 40 mg/mL rodrigo pension for injection RxNorm: 3979928 1 Milliliter(s) Inj 03/01/2018 03/01/2018 In active Adderall 5 mg tablet RxNorm: 191761 1 Tablet(s) PO QAM as needed 02/13/2018 03/14/2018 Inactive Adderall XR 20 mg ca psule,extended release RxNorm: 181167 1 Capsule(s) PO daily 02/13/2018 03/12/2018 In active prednisone 20 mg tablet RxNorm: 777329 2 Tablet(s) PO daily 02/10/2018 02/14/2018 Inactive Bactrim DS 800 mg-16 0 mg tablet RxNorm: 786110 1 Tablet(s) PO BID 01/16/2018 02/04/2018 Inactive Adderall 5 mg tablet RxNorm: 074177 2 Tablet(s) PO QAM and 1 PO QPM 01/16/2018 02/12/2018 In active Bactrim DS 800 mg-16 0 mg tablet RxNorm: 225693 1 Tablet(s) PO BID 01/04/2018 01/15/2018 Inactive Adderall 5 mg tablet RxNorm: 459681 2 Tablet(s) PO QAM and 1 PO QPM 12/13/2017 01/11/2018 In active Zithromax Z-Molina 250 mg tablet RxNorm: 346480 1 Tablet(s) PO UD 11/25/2017 03/12/2018 Inactive diazepam 2 mg tablet RxNorm: 674796 Tablet(s) TAKE 1/2 TABLET BY MOUTH TWICE DAILY NEEDED FOR ANXIETY 11/18/2017 12/17/2017 Inactive diazepam 2 mg tablet RxNorm: 453650 Tablet(s) TAKE 1/2 TABLET BY MOUTH TWICE DAILY NEEDED FOR ANXIETY 08/30/2017 10/28/2017 Inactive diazepam 2 mg tablet RxNorm: 286882 Tablet(s) TAKE 1/2 TABLET BY MOUTH TWICE DAILY NEEDED FOR ANXIETY 07/19/2017 08/29/2017 Inactive diazepam 2 mg tablet RxNorm: 776982 TAKE 1/2 TABLET BY MOUTH TWICE DAILY NEEDED FOR ANXIETY 07/15/2017 07/18/2017 Inactive Bactrim DS 800 mg-16 0 mg tablet RxNorm: 736551 1 Tablet(s) PO BID 06/01/2017 06/20/2017 Inactive diazepam 2 mg tablet RxNorm: 380263 1/2 Tablet(s) PO BID as needed anxiety 06/01/2017 06/29/2017 In active tramadol 50 mg tablet RxNorm: 380294 1 Tablet(s) PO QID as needed 04/14/2017 04/23/2017 Inactive Bactrim DS 800 mg-16 0 mg tablet RxNorm: 816627 1 Tablet(s) PO BID 04/14/2017 05/03/2017 Inactive diazepam 2 mg tablet RxNorm: 010901 1/2 Tablet(s) PO BID as needed anxiety 03/02/2017 04/30/2017 In active Zithromax Z-Molina 250 mg tablet RxNorm: 788342 1 Tablet(s) PO UD 03/02/2017 07/18/2017 Inactive Bactrim DS 800 mg-16 0 mg tablet RxNorm: 428795 1 Tablet(s) PO BID 03/01/2017 03/20/2017 Inactive diazepam 2 mg tablet RxNorm: 620107 1/2 Tablet(s) PO BID as needed anxiety 01/21/2017 02/19/2017 In active Bactrim DS 800 mg-16 0 mg tablet RxNorm: 578429 1 Tablet(s) PO BID 01/21/2017 01/30/2017 Inactive Bactrim DS 800 mg-16 0 mg tablet RxNorm: 319785 1 Tablet(s) PO BID 11/17/2016 11/26/2016 Inactive diazepam 2 mg tablet RxNorm: 218246 1/2 Tablet(s) PO BID as needed anxiety 11/12/2016 01/10/2017 In active diazepam 2 mg tablet RxNorm: 307328 1/2 Tablet(s) PO BID as needed anxiety 10/18/2016 12/14/2016 In active Zithromax Z-Molina 250 mg tablet RxNorm: 504470 1 Tablet(s) PO UD 09/27/2016 03/01/2017 Inactive diazepam 2 mg tablet RxNorm: 264748 1/2 Tablet(s) PO BID as needed anxiety 09/13/2016 11/11/2016 In active diazepam 2 mg tablet RxNorm: 791589 1/2 Tablet(s) PO BID as needed anxiety 07/07/2016 09/17/2016 In active Levaquin 500 mg tablet RxNorm: 121859 1 Tablet(s) PO daily 06/01/2016 05/31/2016 Inactive Levaquin 500 mg tablet RxNorm: 307054 1 Tablet(s) PO daily 06/01/2016 06/07/2016 Inactive Levaquin 500 mg tablet RxNorm: 736228 1 Tablet(s) PO daily 05/05/2016 05/04/2016 Inactive Levaquin 500 mg tablet RxNorm: 963067 1 Tablet(s) PO daily 05/05/2016 05/11/2016 Inactive minocycline 100 mg c apsule RxNorm: 367817 1 CAPSULE(S) PO BID W HEN NOT HAVING ACUTE FLARE DECREASE TO ONCE DAILY 04/21/2016 05/20/2016 Inactive Ciprodex 0.3 %-0.1 % ear drops,suspension RxNorm: 762800 4 Drop(s) OTIC BID 03/08/2016 03/14/2016 In active Zithromax Z-Molina 250 mg tablet RxNorm: 802561 Tablet(s) PO 03/08/2016 09/26/2016 Inactive diazepam 2 mg tablet RxNorm: 399643 1/2 Tablet(s) PO BID as needed anxiety 2016 04/18/2016 In active mupirocin 2 % topica l ointment RxNorm: 694410 1 Application TOP BID 02/05/2016 No Stop Date Active minocycline 100 mg c apsule RxNorm: 746960 1 Capsule(s) PO BID w hen not having acute flare decrease to once daily 02/05/2016 03/05/2016 Inactive Bactrim DS 800 mg-16 0 mg tablet RxNorm: 710802 1 Tablet(s) PO BID 02/05/2016 02/18/2016 Inactive diazepam 2 mg tablet RxNorm: 516690 1/2 Tablet(s) PO BID as needed anxiety 02/05/2016 02/05/2016 In active betamethasone alberto te 0.1 % topical cream RxNorm: 474763 1 Application TOP BID as needed rash 12/22/2015 No Stop Date Active minocycline 100 mg c apsule RxNorm: 451719 1 Capsule(s) PO BID w hen not having acute flare decrease to once daily 12/22/2015 01/20/2016 Inactive Medication Administered Medication Codes Instruc tions Start Date Status Kenalog 40 mg/mL suspension for injection RxNorm: 2606290 1Milliliter 03/01/2018 N o longer Active Immunizations [...] 03/01/2018 medication follow up 02/10/2018 anxiety 12/12/2017 diazfaizan mere anxiety 11/25/2017 diaze mere skin lesion 03/02/2017 skin lesion 11/17/2016 skin lesion 09/27/2016 skin lesion 05/05/2016 earache 03/08/2016 anxiety 02/05/2016 anxiety 12/22/2015 Results Observation Observation Code Item Item Code Result Date Tsh Ord6 hTSH II 1.82 uIU/mL 02/05/2016 Comp Metabolic Mbt297 NA 139 mEq/L 02/05/2016 Comp Metabolic Wpg305 K 4.2 mEq/L 02/05/2016 Comp Metabolic Wne573 CL 103 mEq/L 02/05/2016 Comp Metabolic Uwo522 CO2 29.0 mEq/L 02/05/2016 Comp Metabolic Kwn005 AN ION GAP 11 02/05/2016 Comp Metabolic Svt775 GL UCOSE 71 mg/dL 02/05/2016 Comp Metabolic Bof471 Cr eat 0.9 mg/dL 02/05/2016 Comp Metabolic Uhd632 eG FR 101 ml/min/1.73m2 01/14 Comp Metabolic Snl887 BUN 17 mg/dL 02/05/2016 Comp Metabolic Fji588 B/ C Ratio 18.5 Ratio 02/05/2016 Comp Metabolic Lgd808 CA LCIUM 9.4 mg/dL 02/05/2016 Comp Metabolic Yad837 AL K PHOS 63 U/L 02/05/2016 Comp Metabolic Ruk985 T(SGOT) 30 U/L 02/05/2016 Comp Metabolic Hzy023 AL T(SGPT) 40 U/L 02/05/2016 Comp Metabolic Cje858 BI LI T 0.5 mg/dL 02/05/2016 Comp Metabolic Zjy844 AL BUMIN 4.2 g/dL 02/05/2016 Comp Metabolic Aws413 TP RO 7.2 g/dL 02/05/2016 Comp Metabolic Hci978 GL OB 3.0 g/dL 02/05/2016 Comp Metabolic Lhj453 A/ G Ratio 1.4 Ratio 02/05/2016 Comp Metabolic Ijo567 Os mo 278 mOsmo 02/05/2016 Cbc With Differential Ord2 WBC 12.43 K/ul 02/05/2016 Cbc With Differential Ord2 RBC 5.41 M/ul 02/05/2016 Cbc With Differential Ord2 HGB 16.4 g/dl 02/05/2016 Cbc With Differential Ord2 HCT 50.0 % 02/05/2016 Cbc With Differential Ord2 Neut% 66.4 % 02/05/2016 Cbc With Differential Ord2 Lymph% 23.4 % 02/05/2016 Cbc With Differential Ord2 MCV 92.4 fl 02/05/2016 Cbc With Differential Ord2 [place]% 8.9 % 02/05/2016 Cbc With Differential Ord2 MCH 30.3 pg 02/05/2016 Cbc With Differential Ord2 Eos% 1.1 % 02/05/2016 Cbc With Differential Ord2 MCHC 32.8 pg 02/05/2016 Cbc With Differential Ord2 PLT 199 K/ul 02/05/2016 Cbc With Differential Ord2 Baso% 0.2 % 02/05/2016 Cbc With Differential Ord2 RDW 14.2 % 02/05/2016 Cbc With Differential Ord2 Neut ABS# 8.24 K/ul 02/05/2016 Cbc With Differential Ord2 Lymph ABS# 2.91 K/ul 02/05/2016 Cbc With Differential Ord2 [place] ABS# 1.1 K/ul 02/05/2016 Cbc With Differential [...] CPT-4: J3301 03/01/2018 THER/PROPH/DIAG INJ SC/IM CPT-4: 30715 03/01/2018 DRAINAGE OF SKIN ABS CESS CPT-4: 39463 05/05/2016 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-[address]: 997192683 CPT-4: G0436 12/22/2015 Vital Signs Date Vital 03/01/2018 Blood Pressure 1: 120/80 Code: 8480-6 BMI: 32.9 Code: 46744-1 Heart Rate 1: 72 bpm Height: 5'11" SpO2: 96% Weight: 236 lbs 02/10/2018 Blood Pressure 1: 122/70 Code: 8480-6 BMI: 32.9 Code: 82308-7 Heart Rate 1: 90 bpm Height: 5'11" SpO2: 98% Weight: 236 lbs 12/12/2017 Blood Pressure 1: 124/72 Code: 8480-6 BMI: 35.0 Code: 63489-6 Heart Rate 1: 80 bpm Height: 5'11" SpO2: 96% Weight: 251 lbs 11/25/2017 Blood Pressure 1: 122/76 Code: 8480-6 BMI: 35.4 Code: 26258-5 Heart Rate 1: 74 bpm Height: 5'11" SpO2: 95% Weight: 254 lbs 03/02/2017 Blood Pressure 1: 120/70 Code: 8480-6 BMI: 33.8 Code: 48604-7 Heart Rate 1: 79 bpm Height: 5'11" SpO2: 99% Weight: 242 lbs 11/17/2016 Blood Pressure 1: 120/88 Code: 8480-6 BMI: 36.8 Code: 28061-2 Heart Rate 1: 104 bpm Height: 5'11" SpO2: 99% Weight: 264 lbs 09/27/2016 Blood Pressure 1: 122/78 Code: 8480-6 BMI: 34.6 Code: 43878-3 Heart Rate 1: 100 bpm Height: 5'11" SpO2: 96% Weight: 248 lbs 05/05/2016 Blood Pressure 1: 114/78 Code: 8480-6 BMI: 35.1 Code: 68187-0 Heart Rate 1: 81 bpm Height: 5'11" SpO2: 96% Weight: 252 lbs 03/08/2016 Blood Pressure 1: 120/64 Code: 8480-6 BMI: 34.3 Code: 63203-6 Heart Rate 1: 95 bpm Height: 5'11" SpO2: 97% Weight: 246 lbs 02/05/2016 Blood Pressure 1: 120/78 Code: 8480-6 BMI: 33.5 Code: 37846-3 Heart Rate 1: 104 bpm Height: 5'11" SpO2: 97% Weight: 240 lbs 12/22/2015 Blood Pressure 1: 120/82 Code: 8480-6 BMI: 34.3 Code: 21647-4 Heart Rate 1: 83 bpm Height: 5'11" [...] Encounters Encounter Performer Loca tion Codes Date 87611 EST. PATIENT, LEVEL III Diagnosis: Hidradenitis suppurativa[ICD10: L73.2] [facility] CPT-4: 77388 03/01/2018 38460 EST. 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 PATIENT, LEVEL IV Diagnosis: Generalized anxiety disorder[ICD10: F41.1] Diagnosis: Hidradenitis suppurativa[ICD10: L73.2] Miracle Pereyra MD, [facility] CPT-4: 30212 11/25/2017 14133 EST. PATIENT, LEVEL III Diagnosis: Hidradenitis suppurativa[ICD10: L73.2] Diagnosis: Generalized anxiety disorder[ICD10: F41.1] Miarcle Pereyra MD, [facility] CPT-4: 16456 03/02/2017 21839 EST. PATIENT, LEVEL III Diagnosis: Cutaneous abscess of buttock[ICD10: L02.31] Miracle Pereyra MD, [facility] CPT-4: 96271 11/17/2016 51925 EST. PATIENT, LEVEL III Diagnosis: Cutaneous abscess of left axilla[ICD10: L02.412] Diagnosis: Pain in right hand[ICD10: M79.641] Miracle Pereyra MD, [facility] CPT-4: 26609 09/27/2016 56777 EST. PATIENT, LEVEL III Diagnosis: Cutaneous abscess of right lower limb[ICD10: L02.415] Diagnosis: Hidradenitis suppurativa[ICD10: L73.2] Miracle Pereyra MD, [facility] CPT-4: 41273 05/05/2016 97127 EST. PATIENT, LEVEL IV Diagnosis: Other otitis externa, right ear[ICD10: H60.8X1] Diagnosis: Cutaneous abscess of left axilla[ICD10: L02.412] Diagnosis: Other acute sinusitis[ICD10: J01.80] Miracle Pereyra MD, [facility] CPT- 4: 40780 03/08/2016 55507 EST. PATIENT, LEVEL III Diagnosis: Generalized anxiety disorder[ICD10: F41.1] Diagnosis: Acne vulgaris[ICD10: L70.0] Diagnosis: Plantar wart[ICD10: B07.0] Miracle Pereyra MD, [facility] CPT-4: 63227 02/05/2016 (74505) OFFICE VISI T, NEW - LEVEL 3 Diagnosis: Generalized anxiety disorder[ICD10: F41.1] Diagnosis: 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][ICD10: L30.1] Diagnosis: Acne vulgaris[ICD10: L70.0] Diagnosis: Other obesity due to excess calories[ICD10: E66.09] Miracle Pereyra MD, [facility] CPT-4: 72753 12/22/2015 Plan of Care Planned Activity Notes [...] no changes. 02/10/2018 Appointment: Miracle Gracia WPtel: [address] [place], [place] [phone] (15 min) Moderate 02/10/2018 Patient Education: Patient [...] Miracle Gracia WPtel: [facility] (15 min) Moderate 12/12/2017 Patient [...] or concerns. 11/25/2017 Appointment: Miracle Gracia WPtel: [address] [place], [place] [id number] (15 min) Moderate 11/25/2017 Patient Education: Patient Medication Summary Completed 11/25/2017 Visit Plan: Abscess/Cellulitis - Th e patient was instructed in appropriate wound care. The patient was instructed to use the antibiotic ointment as per RX. The patient is to call for any change in symptoms, increase in size of the lesion, increase in pain. 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 03/02/2017 Appointment: Miracle Gracia WPtel: [facility] (30 min) Complex 03/02/2017 Patient Education: Patient Medication Summary Completed 03/02/2017 Patient Education: Smoking and Tobacco Addiction Completed 03/02/2017 Patient Education: Obesity Completed 03/02/2017 Appointment: Miracle Gracia WPtel: [address] [place], [place] [id number] (30 min) Complex 11/19/2016 Appointment: Miracle Gracia WPtel: [address] [place], [place] [phone] (15 min) Moderate 11/18/2016 Visit Plan: Abscess/Cellulitis - Th e patient was instructed in appropriate wound care. The patient was instructed to use the antibiotic ointment as per RX. The patient is to call for any change in symptoms, increase in size of the lesion, increase in pain. Pt is to return tomorrow for I&D if needed. 11/17/2016 Appointment: Miracle Gracia WPtel: [address] [place], [place] [phone] (15 min) Moderate 11/17/2016 Patient Education: Patient Medication Summary Completed 11/17/2016 Patient Education: Smoking and Tobacco Addiction Completed 11/17/2016 Referral: Alberto Pearson Referral Initiated 09/30/2016 Care Plan: Referral Order SNOMED-CT : [id number] Pending 09/28/2016 Visit Plan: Abscess/Cellulitis - Re [...] Dr. Isaac. 09/27/2016 Appointment: Miracle Gracia WPtel: [address] [place], [place] [phone] (30 min) Complex 09/27/2016 Patient Education: Patient Medication Summary Completed 09/27/2016 Patient Education: Smoking and Tobacco Addiction Completed 09/27/2016 Care Plan: Referral Order SNOMED-CT : [id number] Pending 05/10/2016 Visit Plan: Abscess/Cellulitis - ri [...] pain. 05/05/2016 Appointment: [phone] [phone] (30 min) Complex 05/05/2016 Patient Education: Patient [...] current medications. 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 . Otitis Externa - p t given [...]
--- OUTSIDE RECORDS SUMMARY | 2020-02-25 10:54 | XMS REPORT | CCD ---
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 Name Role Phone PP Unavailable CCM Unavailable Summary Purpose Interface Exchange Insurance Providers Payer name Policy type / Coverage type Covered constitution party ID Effective Begin Date Effective End Date Cigna Commercial Insurance [id number] Unknown Family history Mother Diagnosis Age At Onset Cancer Unknown Diabetes Unknown Social History Social History Element Codes Description Effective Dates Tobacco history SNOMED CT: 5586086 Former smoker Quit in October 2017 11/25/2017 Marital status Unknown M kelvin alvarze 12/22/2015 Number of children Unknown 1 12/22/2015 Number of years using tobacco Unknown 5 - 10 12/22/2015 Number of cigarettes/day Unknown 10 (Half a pack) 12/22/2015 Alcohol history Unknown occasionally drinks alcohol 12/22/2015 Frequency of drinks SNOMED CT: 054658580 1-4 drinks per week 12/22/2015 Allergies, Adverse [...] Stop Date Sta tus Fill Instructions Adderall 5 mg tablet RxNorm: 278640 1 Tablet(s) PO QAM as needed 04/04/2018 05/03/2018 Active diazepam 2 mg tablet RxNorm: 563913 Tablet(s) TAKE 1/2 TABLET BY MOUTH TWICE DAILY NEEDED FOR ANXIETY 04/04/2018 05/03/2018 Active Adderall XR 20 mg ca psule,extended release RxNorm: 533191 1 Capsule(s) PO daily 03/13/2018 04/03/2018 In active Kenalog 40 mg/mL rodrigo pension for injection RxNorm: 0750457 1 Milliliter(s) Inj 03/01/2018 03/01/2018 In active Adderall 5 mg tablet RxNorm: 693921 1 Tablet(s) PO QAM as needed 02/13/2018 03/14/2018 Inactive Adderall XR 20 mg ca psule,extended release RxNorm: 098991 1 Capsule(s) PO daily 02/13/2018 03/12/2018 In active prednisone 20 mg tablet RxNorm: 154294 2 Tablet(s) PO daily 02/10/2018 02/14/2018 Inactive Bactrim DS 800 mg-16 0 mg tablet RxNorm: 439726 1 Tablet(s) PO BID 01/16/2018 02/04/2018 Inactive Adderall 5 mg tablet RxNorm: 615547 2 Tablet(s) PO QAM and 1 PO QPM 01/16/2018 02/12/2018 In active Bactrim DS 800 mg-16 0 mg tablet RxNorm: 910213 1 Tablet(s) PO BID 01/04/2018 01/15/2018 Inactive Adderall 5 mg tablet RxNorm: 181517 2 Tablet(s) PO QAM and 1 PO QPM 12/13/2017 01/11/2018 In active Zithromax Z-Molina 250 mg tablet RxNorm: 269180 1 Tablet(s) PO UD 11/25/2017 03/12/2018 Inactive diazepam 2 mg tablet RxNorm: 664679 Tablet(s) TAKE 1/2 TABLET BY MOUTH TWICE DAILY NEEDED FOR ANXIETY 11/18/2017 12/17/2017 Inactive diazepam 2 mg tablet RxNorm: 703524 Tablet(s) TAKE 1/2 TABLET BY MOUTH TWICE DAILY NEEDED FOR ANXIETY 08/30/2017 10/28/2017 Inactive diazepam 2 mg tablet RxNorm: 794807 Tablet(s) TAKE 1/2 TABLET BY MOUTH TWICE DAILY NEEDED FOR ANXIETY 07/19/2017 08/29/2017 Inactive diazepam 2 mg tablet RxNorm: 454155 TAKE 1/2 TABLET BY MOUTH TWICE DAILY NEEDED FOR ANXIETY 07/15/2017 07/18/2017 Inactive Bactrim DS 800 mg-16 0 mg tablet RxNorm: 485266 1 Tablet(s) PO BID 06/01/2017 06/20/2017 Inactive diazepam 2 mg tablet RxNorm: 853001 1/2 Tablet(s) PO BID as needed anxiety 06/01/2017 06/29/2017 In active tramadol 50 mg tablet RxNorm: 085024 1 Tablet(s) PO QID as needed 04/14/2017 04/23/2017 Inactive Bactrim DS 800 mg-16 0 mg tablet RxNorm: 602552 1 Tablet(s) PO BID 04/14/2017 05/03/2017 Inactive diazepam 2 mg tablet RxNorm: 670538 1/2 Tablet(s) PO BID as needed anxiety 03/02/2017 04/30/2017 In active Zithromax Z-Molina 250 mg tablet RxNorm: 472754 1 Tablet(s) PO UD 03/02/2017 07/18/2017 Inactive Bactrim DS 800 mg-16 0 mg tablet RxNorm: 179364 1 Tablet(s) PO BID 03/01/2017 03/20/2017 Inactive diazepam 2 mg tablet RxNorm: 324843 1/2 Tablet(s) PO BID as needed anxiety 01/21/2017 02/19/2017 In active Bactrim DS 800 mg-16 0 mg tablet RxNorm: 279717 1 Tablet(s) PO BID 01/21/2017 01/30/2017 Inactive Bactrim DS 800 mg-16 0 mg tablet RxNorm: 494302 1 Tablet(s) PO BID 11/17/2016 11/26/2016 Inactive diazepam 2 mg tablet RxNorm: 370402 1/2 Tablet(s) PO BID as needed anxiety 11/12/2016 01/10/2017 In active diazepam 2 mg tablet RxNorm: 390685 1/2 Tablet(s) PO BID as needed anxiety 10/18/2016 12/14/2016 In active Zithromax Z-Molina 250 mg tablet RxNorm: 393255 1 Tablet(s) PO UD 09/27/2016 03/01/2017 Inactive diazepam 2 mg tablet RxNorm: 970775 1/2 Tablet(s) PO BID as needed anxiety 09/13/2016 11/11/2016 In active diazepam 2 mg tablet RxNorm: 664463 1/2 Tablet(s) PO BID as needed anxiety 07/07/2016 09/17/2016 In active Levaquin 500 mg tablet RxNorm: 755947 1 Tablet(s) PO daily 06/01/2016 05/31/2016 Inactive Levaquin 500 mg tablet RxNorm: 214785 1 Tablet(s) PO daily 06/01/2016 06/07/2016 Inactive Levaquin 500 mg tablet RxNorm: 074085 1 Tablet(s) PO daily 05/05/2016 05/04/2016 Inactive Levaquin 500 mg tablet RxNorm: 789514 1 Tablet(s) PO daily 05/05/2016 05/11/2016 Inactive minocycline 100 mg c apsule RxNorm: 072571 1 CAPSULE(S) PO BID W HEN NOT HAVING ACUTE FLARE DECREASE TO ONCE DAILY 04/21/2016 05/20/2016 Inactive Ciprodex 0.3 %-0.1 % ear drops,suspension RxNorm: 263118 4 Drop(s) OTIC BID 03/08/2016 03/14/2016 In active Zithromax Z-Molina 250 mg tablet RxNorm: 935502 Tablet(s) PO 03/08/2016 09/26/2016 Inactive diazepam 2 mg tablet RxNorm: 341909 1/2 Tablet(s) PO BID as needed anxiety 2016 04/18/2016 In active mupirocin 2 % topica l ointment RxNorm: 254652 1 Application TOP BID 02/05/2016 No Stop Date Active minocycline 100 mg c apsule RxNorm: 777624 1 Capsule(s) PO BID w hen not having acute flare decrease to once daily 02/05/2016 03/05/2016 Inactive Bactrim DS 800 mg-16 0 mg tablet RxNorm: 370865 1 Tablet(s) PO BID 02/05/2016 02/18/2016 Inactive diazepam 2 mg tablet RxNorm: 934080 1/2 Tablet(s) PO BID as needed anxiety 02/05/2016 02/05/2016 In active betamethasone alberto te 0.1 % topical cream RxNorm: 146244 1 Application TOP BID as needed rash 12/22/2015 No Stop Date Active minocycline 100 mg c apsule RxNorm: 629497 1 Capsule(s) PO BID w hen not having acute flare decrease to once daily 12/22/2015 01/20/2016 Inactive Medication Administered Medication Codes Instruc tions Start Date Status Kenalog 40 mg/mL suspension for injection RxNorm: 7778497 1Milliliter 03/01/2018 N o longer Active Immunizations [...] hTSH II 1.82 uIU/mL 02/05/2016 Comp Metabolic Ecs674 NA 139 mEq/L 02/05/2016 Comp Metabolic Wxx340 K 4.2 mEq/L 02/05/2016 Comp Metabolic Ryg315 CL 103 mEq/L 02/05/2016 Comp Metabolic Xba036 CO2 29.0 mEq/L 02/05/2016 Comp Metabolic Qsd052 AN ION GAP 11 02/05/2016 Comp Metabolic Zwy041 GL UCOSE 71 mg/dL 02/05/2016 Comp Metabolic Ppb033 Cr eat 0.9 mg/dL 02/05/2016 Comp Metabolic Pct959 eG FR 101 ml/min/1.73m2 01/14 Comp Metabolic Ewx168 BUN 17 mg/dL 02/05/2016 Comp Metabolic Xyp472 B/ C Ratio 18.5 Ratio 02/05/2016 Comp Metabolic Mcp506 CA LCIUM 9.4 mg/dL 02/05/2016 Comp Metabolic Tkh452 AL K PHOS 63 U/L 02/05/2016 Comp Metabolic Koo796 T(SGOT) 30 U/L 02/05/2016 Comp Metabolic Vyv761 AL T(SGPT) 40 U/L 02/05/2016 Comp Metabolic Dhx067 BI LI T 0.5 mg/dL 02/05/2016 Comp Metabolic Vun418 AL BUMIN 4.2 g/dL 02/05/2016 Comp Metabolic Mqe957 TP RO 7.2 g/dL 02/05/2016 Comp Metabolic Xdo555 GL OB 3.0 g/dL 02/05/2016 Comp Metabolic Xfn853 A/ G Ratio 1.4 Ratio 02/05/2016 Comp Metabolic Yyk877 Os mo 278 mOsmo 02/05/2016 Cbc With [...] 30.3 pg 02/05/2016 Cbc With Differential Ord2 Dent% 8.9 % 02/05/2016 Cbc With Differential Ord2 [...] 2.91 K/ul 02/05/2016 Cbc With Differential Ord2 Dent ABS# 1.1 K/ul 02/05/2016 Cbc With Differential [...] CPT-4: J3301 03/01/2018 THER/PROPH/DIAG INJ SC/IM CPT-4: 34851 03/01/2018 DRAINAGE OF SKIN ABS CESS CPT-4: 22847 05/05/2016 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 3-[address]: 125886879 CPT-4: G0436 12/22/2015 Vital Signs Date Vital 03/01/2018 Blood Pressure 1: 120/80 Code: 8480-6 BMI: 32.9 Code: 90298-7 Heart Rate 1: 72 bpm Height: 5'11" SpO2: 96% Weight: 236 lbs 02/10/2018 Blood Pressure 1: 122/70 Code: 8480-6 BMI: 32.9 Code: 39740-7 Heart Rate 1: 90 bpm Height: 5'11" SpO2: 98% Weight: 236 lbs 12/12/2017 Blood Pressure 1: 124/72 Code: 8480-6 BMI: 35.0 Code: 83567-1 Heart Rate 1: 80 bpm Height: 5'11" SpO2: 96% Weight: 251 lbs 11/25/2017 Blood Pressure 1: 122/76 Code: 8480-6 BMI: 35.4 Code: 20713-5 Heart Rate 1: 74 bpm Height: 5'11" SpO2: 95% Weight: 254 lbs 03/02/2017 Blood Pressure 1: 120/70 Code: 8480-6 BMI: 33.8 Code: 98874-7 Heart Rate 1: 79 bpm Height: 5'11" SpO2: 99% Weight: 242 lbs 11/17/2016 Blood Pressure 1: 120/88 Code: 8480-6 BMI: 36.8 Code: 86710-7 Heart Rate 1: 104 bpm Height: 5'11" SpO2: 99% Weight: 264 lbs 09/27/2016 Blood Pressure 1: 122/78 Code: 8480-6 BMI: 34.6 Code: 05527-6 Heart Rate 1: 100 bpm Height: 5'11" SpO2: 96% Weight: 248 lbs 05/05/2016 Blood Pressure 1: 114/78 Code: 8480-6 BMI: 35.1 Code: 87453-0 Heart Rate 1: 81 bpm Height: 5'11" SpO2: 96% Weight: 252 lbs 03/08/2016 Blood Pressure 1: 120/64 Code: 8480-6 BMI: 34.3 Code: 27172-6 Heart Rate 1: 95 bpm Height: 5'11" SpO2: 97% Weight: 246 lbs 02/05/2016 Blood Pressure 1: 120/78 Code: 8480-6 BMI: 33.5 Code: 52292-0 Heart Rate 1: 104 bpm Height: 5'11" SpO2: 97% Weight: 240 lbs 12/22/2015 Blood Pressure 1: 120/82 Code: 8480-6 BMI: 34.3 Code: 04914-6 Heart Rate 1: 83 bpm Height: 5'11" [...] Encounters Encounter Performer Loca tion Codes Date 69040 EST. PATIENT, LEVEL III Diagnosis: Hidradenitis suppurativa[ICD10: L73.2] [facility] CPT-4: 54751 03/01/2018 81517 EST. 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 PATIENT, LEVEL IV Diagnosis: Generalized anxiety disorder[ICD10: F41.1] Diagnosis: Hidradenitis suppurativa[ICD10: L73.2] Miracle Pereyra MD, [facility] CPT-4: 59075 11/25/2017 80404 EST. PATIENT, LEVEL III Diagnosis: Hidradenitis suppurativa[ICD10: L73.2] Diagnosis: Generalized anxiety disorder[ICD10: F41.1] Miracle Pereyra MD, [facility] CPT-4: 96529 03/02/2017 68357 EST. PATIENT, LEVEL III Diagnosis: Cutaneous abscess of buttock[ICD10: L02.31] Miracle Pereyra MD, [facility] CPT-4: 94413 11/17/2016 84092 EST. PATIENT, LEVEL III Diagnosis: Cutaneous abscess of left axilla[ICD10: L02.412] Diagnosis: Pain in right hand[ICD10: M79.641] Miracle Pereyra MD, [facility] CPT-4: 38206 09/27/2016 88287 EST. PATIENT, LEVEL III Diagnosis: Cutaneous abscess of right lower limb[ICD10: L02.415] Diagnosis: Hidradenitis suppurativa[ICD10: L73.2] Miracle Pereyra MD, [facility] CPT-4: 62588 05/05/2016 54426 EST. PATIENT, LEVEL IV Diagnosis: Other otitis externa, right ear[ICD10: H60.8X1] Diagnosis: Cutaneous abscess of left axilla[ICD10: L02.412] Diagnosis: Other acute sinusitis[ICD10: J01.80] Miracle Pereyra MD, [facility] CPT- 4: 15192 03/08/2016 62787 EST. PATIENT, LEVEL III Diagnosis: Generalized anxiety disorder[ICD10: F41.1] Diagnosis: Acne vulgaris[ICD10: L70.0] Diagnosis: Plantar wart[ICD10: B07.0] Miracle Pereyra MD, [facility] CPT-4: 89942 02/05/2016 (09063) OFFICE VISI T, NEW - LEVEL 3 Diagnosis: Generalized anxiety disorder[ICD10: F41.1] Diagnosis: 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][ICD10: L30.1] Diagnosis: Acne vulgaris[ICD10: L70.0] Diagnosis: Other obesity due to excess calories[ICD10: E66.09] [facility]acle Pereyra MD, [facility] CPT-4: 78762 12/22/2015 Plan of Care Planned Activity Notes [...] no changes. 02/10/2018 Appointment: Miracle Gracia WPtel: [address] [place], [place] [phone] (15 min) Moderate 02/10/2018 Patient Education: Patient [...] prescribed. 12/12/2017 Appointment: Miracle Gracia WPtel: [phone] [facility] (15 min) Moderate 12/12/2017 Patient Education: Patient [...] concerns. 11/25/2017 Appointment: Miracle Gracia WPtel: [phone] [facility] (15 min) Moderate 11/25/2017 Patient Education: Patient Medication Summary Completed 11/25/2017 Visit Plan: Abscess/Cellulitis - Th e patient was instructed in appropriate wound care. The patient was instructed to use the antibiotic ointment as per RX. The patient is to call for any change in symptoms, increase in size of the lesion, increase in pain. 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 03/02/2017 Appointment: Miracle Gracia WPtel: [phone] [phone] (30 min) Complex 03/02/2017 Patient Education: Patient Medication Summary Completed 03/02/2017 Patient Education: Smoking and Tobacco Addiction Completed 03/02/2017 Patient Education: Obesity Completed 03/02/2017 Appointment: Miracle Gracia WPtel: [address] [place], [place] [id number] [place] (30 min) Complex 11/19/2016 Appointment: Miracle Gracia WPtel[facility] [place] (15 min) Moderate 11/18/2016 Visit Plan: Abscess/Cellulitis - Th e patient was instructed in appropriate wound care. The patient was instructed to use the antibiotic ointment as per RX. The patient is to call for any change in symptoms, increase in size of the lesion, increase in pain. Pt is to return tomorrow for I&D if needed. 11/17/2016 Appointment: Miracle Gracia WPtel: [address] [place], [place] [phone] (15 min) Moderate 11/17/2016 Patient Education: Patient Medication Summary Completed 11/17/2016 Patient Education: Smoking and Tobacco Addiction Completed 11/17/2016 Referral: Alberto Pearson Referral Initiated 09/30/2016 Care Plan: Referral Order SNOMED-CT : 186102928 Pending 09/28/2016 Visit Plan: Abscess/Cellulitis - Re [...] Dr. Isaac. 09/27/2016 Appointment: Miracle Gracia WPtel: [facility] [place] [place] (30 min) Complex 09/27/2016 Patient Education: Patient Medication Summary Completed 09/27/2016 Patient Education: Smoking and Tobacco Addiction Completed 09/27/2016 Care Plan: Referral Order SNOMED-CT : [id number] Pending 05/10/2016 Visit Plan: Abscess/Cellulitis - ri [...] pain. 05/05/2016 Appointment: Gavi Soria WPtel: [phone] [phone] (30 min) Complex 05/05/2016 Patient Education: Patient [...] medications. 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 . Otitis Externa - p [...]
--- OUTSIDE RECORDS SUMMARY | 2020-02-25 10:55 | XMS REPORT | CCD ---
Author Norbert Mancia Organization Celeste Pereyra MD, [facility] Address [address] [place] [address] Phone Care Team Providers Care Dental Surgery Doctor Name Role Phone PP Unavailable CCM Unavailable Summary Purpose Interface Exchange Insurance Providers Payer name Policy type / Coverage type Covered alliance party ID Effective Begin Date Effective End Date [employer] Commercial Insurance [id number] Unknown Family history Mother Diagnosis Age At Onset Cancer Unknown Diabetes Unknown Social History Social History Element Codes Description Effective Dates Marital status Unknown M kelvin alvarez 12/22/2015 Number of children Unknown 1 12/22/[address]: 11676954 Current every day smoker 12/22/2015 Number of years using tobacco Unknown 5 - 10 12/22/2015 Number of cigarettes/day Unknown 10 (Half a pack) 12/22/2015 Alcohol history Unknown occasionally drinks alcohol 12/22/2015 Frequency of drinks SNOMED CT: 105158609 1-4 drinks per week 12/22/2015 Allergies, Adverse Reactions, Alerts Allergies, Adverse Reactions, Alerts data not found Past Medical History Illness Codes Condition Status Onset Date Resolved Date Generalized anxiety disorder ICD-9: 300.02 ICD-10: F41.1 [...] Condition Codes Effectiv e Dates Condition Status Generalized anxiety disorder ICD-9: 300.02 ICD-10: F41.1 [...] Fill Instructions diazepam 2 mg tablet RxNorm: 052851 Tablet(s) TAKE 1/2 TABLET BY MOUTH TWICE DAILY NEEDED FOR ANXIETY 08/30/2017 10/28/2017 Active diazepam 2 mg tablet RxNorm: 293585 Tablet(s) TAKE 1/2 TABLET BY MOUTH TWICE DAILY NEEDED FOR ANXIETY 07/19/2017 08/29/2017 Inactive diazepam 2 mg tablet RxNorm: 563410 TAKE 1/2 TABLET BY MOUTH TWICE DAILY NEEDED FOR ANXIETY 07/15/2017 07/18/2017 Inactive Bactrim DS 800 mg-16 0 mg tablet RxNorm: 875000 1 Tablet(s) PO BID 06/01/2017 06/20/2017 Inactive diazepam 2 mg tablet RxNorm: 058778 1/2 Tablet(s) PO BID as needed anxiety 06/01/2017 06/29/2017 In active tramadol 50 mg tablet RxNorm: 573268 1 Tablet(s) PO QID as needed 04/14/2017 04/23/2017 Inactive Bactrim DS 800 mg-16 0 mg tablet RxNorm: 780920 1 Tablet(s) PO BID 04/14/2017 05/03/2017 Inactive diazepam 2 mg tablet RxNorm: 886029 1/2 Tablet(s) PO BID as needed anxiety 03/02/2017 04/30/2017 In active Zithromax Z-Molina 250 mg tablet RxNorm: 000032 1 Tablet(s) PO UD 03/02/2017 07/18/2017 Inactive Bactrim DS 800 mg-16 0 mg tablet RxNorm: 266535 1 Tablet(s) PO BID 03/01/2017 03/20/2017 Inactive diazepam 2 mg tablet RxNorm: 769830 1/2 Tablet(s) PO BID as needed anxiety 01/21/2017 02/19/2017 In active Bactrim DS 800 mg-16 0 mg tablet RxNorm: 152905 1 Tablet(s) PO BID 01/21/2017 01/30/2017 Inactive Bactrim DS 800 mg-16 0 mg tablet RxNorm: 599500 1 Tablet(s) PO BID 11/17/2016 11/26/2016 Inactive diazepam 2 mg tablet RxNorm: 223628 1/2 Tablet(s) PO BID as needed anxiety 11/12/2016 01/10/2017 In active diazepam 2 mg tablet RxNorm: 538584 1/2 Tablet(s) PO BID as needed anxiety 10/18/2016 12/14/2016 In active Zithromax Z-Molina 250 mg tablet RxNorm: 626996 1 Tablet(s) PO UD 09/27/2016 03/01/2017 Inactive diazepam 2 mg tablet RxNorm: 020393 1/2 Tablet(s) PO BID as needed anxiety 09/13/2016 11/11/2016 In active diazepam 2 mg tablet RxNorm: 119703 1/2 Tablet(s) PO BID as needed anxiety 07/07/2016 09/17/2016 In active Levaquin 500 mg tablet RxNorm: 860422 1 Tablet(s) PO daily 06/01/2016 05/31/2016 Inactive Levaquin 500 mg tablet RxNorm: 523669 1 Tablet(s) PO daily 06/01/2016 06/07/2016 Inactive Levaquin 500 mg tablet RxNorm: 877467 1 Tablet(s) PO daily 05/05/2016 05/04/2016 Inactive Levaquin 500 mg tablet RxNorm: 801987 1 Tablet(s) PO daily 05/05/2016 05/11/2016 Inactive minocycline 100 mg c apsule RxNorm: 232880 1 CAPSULE(S) PO BID W HEN NOT HAVING ACUTE FLARE DECREASE TO ONCE DAILY 04/21/2016 05/20/2016 Inactive Ciprodex 0.3 %-0.1 % ear drops,suspension RxNorm: 129310 4 Drop(s) OTIC BID 03/08/2016 03/14/2016 In active Zithromax Z-Molina 250 mg tablet RxNorm: 425179 Tablet(s) PO 03/08/2016 09/26/2016 Inactive diazepam 2 mg tablet RxNorm: 487013 1/2 Tablet(s) PO BID as needed anxiety 2016 04/18/2016 In active mupirocin 2 % topica l ointment RxNorm: 639718 1 Application TOP BID 02/05/2016 No Stop Date Active minocycline 100 mg c apsule RxNorm: 950690 1 Capsule(s) PO BID w hen not having acute flare decrease to once daily 02/05/2016 03/05/2016 Inactive Bactrim DS 800 mg-16 0 mg tablet RxNorm: 854512 1 Tablet(s) PO BID 02/05/2016 02/18/2016 Inactive diazepam 2 mg tablet RxNorm: 509202 1/2 Tablet(s) PO BID as needed anxiety 02/05/2016 02/05/2016 In active betamethasone alberto te 0.1 % topical cream RxNorm: 033407 1 Application TOP BID as needed rash 12/22/2015 No Stop Date Active minocycline 100 mg c apsule RxNorm: 952385 1 Capsule(s) PO BID w hen not having acute flare decrease to once daily 12/22/2015 01/20/2016 Inactive Medication Administered No Medication Administered data Immunizations No Immunization data Assessments Condition Codes Effectiv e Dates Generalized anxiety disorder ICD-10: F41.1 ICD-9: 300.02 03/02/2017 Hidradenitis suppurativa ICD-10: L73 .2 ICD-9: 705.83 03/02/2017 Cutaneous abscess of buttock ICD-10: L02.31 ICD-9: [...] For Visit Effective Dates Notes skin lesion 03/02/2017 skin lesion 11/17/2016 skin lesion 09/27/2016 skin lesion 05/05/2016 earache 03/08/2016 anxiety 02/05/2016 anxiety 12/22/2015 Results Observation Observation Code Item Item Code Result Date Tsh Ord6 hTSH II 1.82 uIU/mL 02/05/2016 Comp Metabolic Ive497 NA 139 mEq/L 02/05/2016 Comp Metabolic Whj872 K 4.2 mEq/L 02/05/2016 Comp Metabolic Fst403 CL 103 mEq/L 02/05/2016 Comp Metabolic Npv634 CO2 29.0 mEq/L 02/05/2016 Comp Metabolic Zfn774 AN ION GAP 11 02/05/2016 Comp Metabolic Hyb453 GL UCOSE 71 mg/dL 02/05/2016 Comp Metabolic Cpk326 Cr eat 0.9 mg/dL 02/05/2016 Comp Metabolic Ynv208 eG FR 101 ml/min/1.73m2 01/14 Comp Metabolic Mox323 BUN 17 mg/dL 02/05/2016 Comp Metabolic Yja991 B/ C Ratio 18.5 Ratio 02/05/2016 Comp Metabolic Nwv173 CA LCIUM 9.4 mg/dL 02/05/2016 Comp Metabolic Bmp361 AL K PHOS 63 U/L 02/05/2016 Comp Metabolic Mbd429 T(SGOT) 30 U/L 02/05/2016 Comp Metabolic Vuc901 AL T(SGPT) 40 U/L 02/05/2016 Comp Metabolic Its535 BI LI T 0.5 mg/dL 02/05/2016 Comp Metabolic Bph124 AL BUMIN 4.2 g/dL 02/05/2016 Comp Metabolic Wur100 TP RO 7.2 g/dL 02/05/2016 Comp Metabolic Ghd699 GL OB 3.0 g/dL 02/05/2016 Comp Metabolic Ohn249 A/ G Ratio 1.4 Ratio 02/05/2016 Comp Metabolic Zvh115 Os mo 278 mOsmo 02/05/2016 Cbc With [...] 23.4 % 02/05/2016 Cbc With Differential Ord2 Emanuel% 8.9 % 02/05/2016 Cbc With Differential Ord2 [...] 2.91 K/ul 02/05/2016 Cbc With Differential Ord2 Emanuel ABS# 1.1 K/ul 02/05/2016 Cbc With Differential Ord2 Eos ABS# 0.1 K/ul 02/05/2016 Cbc With Differential Ord2 Baso ABS# 0.0 K/ul 02/05/2016 Review of Systems System Result Effective Dates Constitutional No recent illness 03/02/2017 Constitutional No [...] No mental status change 03/08/2016 Psychiatric anxiety 072 12/2015 Psychiatric No depression 03/08/2016 Constitutional recent [...] No mental status change 02/05/2016 Psychiatric anxiety 062 10/2015 Psychiatric No depression 02/05/2016 Constitutional No [...] Date DRAINAGE OF SKIN ABS CESS CPT-4: 69274 05/05/2016 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-[address]: 087965482 CPT-4: G0436 12/22/2015 Vital Signs Date Vital 03/02/2017 Blood Pressure 1: 120/70 Code: 8480-6 BMI: 33.8 Code: 65562-0 Heart Rate 1: 79 bpm Height: 5'11" SpO2: 99% Weight: 242 lbs 11/17/2016 Blood Pressure 1: 120/88 Code: 8480-6 BMI: 36.8 Code: 52541-2 Heart Rate 1: 104 bpm Height: 5'11" SpO2: 99% Weight: 264 lbs 09/27/2016 Blood Pressure 1: 122/78 Code: 8480-6 BMI: 34.6 Code: 29860-0 Heart Rate 1: 100 bpm Height: 5'11" SpO2: 96% Weight: 248 lbs 05/05/2016 Blood Pressure 1: 114/78 Code: 8480-6 BMI: 35.1 Code: 04429-2 Heart Rate 1: 81 bpm Height: 5'11" SpO2: 96% Weight: 252 lbs 03/08/2016 Blood Pressure 1: 120/64 Code: 8480-6 BMI: 34.3 Code: 01373-9 Heart Rate 1: 95 bpm Height: 5'11" SpO2: 97% Weight: 246 lbs 02/05/2016 Blood Pressure 1: 120/78 Code: 8480-6 BMI: 33.5 Code: 10607-3 Heart Rate 1: 104 bpm Height: 5'11" SpO2: 97% Weight: 240 lbs 12/22/2015 Blood Pressure 1: 120/82 Code: 8480-6 BMI: 34.3 Code: 54837-1 Heart Rate 1: 83 bpm Height: 5'11" SpO2: 97% Weight: 246 lbs Functional Status No Functional Status data History of Present Illness Symptom Name Status Resu lt Effective Date Notes skin lesion Quality enla rging 03/02/2017 None [...] Encounters Encounter Performer Loca tion Codes Date 81392 EST. PATIENT, LEVEL III Diagnosis: Hidradenitis suppurativa[ICD10: L73.2] Diagnosis: Generalized anxiety disorder[ICD10: F41.1] Miracle Pereyra MD, [facility] CPT-4: 63820 03/02/2017 38797 EST. PATIENT, LEVEL III Diagnosis: Cutaneous abscess of buttock[ICD10: L02.31] Miracle Pereyra MD, [facility] CPT-4: 74951 11/17/2016 10079 EST. PATIENT, LEVEL III Diagnosis: Cutaneous abscess of left axilla[ICD10: L02.412] Diagnosis: Pain in right hand[ICD10: M79.641] Miracle Pereyra MD, [facility] CPT-4: 59987 09/27/2016 71314 EST. PATIENT, LEVEL III Diagnosis: Cutaneous abscess of right lower limb[ICD10: L02.415] Diagnosis: Hidradenitis suppurativa[ICD10: L73.2] Miracle Pereyra MD, [facility] CPT-4: 35434 05/05/2016 93824 EST. PATIENT, LEVEL IV Diagnosis: Other otitis externa, right ear[ICD10: H60.8X1] Diagnosis: Cutaneous abscess of left axilla[ICD10: L02.412] Diagnosis: Other acute sinusitis[ICD10: J01.80] Miracle Pereyra MD, [facility] CPT- 4: 23849 03/08/2016 09385 EST. PATIENT, LEVEL III Diagnosis: Generalized anxiety disorder[ICD10: F41.1] Diagnosis: Acne vulgaris[ICD10: L70.0] Diagnosis: Plantar wart[ICD10: B07.0] Miracle Pereyra MD, [facility] CPT-4: 39400 02/05/2016 (83973) OFFICE VISI T, NEW - LEVEL 3 Diagnosis: Generalized anxiety disorder[ICD10: F41.1] Diagnosis: 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][ICD10: L30.1] Diagnosis: Acne vulgaris[ICD10: L70.0] Diagnosis: Other obesity due to excess calories[ICD10: E66.09] [facility] CPT-4: 69178 12/22/2015 Plan of Care Planned Activity Notes C odes Status Date Visit Plan: Abscess/Cellulitis - Th e patient was instructed in appropriate wound care. The patient was instructed to use the antibiotic ointment as per RX. The patient is to call for any change in symptoms, increase in size of the lesion, increase in pain. 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 03/02/2017 Appointment: Miracle Gracia WPtel: [id number] (30 min) Complex 03/02/2017 Patient Education: Patient Medication Summary Completed 03/02/2017 Patient Education: Smoking and Tobacco Addiction Completed 03/02/2017 Patient Education: Obesity Completed 03/02/2017 [facility] [phone] [facility] [place] (30 min) Complex 11/19/2016 Appointment: Miracle Gracia WPtel: [id number] [place] [...] if needed. 11/17/2016 Appointment: Miracle Gracia WPtel[facility] [place] (15 min) Moderate 11/17/2016 Patient Education: Patient Medication Summary Completed 11/17/2016 Patient Education: Smoking and Tobacco Addiction Completed 11/17/2016 Referral: Alberto Pearson Referral Initiated 09/30/2016 Care Plan: Referral Order SNOMED-CT : 748716507 Pending 09/28/2016 Visit Plan: Abscess/Cellulitis - Re [...] Isaac. 09/27/2016 [facility] [phone] [facility] ([facility]) Complex 09/27/2016 Patient Education: Patient Medication Summary Completed 09/27/2016 Patient Education: Smoking and Tobacco Addiction Completed 09/27/2016 Care Plan: Referral Order SNOMED-CT : 243846733 Pending 05/10/2016 Visit Plan: Abscess/Cellulitis - ri [...] Appointment: G[facility] [phone] [facility] (30 min) Complex 05/05/2016 Patient Education: Patient [...] Appointment: [facility]acle Gracia [facility] [phone] [facility] ([facility]) [facility] 02/05/2016 Patient Education: Patient Medication Summary Completed [...] 12/22/2015 Referral: Alberto Pearson Referral Initiated Referral: [facility] WPtel: Referral Completed Referral: [facility] WPtel: will call with appt [...] Pt is to discuss methotrexate with 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 . Otitis Externa - p t given [...]
--- OUTSIDE RECORDS SUMMARY | 2020-02-25 10:55 | XMS REPORT | Continuity of Care Document ---
Author Organization Unknown Address Unknown Phone Unavailable Allergies Active Description Code Type Severity Reaction Onset Reported/Identified Relationship to Patient Clinical Status Yes No Known Drug Allergies [id number] Drug Allergy Unknown N/A 06/04/2011 Yes Penicillins [id number] Drug Aller gy Unknown Hives 02/19/2020 Medications There is no data. Problems Date Dx Coded Attending Type Code Diagnosis Diagnosed By 10/31/2019 W J06.0 Acut e laryngopharyngitis Miracle Gracia 10/31/2019 W J06.0 Acut e laryngopharyngitis Basil Miracle 02/05/2020 W K21.9 Jass ro-esophageal reflux disease without esophagitis Basil Miracle 02/05/2020 W R53.83 Ot er fatigue Basil Miracle 02/05/2020 W R60.0 Loca lized edema Basil, Miracle 02/07/2020 W K21.9 Jass ro-esophageal reflux disease without esophagitis Basil Miracle 02/07/2020 W R53.83 Oth er fatigue Basil Miracle 02/07/2020 W R60.0 Loca lized edema Basil, Miracle 02/21/2020 TOSHIA LEYVA DO Ot R10.1 3 EPIGASTRIC PAIN 02/21/2020 TOSHIA LEYVA DO Ot R10.1 3 EPIGASTRIC PAIN Procedures There is no data. Results Test Result Range Coronavirus SARS-CoV-2 SO 2018 - 0 08:10 Coronavirus Ab [Units/volume] in Serum Negative Negative Encounters ACCT No. Visit Date/Time Discharge Status Pt. Type Provider Facility Loc./Unit Complaint [id number] 06/01/2017 12:15:33 06/01/2017 23:59:5 9 CLS Outpatient [id number] 02/21/2020 05:36:00 020 13:42:00 DIS Outpatient TOSHIA LEYVA DO Via [facility] PREOP EGD [id number] 02/19/2020 07:03:00 020 23:59:59 CLS Outpatient TOSHIA LEYVA DO [facility] RAD EPIGASTRIC PAIN [id number] 02/25/2020 12:10:00 P EN Preadmit TOSHIA LEYVA DO Via [facility] ENDO BELCHING/EPIGASTRIC ABD PAIN
[2020-02-25 11:25] VITALS: BP 114/58
--- NOTE | 2020-02-25 11:26 | Progress Note-Post Operative ---
Post-Operative Progess Note Surgeon (s)/Copy Messenger (s) Surgeon TOSHIA LEYVA DO Copy Messenger: none Pre-Operative Diagnosis Epigastric pain Post-Operative Diagnosis Gastritis Sliding Hiatal hernia - small Procedure & Operative Findings Date of Procedure 02/25/20 Procedure Performed/Findings EGD with bx Anesthesia Type IV sedation by CARPET CLEANER Estimated Blood Loss Estimated blood loss (mL): scant Specimens/Packing Specimens Removed antral bx body of stomach bx GE jxn bx TOSHIA LEYVA DO Feb 25, 2020 11:26
--- NOTE | 2020-02-25 11:29 | Endoscopy Discharge Instruct ---
Endo Procedure/Findings Findings 1.: Gastritis 2.: Hiatal Hernia Discharge Instructions - Activity: You might feel a little sleepy until tomorrow. This is due to the medicine you received to relax you. Until tomorrow, you should: NOT drive a car, operate machinery or power tools. NOT drink any alcoholic beverages. NOT make any important decisions or sign importortant papers. Do not return to work until tomorrow, unless otherwise instructed. Resume previous activities tomorrow. Diet: Start by taking liquids. If you tolerate liquids, advance to solid food. make appt for one week 1.: EGD in 1 year Notify Physician - If you experience excessive bleeding, unusual abdominal pain, fever, or chest pain, contact your doctor immediately. TOSHIA LEYVA DO Feb 25, 2020 11:28
[2020-02-25 11:30] VITALS: BP 108/56
[2020-02-25 11:50] VITALS: BP 115/86
--- NOTE | 2020-02-25 11:57 | Anesthesia-General Post-Op ---
MAC Patient Condition Mental Status/LOC: Same as Preop Cardiovascular: Satisfactory Nausea/Vomiting: Absent Respiratory: Satisfactory Pain: Controlled Complications: Absent Post Op Complications Complications None Follow Up Care/Instructions Patient Instructions None needed. Anesthesiology Discharge Order Discharge Order Patient is doing well, no complaints, stable vital signs, no apparent adverse anesthesia problems. No complications reported per nursing. RYAN BEAVER CRNA Feb 25, 2020 11:57
[2020-02-25 11:58] VITALS: BP 115/86
--- NOTE | 2020-02-26 03:36 | OPERATIVE REPORT ---
DATE OF SERVICE: PREOPERATIVE DIAGNOSES: Epigastric pain and gastritis as well as some belching. POSTOPERATIVE DIAGNOSES: Gastritis, sliding hiatal hernia. PROCEDURE: EGD with biopsy. SURGEON: Sudheer Tapia DO HOSPITALITY AIDE: None. ANESTHESIA: IV sedation by the REPAIRING CALIBRATOR. SPECIMEN: Biopsy of the antrum, biopsy of body of stomach, biopsy from the GE junction. BLOOD LOSS: Scant. FLUIDS: Per anesthesia. POSTOPERATIVE CONDITION: Stable. INDICATION FOR PROCEDURE: The patient is a 35-year-old male who has been having some pretty severe epigastric pain and a lot of belching, trying to figure out what is causing this, needed an EGD. FINDINGS: The patient had some gastritis. Some mild esophagitis, may be changes of the GE junction and looked like a sliding hiatal hernia. PROCEDURE NOTE: After informed consent was obtained, the patient was brought to the endoscopy suite, placed in bed in the left lateral decubitus position. He was administered IV sedation by the REPAIRING CALIBRATOR who then monitored his vitals the entire time, heart rate, blood pressure, pulse ox and the scope was inserted down the mouth through the esophagus and stomach, on the way down noted some changes at the GE junction, took pictures and then pushed into the stomach to antrum, saw some gastritis, took a picture, pushed into the duodenum. Duodenum looked fine. Pulled back and did a biopsy of the antrum. Retroflexed the scope, saw what looked like a small sliding hiatal hernia, did biopsy of the antrum, body of stomach and then pulled the scope into the GE junction, did a biopsy of the GE junction, then pushed the scope back into the stomach, suctioned out all the air and then pulled the scope up the esophagus and out the mouth. The patient tolerated the procedure, recovered in endoscopy suite. Job ID: [id number] DocumentID: [id number] Dictated Date: 02/25/2020 17:01:16 [place] Attendant Date: 02/26/2020 03:35:27 Dictated By: SUDHEER TAPIA DO
== END 2020-02-25 11:58 | disposition home or self-care (01) ==
LOC: ENDO 10:09
PROVIDERS: ATTEND Surgery
DX: K29.70 Gastritis, unspecified, without bleeding (principal); K44.9 Diaphragmatic hernia without obstruction or gangrene; K21.0 Gastro-esophageal reflux disease with esophagitis; F17.210 Nicotine dependence, cigarettes, uncomplicated; Z79.899 Other long term (current) drug therapy; Z88.0 Allergy status to penicillin